=== PATIENT | female | born 1980 | race Caucasian/White ===

== ENCOUNTER 2018-02-17 16:04 | Outpatient (CLI) | payer MEDICARE, SELFPAY ==
[2018-02-17 16:48] LABS: Abs Immature Grans 0.01 k/cumm (0.0-0.09); Absolute Lymphocyte Count 1.98 k/cumm (1.2-3.4); Absolute Monocyte Count 0.43 k/cumm (0.11-0.7); Absolute Neutrophil Count 4.22 k/cumm (1.2-6.7); HCT 36.8 % (36.0-46.0); HGB 12.3 g/dL (12.0-15.5); Immature Grans % 0.2; Lymphocytes % 29.8; Mean Corp. HGB Concentration 33.4 g/dL (32.0-36.0); Mean Corpuscular Volume 86.8 fL (80-95); Mean Platelet Volume 10.6 fL (8.0-11.0); Monocytes % 6.5; Neutrophils % 63.5; Platelet Count 267 x1000/uL (130-400); RBC 4.24 m/cumm (4.00-5.20); RBC Distribution Width 14.2 % (11.7-14.6); White Blood Cell Count 6.64 k/cumm (4.4-10.8)
== END 2018-02-17 16:05 ==
PROVIDERS: PCP Nurse Practitioner Family; Visit Provider Nurse Practitioner Psychiatric/Mental Health
DX: F20.9 Schizophrenia, unspecified (principal); Z79.899 Other long term (current) drug therapy
CPT/HCPCS: 36415; 85025

== ENCOUNTER 2018-02-24 18:55 | Emergency (ER) | payer MEDICARE, SELFPAY ==
[2018-02-24] VITALS (33 sets, daily range): BP systolic 118–145; BP diastolic 69–92; PULSE 79–94; RESP 10–28; TEMP 36.4; O2SAT 94–99
--- NOTE | 2018-02-24 19:48 | ED.GENADUL ---
Disposition Clinical Impression: Chest pain Disposition: STILL A PATIENT Medical Decision Making - Medical Decision Making 37-year-old female here with chest pain intermittent over the past 1 week. Consider ACS. ECG reviewed and interpreted by me: Normal sinus rhythm 93 bpm, low voltage in precordial leads, normal axis, nondiagnostic. Concern for potential pulmonary embolism. Patient has had recent pain in her right calf and does have associated shortness of breath. She is saturating well in no respiratory distress at this time. Plan to proceed to CT imaging of the chest to rule out pulmonary embolism or other pulmonary etiology. I reviewed diagnostic plan with the patient and she is in agreement. Appears to be signed out to Dr. Ricks with plan to follow-up on diagnostic labs and CT chest. Distal pending workup and reassessment. History of Present Illness - General Chief complaint: Chest Pain Stated complaint: CHEST PAIN, SOB Time Seen by Provider: 02/24/18 19:26 Source: patient, RN notes reviewed Mode of arrival: ambulatory Limitations: no limitations - History of Present Illness Initial comments: 37-year-old female with history of schizoaffective disorder presents with chief complaint of chest pain. Pain is localized to retrosternal and has radiated to her left arm. Pain feels like an ache. Pain is been intermittent since onset about a week ago. Pain is moderate in intensity. No modifiers. She does have some associated intermittent shortness of breath over the past few weeks. She also notes that she has had some cramps in her right leg specifically after exercising over the past 1 month. No recent long distance travel. No recent surgery. She does take control. She does not smoke. - Related Data Clozapine 150 mg PO DAILY tab-cap 06/26/14 LamoTRIgine [LaMICtal] 100 mg PO HS tab-cap 06/26/14 Lurasidone HCl [Latuda] 140 mg PO DAILY tab-cap 06/26/14 Benztropine Mesylate [Cogentin] 0.5 mg PO DAILY ml 05/30/15 Clobetasol 0.05% Oint. [Temovate 0.05% Oint] 15 gm TP PRN #2 tube 06/30/16 Lactobacillus Acidophilus [Acidophilus] 1 each PO DAILY 06/30/16 Norethindrone [Nor-Q-D] 0.35 mg PO DAILY #1 pack 06/30/16 Dexlansoprazole [Dexilant] 30 mg PO DAILY 02/24/18 Allergies Allergy/AdvReac Type Severity Reaction Status Date / Time pantoprazole [From Protonix] Allergy Mild Nausea Unverified 02/24/18 19:08 Review of Systems Constitutional: denies: chills, fever Respiratory: shortness of breath. 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 Absent: wheezes, rales, rhonchi - Cardiovascular Cardiovascular Exam: Present: regular rate, normal rhythm, normal heart sounds - GI/Abdominal GI/Abdominal exam: Present: soft. Absent: distended, tenderness - Extremities Exam Extremities exam: Absent: pedal edema, calf tenderness - Neurological Exam Neurological exam: Present: alert. Absent: altered - Psychiatric Psychiatric exam: Present: normal affect - Skin Skin exam: Present: warm, dry, intact. Absent: cyanosis, diaphoretic Course Vital Signs - 24 hr 02/24/18 02/24/18 18:59 19:03 Temperature 36.4 C L Pulse 94 H Respiratory 18 18 Rate Blood Pressure 145/86 Pulse Oximetry 97
[2018-02-24 19:51] LABS: Absolute Lymphocyte Count 2.41 k/cumm (1.2-3.4); Absolute Monocyte Count 0.46 k/cumm (0.11-0.7); Absolute Neutrophil Count 4.18 k/cumm (1.2-6.7); HCT 38.2 % (36.0-46.0); HGB 12.7 g/dL (12.0-15.5); Lymphocytes % 34.2; Mean Corp. HGB Concentration 33.2 g/dL (32.0-36.0); Mean Corpuscular Hemoglobin 28.7 pg (27.0-33.0); Mean Corpuscular Volume 86.2 fL (80-95); Mean Platelet Volume 10.3 fL (8.0-11.0); Monocytes % 6.5; Neutrophils % 59.3; Platelet Count 256 x1000/uL (130-400); RBC 4.43 m/cumm (4.00-5.20); White Blood Cell Count 7.05 k/cumm (4.4-10.8)
--- NOTE | 2018-02-24 19:51 | DI.RPTCT_ITS ---
SYMPTOM/DIAGNOSIS: CHEST PAIN CHEST CT FOR PULMONARY EMBOLISM: CT angiography was performed with multi slice acquisition and multi planar and 3D reconstruction. Comparison is made with chest x-ray dated 10 September 2015. There is no evidence of pulmonary emboli. No pleural or pericardial effusions are seen. There is a motion at the level of the heart and base of the great vessels, no evidence of dissection. There are scattered areas of atelectasis. There is a patchy infiltrate seen in the right upper lobe. The lungs are poorly evaluated due to respiratory motion. There is a perfectly oriented smoothly marginated nodule in the right middle lobe measuring 9 x 4 mm. No adenopathy is seen. Liver shows fatty infiltration. No suspicious bony abnormalities are identified. IMPRESSION: No evidence of pulmonary emboli. Right upper lobe infiltrate. 9 mm nodule in the anterior right lower lobe. In absence of previous exams and 3-month follow up chest CT could be considered.
[2018-02-24 20:06] LABS: ALT 39 U/L (12-78); AST 37 U/L (15-37); Albumin 3.5 g/dL (3.4-5.0); Alkaline Phosphatase 103 U/L (46-116); Anion Gap 12.6 mmol/L (3-11); BUN 9 mg/dL (7-18); Bilirubin, Total 0.4 mg/dL (0.2-1.0); CO2 24.4 mmol/L (21.0-32.0); Calcium 8.7 mg/dL (8.5-10.1); Chloride 102 mmol/L (98-107); Estimated GFR 55.59 (mL/min/1.73m2); Glucose 179 mg/dL (70-100); Magnesium 1.9 mg/dL (1.8-2.4); Potassium 3.4 mmol/L (3.5-5.1); Sodium 139 mmol/L (136-145); Total Protein 7.8 g/dL (6.4-8.2)
[2018-02-24 20:07] LABS: Troponin I < 0.02 ng/mL (0.00-0.06)
[2018-02-24] MEDS: Omnipaque 350 MG/ML 100 ML BTL IJ (20:23)
[2018-02-24 20:26] LABS: D-Dimer 399 ng/mlFEU (<500)
--- NOTE | 2018-02-24 21:20 | DI.VRAD_ITS ---
EXAM: CT Angiography Chest With Intravenous Contrast EXAM DATE/TIME: 02/24/2018 7:52 PM CLINICAL HISTORY: 37 years old, female; Pain and signs and symptoms; Shortness of breath; Chest pain; Patient HX: Chest pain and SOB; Additional info: D dimer 399 TECHNIQUE: Axial computed tomographic angiography images of the chest with intravenous contrast using CT angiography protocol. Coronal and sagittal reformatted images were created and reviewed. MIP reconstructed images were created and reviewed. COMPARISON: CR - CHEST 2 VIEWS PA,LAT 2015-09-10 16:44 FINDINGS: Pulmonary arteries: Normal. No pulmonary emboli. Aorta: Normal. No aortic aneurysm. No aortic dissection. Lungs: Apparent developing patchy opacity is noted in the posterior right upper lobe. A 9 x 4 mm nodule is noted in the anterior right middle lobe (series 7, image 275). Scattered areas of atelectasis are present in the dependent lungs bilaterally, worst in the left base. Pleural space: Normal. No pneumothorax. No pleural effusion. Heart: Normal. No cardiomegaly. No pericardial effusion. Bones/joints: Unremarkable. No acute fracture. Soft tissues: Unremarkable. Lymph nodes: Unremarkable. No enlarged lymph nodes. Liver: There is a diffuse decrease in hepatic parenchymal density, consistent with fatty infiltration. Other findings: Exam is limited by quantum mottle and mild respiratory motion artifact. IMPRESSION: 1. No evidence of pulmonary embolism. 2. Developing patchy consolidation in the posterior right upper lobe, possibly representing developing pneumonia. Correlate clinically. 3. 9 x 4 mm solid nodule in the anterior right middle lobe. For low-risk patients consider a follow-up chest CT at 3 months. If unchanged consider an additional follow-up CT at 18-24 months. 4. Diffuse hepatic steatosis. Dictated and Authenticated by: Benjamin Giron MD. Ordering:REINALDO LUCAS MD
--- NOTE | 2018-02-24 22:31 | ED.FU_ITS ---
Disposition Clinical Impression: Chest pain Disposition: HOME Condition: Good Instructions: Chest Pain (ED) Additional Instructions: Your workup tonight suggest that this is not heart related, however, you need to follow-up with primary care to get outpatient stress testing arranged. Your CT scan showed a right lung nodule that will need reevaluation with repeat CT scan in 3 months. There was some suggestion of possible developing pneumonia but since you have no cough, fever, elevated white count, shortness of breath on a persistent basis we will hold off on antibiotics. You should follow-up with primary care if you start to develop pneumonia like symptoms or return to ED. You should return to ED for new or worsening chest pain, increasing shortness of breath, other concerns. Referrals: Barbara Morton [Primary Care Provider] - Medical Decision Making - Lab Data Laboratory Tests 02/24/18 02/24/18 02/24/18 19:42 19:42 19:42 WBC 7.05 RBC 4.43 Hgb 12.7 Hct 38.2 MCV 86.2 MCH 28.7 MCHC 33.2 RDW 14.0 Plt Count 256 MPV 10.3 Immature Gran % 0.0 Neutrophils % 59.3 Lymphocytes % 34.2 Monocytes % 6.5 Eosinophils % 0.0 Basophils % 0.0 Absolute Neutrophils 4.18 Absolute Lymphocytes 2.41 Absolute Monocytes 0.46 Absolute Eosinophils 0.00 Absolute Basophils 0.00 D-Dimer 399 Sodium 139 Potassium 3.4 L Chloride 102 Carbon Dioxide 24.4 Anion Gap 12.6 H BUN 9 Creatinine 1.10 H Estimated GFR/1.73 m2 55.59 Glucose 179 H Calcium 8.7 Magnesium 1.9 Total Bilirubin 0.4 AST 37 ALT 39 Alkaline Phosphatase 103 Troponin I < 0.02 Total Protein 7.8 Albumin 3.5 TSH 02/24/18 19:42 WBC RBC Hgb Hct MCV MCH MCHC RDW Plt Count MPV Immature Gran % Neutrophils % Lymphocytes % Monocytes % Eosinophils % Basophils % Absolute Neutrophils Absolute Lymphocytes Absolute Monocytes Absolute Eosinophils Absolute Basophils D-Dimer Sodium Potassium Chloride Carbon Dioxide Anion Gap BUN Creatinine Estimated GFR/1.73 m2 Glucose Calcium Magnesium Total Bilirubin AST ALT Alkaline Phosphatase Troponin I Total Protein Albumin TSH 3.60 Results reviewed for labs ordered during visit: Yes - EKG Data -: EKG Interpreted by Me EKG shows normal: sinus rhythm, axis, intervals Rate: normal - Medical Decision Making Patient's laboratory studies are unremarkable. Her initial troponin is negative. Her EKG is essentially normal, some slight nonspecific ST changes. I will give her a heart score of 2 based on risk factor and EKG. a repeat EKG and troponin and if negative will clear from a cardiac standpoint for outpatient follow-up. CTA of the chest shows no PE or dissection. She does have a nodule that is 9 x 4 mm in the right middle lobe which will need follow-up. There is some description of an apparent developing patchy opacity in the posterior right upper lobe. However patient denies fever, URI symptoms, cough. Her complaints of chest pain are left-sided and not right-sided. She also has intermittent shortness of breath for months not recent. I am not going to treat for pneumonia at this point. 1 AM - Repeat EKG is unchanged from previous. It is sinus rhythm at a rate of 84. There are no acute ST changes. Second troponin is negative. Patient will be discharged home to follow-up with primary care for outpatient stress testing. She will need repeat CT scan in 3 months to evaluate the nodule. She should watch for signs of pneumonia which include fever, increasing shortness of breath, cough and should see her primary care or return here if symptoms start. Otherwise despite CT scan findings as she is asymptomatic with no fever no white count will hold off on antibiotics. Care Signed Out By:: Dr. Vernon Brumfield - Vital Signs Recent Vitals - 8H: Vital Signs - 8 hr 02/24/18 02/24/18 18:59 19:03 Temperature 97.5 F L Pulse 94 H Respiratory 18 18 Rate Blood Pressure 145/86 Pulse Oximetry 97 - Continuation of Care Continuation of Care Plan: Patient had presented to ED with chest pain and was initially seen by Dr. Vernon Brumfield. Please see his note for initial history and physical. She was signed over to me pending results of CTA of the chest as well as laboratory studies. He felt she required a delta troponin but could probably be discharged. In brief, with my discussion with the patient she has had intermittent left- sided chest discomfort on and off for probably a year. She states it lasts anywhere from 1-5 minutes. It is random in nature. It is not necessarily associated with shortness of breath but she feels that she has had shortness of breath since this winter. She has not had either evaluated by her primary care. She only came in today because she was at a therapy session and mentioned the chest pain and her therapist felt she should be evaluated.
[2018-02-25] VITALS: PULSE 88; RESP 23; O2SAT 94
[2018-02-25 00:18] LABS: Troponin I < 0.02 ng/mL (0.00-0.06)
[2018-02-25 01:32] VITALS: BP 134/75; PULSE 84; RESP 23; O2SAT 94
== END 2018-02-25 01:32 | disposition home or self-care (01) ==
PROVIDERS: Student in an Organized Health Care Education/Training Program; Emergency Provider Emergency Medicine; PCP Nurse Practitioner Family
DX: R07.9 Chest pain, unspecified (principal); R06.02 Shortness of breath; R91.1 Solitary pulmonary nodule
CPT/HCPCS: 71275; 93005; 99285 ×2; 36415; 80053; 81025; 83735; 84443; 84484; 85025; 85379; 93010; J3490

== ENCOUNTER 2018-03-03 08:20 | Outpatient (REF) | payer MEDICARE, SELFPAY ==
[2018-03-03 12:30] LABS: Cholesterol 151 mg/dL (50-200); HDL Cholesterol 33 mg/dL (40-60); LDL CHOLESTEROL 90 mg/dL (<100); Triglyceride 269 mg/dL (30-150)
== END 2018-03-03 08:21 ==
LOC: NCHCN 08:20
PROVIDERS: PCP Nurse Practitioner Family; Visit Provider Nurse Practitioner Family
DX: K76.0 Fatty (change of) liver, not elsewhere classified (principal); R73.09 Other abnormal glucose; F25.9 Schizoaffective disorder, unspecified
CPT/HCPCS: 80061; 83721

== ENCOUNTER 2018-03-17 13:13 | Outpatient (CLI) | payer MEDICARE, SELFPAY ==
[2018-03-17 13:33] LABS: Abs Immature Grans 0.01 k/cumm (0.0-0.09); Absolute Neutrophil Count 4.29 k/cumm (1.2-6.7); HGB 12.5 g/dL (12.0-15.5); Immature Grans % 0.2; Lymphocytes % 25.4; Mean Corp. HGB Concentration 32.9 g/dL (32.0-36.0); Mean Corpuscular Hemoglobin 28.3 pg (27.0-33.0); Mean Platelet Volume 10.2 fL (8.0-11.0); Monocytes % 6.3; Neutrophils % 68.1; Platelet Count 230 x1000/uL (130-400); RBC 4.42 m/cumm (4.00-5.20); RBC Distribution Width 13.9 % (11.7-14.6)
== END 2018-03-17 13:33 ==
PROVIDERS: PCP Nurse Practitioner Family; Visit Provider Nurse Practitioner Psychiatric/Mental Health
DX: F20.9 Schizophrenia, unspecified (principal); Z79.899 Other long term (current) drug therapy
CPT/HCPCS: 36415; 85025

== ENCOUNTER 2018-04-14 14:49 | Outpatient (CLI) | payer MEDICARE, SELFPAY ==
[2018-04-14 15:36] LABS: Abs Immature Grans 0.01 k/cumm (0.0-0.09); Absolute Lymphocyte Count 1.82 k/cumm (1.2-3.4); Absolute Monocyte Count 0.36 k/cumm (0.11-0.7); Absolute Neutrophil Count 3.29 k/cumm (1.2-6.7); HCT 37.3 % (36.0-46.0); HGB 12.5 g/dL (12.0-15.5); Immature Grans % 0.2; Lymphocytes % 33.2; Mean Corp. HGB Concentration 33.5 g/dL (32.0-36.0); Mean Corpuscular Hemoglobin 28.5 pg (27.0-33.0); Mean Platelet Volume 10.7 fL (8.0-11.0); Monocytes % 6.6; Platelet Count 231 x1000/uL (130-400); RBC 4.39 m/cumm (4.00-5.20); RBC Distribution Width 14.3 % (11.7-14.6); White Blood Cell Count 5.48 k/cumm (4.4-10.8)
== END 2018-04-14 15:09 ==
PROVIDERS: PCP Nurse Practitioner Family; Visit Provider Nurse Practitioner Psychiatric/Mental Health
DX: F20.9 Schizophrenia, unspecified (principal); Z79.899 Other long term (current) drug therapy
CPT/HCPCS: 36415; 85025

== ENCOUNTER 2018-05-17 10:19 | Outpatient (CLI) | payer MEDICARE, SELFPAY ==
[2018-05-17 10:58] LABS: Absolute Monocyte Count 0.33 k/cumm (0.11-0.7); Absolute Neutrophil Count 3.19 k/cumm (1.2-6.7); HCT 37.2 % (36.0-46.0); HGB 12.3 g/dL (12.0-15.5); Lymphocytes % 31.3; Mean Corp. HGB Concentration 33.1 g/dL (32.0-36.0); Mean Corpuscular Hemoglobin 28.7 pg (27.0-33.0); Mean Corpuscular Volume 86.9 fL (80-95); Mean Platelet Volume 10.6 fL (8.0-11.0); Monocytes % 6.4; Neutrophils % 62.3; Platelet Count 218 x1000/uL (130-400); RBC 4.28 m/cumm (4.00-5.20); RBC Distribution Width 14.5 % (11.7-14.6); White Blood Cell Count 5.12 k/cumm (4.4-10.8)
[2018-05-17 13:44] LABS: Hemoglobin A1C 5.9 % (4.5-6.2)
[2018-05-17 15:28] LABS: ALT 39 U/L (12-78); AST 33 U/L (15-37); Albumin 3.4 g/dL (3.4-5.0); Alkaline Phosphatase 83 U/L (46-116); Anion Gap 11.2 mmol/L (3-11); BUN 12 mg/dL (7-18); Bilirubin, Total 0.4 mg/dL (0.2-1.0); CO2 22.8 mmol/L (21.0-32.0); CREATININE 1.02 mg/dL (0.55-1.02); Calcium 8.6 mg/dL (8.5-10.1); Chloride 103 mmol/L (98-107); Cholesterol 155 mg/dL (50-200); Glucose 171 mg/dL (70-100); HDL Cholesterol 32 mg/dL (40-60); LDL CHOLESTEROL 88 mg/dL (<100); Potassium 4.1 mmol/L (3.5-5.1); Sodium 137 mmol/L (136-145); TSH (W/Ref FT4) 2.59 uIU/mL (0.358-3.74); Total Protein 6.6 g/dL (6.4-8.2); Triglyceride 281 mg/dL (30-150)
== END 2018-05-17 10:39 ==
PROVIDERS: PCP Nurse Practitioner Family; Visit Provider Nurse Practitioner Psychiatric/Mental Health
DX: F20.9 Schizophrenia, unspecified (principal); Z79.899 Other long term (current) drug therapy
CPT/HCPCS: 36415; 80053; 80061; 83721; 83036; 84443; 85025

== ENCOUNTER 2018-06-16 14:22 | Outpatient (CLI) | payer MEDICARE, SELFPAY ==
[2018-06-16 15:18] LABS: Abs Immature Grans 0.01 k/cumm (0.0-0.09); Absolute Monocyte Count 0.46 k/cumm (0.11-0.7); Absolute Neutrophil Count 4.06 k/cumm (1.2-6.7); HCT 37.8 % (36.0-46.0); HGB 12.5 g/dL (12.0-15.5); Immature Grans % 0.2; Lymphocytes % 31.7; Mean Corp. HGB Concentration 33.1 g/dL (32.0-36.0); Mean Corpuscular Hemoglobin 28.9 pg (27.0-33.0); Mean Corpuscular Volume 87.5 fL (80-95); Mean Platelet Volume 10.7 fL (8.0-11.0); Monocytes % 6.9; Neutrophils % 61.2; Platelet Count 248 x1000/uL (130-400); RBC 4.32 m/cumm (4.00-5.20); RBC Distribution Width 14.3 % (11.7-14.6); White Blood Cell Count 6.63 k/cumm (4.4-10.8)
== END 2018-06-16 14:42 ==
PROVIDERS: PCP Nurse Practitioner Family; Visit Provider Nurse Practitioner Psychiatric/Mental Health
DX: F20.9 Schizophrenia, unspecified (principal); Z79.899 Other long term (current) drug therapy
CPT/HCPCS: 36415; 85025

== ENCOUNTER 2018-07-15 07:00 | Outpatient (CLI) | payer MEDICARE, SELFPAY ==
[2018-07-15 09:31] LABS: Abs Immature Grans 0.02 k/cumm (0.0-0.09); Absolute Basophil Count 0.01 k/cumm (0.0-0.2); Absolute Lymphocyte Count 1.73 k/cumm (1.2-3.4); Absolute Monocyte Count 0.34 k/cumm (0.11-0.7); Absolute Neutrophil Count 5.03 k/cumm (1.2-6.7); Basophils % 0.1; HCT 38.2 % (36.0-46.0); HGB 12.5 g/dL (12.0-15.5); Immature Grans % 0.3; Lymphocytes % 24.3; Mean Corp. HGB Concentration 32.7 g/dL (32.0-36.0); Mean Corpuscular Hemoglobin 28.7 pg (27.0-33.0); Mean Corpuscular Volume 87.6 fL (80-95); Mean Platelet Volume 10.7 fL (8.0-11.0); Monocytes % 4.8; Neutrophils % 70.5; Platelet Count 246 x1000/uL (130-400); RBC 4.36 m/cumm (4.00-5.20); White Blood Cell Count 7.13 k/cumm (4.4-10.8)
== END 2018-07-15 07:20 ==
PROVIDERS: PCP Nurse Practitioner Family; Visit Provider Nurse Practitioner Psychiatric/Mental Health
DX: F20.9 Schizophrenia, unspecified (principal); Z79.899 Other long term (current) drug therapy
CPT/HCPCS: 36415; 85025

== ENCOUNTER 2018-08-17 13:25 | Outpatient (CLI) | payer MEDICARE, SELFPAY ==
[2018-08-17 13:47] LABS: Abs Immature Grans 0.02 k/cumm (0.0-0.09); Absolute Lymphocyte Count 1.68 k/cumm (1.2-3.4); Absolute Neutrophil Count 4.46 k/cumm (1.2-6.7); HCT 37.8 % (36.0-46.0); HGB 12.4 g/dL (12.0-15.5); Immature Grans % 0.3; Lymphocytes % 25.6; Mean Corp. HGB Concentration 32.8 g/dL (32.0-36.0); Mean Corpuscular Hemoglobin 28.6 pg (27.0-33.0); Mean Corpuscular Volume 87.3 fL (80-95); Mean Platelet Volume 10.5 fL (8.0-11.0); Monocytes % 6.1; Platelet Count 227 x1000/uL (130-400); RBC 4.33 m/cumm (4.00-5.20); RBC Distribution Width 14.3 % (11.7-14.6); White Blood Cell Count 6.56 k/cumm (4.4-10.8)
== END 2018-08-17 13:45 ==
PROVIDERS: PCP Nurse Practitioner Family; Visit Provider Nurse Practitioner Psychiatric/Mental Health
DX: F20.9 Schizophrenia, unspecified (principal); Z79.899 Other long term (current) drug therapy
CPT/HCPCS: 85025

== ENCOUNTER 2018-09-15 11:01 | Outpatient (CLI) | payer MEDICARE, SELFPAY ==
[2018-09-15 11:30] LABS: Abs Immature Grans 0.01 k/cumm (0.0-0.09); Absolute Lymphocyte Count 1.69 k/cumm (1.2-3.4); Absolute Monocyte Count 0.51 k/cumm (0.11-0.7); Absolute Neutrophil Count 4.38 k/cumm (1.2-6.7); HCT 37.2 % (36.0-46.0); HGB 12.5 g/dL (12.0-15.5); Immature Grans % 0.2; Lymphocytes % 25.6; Mean Corp. HGB Concentration 33.6 g/dL (32.0-36.0); Mean Corpuscular Hemoglobin 29.5 pg (27.0-33.0); Mean Corpuscular Volume 87.7 fL (80-95); Mean Platelet Volume 10.4 fL (8.0-11.0); Monocytes % 7.7; Neutrophils % 66.5; Platelet Count 229 x1000/uL (130-400); RBC 4.24 m/cumm (4.00-5.20); RBC Distribution Width 14.3 % (11.7-14.6); White Blood Cell Count 6.59 k/cumm (4.4-10.8)
== END 2018-09-15 11:21 ==
PROVIDERS: PCP Nurse Practitioner Family; Visit Provider Nurse Practitioner Psychiatric/Mental Health
DX: F20.9 Schizophrenia, unspecified (principal); Z79.899 Other long term (current) drug therapy
CPT/HCPCS: 36415; 85025

== ENCOUNTER → 2018-09-28 01:16 | Outpatient (CLI) | payer MEDICARE, SELFPAY ==
--- NOTE | 2018-09-28 15:07 | DI.CT_ITS ---
SYMPTOM/DIAGNOSIS: SOLITARY NODULE LUNG, R91.[address]: A noncontrast enhanced examination was performed. There is no pulmonary infiltrate or pleural effusion. Small regions of scarring are noted in the left lower lobe. There is a pleural based, 8 by 5 mm. nodule in the right upper lobe. There is on this noncontrast enhanced examination no evidence of a hilar mass or adenopathy. The heart is not enlarged. There is no pericardial effusion. SUMMARY: An 8 by 5 mm. right upper lobe pleural based nodule is demonstrated. There are small regions of apparent scarring involving the left lower lobe. There has been no change in the size of the right upper lobe pleural based nodule when compared with a prior examination of 02/24/18.
== END ==
PROVIDERS: PCP Nurse Practitioner Family; Visit Provider Nurse Practitioner Family
DX: R91.1 Solitary pulmonary nodule (principal); J98.4 Other disorders of lung
CPT/HCPCS: 71250

== ENCOUNTER 2018-10-17 11:20 | Outpatient (CLI) | payer MEDICARE, SELFPAY ==
[2018-10-17 12:18] LABS: Abs Immature Grans 0.02 k/cumm (0.0-0.09); Absolute Lymphocyte Count 1.47 k/cumm (1.2-3.4); Absolute Neutrophil Count 4.72 k/cumm (1.2-6.7); HCT 37.9 % (36.0-46.0); HGB 12.5 g/dL (12.0-15.5); Immature Grans % 0.3; Lymphocytes % 22.2; Mean Corpuscular Hemoglobin 28.9 pg (27.0-33.0); Mean Corpuscular Volume 87.5 fL (80-95); Monocytes % 6.1; Neutrophils % 71.4; Platelet Count 234 x1000/uL (130-400); RBC 4.33 m/cumm (4.00-5.20); RBC Distribution Width 14.1 % (11.7-14.6); White Blood Cell Count 6.61 k/cumm (4.4-10.8)
[2018-10-17 12:46] LABS: Hemoglobin A1C 6.5 % (4.5-6.2)
[2018-10-19 09:44] LABS: Clozapine 337 ng/mL (>350); Clozapine+Norclozapine Total 541 ng/mL (>450); Norclozapine 204 ng/mL
== END 2018-10-17 11:40 ==
PROVIDERS: PCP Nurse Practitioner Family; Visit Provider Nurse Practitioner Psychiatric/Mental Health
DX: F20.9 Schizophrenia, unspecified (principal); Z79.899 Other long term (current) drug therapy; Z51.81 Encounter for therapeutic drug level monitoring
CPT/HCPCS: 36415; 80159; 83036; 85025

== ENCOUNTER 2018-11-15 12:13 | Outpatient (CLI) | payer MEDICARE, SELFPAY ==
[2018-11-15 12:44] LABS: Abs Immature Grans 0.01 k/cumm (0.0-0.09); Absolute Lymphocyte Count 1.94 k/cumm (1.2-3.4); Absolute Neutrophil Count 4.24 k/cumm (1.2-6.7); HCT 39.3 % (36.0-46.0); Immature Grans % 0.2; Lymphocytes % 29.4; Mean Corp. HGB Concentration 33.1 g/dL (32.0-36.0); Mean Corpuscular Hemoglobin 28.9 pg (27.0-33.0); Mean Corpuscular Volume 87.3 fL (80-95); Mean Platelet Volume 10.8 fL (8.0-11.0); Monocytes % 6.1; Neutrophils % 64.3; Platelet Count 252 x1000/uL (130-400); RBC Distribution Width 14.1 % (11.7-14.6); White Blood Cell Count 6.59 k/cumm (4.4-10.8)
== END 2018-11-15 12:33 ==
PROVIDERS: PCP Nurse Practitioner Family; Visit Provider Nurse Practitioner Psychiatric/Mental Health
DX: F50.9 Eating disorder, unspecified (principal); Z79.899 Other long term (current) drug therapy
CPT/HCPCS: 36415; 85025

== ENCOUNTER 2018-12-13 16:00 | Outpatient (REF) | payer MEDICARE, SELFPAY ==
[2018-12-13 21:21] LABS: COMMENT (LAB VIEW ONLY) < 13.00 mg/dL
== END 2018-12-13 16:20 ==
LOC: NCHCN 16:00
PROVIDERS: PCP Nurse Practitioner Family; Visit Provider Nurse Practitioner Family
DX: E11.9 Type 2 diabetes mellitus without complications (principal)
CPT/HCPCS: 82043; 82570

== ENCOUNTER 2018-12-23 09:51 | Outpatient (CLI) | payer MEDICARE, SELFPAY ==
[2018-12-23 12:44] LABS: Abs Immature Grans 0.01 k/cumm (0.0-0.09); Absolute Lymphocyte Count 1.56 k/cumm (1.2-3.4); Absolute Monocyte Count 0.42 k/cumm (0.11-0.7); HCT 39.8 % (36.0-46.0); HGB 13.1 g/dL (12.0-15.5); Immature Grans % 0.2; Lymphocytes % 29.5; Mean Corp. HGB Concentration 32.9 g/dL (32.0-36.0); Mean Corpuscular Hemoglobin 28.7 pg (27.0-33.0); Mean Corpuscular Volume 87.3 fL (80-95); Mean Platelet Volume 10.8 fL (8.0-11.0); Monocytes % 7.9; Neutrophils % 62.4; Platelet Count 240 x1000/uL (130-400); RBC 4.56 m/cumm (4.00-5.20); RBC Distribution Width 14.4 % (11.7-14.6); White Blood Cell Count 5.29 k/cumm (4.4-10.8)
== END 2018-12-23 10:11 ==
PROVIDERS: PCP Nurse Practitioner Family; Visit Provider Nurse Practitioner Family
DX: F20.9 Schizophrenia, unspecified (principal); Z79.899 Other long term (current) drug therapy
CPT/HCPCS: 36415; 85025

== ENCOUNTER 2018-12-30 03:41 | Outpatient (CLI) | payer MEDICARE, SELFPAY ==
--- NOTE | 2018-12-30 11:00 | DIABASSESS_ITS ---
DESCRIPTION/ASSESSMENT: Nati Marcos presents for diabetes self management support focused on nutrition. Newly diagnosed with A1c 6.5. BMI 49 NUTRITION: co-morbidity of Irritable Bowel Syndrome with diarrhea 2-3x/day. Currently following BRAT diet except for the toast. She has stopped dairy foods. She has been going to OA 1 month and is staying away from processed foods, frozen pizza, bread and pasta. 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 She snacks on rice cake with peanut butter and banana; turkey ham slices. She reports binge foods include grains and nuts.She snacks on fruit. She states she has to eat at 10 and 4. PHYSICAL ACTIVITY: sitting yoga; treadmill 10 minutes when she does it. STRESS: Nati states she has medication for depression with ongoing support. INTERVENTION: NUTRITION: Discussed food associated with diarrhea and she agrees leafy greens may trigger symptoms. Discussed hunger/fullness in relation to when and how much she eats. MONITORING: Given her low A1c, discussed benefits of monitoring. Suggest she focus on managing her food at this time and will consider blood sugar monitoring at a later time. Random blood sugar today 149. PHYSICAL ACTIVITY: Discussed ways to assure physical activity most days. PLAN: Nati agrees to: track food and symptoms for a week. Stop leafy greens try having snack before using treadmill; eat breakfast closer to 10 when most hungry She wishes to return in 2 weeks. Individual MNT __3__ units billed TIME IN: 1100 OUT: 1150 No DM group education series being offered at this time.
== END 2018-12-30 04:01 ==
PROVIDERS: PCP Nurse Practitioner Family; Visit Provider Dietitian, Registered
DX: E11.9 Type 2 diabetes mellitus without complications (principal); K58.9 Irritable bowel syndrome, unspecified; Z68.42 Body mass index [BMI] 45.0-49.9, adult; Z71.3 Dietary counseling and surveillance
CPT/HCPCS: 97802

== ENCOUNTER 2019-01-11 00:58 | Outpatient (CLI) | payer MEDICARE, SELFPAY ==
--- NOTE | 2019-01-11 09:00 | DIABASSESS_ITS ---
Follow up visit for Nati Marcos who is working to lose weight as a way to manage diabetes. Weight today 300.6 down 4 pounds in 2 weeks. Nati was able to decrease the sugar and carbohydrate foods at breakfast. She is recording her food, symptoms and hunger/fullness for 2.5 days. She monitors her blood sugars testing her breakfast for 2 days. She sees egg and vegetables give lower blood sugar than rice cake, raisins and apple. She has discontinued greens and finds she has fewer loose stools. She also notes after supper she is full to uncomfortable. She notes her neuropathy is worse if she eats sugar. She has increased her physical activity with yoga warm up, cahir exercises and treadmill. She was able to exercise before eating her breakfast. 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 Fasting blood sugars 111=142; random blood sugars 121-180. INTERVENTION: Discussed options for sustaining her current food regimen. She has an OA sponsor which he finds helpful and will continue to commit her food plan to her/him. She asks questions about food quality and quantity. Discuss strategies to keep vegetables part of her food plan. Discussed mindful eating with awareness for how fast she eats. Discussed physical activity and she feels she sometimes overdoes and doesn't feel well. Discussed splitting exercise into AM and PM routines and she agrees. PLAN: Nati wishes to work on how fast she eats a meal; increase her water intake; pay attention to her hunger/fulness. She wishes to return and will call for an appointment. Individual MN/T __2__ units billed TIME IN: 900 OUT: 0940 No DM group education series being offered at this time.
== END 2019-01-11 01:18 ==
PROVIDERS: PCP Nurse Practitioner Family; Visit Provider Dietitian, Registered
DX: E11.9 Type 2 diabetes mellitus without complications (principal); Z71.3 Dietary counseling and surveillance
CPT/HCPCS: 97802

== ENCOUNTER 2019-01-20 11:42 | Outpatient (CLI) | payer MEDICARE, SELFPAY ==
[2019-01-20 12:10] LABS: Abs Immature Grans 0.02 k/cumm (0.0-0.09); Absolute Lymphocyte Count 1.74 k/cumm (1.2-3.4); Absolute Monocyte Count 0.42 k/cumm (0.11-0.7); Absolute Neutrophil Count 4.67 k/cumm (1.2-6.7); HCT 39.5 % (36.0-46.0); Immature Grans % 0.3; Lymphocytes % 25.4; Mean Corp. HGB Concentration 32.9 g/dL (32.0-36.0); Mean Corpuscular Hemoglobin 28.8 pg (27.0-33.0); Mean Corpuscular Volume 87.4 fL (80-95); Mean Platelet Volume 10.9 fL (8.0-11.0); Monocytes % 6.1; Neutrophils % 68.2; Platelet Count 241 x1000/uL (130-400); RBC 4.52 m/cumm (4.00-5.20); RBC Distribution Width 14.5 % (11.7-14.6); White Blood Cell Count 6.85 k/cumm (4.4-10.8)
== END 2019-01-20 12:02 ==
LOC: NCHCO 11:43 → LBO 11:44
PROVIDERS: PCP Nurse Practitioner Family; Visit Provider Nurse Practitioner Family
DX: F20.9 Schizophrenia, unspecified (principal); Z79.899 Other long term (current) drug therapy
CPT/HCPCS: 36415; 85025

== ENCOUNTER 2019-01-24 16:37 | Emergency (ER) | payer MEDICARE, SELFPAY ==
[2019-01-24 16:45] VITALS: BP 133/109; PULSE 67; RESP 16; TEMP 36.4; O2SAT 95
--- NOTE | 2019-01-24 16:50 | DI.RAD_ITS ---
SYMPTOM/DIAGNOSIS: CRUSH INJURY RIGHT INDEX FINGER: There is a mild displaced transverse fracture of the tuft of the index finger. Associated soft tissue swelling is noted.
[2019-01-24] MEDS: Ibuprofen 800 MG TAB PO (17:03)
--- NOTE | 2019-01-24 17:38 | DI.VRAD_ITS ---
EXAM: XR Right Finger(s) EXAM DATE/TIME: 01/24/2019 4:51 PM CLINICAL HISTORY: 38 years old, female; Other: Crush injury distal phalynx tip TECHNIQUE: Imaging protocol: XR Right fingers. Views: Minimum 2 views. COMPARISON: No relevant prior studies available. FINDINGS: Bones/joints: Fracture in the tuft of the second digit. Overlying soft tissue injury. Soft tissues: See Bones/joints Finding. IMPRESSION: Fracture in the tuft of the second digit. Overlying soft tissue injury. Dictated and Authenticated by: Betty Og MD. Ordering:AKI Hung MD
--- NOTE | 2019-01-24 17:55 | W.ED.GENAD ---
Discharge Plan Disposition Patient Disposition: HOME Condition: Good Discharge Details Chief Complaint: Orthopedic Clinical Impression: Avulsion of nail, Open fracture of tuft of distal phalanx of finger Primary Care Provider: Barbara Morton ED Provider: Abhilash Hogan Home Meds and New Rx's Prescriptions: New cephalexin [Keflex] 500 mg capsule 500 mg PO QID 7 Days Qty: 28 RF: 0 No Action clozapine 100 MG tablet 150 mg PO DAILY RF: 0 lamotrigine [Lamictal] 100 MG tablet 100 mg PO HS RF: 0 lurasidone [Latuda] 120 MG tablet 140 mg PO DAILY RF: 0 benztropine [Cogentin] 2 MG/2 ML solution 0.5 mg PO DAILY RF: 0 Lactobacillus acidophilus 1 EACH capsule 1 ea PO DAILY RF: 0 norethindrone (contraceptive) [Nor-Q-D] 0.35 MG tablet 0.35 mg PO DAILY Qty: 1 RF: 12 clobetasol 15 GM ointment 15 gm Topical PRN Qty: 2 RF: 1 dexlansoprazole [Dexilant] 30 MG capsule,biphase delayed releas 30 mg PO DAILY RF: 0 Discharge Instructions Instructions: Finger Fracture (ED) Additional Instructions: The tip of your finger is fractured. Because of this please take the antibiotic, 4 times per day. Please use 1000 mg of Tylenol and 600 mg of ibuprofen every 6 hours as needed for pain. Please follow-up promptly with your primary care provider for reassessment. If you notice any drainage, discharge, redness spreading up your finger, worsening pain please return immediately. Please take a probiotic or yogurt with live culture while on the antibiotic. If you notice any worsening of your symptoms, or any new symptoms such as vomiting, diarrhea, fever, chills, shortness of breath, chest pain, numbness, weakness, or fainting , please return immediately to the emergency department for reevaluation. Please follow up with your primary care provider as soon as possible for reassessment and reevaluation. As always, it was a pleasure participating in your medical care today. Referrals: Barbara Morton [Primary Care Provider] - Discharge Data Discharge Date/Time-TO BE ENTERED AT DEPARTURE: 01/24/19 18:30 Medical Decision Making This is a 38-year-old female who presents today for evaluation of nail injury to the distal tip of the right index finger with partial nail avulsion. She slammed it in a car door. Tetanus was updated in 2012. X-ray was performed and demonstrates evidence of fracture on the distal tip. Utilizing a horizontal mattress technique the nail was drawn back into and reapproximated into the nail fold. A second simple interrupted suture was applied to t medial aspect of the finger for wound edge reapproximation. Patient tolerated all this well. Secondary to the evidence of fracture she will be given Keflex for home use for infection. We will schedule orthopedic follow-up. We discussed red flags which to return. Patient was placed in a splint. I have extensively reviewed the treatment plan and discharge instructions with the patient and their family. I have addressed all patient concerns at this time. The patient and family was made aware of what symptoms to monitor for that would warrant a return to the emergency department. Discussed the plan with the patient and family, they demonstrate verbal understanding and agreement with our assessment and plan at this time. Digital block was performed with a 50-50 mixture of lidocaine and bupivacaine. The finger was then irrigated with copious amounts of normal saline. Right index finger nail avulsion and distal tuft fracture with one 4-0 Vicryl suture via a horizontal mattress technique was used to reapproximate the nail. And one 5-0 chromic gut suture in a simple interrupted fashion on the medial aspect. FINDINGS: Bones/joints: Fracture in the tuft of the second digit. Overlying soft tissue injury. Soft tissues: See Bones/joints Finding. IMPRESSION: Fracture in the tuft of the second digit. Overlying soft tissue injury. Thank you for allowing us to participate in the care of your patient. Dictated and Authenticated by: Betty Og MD 01/24/2019 5:37 PM Eastern Time ([place] & [place]) HPI General Date/Time Provider Initiated Documentation: 01/24/19 16:45. HPI Narrative: This is a pleasant 38-year-old female who is [id number] who presents today after crushing her fingertip of the index finger in a car door. Patient states that 30 minutes prior to arrival she slammed her finger the car door and has had notable pain since then. She has notable trauma to the nail itself. Active bleeding is present. Notable pain, worse with movement. She denies any other significant complaints. Tetanus is updated in 2012. No other modifying factors, no other sites of trauma. Related Data Home Medications Medication Instructions Recorded Confirmed clozapine 150 mg PO DAILY tab-cap 06/26/14 02/24/18 lamotrigine [Lamictal] 100 mg PO HS tab-cap 06/26/14 02/24/18 lurasidone [Latuda] 140 mg PO DAILY tab-cap 06/26/14 02/24/18 benztropine [Cogentin] 0.5 mg PO DAILY ml 05/30/15 02/24/18 Lactobacillus acidophilus 1 ea PO DAILY 06/30/16 02/24/18 clobetasol 15 gm TOPICAL PRN #2 tube 06/30/16 norethindrone (contraceptive) 0.35 mg PO DAILY #1 pack 06/30/16 [Nor-Q-D] dexlansoprazole [Dexilant] 30 mg PO DAILY 02/24/18 02/24/18 cephalexin [Keflex] 500 mg PO QID 7 Days #28 cap 01/24/19 Previous Rx's Medication Instructions Recorded cephalexin [Keflex] 500 mg PO QID 7 Days #28 cap 01/24/19 Allergies Allergy/AdvReac Type Severity Reaction Status Date / Time pantoprazole [From Protonix] Allergy Mild Nausea Unverified 01/24/19 16:48 General Stated Complaint: Orthopedic GINNY: 4 Review of Systems Review of Systems All systems reviewed & are unremarkable except as noted in HPI and below PFSH Family History Mother Cancer Father Diabetes Social History Smoking/Tobacco Use Status: Former Tobacco Use Drug use: Never Do you feel safe at home: Yes Do you feel safe in your relationship?: Yes Exam Narrative Exam Narrative: 1.Const: Well-nourished, Well-developed, appearing stated age 2.Eyes: PERRL, no conjunctival injection, and symmetrical lids. 3.ENT: Atraumatic external nose and ears. Moist MM. Neck: Symmetric, trachea midline, No thyromegaly. 4.CVS: +S1/S2, No murmurs or gallops. Peripheral pulses 2+ and equal in all extremities. Brisk capillary refill in all extremities. 5.RESP: Unlabored respiratory effort. Clear to auscultation bilaterally. No wheezes rales or rhonchi 6.GI: Soft, Nontender/Nondistended, No hepatosplenomegaly. No guarding or rebound. 7.MSK: Normocephalic,No cyanosis or clubbing, Normal movement of all extremities. Normal flexion extension of the index finger, although slightly reduced secondary to pain. There is notable deformity to the nail itself with notable avulsion at the proximal component. Capillary refill is brisk. Sensation is reduced but intact on the distal tip. Difficult to evaluate for two-point discrimination secondary to pain. 8.Skin: Warm, Dry. No rashes or lesions. 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 Sensation grossly intact, no focal neurologic deficits. 10.Psych: (AAO) x3. Appropriate mood and affect Course Vital Signs Temperature 36.4 C L 01/24/19 16:45 Pulse 67 01/24/19 16:45 Respiratory Rate 16 01/24/19 16:45 Blood Pressure 133/109 H 01/24/19 16:45 Pulse Oximetry 95 01/24/19 16:45 Temperature 36.4 C L 01/24/19 16:45 Temperature Source Temporal Artery Scan 01/24/19 16:45 Pulse 67 01/24/19 16:45 Respiratory Rate 16 01/24/19 16:45 Respiratory Effort Non-Labored 01/24/19 16:46 Blood Pressure 133/109 H 01/24/19 16:45 Blood Pressure Position Sitting 01/24/19 16:45 Pulse Oximetry 95 01/24/19 16:45 Oxygen Delivery Method Room Air 01/24/19 16:45 Oxygen Flow Rate 0 01/24/19 16:45 Pain Level 5 01/24/19 16:45
[2019-01-24] MEDS: Cephalexin 500 MG CAP (18:16)
== END 2019-01-24 18:30 | disposition home or self-care (01) ==
PROVIDERS: Emergency Provider Student in an Organized Health Care Education/Training Program; PCP Nurse Practitioner Family
DX: S67.190A Crushing injury of right index finger, initial encounter (principal); S62.630B Displaced fracture of distal phalanx of right index finger, initial encounter for open fracture; W23.0XXA Caught, crushed, jammed, or pinched between moving objects, initial encounter
CPT/HCPCS: 12001; 99283; 73140; 99282

== ENCOUNTER 2019-02-02 10:14 | Outpatient (CLI) | payer MEDICARE, SELFPAY ==
--- NOTE | 2019-02-02 10:08 | DI.RAD_ITS ---
SYMPTOM/DIAGNOSIS: F/U RIGHT INDEX FINGER: Comparison is made with 24 January 2019. There has been no change in alignment of the tuft fracture and shows some healing when compared with the previous exam.
== END 2019-02-02 10:34 ==
PROVIDERS: PCP Nurse Practitioner Family; Referring Provider Nurse Practitioner Family; Visit Provider Orthopaedic Surgery
DX: S62.630A Displaced fracture of distal phalanx of right index finger, initial encounter for closed fracture (principal); W23.0XXA Caught, crushed, jammed, or pinched between moving objects, initial encounter
CPT/HCPCS: 99201; 99213; 73140

== ENCOUNTER → 2019-02-21 08:52 | Outpatient (BNVA) | payer MEDICARE, SELFPAY | PROVIDERS: PCP Nurse Practitioner Family; Referring Provider Nurse Practitioner Family; Visit Provider Orthopaedic Surgery | DX: S62.630D Displaced fracture of distal phalanx of right index finger, subsequent encounter for fracture with routine healing (principal); X58.XXXD Exposure to other specified factors, subsequent encounter | CPT/HCPCS: 99213 ==

== ENCOUNTER 2019-02-22 12:37 | Outpatient (CLI) | payer MEDICARE, SELFPAY ==
[2019-02-22 13:37] LABS: Abs Immature Grans 0.02 k/cumm (0.0-0.09); Absolute Lymphocyte Count 1.75 k/cumm (1.2-3.4); Absolute Monocyte Count 0.39 k/cumm (0.11-0.7); Absolute Neutrophil Count 4.69 k/cumm (1.2-6.7); HCT 39.1 % (36.0-46.0); HGB 12.9 g/dL (12.0-15.5); Immature Grans % 0.3; Lymphocytes % 25.5; Mean Corpuscular Hemoglobin 28.9 pg (27.0-33.0); Mean Corpuscular Volume 87.5 fL (80-95); Mean Platelet Volume 10.8 fL (8.0-11.0); Monocytes % 5.7; Neutrophils % 68.5; Platelet Count 260 x1000/uL (130-400); RBC 4.47 m/cumm (4.00-5.20); RBC Distribution Width 14.2 % (11.7-14.6); White Blood Cell Count 6.85 k/cumm (4.4-10.8)
== END 2019-02-22 12:57 ==
PROVIDERS: PCP Nurse Practitioner Family; Visit Provider Nurse Practitioner Family
DX: Z79.899 Other long term (current) drug therapy (principal); F20.9 Schizophrenia, unspecified
CPT/HCPCS: 36415; 85025

== ENCOUNTER 2019-03-08 02:00 | Outpatient (CLI) | payer MEDICARE, SELFPAY ==
--- NOTE | 2019-03-08 09:00 | DIABASSESS_ITS ---
DESCRIPTION/ASSESSMENT: Merlene requests a follow up for weight management in diabetes. SHe continues to participate in OA with her sponsor and finds this helpful. She is exploring different dietary practices i.e. vegetarian diet and wonders how to get enough protein if she eats vegetarian. State she has just started eating roasted vegetables, has given up sugar in her coffe, and has had no ice cream and olnly an occasional candy bar. She continues to watch her sodium intake and uses powdered herbs. She states her improved diet has helped her irritable bowel. Weight today: 292.9 She states her fasting blood sugars are good ~ 110-120s. She is doing sitting stretches 2-3 times a week for 20 minutes. INTERVENTION: DSME is provided in the following AADE 7 areas based on patients interest and assessment of needs: Discussed vegetarian food plan, pros and cons and will send her websites for recipes. SHe will also look at [email or web address] for recipes and support. Discussed monitoring blood sugars for meaning. ACTION PLAN: She will continue current plan for weight loss; try some vegetarian recipes monitor her blood sugars occasionally at supper or bedtime Individual MNT __2__ units billed TIME IN: 800 OUT: 840 No DM group education series being offered at this time.
== END 2019-03-08 02:20 ==
PROVIDERS: PCP Nurse Practitioner Family; Visit Provider Dietitian, Registered
DX: E11.9 Type 2 diabetes mellitus without complications (principal); Z45.2 Encounter for adjustment and management of vascular access device
CPT/HCPCS: 97802

== ENCOUNTER 2019-03-16 13:16 | Outpatient (CLI) | payer MEDICARE, SELFPAY ==
[2019-03-16 13:45] LABS: Abs Immature Grans 0.01 k/cumm (0.0-0.09); Absolute Lymphocyte Count 1.84 k/cumm (1.2-3.4); Absolute Monocyte Count 0.44 k/cumm (0.11-0.7); Absolute Neutrophil Count 5.06 k/cumm (1.2-6.7); HCT 37.6 % (36.0-46.0); HGB 12.7 g/dL (12.0-15.5); Immature Grans % 0.1; Mean Corp. HGB Concentration 33.8 g/dL (32.0-36.0); Mean Corpuscular Hemoglobin 29.7 pg (27.0-33.0); Mean Corpuscular Volume 87.9 fL (80-95); Mean Platelet Volume 10.6 fL (8.0-11.0); Neutrophils % 68.9; Platelet Count 279 x1000/uL (130-400); RBC 4.28 m/cumm (4.00-5.20); RBC Distribution Width 13.9 % (11.7-14.6); White Blood Cell Count 7.35 k/cumm (4.4-10.8)
== END 2019-03-16 13:36 ==
PROVIDERS: PCP Nurse Practitioner Family; Visit Provider Nurse Practitioner Family
DX: F20.9 Schizophrenia, unspecified (principal); Z79.899 Other long term (current) drug therapy
CPT/HCPCS: 36415; 85025

== ENCOUNTER 2019-04-25 15:10 | Outpatient (CLI) | payer MEDICARE, SELFPAY ==
[2019-04-25 15:37] LABS: Abs Immature Grans 0.01 k/cumm (0.0-0.09); Absolute Lymphocyte Count 1.81 k/cumm (1.2-3.4); Absolute Monocyte Count 0.44 k/cumm (0.11-0.7); Absolute Neutrophil Count 4.95 k/cumm (1.2-6.7); HGB 12.3 g/dL (12.0-15.5); Immature Grans % 0.1; Lymphocytes % 25.1; Mean Corp. HGB Concentration 32.4 g/dL (32.0-36.0); Mean Corpuscular Hemoglobin 28.4 pg (27.0-33.0); Mean Corpuscular Volume 87.8 fL (80-95); Mean Platelet Volume 10.4 fL (8.0-11.0); Monocytes % 6.1; Neutrophils % 68.7; Platelet Count 252 x1000/uL (130-400); RBC 4.33 m/cumm (4.00-5.20); RBC Distribution Width 13.8 % (11.7-14.6); White Blood Cell Count 7.21 k/cumm (4.4-10.8)
== END 2019-04-25 15:30 ==
PROVIDERS: PCP Nurse Practitioner Family; Visit Provider Nurse Practitioner Family
DX: F20.9 Schizophrenia, unspecified (principal); Z79.899 Other long term (current) drug therapy
CPT/HCPCS: 36415; 85025

== ENCOUNTER 2019-05-22 13:06 | Outpatient (CLI) | payer MEDICARE, SELFPAY ==
[2019-05-22 13:36] LABS: Abs Immature Grans 0.01 k/cumm (0.0-0.09); Absolute Eosinophil Count 0.01 k/cumm (0.0-0.7); Absolute Lymphocyte Count 1.88 k/cumm (1.2-3.4); Absolute Monocyte Count 0.45 k/cumm (0.11-0.7); Absolute Neutrophil Count 4.16 k/cumm (1.2-6.7); Eosinophils % 0.2; HCT 38.9 % (36.0-46.0); HGB 12.8 g/dL (12.0-15.5); Immature Grans % 0.2; Lymphocytes % 28.9; Mean Corp. HGB Concentration 32.9 g/dL (32.0-36.0); Mean Corpuscular Hemoglobin 28.8 pg (27.0-33.0); Mean Corpuscular Volume 87.4 fL (80-95); Mean Platelet Volume 10.3 fL (8.0-11.0); Monocytes % 6.9; Neutrophils % 63.8; Platelet Count 283 x1000/uL (130-400); RBC 4.45 m/cumm (4.00-5.20); RBC Distribution Width 13.8 % (11.7-14.6); White Blood Cell Count 6.51 k/cumm (4.4-10.8)
== END 2019-05-22 13:26 ==
PROVIDERS: PCP Nurse Practitioner Family; Visit Provider Nurse Practitioner Family
DX: F20.9 Schizophrenia, unspecified (principal); Z79.899 Other long term (current) drug therapy
CPT/HCPCS: 36415; 85025

== ENCOUNTER 2019-06-29 09:05 | Outpatient (CLI) | payer MEDICARE, SELFPAY ==
[2019-06-29 09:47] LABS: Abs Immature Grans 0.01 k/cumm (0.0-0.09); Absolute Lymphocyte Count 1.99 k/cumm (1.2-3.4); Absolute Monocyte Count 0.55 k/cumm (0.11-0.7); Absolute Neutrophil Count 4.47 k/cumm (1.2-6.7); HCT 39.8 % (36.0-46.0); Immature Grans % 0.1; Lymphocytes % 28.3; Mean Corp. HGB Concentration 32.7 g/dL (32.0-36.0); Mean Corpuscular Hemoglobin 28.1 pg (27.0-33.0); Mean Corpuscular Volume 86.1 fL (80-95); Mean Platelet Volume 10.5 fL (8.0-11.0); Monocytes % 7.8; Neutrophils % 63.8; Platelet Count 278 x1000/uL (130-400); RBC 4.62 m/cumm (4.00-5.20); RBC Distribution Width 13.8 % (11.7-14.6); White Blood Cell Count 7.02 k/cumm (4.4-10.8)
[2019-06-29 10:43] LABS: Calculated LDL 107 mg/dL; Cholesterol 171 mg/dL (<200); HDL Cholesterol 34 mg/dL (40-60); TSH 4.62 uIU/mL (0.36-3.74); Triglyceride 151 mg/dL (<150)
[2019-06-30 17:06] LABS: FREE T4 0.97 ng/dL (0.76-1.46)
== END 2019-06-29 09:25 ==
PROVIDERS: PCP Nurse Practitioner Family; Visit Provider Nurse Practitioner Family
DX: F20.9 Schizophrenia, unspecified (principal); Z79.899 Other long term (current) drug therapy; F25.0 Schizoaffective disorder, bipolar type; R53.81 Other malaise; R94.6 Abnormal results of thyroid function studies
CPT/HCPCS: 36415; 80061; 84439; 84443; 85025

== ENCOUNTER 2019-07-18 10:44 | Outpatient (CLI) | payer MEDICARE, SELFPAY ==
[2019-07-18 11:35] LABS: Abs Immature Grans 0.02 k/cumm (0.0-0.09); Absolute Lymphocyte Count 1.75 k/cumm (1.2-3.4); Absolute Monocyte Count 0.53 k/cumm (0.11-0.7); Absolute Neutrophil Count 4.94 k/cumm (1.2-6.7); HCT 38.7 % (36.0-46.0); HGB 12.8 g/dL (12.0-15.5); Immature Grans % 0.3 %; Lymphocytes % 24.2; Mean Corp. HGB Concentration 33.1 g/dL (32.0-36.0); Mean Corpuscular Hemoglobin 28.6 pg (27.0-33.0); Mean Corpuscular Volume 86.4 fL (80-95); Mean Platelet Volume 10.4 fL (8.0-11.0); Monocytes % 7.3; Neutrophils % 68.2; Platelet Count 271 x1000/uL (130-400); RBC 4.48 m/cumm (4.00-5.20); RBC Distribution Width 14.1 % (11.7-14.6); White Blood Cell Count 7.24 k/cumm (4.4-10.8)
== END 2019-07-18 11:04 ==
PROVIDERS: PCP Nurse Practitioner Family; Visit Provider Nurse Practitioner Family
DX: F20.9 Schizophrenia, unspecified (principal); Z79.899 Other long term (current) drug therapy
CPT/HCPCS: 36415; 85025

== ENCOUNTER 2019-08-14 11:51 | Outpatient (CLI) | payer MEDICARE, SELFPAY ==
[2019-08-14 12:17] LABS: Abs Immature Grans 0.01 k/cumm (0.0-0.09); Absolute Lymphocyte Count 1.85 k/cumm (1.2-3.4); Absolute Monocyte Count 0.55 k/cumm (0.11-0.7); Absolute Neutrophil Count 4.81 k/cumm (1.2-6.7); HGB 12.7 g/dL (12.0-15.5); Immature Grans % 0.1 %; Lymphocytes % 25.6; Mean Corp. HGB Concentration 33.4 g/dL (32.0-36.0); Mean Corpuscular Hemoglobin 29.3 pg (27.0-33.0); Mean Corpuscular Volume 87.6 fL (80-95); Mean Platelet Volume 10.4 fL (8.0-11.0); Monocytes % 7.6; Neutrophils % 66.7; Platelet Count 255 x1000/uL (130-400); RBC 4.34 m/cumm (4.00-5.20); RBC Distribution Width 14.2 % (11.7-14.6); White Blood Cell Count 7.22 k/cumm (4.4-10.8)
== END 2019-08-14 12:11 ==
PROVIDERS: PCP Nurse Practitioner Family; Visit Provider Nurse Practitioner Family
DX: F20.9 Schizophrenia, unspecified (principal); Z79.899 Other long term (current) drug therapy
CPT/HCPCS: 36415; 85025

== ENCOUNTER 2019-08-21 12:18 | Outpatient (CLI) | payer MEDICARE, SELFPAY ==
[2019-08-21 14:12] LABS: TSH (W/Ref FT4) 2.45 uIU/mL (0.36-3.74)
== END 2019-08-21 12:38 ==
PROVIDERS: PCP Nurse Practitioner Family; Visit Provider Nurse Practitioner Family
DX: R94.6 Abnormal results of thyroid function studies (principal)
CPT/HCPCS: 84443

== ENCOUNTER 2019-08-22 13:06 | Observation (INO) | payer MEDICARE, SELFPAY ==
[2019-08-22] VITALS (41 sets, daily range): BP systolic 100–131; BP diastolic 53–89; PULSE 66–92; RESP 10–29; TEMP 36.1–36.7; O2SAT 92–97
--- NOTE | 2019-08-22 14:03 | ED.GENADUL_ITS ---
Discharge Plan Disposition Patient Disposition: [facility] INPATIENT Condition: Serious Discharge Details Chief Complaint: Chest Pain Clinical Impression: Chest pain Admit Date/Time: 08/22/19 16:37 Admit Provider: Lawson Lynch Attending Provider: Lawson Lynch Primary Care Provider: Barbara Morton ED Provider: Vernon Brumfield Hospital Course Hospital Course: This is a 39-year-old former smoker with history of type 2 diabetes, controlled paranoid schizophrenia, and GERD who presented after an acute episode of exertional chest pain in the setting of 3 to 4 weeks of intermittent chest pain. Patient states her symptoms started 3 to 4 weeks ago when levothyroxine therapy was initiated. She states she felt like it was speed and causing chest discomfort and palpitations intermittently lasting a few minutes. Today, she was doing an exercise video at home that involve significant exertion. She presented to the emergency department for evaluation. Her work-up in the emergency department was unremarkable. Her chest x-ray showed no acute findings her d-dimer was negative. Her EKG showed sinus rhythm at [address] depressions were noted in lead I to V4 and V6 which is consistent with a old EKG from February 2018. She received aspirin. Her serial troponins remain negative. She remained in sinus rhythm on telemetry with one 4 beat run of V. tach. Her magnesium was 2.3 potassium 3.8. She was asymptomatic. Hemodynamically she remained stable. She had no recurrence of her chest discomfort. She tolerated breakfast and has been asymptomatic. We were unable to obtain a stress test as it is not available. She is deemed stable for discharge to home for outpatient stress testing which will be arranged outpatient. She was instructed to return sooner for new or worsening symptoms. There have been no medication changes or recommendation at discharge. she was instructed to resume her usual medications as previously directed Of note, the patient was started on levothyroxine at a dose of 100 mcg 3 to 4 weeks ago. Given her symptoms, it been decreased to 25 mcg, but the patient felt like it was still making her anxious. Her TSH has improved from 4.6 to 2.45. She does not think this episode was panic attack, but does admit to feeling anxiety associated with the pain. She did get a dose of lorazepam in the emergency room which has improved her anxiety. Discharge Instructions Instructions: Chest Pain (DC) Additional Instructions: Please follow instructions given by radiology for your stress test scheduled on 08/29/19 Please return sooner for new or worsening symptoms Forms: Nursing Discharge Form Referrals: stress test [Other] - 08/29/19 9:00 am () JulietaukBarbara [Primary Care Provider] - 09/01/19 1:00 pm Discharge Data Discharge Date/Time-TO BE ENTERED AT DEPARTURE: 08/22/19 17:35 Medical Decision Making 15:00 --39-year-old female, former smoker, history of hyperlipidemia and diabetes as well as GERD, here with chest discomfort, intermittent over the past few weeks and worse today after onset while exerting herself during cardiovascular exercise with an episode of associated left arm heaviness. She has had intermittent episodes of chest pain, brief in duration today. Consider ACS. Screening ECG was reviewed and interpreted by me: Sinus rhythm 75 bpm, normal axis, subtle ST depressions noted lead I, 2, V4 to V6. When compared to old ECG from 02/25/2018, subtle ST depressions were present at that time as well. Plan to check troponin. Considered PE. Patient is low risk. D-dimer negative. Chest x-ray was reviewed and interpreted by me: Negative Patient has moderate heart score. 16:20 --troponin negative. Patient reassessed and has been stable. She notes anxiety is improved after Ativan 0.5mg. I called and spoke with Dr. Lynch, on-call hospitalist, who will admit the patient for rule out ACS. HPI General Mode of arrival: ambulatory . Date/Time Provider Initiated Documentation: 08/22/19 13:28 . Limitations to Documentation: no limitations . Information obtained by: patient . HPI Narrative: 39-year-old female with history of schizoaffective disorder, former smoker, hyperlipidemia, diabetes, hypothyroidism, GERD, here with complaint of chest pain. Patient notes chest pain started 1 to 2 weeks ago and has been intermittent since onset. She states it seems like stress brings on chest discomfort. Today, while she was doing a cardiovascular workout, she developed chest pain described as an ache. Pain localized to chest left of center chest anteriorly. She had associated left arm heaviness as well. Symptoms lasted 10 to 20 minutes and resolved. Since this episode this morning she has had brief intermittent episodes of chest discomfort. Patient denies associated shortness of breath. No lower extremity edema or calf pain. No recent long distance travel or surgery. Related Data Home Medications Medication Instructions Recorded Confirmed benztropine [Cogentin] 0.5 mg PO DAILY ml 05/30/15 08/22/19 Lactobacillus acidophilus 1 ea PO DAILY 06/30/16 08/22/19 clobetasol 15 gm TOPICAL PRN #2 tube 06/30/16 08/22/19 norethindrone (contraceptive) 0.35 mg PO DAILY #1 pack 06/30/16 08/22/19 [Nor-Q-D] Dexilant 30 mg PO DAILY 02/24/18 08/22/19 clozapine 100 mg tablet 125 mg PO DAILY tab-cap 02/02/19 08/22/19 lamotrigine 100 mg tablet 125 mg PO HS tab-cap 02/02/19 08/22/19 lurasidone 120 mg tablet 120 mg PO DAILY tab-cap 02/02/19 08/22/19 multivitamin-ferrous 1 tab PO DAILY PRN 02/02/19 08/22/19 fumarate-folic acid 18 mg-400 mcg tablet vitamin B complex 1 tab PO DAILY 02/02/19 08/22/19 biotin 08/22/19 levothyroxine 08/22/19 naltrexone 100 mg PO DAILY 08/23/19 08/23/19 Allergies Allergy/AdvReac Type Severity Reaction Status Date / Time pantoprazole [From Protonix] AdvReac Mild Nausea Unverified 02/21/19 09:07 General Stated Complaint: Chest Pain GINNY: 2 Review of Systems All systems reviewed & are unremarkable except as noted in HPI and below Constitutional Constitutional: Denies fever(s) Cardiovascular Cardiovascular: Reports chest pain, Denies palpitations and Denies dyspnea Respiratory Respiratory: Denies dyspnea Endocrine Endocrine: Denies palpitations [facility] Medical History (Updated 08/22/19 @ 17:53 by Lawson Lynch) Abnormal uterine bleeding (Acute) Hypothyroid (Chronic) Family History (Updated 08/22/19 @ 17:40 by Lawson Lynch) Mother Cancer - ? type of cancer Father Diabetes Heart disease Social History (Updated 08/22/19 @ 17:42 by Lawson Lynch) Smoking/Tobacco Use Status: Former Tobacco Use Drug use: Never Do you feel safe at home: Yes Do you feel safe in your relationship?: Yes Additional Social history: Heavy tobacco smoker for 20 years, 16-mjnq-ledj history, quit in 2011. Minimal alcohol. No other drugs. Lives alone. 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 No sexual partners in the past year. Exam Const General: cooperative and no acute distress HENLA Mouth: moist mucous membranes Eyes Conjunctivae: normal conjunctivae Sclera: normal sclerae Neck Neck: trachea midline, supple and no JVD Resp Auscultation: clear to auscultation bilaterally, no rales, no rhonchi and no wheezes Cardio Jugular venous pressure: no JVD Rate: regular rate and not tachycardic Rhythm: regular rhythm GI Palpation: soft, not firm, no guarding, no masses, not rigid and nontender Skin General skin exam: no rashes or lesions noted Neuro General: alert, awake and tone normal Extrem General: no calf tenderness and no edema Psych Appearance: grossly normal Mental Status: mental status grossly normal Mood: anxious mood Course Vital Signs Vital signs: Vital Signs Temperature 36.4 C L 08/22/19 13:08 Pulse 77 08/22/19 13:08 Respiratory Rate 22 08/22/19 13:08 Blood Pressure 112/66 08/22/19 13:08 Pulse Oximetry 95 08/22/19 13:08 Temperature 36.4 C L 08/22/19 13:08 Temperature Source Skin 08/22/19 13:08 Pulse 75 08/22/19 13:46 Pulse 76 08/22/19 13:50 Respiratory Rate 18 08/22/19 13:50 Respiratory Effort Non-Labored 08/22/19 13:36 Blood Pressure 131/89 08/22/19 13:46 Blood Pressure Mean 98 08/22/19 13:46 Blood Pressure Position Supine 08/22/19 13:08 Pulse Oximetry 93 L 08/22/19 13:50 Oxygen Delivery Method Room Air 08/22/19 13:08 Oxygen Flow Rate 0 08/22/19 13:08 Pain Level 3 08/22/19 13:08
[2019-08-22 14:10] LABS: Absolute Neutrophil Count 4.58 k/cumm (1.2-6.7); HCT 39.5 % (36.0-46.0); HGB 13.3 g/dL (12.0-15.5); Lymphocytes % 26.2; Mean Corp. HGB Concentration 33.7 g/dL (32.0-36.0); Mean Corpuscular Hemoglobin 29.2 pg (27.0-33.0); Mean Corpuscular Volume 86.6 fL (80-95); Monocytes % 7.3; Neutrophils % 66.5; Platelet Count 270 x1000/uL (130-400); RBC 4.56 m/cumm (4.00-5.20); RBC Distribution Width 13.9 % (11.7-14.6); White Blood Cell Count 6.88 k/cumm (4.4-10.8)
--- NOTE | 2019-08-22 14:15 | DI.RAD_ITS ---
EXAM: XR CHEST 2V PA LATERAL CLINICAL HISTORY: chest pain TECHNIQUE: 2D digital imaging was performed. COMPARISON: No exams were available for comparison FINDINGS: The cardiac and mediastinal contours have a normal appearance. The lungs are well inflated and clear . No infiltrate, effusion or pneumothorax is seen. No spine or rib fracture is identified. IMPRESSION: Negative chest x-ray.
[2019-08-22 15:09] LABS: D-Dimer 359 ng/mlFEU (<500)
[2019-08-22 15:16] LABS: ALT 41 U/L (14-59); AST 30 U/L (15-37); Albumin 3.8 g/dL (3.4-5.0); Alkaline Phosphatase 95 U/L (46-116); Anion Gap 8.4 mmol/L (3-11); BUN 11 mg/dL (7-18); Bilirubin, Total 0.4 mg/dL (0.2-1.0); CO2 28.6 mmol/L (21.0-32.0); CREATININE 0.97 mg/dL (0.55-1.02); Calcium 8.6 mg/dL (8.5-10.1); Chloride 103 mmol/L (98-107); Glucose 90 mg/dL (74-106); Potassium 3.8 mmol/L (3.5-5.1); Sodium 140 mmol/L (136-145); Total Protein 7.6 g/dL (6.4-8.2)
[2019-08-22] MEDS: LORazepam 0.5 MG TAB PO (15:19)
[2019-08-22 15:20] LABS: Troponin I < 0.05 ng/Ml (<0.06)
[2019-08-22] MEDS: Aspirin 325 MG TAB PO (16:38)
[2019-08-22 17:24] LABS: Magnesium 2.3 mg/dL (1.8-2.4)
--- NOTE | 2019-08-22 17:28 | W.PM.HP.N ---
Date of service: 08/22/19 Time of Service: 17:28 Assessment and Plan Assessment and plan (1) Chest pain: Status: Acute Assessment and plan: This is a patient with some cardiac risk factors and somewhat typical exertional chest pain. Initial EKG and troponins are reassuring that this does not represent acute coronary syndrome, though I do agree with Dr. Brumfield in the emergency department that inpatient rule out is appropriate. We will get a stress test in the morning if possible, or discharge if troponins are negative with an outpatient stress later this week. D-dimer was not consistent with PE. Exam did not suggest a musculoskeletal cause of chest pain, though this is still possible Patient has history of GERD, which may be playing a role Anxiety may be also playing a role as these episodes started with initiation of thyroid replacement (2) Schizoaffective disorder: Status: Chronic Assessment and plan: The patient seems to have her psychiatric addition well controlled with her current medical regimen. No change. (3) GERD (gastroesophageal reflux disease): Status: Chronic Assessment and plan: We will continue outpatient PPI (4) Abnormal uterine bleeding: Status: Acute Assessment and plan: Patient has had some recent spotting over the past year associated with some hot flashes. This does not seem related to her presentation. Her hormonal therapy a progestin which should not raise her risk of clots significantly. Given the irregular bleeding and her risk factors, repeat outpatient endometrial sampling may be considered. (5) Morbid drug-induced obesity: Status: Acute Assessment and plan: Patient has been getting high-dose naltrexone to help with obsessive eating. Consider outpatient monitoring of hepatic function as she does have a history of steatohepatitis on her outpatient list. (6) Hypothyroid: Status: Chronic Assessment and plan: Patient's been having chest pain since starting levothyroxine therapy. It does appear she was initially treated at an excessive dose. She prefers to stop the medication, this can be followed as an outpatient and low-dose restarted as needed. (7) DVT prophylaxis: Status: Acute Assessment and plan: Heparin (8) Discharge planning issues: Status: Acute Assessment and plan: Patient is observation status for chest pain. She should be discharged in the morning unless testing is positive. History of Present Illness History of Present Illness Chief Complaint: chest pain Narrative: 39-year-old former smoker with history of type 2 diabetes, controlled paranoid schizophrenia, and GERD who presented after an acute episode of exertional chest pain in the setting of 3 to 4 weeks of intermittent chest pain. Patient states her symptoms started 3 to 4 weeks ago when levothyroxine therapy was initiated. She states she felt like it was speed and causing chest discomfort and palpitations intermittently lasting a few minutes. Today, she was doing an exercise video at home that involve significant exertion. During this, she had onset of substernal to left-sided achy chest pain radiating and associated with numbness going down the left shoulder to arm. It was moderate in intensity and lasted around 10 minutes, getting better with rest. She was nauseous and lightheaded with the pain, but she has chronic lightheadedness. She denies associated shortness of breath, or diaphoresis. She has not had this type of pain in the past. Of note, the patient was started on levothyroxine at a dose of 100 mcg 3 to 4 weeks ago. Given her symptoms, it been decreased to 25 mcg, but the patient felt like it was still making her anxious. She does not think this episode was panic attack, but does admit to feeling anxiety associated with the pain. She did get a dose of lorazepam in the emergency room which has improved her anxiety. Review of Systems Narrative: General: No recent weight change, normal appetite. No fevers or chills HEENT: No headaches, no ear pain, nasal congestion, sore throat, or other oral lesions. Neurologic: No vertigo, no focal weakness Pulmonary: No cough, wheeze, or shortness of breath Cardiovascular: No lower extremity edema. GI: No bowel changes. No blood in the stool or melena. Takes medication for GERD, no recent symptoms. : No dysuria or hematuria. She has had recent spotting over the past year that was previously controlled on progesterone therapy. MSK: No new joint pains or swelling, other than soreness after exercise. Skin: No new rash or other skin lesions. 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 Psychiatric: No recent hallucinations or paranoid thoughts. Mood has been stable. No significant recent stressors. PFSH Family History (Updated 08/22/19 @ 17:40 by Lawson Lynch) Mother Cancer - ? type of cancer Father Diabetes Heart disease Social History (Updated 08/22/19 @ 17:42 by Lawson Lynch) Smoking/Tobacco Use Status: Former Tobacco Use Drug use: Never Do you feel safe at home: Yes Do you feel safe in your relationship?: Yes Additional Social history: Heavy tobacco smoker for 20 years, [id number] history, quit in 2011. Minimal alcohol. No other drugs. Lives alone. 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 No sexual partners in the past year. Meds Home Medications and Allergies Home Medications Medication Instructions Recorded Confirmed Type benztropine [Cogentin] 0.5 mg PO DAILY ml 05/30/15 08/22/19 History Lactobacillus acidophilus 1 ea PO DAILY 06/30/16 08/22/19 History clobetasol 15 gm TOPICAL PRN #2 tube 06/30/16 08/22/19 History norethindrone (contraceptive) 0.35 mg PO DAILY #1 pack 06/30/16 08/22/19 History [Nor-Q-D] Dexilant 30 mg PO DAILY 02/24/18 08/22/19 History clozapine 100 mg tablet 125 mg PO DAILY tab-cap 02/02/19 08/22/19 History lamotrigine 100 mg tablet 125 mg PO HS tab-cap 02/02/19 08/22/19 History lurasidone 120 mg tablet 120 mg PO DAILY tab-cap 02/02/19 08/22/19 History multivitamin-ferrous 1 tab PO DAILY PRN 02/02/19 08/22/19 History fumarate-folic acid 18 mg-400 mcg tablet vitamin B complex 1 tab PO DAILY 02/02/19 08/22/19 History biotin 08/22/19 History levothyroxine 08/22/19 History Allergies Allergy/AdvReac Type Severity Reaction Status Date / Time pantoprazole [From Protonix] AdvReac Mild Nausea Unverified 02/21/19 09:07 Exam Narrative Exam Narrative: General: Alert and oriented x3, no apparent distress, sitting up comfortably and pleasant HEENT: Normocephalic atraumatic. Pupils equal round reactive light with extraocular motion intact. Conjunctive are clear with no icterus. No rhinorrhea. Moist mucous membranes with oropharynx benign. Neck is supple with no lymphadenopathy or other masses. No thyromegaly. Lungs: Clear to auscultation bilaterally with normal effort Cardiovascular: Regular rate and rhythm no murmurs gallops or rubs. Abdomen: Active bowel sounds, soft, nontender and nondistended with no organomegaly or other masses palpable Extremities: No cyanosis, clubbing, or edema. Legs are nontender to palpation. Neurologic: Cranial nerves II through XII grossly intact. Normal speech and movement of 4 extremities. Normal coordination. No tremor. Psychiatric: Normal mood and affect. Normal thought process. Results EKG: Normal sinus rhythm, normal axis and intervals. No ischemic ST changes. Chest x-ray: No acute disease Labs Result diagrams: 08/22/19 14:03 08/22/19 14:03 Labs: Laboratory Results - last 24 hr 08/22/19 08/22/19 08/22/19 14:02 14:03 14:03 WBC 6.88 RBC 4.56 Hgb 13.3 Hct 39.5 MCV 86.6 MCH 29.2 MCHC 33.7 RDW 13.9 Plt Count 270 MPV 10.0 Immature Gran % 0.0 Neutrophils % 66.5 Lymphocytes % 26.2 Monocytes % 7.3 Eosinophils % 0.0 Basophils % 0.0 Absolute Neutrophils 4.58 Absolute Lymphocytes 1.80 Absolute Monocytes 0.50 Absolute Eosinophils 0.00 Absolute Basophils 0.00 D-Dimer Sodium 140 Potassium 3.8 Chloride 103 Carbon Dioxide 28.6 Anion Gap 8.4 BUN 11 Creatinine 0.97 Estimated GFR/1.73 m2 >= 60.00 Glucose 90 Calcium 8.6 Magnesium 2.3 Total Bilirubin 0.4 AST 30 ALT 41 Alkaline Phosphatase 95 Troponin I < 0.05 Total Protein 7.6 Albumin 3.8 08/22/19 14:03 WBC RBC Hgb Hct MCV MCH MCHC RDW Plt Count MPV Immature Gran % Neutrophils % Lymphocytes % Monocytes % Eosinophils % Basophils % Absolute Neutrophils Absolute Lymphocytes Absolute Monocytes Absolute Eosinophils Absolute Basophils D-Dimer 359 Sodium Potassium Chloride Carbon Dioxide Anion Gap BUN Creatinine Estimated GFR/1.73 m2 Glucose Calcium Magnesium Total Bilirubin AST ALT Alkaline Phosphatase Troponin I Total Protein Albumin Last Vital Signs Temp 36.4 C L 08/22/19 13:08 Pulse 74 08/22/19 17:02 Resp 18 08/22/19 17:10 BP 119/87 08/22/19 17:02 Pulse Ox 97 08/22/19 17:10
[2019-08-22 19:09] LABS: Troponin I < 0.05 ng/Ml (<0.06)
[2019-08-22] MEDS: Lurasidone 40 MG TAB 120 MG PO (19:54)
[2019-08-22] MEDS: Enoxaparin 40 MG/0.4 ML SYR SC (19:55)
[2019-08-22] MEDS: lamoTRIgine 100 MG TAB PO (21:47)
[2019-08-22] MEDS: lamoTRIgine 25 MG TAB PO (21:47)
[2019-08-22 22:27] LABS: Troponin I < 0.05 ng/Ml (<0.06)
[2019-08-23 04:10] VITALS: BP 122/79; PULSE 63; RESP 20; TEMP 36.5; O2SAT 94
[2019-08-23 07:02] VITALS: PULSE 74
[2019-08-23 07:15] VITALS: BP 125/81; PULSE 74; RESP 16; TEMP 37; O2SAT 98
[2019-08-23] MEDS: Lactobacillus Acidophilus CAP 1 CAP PO (08:39)
[2019-08-23] MEDS: Dexlansoprazole 30 MG CAP PO (08:39)
[2019-08-23] MEDS: Multivitamin w/Minerals TAB 1 TAB PO (08:39)
--- NOTE | 2019-08-23 10:48 | DSE_ITS ---
Date of service: 08/23/19 Time of Service: 10:15 DS: Diagnosis Discharge Diagnosis (1) Chest pain: Status: Acute (2) Schizoaffective disorder: Status: Chronic (3) GERD (gastroesophageal reflux disease): Status: Chronic (4) Abnormal uterine bleeding: Status: Acute (5) Morbid drug-induced obesity: Status: Acute (6) Hypothyroid: Status: Chronic (7) DVT prophylaxis: Status: Acute (8) Discharge planning issues: Status: Acute Discharge Plan Disposition Patient Disposition: HOME Condition: Serious Discharge Details Chief Complaint: Chest Pain Clinical Impression: Chest pain Reason For Visit: CHEST PAIN Admit Date/Time: 08/22/19 16:37 Admit Provider: Lawson Lynch Attending Provider: Lawson Lynch Primary Care Provider: Barbara Morton ED Provider: Vernon Brumfield Hospital Course Hospital Course: This is a 39-year-old former smoker with history of type 2 diabetes, controlled paranoid schizophrenia, and GERD who presented after an acute episode of exertional chest pain in the setting of 3 to 4 weeks of intermittent chest pain. Patient states her symptoms started 3 to 4 weeks ago when levothyroxine therapy was initiated. She states she felt like it was speed and causing chest discomfort and palpitations intermittently lasting a few minutes. Today, she was doing an exercise video at home that involve significant exertion. She presented to the emergency department for evaluation. Her work-up in the emergency department was unremarkable. Her chest x-ray showed no acute findings her d-dimer was negative. Her EKG showed sinus rhythm at [address] depressions were noted in lead I to V4 and V6 which is consistent with a old EKG from February 2018. She received aspirin. Her serial troponins remain negative. She remained in sinus rhythm on telemetry with one 4 beat run of V. tach. Her magnesium was 2.3 potassium 3.8. She was asymptomatic. Hemodynamically she remained stable. She had no recurrence of her chest discomfort. She tolerated breakfast and has been asymptomatic. We were unable to obtain a stress test as it is not available. She is deemed stable for discharge to home for outpatient stress testing which will be arranged for tomorrow. She was instructed to return sooner for new or worsening symptoms. There have been no medication changes or recommendation at discharge. she was instructed to resume her usual medications as previously directed Of note, the patient was started on levothyroxine at a dose of 100 mcg 3 to 4 weeks ago. Given her symptoms, it been decreased to 25 mcg, but the patient felt like it was still making her anxious. Her TSH has improved from 4.6 to 2.45. She does not think this episode was panic attack, but does admit to feeling anxiety associated with the pain. She did get a dose of lorazepam in the emergency room which has improved her anxiety. Home Meds and New Rx's Prescriptions: Continued Centrum Women 18-400 mg-mcg tablet 1 tab PO DAILY PRNRF: 0 vitamin B complex [B Complex-Vitamin B12] Tablet 1 tab PO DAILY RF: 0 benztropine [Cogentin] 2 MG/2 ML solution 0.5 mg PO DAILY RF: 0 Lactobacillus acidophilus 1 EACH capsule 1 ea PO DAILY RF: 0 norethindrone (contraceptive) [Nor-Q-D] 0.35 MG tablet 0.35 mg PO DAILY Qty: 1 RF: 12 clobetasol 15 GM ointment 15 gm Topical PRN Qty: 2 RF: 1 clozapine 100 mg tablet 125 mg PO DAILY RF: 0 lamotrigine [Lamictal] 100 mg tablet 125 mg PO HS RF: 0 Latuda 120 mg tablet 120 mg PO DAILY RF: 0 Dexilant 30 MG capsule,biphase delayed releas 30 mg PO DAILY RF: 0 levothyroxine 25 mcg Tablet RF: 0 biotin 1 mg Capsule RF: 0 naltrexone 50 mg Tablet 100 mg PO DAILY RF: 0 Discharge Instructions Instructions: Chest Pain (DC) Additional Instructions: Please follow instructions given by radiology for your stress test tomorrow morning. Please return sooner for new or worsening symptoms Referrals: stress test [Other] - 08/29/19 9:00 am () Activity:: Activity as Tolerated Equipment/Supplies:: No Equipment Needed Diet:: Carb Counting Discharge Orders Discharge Orders: Discharge Order (Routine); Ordered 08/23/19 Ordered By: Luz Soares Other Ambulatory Orders: ETT Stress Test (Outpt) (ONCE) Timeframe: [id number] Location: None Selected Ordered By: Luz Soares DS: Summary Status at Discharge Functional status at discharge: independent ambulation Overall status at discharge: patient is back to baseline Mental Status: mental status grossly normal Speech and Movement: speech and movement normal Mood: congruent mood Affect: normal affect Exam Const General: cooperative, healthy appearing, comfortable and no acute distress Nutritional Appearance: obese Orientation: alert, awake and oriented x3 HENMT Head: normal to inspection, normocephalic and atraumatic Mouth: oral mucosae normal Resp Effort & Inspection: normal respiratory effort and able to speak in complete sentences Auscultation: clear to auscultation bilaterally Cardio Rate: regular rate Rhythm: regular rhythm Heart Sounds: no murmurs GI Inspection: normal to inspection Palpation: soft Auscultation: normal bowel sounds Skin General skin exam: elasticity normal and turgor normal Neuro General: alert, awake and oriented x3 Cranial Nerves: CN's II-XI intact bilaterally Cognition: normal cognition Speech: speech normal Gait: normal gait Motor: muscle tone normal throughout Extrem General: normal to inspection and full ROM Psych Appearance: grossly normal and well kempt Mental Status: mental status grossly normal Speech and Movement: speech and movement normal Mood: congruent mood Affect: normal affect Attitude: cooperative Thought Process: normal Thought Content: normal Insight: insight good Judgment: judgment good DS: Data Vitals/I&O Vitals and I&O: Vital Signs Temperature 37 C 08/23/19 07:15 Temperature Source Tympanic 08/23/19 07:15 Pulse 74 08/23/19 07:15 Pulse Rhythm Regular 08/23/19 09:17 Pulse 75 08/22/19 17:10 Respiratory Rate 16 08/23/19 07:15 Respiratory Effort Non-Labored 08/23/19 09:17 Respiratory Depth Normal 08/23/19 09:17 Respiratory Pattern Normal 08/23/19 09:17 Blood Pressure 125/81 08/23/19 07:15 Blood Pressure Mean 95 08/22/19 17:02 Blood Pressure Position Supine 08/22/19 13:08 Pulse Oximetry 98 08/23/19 07:15 Oxygen Delivery Method Room Air 08/23/19 07:15 Oxygen Flow Rate 0 08/23/19 07:15 Pain Level 0 08/23/19 07:15 Intake & Output 08/22/19 08/22/19 08/23/19 11:59 23:59 11:59 Intake Total 480 / 480 Output Total 1600 / 1600 500 / 500 Balance -1590 / -1590 -20 Weight 130 kg Intake: IV Oral 480 / 480 Output: Urine 1600 / 1600 500 / 500 Other: Urine Color Straw Yellow Urine Appearance Clear Clear Comment per patient she flushed. she said the hat said 500 Voiding Methods Toilet Data Completed and Pending Labs on day of discharge: Labs from last 24 hours 08/22/19 08/22/19 08/22/19 23:00 22:05 18:30 WBC RBC Hgb Hct MCV MCH MCHC RDW Plt Count MPV Immature Gran % Neutrophils % Lymphocytes % Monocytes % Eosinophils % Basophils % Absolute Neutrophils Absolute Lymphocytes Absolute Monocytes Absolute Eosinophils Absolute Basophils D-Dimer Sodium Potassium Chloride Carbon Dioxide Anion Gap BUN Creatinine Estimated GFR/1.73 m2 Glucose Calcium Magnesium Total Bilirubin AST ALT Alkaline Phosphatase Troponin I Cancelled < 0.05 < 0.05 Total Protein Albumin 08/22/19 08/22/19 08/22/19 14:03 14:03 14:03 WBC 6.88 RBC 4.56 Hgb 13.3 Hct 39.5 MCV 86.6 MCH 29.2 MCHC 33.7 RDW 13.9 Plt Count 270 MPV 10.0 Immature Gran % 0.0 Neutrophils % 66.5 Lymphocytes % 26.2 Monocytes % 7.3 Eosinophils % 0.0 Basophils % 0.0 Absolute Neutrophils 4.58 Absolute Lymphocytes 1.80 Absolute Monocytes 0.50 Absolute Eosinophils 0.00 Absolute Basophils 0.00 D-Dimer 359 Sodium 140 Potassium 3.8 Chloride 103 Carbon Dioxide 28.6 Anion Gap 8.4 BUN 11 Creatinine 0.97 Estimated GFR/1.73 m2 >= 60.00 Glucose 90 Calcium 8.6 Magnesium Total Bilirubin 0.4 AST 30 ALT 41 Alkaline Phosphatase 95 Troponin I < 0.05 Total Protein 7.6 Albumin 3.8 08/22/19 14:02 WBC RBC Hgb Hct MCV MCH MCHC RDW Plt Count MPV Immature Gran % Neutrophils % Lymphocytes % Monocytes % Eosinophils % Basophils % Absolute Neutrophils Absolute Lymphocytes Absolute Monocytes Absolute Eosinophils Absolute Basophils D-Dimer Sodium Potassium Chloride Carbon Dioxide Anion Gap BUN Creatinine Estimated GFR/1.73 m2 Glucose Calcium Magnesium 2.3 Total Bilirubin AST ALT Alkaline Phosphatase Troponin I Total Protein Albumin [facility] Medical History (Updated 08/22/19 @ 17:53 by Lawson Lynch) Abnormal uterine bleeding (Acute) Hypothyroid (Chronic) Family History (Updated 08/22/19 @ 17:40 by Lawson Lynch) Mother Cancer - ? type of cancer Father Diabetes Heart disease Social History (Updated 08/22/19 @ 17:42 by Lawson Lynch) Smoking/Tobacco Use Status: Former Tobacco Use Drug use: Never Do you feel safe at home: Yes Do you feel safe in your relationship?: Yes Additional Social history: Heavy tobacco smoker for 20 years, [id number] hi story, quit in 2011. Minimal alcohol. No other drugs. Lives alone. 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 No sexual partners in the past year.
[2019-08-23 11:09] VITALS: PULSE 79
== END 2019-08-23 12:15 | disposition home or self-care (01) ==
LOC: ER 17:23 → MS 17:36
PROVIDERS: Nurse Practitioner Acute Care; Admitting Provider Family Medicine; Emergency Provider Student in an Organized Health Care Education/Training Program; PCP Nurse Practitioner Family; Visit Provider Family Medicine
DX: R07.9 Chest pain, unspecified (principal); Z87.891 Personal history of nicotine dependence; F20.0 Paranoid schizophrenia; E11.9 Type 2 diabetes mellitus without complications; K21.9 Gastro-esophageal reflux disease without esophagitis; E03.9 Hypothyroidism, unspecified; E66.1 Drug-induced obesity; T50.7X5A Adverse effect of analeptics and opioid receptor antagonists, initial encounter; Z68.42 Body mass index [BMI] 45.0-49.9, adult
CPT/HCPCS: 36410; 36415; 80053; 81025; 93005; 99217; 99219; 99285; J1650; 71046; 83735; 84484; 85025; 85379; 93010; G0378; J3490

== ENCOUNTER 2019-09-25 00:02 | Outpatient (CLI) | payer MEDICARE, SELFPAY ==
--- NOTE | 2019-09-25 11:45 | DI.NM_ITS ---
APPROVED REPORT Exam: Pharmacologic Patient Location: Out-Patient Room/Bed: Stress Nurse: Cami Martinez RN BMI: 46.80 Baseline Rhythm: Sinus Rhythm Indications: Patient presented to the ER on 09/02/2019 with exertional chest pain in the setting of 3 to 4weeks of intermittent chest pain. Of note, patient was started on levothyroxine 3 to 4 weeks prio r to ER admission for chest pain. Patient reports the Levothyroxine caused her chest discomfort and p alpitations. The Levothyroxine dose has since been reduced and then stopped per patient. Medical History Medical History: Schizoaffective Disorder, GERD, Morbid Drug Induced Obesity, Hypothyroid. Cardiac Medications: None Allergies: Protonix Cardiac Risk Factors: FHX of CAD, Diabetes (non-insulin) Previous Cardiac Procedures: None Pretest Chest Pain Characteristics: None Exercise History: Physically active Physical Disabilities: None Lung Sounds: Clear to auscultation Heart Sounds: Regular Stress Test Details Test: Exercise stress converted to pharmacologic stress due to failure to obtain a diagnostic stress test. Nuclear Acquisition: Rest Tc-99m/Stress Tc-99m 1 day Rest Isotope: Tc-99m Sestamibi. Dose: 15.0 Date: 09/25/2019 Injection Time: 1200 Stress Isotope: Tc-99m Sestamibi. Dose: 46.0 Date: 09/25/2019 Injection Time: 1345 HR Resting HR Supine: 72 bpm Max Heart Rate (APMHR): 180 bpm Resting HR Standin bpm Target HR (85% APMHR): 153 bpm Max HR Achieved: 109 bpm % of APMHR: 60 BP Resting BP Supine: 120/80 mmHg Resting BP Standin/90 mmHg Max BP: 138/90 mmHg ECG Resting ECG: Sinus Rhythm Stress ECG: Sinus Rhythm ST Change: Normal Arrhythmia: None Recovery ECG: Sinus Rhythm Recovery ST Change: Normal Clinical Stress Symptoms: Patient reported left arm/hand numbness at 1 minute 33 seconds post Lexiscan injec tion that subsided by 6 minutes 33 seconds post Lexiscan injection. Patient reported chest aching p ain at 2 minutes 43 seconds that subsided by 3 minutes 32 seconds post Lexiscan injection. Stress ECG Conclusion 1. This was a chemical stress test to evaluate for ischemia. 2. The EKG portion was nondiagnostic. The patient had atypical symptoms not suggestive of ischemia. Protocol Used: Jorge to Lexiscan Transition Test Stress Test Summary STAGE Time (mins) Speed (mph) Grade (%) HR BP SYMPTOMS METS Supine 72 120/80 Standing 74 138/90 1 3 1.7 10 4.6 2 6 2.5 12 7 3 9 3.4 14 10.2 4 12 4.2 16 12.9 5 15 5.0 18 17.2 1 min post Lexiscan injection 105 130/70 4 min post Lexiscan injection 91 100/70 6 min post Lexiscan injection 92 100/68 9 min post Lexiscan injection 86 110/80 12 min post Lexiscan injection 15 min post Lexiscan injection MPI Conclusion Patient's ejection fraction was 57%. There were no wall motion abnormalities. There is no evidence of ischemia on the imaging portion of this exam. This represents a normal SPECT stress test. Radiologist Interpretation Radiologist Interpretation by: Darryn Jeong MD Interpretation Date/Time: 09/25/2019 15:53:37
[2019-09-25] MEDS: Normal Saline Flush 10 ML SYR IVP (13:37)
[2019-09-25] MEDS: Regadenoson 0.4 MG/5 ML SYR IVP (14:18)
== END 2019-09-25 00:22 ==
PROVIDERS: PCP Nurse Practitioner Family; Visit Provider Nurse Practitioner Family
DX: R07.89 Other chest pain (principal); F25.0 Schizoaffective disorder, bipolar type; E03.9 Hypothyroidism, unspecified; K21.9 Gastro-esophageal reflux disease without esophagitis; Z82.49 Family history of ischemic heart disease and other diseases of the circulatory system; F20.9 Schizophrenia, unspecified; Z79.899 Other long term (current) drug therapy
CPT/HCPCS: 36415; 78452; 93016; 93018; 85025; 93017; J2785

== ENCOUNTER 2019-09-25 14:57 | Outpatient (CLI) | payer MEDICARE, SELFPAY ==
[2019-09-25 15:19] LABS: Abs Immature Grans 0.01 k/cumm (0.0-0.09); Absolute Eosinophil Count 0.01 k/cumm (0.0-0.7); Absolute Lymphocyte Count 1.72 k/cumm (1.2-3.4); Absolute Neutrophil Count 4.35 k/cumm (1.2-6.7); Eosinophils % 0.2; HCT 39.5 % (36.0-46.0); Immature Grans % 0.2 %; Lymphocytes % 26.9; Mean Corp. HGB Concentration 32.9 g/dL (32.0-36.0); Mean Corpuscular Hemoglobin 29.1 pg (27.0-33.0); Mean Corpuscular Volume 88.6 fL (80-95); Mean Platelet Volume 10.5 fL (8.0-11.0); Monocytes % 4.7; Platelet Count 259 x1000/uL (130-400); RBC 4.46 m/cumm (4.00-5.20); White Blood Cell Count 6.39 k/cumm (4.4-10.8)
== END 2019-09-25 15:17 ==
PROVIDERS: PCP Nurse Practitioner Family; Visit Provider Nurse Practitioner Family
DX: F20.9 Schizophrenia, unspecified (principal); Z79.899 Other long term (current) drug therapy
CPT/HCPCS: 36415; 85025

== ENCOUNTER 2019-11-10 11:57 | Outpatient (REF) | payer MEDICARE, SELFPAY ==
[2019-11-10 16:58] LABS: Bilirubin Negative (Negative); Blood Negative (Negative); Clarity Clear (Clear); Glucose Negative (Negative); Ketones Negative (Negative); Leukocyte Esterase Trace (Negative); Nitrite Negative (Negative); Urobilinogen 0.2 EU/dL (Up TO 0.2)
[2019-11-10 17:20] LABS: COMMENT (LAB VIEW ONLY) 61.16 mg/dL
[2019-11-10 18:12] LABS: Bacteria Many HPF (Negative); C & S Indicated? Yes; Casts Negative LPF (Negative); Crystals Negative HPF (Negative); Epithelial Cells Few HPF (Negative); Mucus Negative (Negative); RBC Negative HPF (0-2); WBC 20-50 HPF (0-5)
== END 2019-11-10 12:17 ==
LOC: NCHCN 11:57
PROVIDERS: PCP Nurse Practitioner Family; Visit Provider Physician Assistant
DX: R30.0 Dysuria (principal); E11.9 Type 2 diabetes mellitus without complications
CPT/HCPCS: 87077; 81003; 81015; 82043; 82570; 87086; 87186

== ENCOUNTER 2019-11-23 07:27 | Inpatient (IN) | payer MEDICARE, SELFPAY ==
[2019-11-23] VITALS (22 sets, daily range): BP systolic 94–132; BP diastolic 40–71; PULSE 73–107; RESP 18–30; TEMP 36–38.1; O2SAT 93–98
--- NOTE | 2019-11-23 07:44 | ED.GENADUL_ITS ---
Discharge Plan Disposition Patient Disposition: [facility] INPATIENT Condition: Stable Discharge Details Chief Complaint: GenMedical Clinical Impression: Rash, Fever, Pneumonia Admit Date/Time: 11/23/19 09:52 Admit Provider: Tatiana Flanagan Attending Provider: Tatiana Flanagan Primary Care Provider: Barbara Morton ED Provider: Yulisa Dsouza Discharge Data Discharge Date/Time-TO BE ENTERED AT DEPARTURE: 11/23/19 11:12 Medical Decision Making <Capo Adame MD - Last Filed: 11/23/19 07:50> 39 yo female comes in with fever to 101/102 for 2 days and onset of rash last night. She was supposed to finish an antibiotic for a uti yesterday but forgot to take her last dose as she wasn't feeling well, and believes the medicine starts with sulfa. She denies cough, travel, has had nausea without abdominal pain and no dyspnea. She is speaking in full sentences on exam in no distress. She has diffuse maculpapular rash all over body with no visible mucous membrane involvement and negative nikolsky's sign. She has clear lungs, normal oropharynx, soft nontender abdomen. Denies drug use and has no murmurs. Suspect drug reaction such as DRESS, will obtain labs, cxr and monitor. patient will be signed out to oncoming provider pending lab rseults and ultimate dispo Differential Diagnosis Differential Diagnosis: DRESS, AGEP, erythroderma, drug reaction <Yulisa Dsouza DO - Last Filed: 11/23/19 19:41> 0800 --please see Dr. Adame's note for initial presentation, exam and plan. 39-year-old female with borderline diabetes, hypothyroidism, schizoaffective disorder with fever and chills x2 days, vomiting x1, and pruritic diffuse rash since this morning. Recently diagnosed with UTI and been on Bactrim for 6 days. Differential diagnosis includes allergic reaction to drug versus more serious type reaction including DRESS. Do not suspect Perez Malvin Syndrome as she has no mucous membrane involvement or TENS as there is a negative nikolsky sign and pt does not appear septic. Other differential includes UTI, pyelonephritis, pneumonia, covid-19. She also has lower abdominal tenderness which she says is chronic and new occasional shortness of breath with movement. Will obtain CT chest abdomen and pelvis. Will give a dose of solumedrol, benadryl, and zofran. 0930 --labs and imaging reviewed. Normal white blood cell count and lactate. CRP elevated at 4.21. Urinalysis negative for infection. CT chest abdomen and pelvis notes right upper lobe pneumonia but no other acute findings. We will plan to treat for community-acquired pneumonia versus aspiration pneumonia. IV antibiotics ordered. Case discussed with hospitalist who accepts patient for admission for continued monitoring overnight in setting of fever and rash in morbidly obese pre diabetic female in case of worsening symptoms or deterioration. Pt afebrile just prior to transfer to floor. Medical Records Medical records reviewed: Yes I reviewed the patient's medical records. Imaging Data Radiologic Study: Radiologist's impression: CT CHEST PE ABD PELVIS W CLINICAL HISTORY: sob, fever, lower abd pain, recent uti TECHNIQUE: FINDINGS: CT examination of the chest, abdomen, and pelvis was performed with intravenous infusion of 100 cc of Omnipaque 350. There are patchy ground-glass and consolidative opacities of the right upper lobe consistent with acute infectious process. The radiodensities include an 8 millimeter peripherally located nodular radiodensity, this is unchanged from February 2018. Note is also made areas of apparent scarring in the left lung base. No pleural effusion. No cardiomegaly. No mediastinal or hilar adenopathy. Tracheobronchial tree appears intact. No pulmonary embolic disease. Unremarkable appearance of the thoracic aorta. The spleen is moderately enlarged. Liver is unremarkable in appearance. Pancreas appears normal. Gallbladder and bile ducts are CT normal. Adrenals and kidneys appear normal. No evidence of urinary tract obstruction or calcification. Urinary bladder moderately distended but otherwise unremarkable. Abdominal aorta is of normal diameter and the major visceral vessels appear intact. No abdominal or pelvic adenopathy. No significant abdominal or pelvic abdominal wall hernia. Appendix is normal. No evidence of diverticulitis or bowel obstruction. Prep Person structures appear intact. No free fluid in the pelvis. IMPRESSION: Patchy right upper lobe intrapulmonary radiodensities consistent with pneumonia. Splenomegaly, no other specific intra-abdominal abnormality. Lab Data Lab results reviewed: Yes I reviewed the patient's lab results. Labs: 11/23/19 09:35 Tonsil - Not Specified Streptococcus Screen (MILEY) - Pending 11/23/19 08:10 Urine - Clean Catch Urine Culture - Pending 11/23/19 08:00 Nasopharynx Influenza Types A,B Antigen - negative - Final 11/23/19 08:28 Blood Blood Culture - Pending 11/23/19 08:10 Blood Blood Culture - Pending Laboratory Tests Range/Units 11/23/19 11/23/19 11/23/19 08:10 08:10 08:10 WBC (4.4-10.8) k/cumm 5.60 RBC (4.00-5.20) m/cumm 4.34 Hgb (12.0-15.5) g/dL 12.8 Hct (36.0-46.0) % 38.2 MCV (80-95) fL 88.0 MCH (27.0-33.0) pg 29.5 MCHC (32.0-36.0) g/dL 33.5 RDW (11.7-14.6) % 13.8 Plt Count (130-400) x1000/uL 181 MPV (8.0-11.0) fL 10.7 Immature Gran % % 0.2 Neutrophils % 81.2 Lymphocytes % 12.0 Monocytes % 6.6 Eosinophils % 0.0 Basophils % 0.0 Absolute Neutrophils (1.2-6.7) k/cumm 4.55 Absolute Lymphocytes (1.2-3.4) k/cumm 0.67 L Absolute Monocytes (0.11-0.7) k/cumm 0.37 Absolute Eosinophils (0.0-0.7) k/cumm 0.00 Absolute Basophils (0.0-0.2) k/cumm 0.00 ESR (0-20) mm/hr 37 H PT (9.3-11.0) sec INR (0.9-1.1) APTT (21.0-31.4) sec VBG pH (7.35-7.45) VBG pCO2 (34-47) mm/Hg VBG pO2 (28-44) mm/Hg VBG HCO3 (22-28) mmol/L VBG Total CO2 (22-29) mmol/L VBG O2 Saturation (70-80) % VBG Base Excess (-3-3) mmol/L Sodium (136-145) mmol/L 132 L Potassium (3.5-5.1) mmol/L 3.6 Chloride (98-107) mmol/L 98 Carbon Dioxide (21.0-32.0) mmol/L 24.2 Anion Gap (3-11) mmol/L 9.8 BUN (7-18) mg/dL 9 Creatinine (0.55-1.02) mg/dL 1.18 H Estimated GFR/1.73 m2 (mL/min/1.73m2) 50.73 Glucose (74-106) mg/dL 136 H Lactate (0.6-1.4) mmol/L Calcium (8.5-10.1) mg/dL 8.4 L Magnesium (1.8-2.4) mg/dL 1.8 Total Bilirubin (0.2-1.0) mg/dL 0.6 Conjugated Bilirubin (0.00-0.20) mg/dL 0.17 AST (15-37) U/L 17 ALT (14-59) U/L 22 Alkaline Phosphatase (46-116) U/L 77 C-Reactive Protein (0.0-0.3) mg/dL 4.21 H Total Protein (6.4-8.2) g/dL 7.3 Albumin (3.4-5.0) g/dL 3.5 Lipase (73-393) U/L 75 Procalcitonin ng/mL 0.1 Urine Color (Yellow) Urine Clarity (Clear) Urine pH (5-8) Ur Specific Elmo (1.005-1.025) Urine Protein (Negative) mg/dL Urine Ketones (Negative) mg/dL Urine Blood (Negative) Urine Nitrite (Negative) Urine Bilirubin (Negative) Urine Urobilinogen (Up TO 0.2) EU/dL Ur Leukocyte Esterase (Negative) Urine Glucose (Negative) mg/dL Range/Units 11/23/19 11/23/19 11/23/19 08:10 08:10 08:10 WBC (4.4-10.8) k/cumm RBC (4.00-5.20) m/cumm Hgb (12.0-15.5) g/dL Hct (36.0-46.0) % MCV (80-95) fL MCH (27.0-33.0) pg MCHC (32.0-36.0) g/dL RDW (11.7-14.6) % Plt Count (130-400) x1000/uL MPV (8.0-11.0) fL Immature Gran % % Neutrophils % Lymphocytes % Monocytes % Eosinophils % Basophils % Absolute Neutrophils (1.2-6.7) k/cumm Absolute Lymphocytes (1.2-3.4) k/cumm Absolute Monocytes (0.11-0.7) k/cumm Absolute Eosinophils (0.0-0.7) k/cumm Absolute Basophils (0.0-0.2) k/cumm ESR (0-20) mm/hr PT (9.3-11.0) sec 11.8 H INR (0.9-1.1) 1.2 H APTT (21.0-31.4) sec 30.1 VBG pH (7.35-7.45) 7.47 H VBG pCO2 (34-47) mm/Hg 33 L VBG pO2 (28-44) mm/Hg 78 H VBG HCO3 (22-28) mmol/L 24 VBG Total CO2 (22-29) mmol/L 21 L VBG O2 Saturation (70-80) % 95 H VBG Base Excess (-3-3) mmol/L 0.4 Sodium (136-145) mmol/L Potassium (3.5-5.1) mmol/L Chloride (98-107) mmol/L Carbon Dioxide (21.0-32.0) mmol/L Anion Gap (3-11) mmol/L BUN (7-18) mg/dL Creatinine (0.55-1.02) mg/dL Estimated GFR/1.73 m2 (mL/min/1.73m2) Glucose (74-106) mg/dL Lactate (0.6-1.4) mmol/L 1.0 Calcium (8.5-10.1) mg/dL Magnesium (1.8-2.4) mg/dL Total Bilirubin (0.2-1.0) mg/dL Conjugated Bilirubin (0.00-0.20) mg/dL AST (15-37) U/L ALT (14-59) U/L Alkaline Phosphatase (46-116) U/L C-Reactive Protein (0.0-0.3) mg/dL Total Protein (6.4-8.2) g/dL Albumin (3.4-5.0) g/dL Lipase (73-393) U/L Procalcitonin ng/mL Urine Color (Yellow) Urine Clarity (Clear) Urine pH (5-8) Ur Specific Elmo (1.005-1.025) Urine Protein (Negative) mg/dL Urine Ketones (Negative) mg/dL Urine Blood (Negative) Urine Nitrite (Negative) Urine Bilirubin (Negative) Urine Urobilinogen (Up TO 0.2) EU/dL Ur Leukocyte Esterase (Negative) Urine Glucose (Negative) mg/dL Range/Units 11/23/19 08:10 WBC (4.4-10.8) k/cumm RBC (4.00-5.20) m/cumm Hgb (12.0-15.5) g/dL Hct (36.0-46.0) % MCV (80-95) fL MCH (27.0-33.0) pg MCHC (32.0-36.0) g/dL RDW (11.7-14.6) % Plt Count (130-400) x1000/uL MPV (8.0-11.0) fL Immature Gran % % Neutrophils % Lymphocytes % Monocytes % Eosinophils % Basophils % Absolute Neutrophils (1.2-6.7) k/cumm Absolute Lymphocytes (1.2-3.4) k/cumm Absolute Monocytes (0.11-0.7) k/cumm Absolute Eosinophils (0.0-0.7) k/cumm Absolute Basophils (0.0-0.2) k/cumm ESR (0-20) mm/hr PT (9.3-11.0) sec INR (0.9-1.1) APTT (21.0-31.4) sec VBG pH (7.35-7.45) VBG pCO2 (34-47) mm/Hg VBG pO2 (28-44) mm/Hg VBG HCO3 (22-28) mmol/L VBG Total CO2 (22-29) mmol/L VBG O2 Saturation (70-80) % VBG Base Excess (-3-3) mmol/L Sodium (136-145) mmol/L Potassium (3.5-5.1) mmol/L Chloride (98-107) mmol/L Carbon Dioxide (21.0-32.0) mmol/L Anion Gap (3-11) mmol/L BUN (7-18) mg/dL Creatinine (0.55-1.02) mg/dL Estimated GFR/1.73 m2 (mL/min/1.73m2) Glucose (74-106) mg/dL Lactate (0.6-1.4) mmol/L Calcium (8.5-10.1) mg/dL Magnesium (1.8-2.4) mg/dL Total Bilirubin (0.2-1.0) mg/dL Conjugated Bilirubin (0.00-0.20) mg/dL AST (15-37) U/L ALT (14-59) U/L Alkaline Phosphatase (46-116) U/L C-Reactive Protein (0.0-0.3) mg/dL Total Protein (6.4-8.2) g/dL Albumin (3.4-5.0) g/dL Lipase (73-393) U/L Procalcitonin ng/mL Urine Color (Yellow) Yellow Urine Clarity (Clear) Clear Urine pH (5-8) 6.5 Ur Specific Elmo (1.005-1.025) 1.020 Urine Protein (Negative) mg/dL Negative Urine Ketones (Negative) mg/dL Trace H Urine Blood (Negative) Negative Urine Nitrite (Negative) Negative Urine Bilirubin (Negative) Negative Urine Urobilinogen (Up TO 0.2) EU/dL 0.2 Ur Leukocyte Esterase (Negative) Negative Urine Glucose (Negative) mg/dL Negative HPI <Capo Adame MD - Last Filed: 11/23/19 07:50> General Mode of arrival: EMS . Date/Time Provider Initiated Documentation: 11/23/19 07:29 . Limitations to Documentation: no limitations . Information obtained by: patient . History of Present Illness 39 year old F presents to the emergency department with the chief complaint of fever, described as moderate, Patient started experiencing this day(s) (2) and it has been constant. No relieving factors improve symptom(s), No exacerbating factors reported . Patient notes rash. Related Data Home Medications Medication Instructions Recorded Confirmed Lactobacillus acidophilus 1 ea PO DAILY 06/30/16 11/23/19 clobetasol 15 gm TOPICAL PRN #2 tube 06/30/16 11/23/19 norethindrone (contraceptive) 0.35 mg PO DAILY #1 pack 06/30/16 11/23/19 [Nor-Q-D] Dexilant 30 mg PO DAILY 02/24/18 11/23/19 clozapine 100 mg tablet 125 mg PO HS tab-cap 02/02/19 11/23/19 lamotrigine 100 mg tablet 125 mg PO HS tab-cap 02/02/19 11/23/19 lurasidone 120 mg tablet 140 mg PO DAILY tab-cap 02/02/19 11/23/19 biotin 08/22/19 naltrexone 100 mg PO DAILY 08/23/19 11/23/19 benztropine 0.5 mg PO BID 11/23/19 11/23/19 Allergies Allergy/AdvReac Type Severity Reaction Status Date / Time pantoprazole [From Protonix] AdvReac Mild Nausea Unverified 11/23/19 07:37 General Stated Complaint: GenMedical GINNY: 3 Review of Systems <Capo Adame MD - Last Filed: 11/23/19 07:50> All systems reviewed & are unremarkable except as noted in HPI and below Cardiovascular Cardiovascular: Denies chest pain and Denies dyspnea Respiratory Respiratory: Denies cough and Denies dyspnea Gastrointestinal Gastrointestinal: Denies abdominal pain, Denies nausea and Denies vomiting Genitourinary Genitourinary: Denies dysuria Musculoskeletal Musculoskeletal: Denies joint swelling Psychiatric Psychiatric: Denies depression PFS <Capo Adame MD - Last Filed: 11/23/19 07:50> Medical History (Updated 11/23/19 @ 15:50 by Luz Soares NP) Borderline diabetes (Acute) GERD (gastroesophageal reflux disease) (Acute) Hypothyroidism (Chronic) Morbid drug-induced obesity (Inactive) Schizoaffective disorder (Acute) Surgical History History of colposcopy (Acute) Family History Mother Cancer - ? type of cancer Father Diabetes Heart disease Social History Smoking/Tobacco Use Status: Former Tobacco Use Alcohol Intake: current Alcohol Intake frequency: holidays/special occasions only Drug use: Never Substance use type: does not use Do you feel safe at home: Yes Do you feel safe in your relationship?: Yes Additional Social history: Heavy tobacco smoker for 20 years, 11-aeji-kaik history, quit in 2011. Minimal alcohol. No other drugs. Lives alone. 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 No sexual partners in the past year. Exam <Capo Adame MD - Last Filed: 11/23/19 07:50> Const General: no acute distress Orientation: alert HENMT Head: normal to inspection Ears: external ears normal General nose exam: external nose normal Mouth: mucous membranes dry Eyes General: appearance normal, both eyes and all related structures Neck Neck: normal visual inspection Resp Effort & Inspection: normal respiratory effort and able to speak in complete sentences Cardio Rate: regular rate Skin General skin exam: elasticity normal Neuro General: patient alert and patient oriented x3 Extrem General: normal to inspection Psych Mental Status: mental status grossly normal Course <Capo Adame MD - Last Filed: 11/23/19 07:50> Vital Signs Vital signs: Vital Signs Temperature 38.1 C H 11/23/19 07:32 Pulse 107 H 11/23/19 07:32 Respiratory Rate 18 11/23/19 07:32 Blood Pressure 132/67 11/23/19 07:32 Pulse Oximetry 98 11/23/19 07:32 Temperature 38.1 C H 11/23/19 07:32 Temperature Source Temporal Artery Scan 11/23/19 07:32 Pulse 107 H 11/23/19 07:32 Respiratory Rate 18 11/23/19 07:32 Blood Pressure 132/67 11/23/19 07:32 Blood Pressure Position Sitting 11/23/19 07:32 Pulse Oximetry 98 11/23/19 07:32 Oxygen Delivery Method Room Air 11/23/19 07:32 Oxygen Flow Rate 0 11/23/19 07:32 Pain Level 5 11/23/19 07:32 Sign Out <Capo Adame MD - Last Filed: 11/23/19 07:50> Sign Out Data: Sign Out Comment: rash and fever, follow up on labs and cxr results, dispo Last updated by Capo Adame MD at 11/23/19 07:51
[2019-11-23] MEDS: Normal Saline 1,000 ML 1000 ML IV (08:12)
[2019-11-23 08:29] LABS: BE (Venous) 0.4 mmol/L (-3-3); HCO3 (Venous) 24 mmol/L (22-28); O2 Sat (Venous) 95 % (70-80); TCO2 (Venous) 21 mmol/L (22-29); pCO2 (Venous) 33 mm/Hg (34-47); pH (Venous) 7.47 (7.35-7.45); pO2 (Venous) 78 mm/Hg (28-44)
[2019-11-23 08:30] LABS: Abs Immature Grans 0.01 k/cumm (0.0-0.09); Absolute Lymphocyte Count 0.67 k/cumm (1.2-3.4); Absolute Monocyte Count 0.37 k/cumm (0.11-0.7); Absolute Neutrophil Count 4.55 k/cumm (1.2-6.7); HCT 38.2 % (36.0-46.0); HGB 12.8 g/dL (12.0-15.5); Immature Grans % 0.2 %; Mean Corp. HGB Concentration 33.5 g/dL (32.0-36.0); Mean Corpuscular Hemoglobin 29.5 pg (27.0-33.0); Mean Platelet Volume 10.7 fL (8.0-11.0); Monocytes % 6.6; Neutrophils % 81.2; Platelet Count 181 x1000/uL (130-400); RBC 4.34 m/cumm (4.00-5.20); RBC Distribution Width 13.8 % (11.7-14.6)
[2019-11-23 08:42] LABS: INR 1.2 (0.9-1.1); PTT Activated 30.1 sec (21.0-31.4); Prothrombin Time 11.8 sec (9.3-11.0)
[2019-11-23 08:45] LABS: ALT 22 U/L (14-59); AST 17 U/L (15-37); Albumin 3.5 g/dL (3.4-5.0); Alkaline Phosphatase 77 U/L (46-116); Anion Gap 9.8 mmol/L (3-11); BUN 9 mg/dL (7-18); Bilirubin, Direct 0.17 mg/dL (0.00-0.20); Bilirubin, Total 0.6 mg/dL (0.2-1.0); C-Reactive Protein 4.21 mg/dL (0.0-0.3); CO2 24.2 mmol/L (21.0-32.0); CREATININE 1.18 mg/dL (0.55-1.02); Calcium 8.4 mg/dL (8.5-10.1); Chloride 98 mmol/L (98-107); Estimated GFR 50.73 (mL/min/1.73m2); Glucose 136 mg/dL (74-106); Lipase 75 U/L (73-393); Magnesium 1.8 mg/dL (1.8-2.4); Potassium 3.6 mmol/L (3.5-5.1); Sodium 132 mmol/L (136-145); Total Protein 7.3 g/dL (6.4-8.2)
--- NOTE | 2019-11-23 08:45 | DI.CT_ITS ---
EXAM: CT CHEST PE ABD PELVIS W CLINICAL HISTORY: sob, fever, lower abd pain, recent uti TECHNIQUE: FINDINGS: CT examination of the chest, abdomen, and pelvis was performed with intravenous infusion of 100 cc of Omnipaque 350. There are patchy ground-glass and consolidative opacities of the right upper lobe co nsistent with acute infectious process. The radiodensities include an 8 millimeter peripherally loca odilon nodular radiodensity, this is unchanged from February 2018. Note is also made areas of apparent scarring in the left lung base. No pleural effusion. No cardiom egaly. No mediastinal or hilar adenopathy. Tracheobronchial tree appears intact. No pulmonary embo lic disease. Unremarkable appearance of the thoracic aorta. The spleen is moderately enlarged. Liver is unremarkable in appearance. Pancreas appears normal. G allbladder and bile ducts are CT normal. Adrenals and kidneys appear normal. No evidence of urinary tract obstruction or calcification. Urinary bladder moderately distended but otherwise unremarkable . Abdominal aorta is of normal diameter and the major visceral vessels appear intact. No abdominal or pelvic adenopathy. No significant abdominal or pelvic abdominal wall hernia. Appendix is normal. No evidence of diverticulitis or bowel obstruction. Cna Ltc structures appear intact. No free fluid in the pelvis. IMPRESSION: Patchy right upper lobe intrapulmonary radiodensities consistent with pneumonia. Splenomegaly, no other specific intra-abdominal abnormality.
[2019-11-23 09:00] LABS: Procalcitonin 0.1 ng/mL
[2019-11-23 09:05] LABS: Bilirubin Negative (Negative); Blood Negative (Negative); Clarity Clear (Clear); Glucose Negative (Negative); Ketones Trace mg/dL (Negative); Leukocyte Esterase Negative (Negative); Nitrite Negative (Negative); Urobilinogen 0.2 EU/dL (Up TO 0.2); pH 6.5 (5-8)
[2019-11-23] MEDS: Omnipaque 350 MG/ML 100 ML BTL IJ (09:16)
[2019-11-23] MEDS: Normal Saline - Diluent 50 ML VIAL IV (09:17)
[2019-11-23 09:33] LABS: ESR 37 mm/hr (0-20)
[2019-11-23] MEDS: diphenhydrAMINE 50 MG/ML VIAL IVP (09:44)
[2019-11-23] MEDS: methylPREDNISolone SUCC 125 MG VIAL IVP (09:44)
[2019-11-23] MEDS: Ondansetron 4 MG/2 ML VIAL IVP (09:45)
[2019-11-23] MEDS: cefTRIAXone 1 GM/50 ML BAG IVPB (10:02)
[2019-11-23] MEDS: AZITHROMYCIN 500 MG in Normal Saline 250 ML 250 MG IVPB (10:39)
[2019-11-23] MEDS: Heparin 5,000 UNITS/ML VIAL 5000 UNITS SC ×2 (12:00→20:14)
[2019-11-23] MEDS: Normal Saline 1,000 ML 150 ML IV ×2 (12:00→20:15)
[2019-11-23 12:02] LABS: TSH (W/Ref FT4) 0.93 uIU/mL (0.36-3.74)
[2019-11-23] MEDS: Acetaminophen 325 MG TAB PO (12:04)
--- NOTE | 2019-11-23 12:50 | SKI_PTH ---
PATIENT: Nati Marcos LOC: U#:[id number] AGE/SX: 39/F ROOM: RE11/24/[address]: Tatiana Flanagan : 1980 BED: A DIS: 11/25/2019 SPEC #: [id number] RECD: 11/23/19 14:14 STATUS: MAIRA RERuba #: [id number] CASPER: 11/23/19 12:[address]: Tatiana Flanagan DEPT: Surgical Specimen RECD BY: Shayy Strong ENTERED: 11/23/19 14:15 SP TYPE: J CARLOS KYLE DR: MD Selene Carroll Ruth Tissues: 1 - SKIN BIOPSY(SHAVE/PUNCH) Procedures: SKIN LEVEL 4 Comments: [id number]
[2019-11-23] MEDS: Lidocaine 1% Multi-Dose 50 ML VIAL (14:31)
[2019-11-23] MEDS: Betamethasone Dip. 0.05% CR 15 GM TUBE TP ×3 (14:33→20:12)
[2019-11-23] MEDS: FAMOTIDINE 20 MG/50 ML BAG 200 MG IVPB (14:33)
--- NOTE | 2019-11-23 15:11 | W.PM.HP.N ---
Date of service: 11/23/19 Time of Service: 15:11 Assessment and Plan Assessment and plan (1) Rash: Status: Acute Assessment and plan: refer to observation, DRESS is differential. received and will continue with IV steroids. likely from bactrim but consider psychiatric medication if not responding off bactrim. (2) Suspected COVID-19 virus infection: Status: Acute Assessment and plan: PUI, covid test pending. (3) Fever: Status: Acute Assessment and plan: no source of infection identified. will continue to observe and monitor for source of infection, awaiting final culture reports. (4) Urinary tract infection: Status: Acute Assessment and plan: original urine grew kleb. pneum which was sensitive to the bactrim she was taking. repeat urine today shows no evidence of ongoing infection. no further antibiotics indicated. (5) Pneumonia: Status: Acute Assessment and plan: on ceftriaxone and zithromax day 1. no respiratory symptoms or oxygen requirements. continue to monitor closely. consider aspiration pneumonia. may need to adjust treatment if not responding. (6) GERD (gastroesophageal reflux disease): Status: Acute Assessment and plan: stable, continue dexalant. will be placed on famotidine (7) Schizoaffective disorder: Status: Acute Assessment and plan: continue home psychiatric medications. stable. (8) SURINDER on CPAP: Status: Chronic Assessment and plan: home cpap while hospitalized (9) Hypothyroid: Status: Chronic Assessment and plan: TSH 0.9, continue home dose of 150 mcg. (10) DVT prophylaxis: Status: Acute Assessment and plan: patient is ambulatory and not bed bound. (11) Discharge planning issues: Status: Acute Assessment and plan: anticipate discharge tomorrow if remains medically stable. no services anticipated. History of Present Illness History of Present Illness Chief Complaint: rash Narrative: This is a 39 year female who presented to the ED with fever to 101/102 for 2 days and onset of rash last night. She was supposed to finish bactrim for a uti yesterday but forgot to take her last dose as she wasn't feeling well. She denies cough, travel, has had nausea without abdominal pain and no dyspnea. She is speaking in full sentences on exam in no distress. She has diffuse maculpapular rash all over body with no visible mucous membrane involvement and negative nikolsky's sign. She has clear lungs, normal oropharynx, soft nontender abdomen. Denies drug use and has no murmurs. Suspect drug reaction such as DRESS, work up was unremarkable. She was given IV steroids and will be referred to observation for further evaluation and management. Review of Systems Constitutional Constitutional: Reports chills, Reports fatigue and Reports fever(s) Eyes Eyes: Denies change in vision and Denies itchy eyes ENT Ears, Nose, Mouth, and Throat: Denies dysphagia, Denies vertigo, Denies dizziness, Denies lip swelling, Denies throat swelling and Denies tongue swelling Cardiovascular Cardiovascular: Denies chest pain and Denies dyspnea Respiratory Respiratory: Denies chest congestion, Denies cough, Denies dyspnea and Denies wheezing Gastrointestinal Gastrointestinal: Denies dysphagia, Denies diarrhea, Reports nausea and Denies vomiting Genitourinary Genitourinary: Denies hematuria, Denies dysuria and Denies urinary incontinence Musculoskeletal Musculoskeletal: Denies myalgias Integumentary/Breasts Skin/Breast: Reports rash Neurologic Neurologic: Denies confusion, Denies vertigo and Denies dizziness Psychiatric Psychiatric: Denies confusion Endocrine Endocrine: Reports fatigue Hematologic/Lymphatic Hematologic/Lymphatic: Denies easy bleeding and Denies easy bruising Allergic/Immunologic Allergic/Immunologic: Denies urticaria, Denies itchy eyes, Denies lip swelling, Denies throat swelling, Denies tongue swelling and Denies wheezing [facility] Medical History (Updated 11/23/19 @ 15:50 by Luz Soares NP) Borderline diabetes (Acute) GERD (gastroesophageal reflux disease) (Acute) Hypothyroidism (Chronic) Morbid drug-induced obesity (Inactive) Schizoaffective disorder (Acute) Surgical History History of colposcopy (Acute) Family History Mother Cancer - ? type of cancer Father Diabetes Heart disease Social History Smoking/Tobacco Use Status: Former Tobacco Use Alcohol Intake: current Alcohol Intake frequency: holidays/special occasions only Drug use: Never Substance use type: does not use Do you feel safe at home: Yes Do you feel safe in your relationship?: Yes Additional Social history: Heavy tobacco smoker for 20 years, 52-wuir-[id number] history, quit in 2011. Minimal alcohol. No other drugs. Lives alone. 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 No sexual partners in the past year. Meds Home Medications and Allergies Home Medications Medication Instructions Recorded Confirmed Type benztropine [Cogentin] 0.5 mg PO DAILY ml 05/30/15 11/23/19 History Lactobacillus acidophilus 1 ea PO DAILY 06/30/16 11/23/19 History clobetasol 15 gm TOPICAL PRN #2 tube 06/30/16 11/23/19 History norethindrone (contraceptive) 0.35 mg PO DAILY #1 pack 06/30/16 11/23/19 History [Nor-Q-D] Dexilant 30 mg PO DAILY 02/24/18 11/23/19 History clozapine 100 mg tablet 125 mg PO DAILY tab-cap 02/02/19 11/23/19 History lamotrigine 100 mg tablet 125 mg PO HS tab-cap 02/02/19 11/23/19 History lurasidone 120 mg tablet 120 mg PO DAILY tab-cap 02/02/19 11/23/19 History biotin 08/22/19 History naltrexone 100 mg PO DAILY 08/23/19 11/23/19 History Allergies Allergy/AdvReac Type Severity Reaction Status Date / Time pantoprazole [From Protonix] AdvReac Mild Nausea Unverified 11/23/19 07:37 Exam Const General: cooperative, comfortable and no acute distress Nutritional Appearance: obese Orientation: alert, awake and oriented x3 HENMT Head: normal to inspection, normocephalic and atraumatic Mouth: oral mucosae normal (no exudate or lesions) Neck Neck: normal visual inspection, full ROM, no lymphadenopathy, no meningeal signs and supple Resp Effort & Inspection: normal respiratory effort Auscultation: clear to auscultation bilaterally Cardio Rate: regular rate Rhythm: regular rhythm GI Inspection: normal to inspection and obesity Palpation: soft Auscultation: normal bowel sounds Skin Lesions: no lesions Rashes: rashes noted (diffuse, central and peripheral, maculopapular) Neuro General: patient alert, patient awake and patient oriented x3 Extrem General: normal to inspection, full ROM and no pedal edema Psych Appearance: grossly normal Mental Status: mental status grossly normal Speech and Movement: speech and movement normal Mood: congruent mood Affect: normal affect Attitude: cooperative Thought Process: normal Thought Content: normal Insight: insight good Judgment: judgment good Results Labs Result diagrams: 11/23/19 08:10 11/23/19 08:10 Labs: Laboratory Results - last 24 hr 11/23/19 11/23/19 11/23/19 08:10 08:10 08:10 WBC 5.60 RBC 4.34 Hgb 12.8 Hct 38.2 MCV 88.0 MCH 29.5 MCHC 33.5 RDW 13.8 Plt Count 181 MPV 10.7 Immature Gran % 0.2 Neutrophils % 81.2 Lymphocytes % 12.0 Monocytes % 6.6 Eosinophils % 0.0 Basophils % 0.0 Absolute Neutrophils 4.55 Absolute Lymphocytes 0.67 L Absolute Monocytes 0.37 Absolute Eosinophils 0.00 Absolute Basophils 0.00 ESR 37 H PT INR APTT VBG pH VBG pCO2 VBG pO2 VBG HCO3 VBG Total CO2 VBG O2 Saturation VBG Base Excess Sodium 132 L Potassium 3.6 Chloride 98 Carbon Dioxide 24.2 Anion Gap 9.8 BUN 9 Creatinine 1.18 H Estimated GFR/1.73 m2 50.73 Glucose 136 H Lactate Calcium 8.4 L Magnesium 1.8 Total Bilirubin 0.6 Conjugated Bilirubin 0.17 AST 17 ALT 22 Alkaline Phosphatase 77 C-Reactive Protein 4.21 H Total Protein 7.3 Albumin 3.5 Lipase 75 Procalcitonin 0.1 TSH Urine Color Urine Clarity Urine pH Ur Specific [place] Urine Protein Urine Ketones Urine Blood Urine Nitrite Urine Bilirubin Urine Urobilinogen Ur Leukocyte Esterase Urine Glucose 11/23/19 11/23/19 11/23/19 08:10 08:10 08:10 WBC RBC Hgb Hct MCV MCH MCHC RDW Plt Count MPV Immature Gran % Neutrophils % Lymphocytes % Monocytes % Eosinophils % Basophils % Absolute Neutrophils Absolute Lymphocytes Absolute Monocytes Absolute Eosinophils Absolute Basophils ESR PT 11.8 H INR 1.2 H APTT 30.1 VBG pH 7.47 H VBG pCO2 33 L VBG pO2 78 H VBG HCO3 24 VBG Total CO2 21 L VBG O2 Saturation 95 H VBG Base Excess 0.4 Sodium Potassium Chloride Carbon Dioxide Anion Gap BUN Creatinine Estimated GFR/1.73 m2 Glucose Lactate 1.0 Calcium Magnesium Total Bilirubin Conjugated Bilirubin AST ALT Alkaline Phosphatase C-Reactive Protein Total Protein Albumin Lipase Procalcitonin TSH Urine Color Urine Clarity Urine pH Ur Specific [place] Urine Protein Urine Ketones Urine Blood Urine Nitrite Urine Bilirubin Urine Urobilinogen Ur Leukocyte Esterase Urine Glucose 11/23/19 11/23/19 08:10 10:50 WBC RBC Hgb Hct MCV MCH MCHC RDW Plt Count MPV Immature Gran % Neutrophils % Lymphocytes % Monocytes % Eosinophils % Basophils % Absolute Neutrophils Absolute Lymphocytes Absolute Monocytes Absolute Eosinophils Absolute Basophils ESR PT INR APTT VBG pH VBG pCO2 VBG pO2 VBG HCO3 VBG Total CO2 VBG O2 Saturation VBG Base Excess Sodium Potassium Chloride Carbon Dioxide Anion Gap BUN Creatinine Estimated GFR/1.73 m2 Glucose Lactate Calcium Magnesium Total Bilirubin Conjugated Bilirubin AST ALT Alkaline Phosphatase C-Reactive Protein Total Protein Albumin Lipase Procalcitonin TSH 0.93 Urine Color Yellow Urine Clarity Clear Urine pH 6.5 Ur Specific [place] 1.020 Urine Protein Negative Urine Ketones Trace H Urine Blood Negative Urine Nitrite Negative Urine Bilirubin Negative Urine Urobilinogen 0.2 Ur Leukocyte Esterase Negative Urine Glucose Negative Last Vital Signs Temp 36.7 C 11/23/19 14:33 Pulse 78 11/23/19 14:33 Resp 18 11/23/19 14:33 BP 108/65 11/23/19 14:33 Pulse Ox 95 11/23/19 14:33 COVID-19 Screening Traveled to [place] from one of the affected countries or regions?: NO Recent travel in the [place] within the last 14 days?: Yes ([place]) Recent out of the country travel within the last 14 days?: No Exposure or possible exposure to illness during travel?: No Had IN PERSON contact w/suspected or confirmed C-19 person: No Have you had the following symptoms in the past few days?: Yes Symptoms noted since travel?: Fever Medical treatment received for symptoms/illness related to travel?: rash, SOB with movement, fatigue, vomiting
[2019-11-23] MEDS: methylPREDNISolone SUCC 125 MG VIAL 60 MG IVP ×2 (16:32→20:13)
--- NOTE | 2019-11-23 16:52 | W.PM.OP ---
Date of service: 11/23/19 Time of Service: 12:30 Operative Note Operative Note DATE OF PROCEDURE: 11/23/19 PRE-OP DIAGNOSIS: Rash POST-OP DIAGNOSIS: same PROCEDURE: Skin punch biopsy right forearm SURGEON: Loretta Berg ANESTHESIA: local Patient was transported to: no change Patient's condition: stable Indications: This patient presented today with a sudden onset of a generalized and significant rash. She attributes this to starting a medication about 6 days ago for UTI. Skin biopsy has been requested to rule out a drug reaction. Procedure Description: I advised skin biopsy. The risks of infection, bleeding and possible poor wound healing were discussed. She agrees to proceed. A paper consent was not obtained because of her location in a suspected COVID room. The skin of the right forearm was prepped with Betadine. The skin was infiltrated with 1% lidocaine. A 5 mm punch biopsy tool was used to take a full-thickness piece of skin. This was sent in formalin. The incision was closed with 3 interrupted 6-0 Prolene sutures with good hemostasis. It was dressed with a gauze. She tolerated the procedure well. Sutures should be removed in 7-10 days.
[2019-11-23] MEDS: diphenhydrAMINE 25 MG CAP PO (20:03)
[2019-11-23] MEDS: Melatonin 3 MG TAB 9 MG PO (20:13)
[2019-11-23] MEDS: Benztropine 1 MG TAB 0.5 MG PO (20:14)
[2019-11-23] MEDS: Normal Saline Flush 10 ML SYR IVP (20:18)
[2019-11-23] MEDS: lamoTRIgine 100 MG TAB PO (22:53)
[2019-11-23] MEDS: lamoTRIgine 25 MG TAB PO (22:53)
[2019-11-24] MEDS: diphenhydrAMINE 25 MG CAP PO ×3 (00:52→18:09)
[2019-11-24] MEDS: FAMOTIDINE 20 MG/50 ML BAG 200 MG IVPB ×2 (00:53→13:55)
[2019-11-24] MEDS: Normal Saline Flush 10 ML SYR IVP ×2 (00:54→19:33)
[2019-11-24 00:55] VITALS: BP 118/65; PULSE 72; RESP 18; TEMP 35.8; O2SAT 92
[2019-11-24] MEDS: Heparin 5,000 UNITS/ML VIAL 5000 UNITS SC ×3 (05:05→19:32)
[2019-11-24] MEDS: methylPREDNISolone SUCC 125 MG VIAL 60 MG IVP ×4 (05:31→19:32)
[2019-11-24] MEDS: Betamethasone Dip. 0.05% CR 15 GM TUBE TP ×3 (05:32→19:33)
[2019-11-24 05:35] VITALS: BP 116/69; PULSE 86; RESP 18; TEMP 36.3; O2SAT 92
[2019-11-24 06:58] LABS: Abs Immature Grans 0.01 k/cumm (0.0-0.09); Absolute Basophil Count 0.01 k/cumm (0.0-0.2); Absolute Lymphocyte Count 0.82 k/cumm (1.2-3.4); Absolute Monocyte Count 0.17 k/cumm (0.11-0.7); Absolute Neutrophil Count 4.56 k/cumm (1.2-6.7); Basophils % 0.2; HCT 36.2 % (36.0-46.0); Immature Grans % 0.2 %; Lymphocytes % 14.7; Mean Corp. HGB Concentration 33.1 g/dL (32.0-36.0); Mean Corpuscular Hemoglobin 29.4 pg (27.0-33.0); Mean Corpuscular Volume 88.7 fL (80-95); Mean Platelet Volume 10.9 fL (8.0-11.0); Monocytes % 3.1; Neutrophils % 81.8; Platelet Count 172 x1000/uL (130-400); RBC 4.08 m/cumm (4.00-5.20); RBC Distribution Width 13.4 % (11.7-14.6); White Blood Cell Count 5.57 k/cumm (4.4-10.8)
[2019-11-24 07:18] LABS: Anion Gap 6.9 mmol/L (3-11); BUN 13 mg/dL (7-18); CO2 25.1 mmol/L (21.0-32.0); CREATININE 0.86 mg/dL (0.55-1.02); Calcium 8.2 mg/dL (8.5-10.1); Chloride 106 mmol/L (98-107); Glucose 146 mg/dL (74-106); Magnesium 2.1 mg/dL (1.8-2.4); Potassium 3.5 mmol/L (3.5-5.1); Sodium 138 mmol/L (136-145)
[2019-11-24] MEDS: Lactobacillus Acidophilus CAP 1 CAP PO (07:50)
[2019-11-24] MEDS: Naltrexone 50 MG TAB 100 MG PO (07:50)
[2019-11-24] MEDS: Lurasidone 40 MG TAB 140 MG PO (07:51)
[2019-11-24] MEDS: Benztropine 1 MG TAB 0.5 MG PO ×2 (07:52→19:32)
[2019-11-24] MEDS: Dexlansoprazole 30 MG CAP PO (07:52)
[2019-11-24] MEDS: cefTRIAXone 1 GM/50 ML BAG IVPB (07:53)
[2019-11-24] MEDS: Normal Saline 1,000 ML 150 ML IV (07:55)
[2019-11-24 07:56] VITALS: BP 124/81; PULSE 68; RESP 18; TEMP 36.4; O2SAT 95
[2019-11-24 08:09] LABS: Hemoglobin A1C 5.7 % (3.8-5.6)
--- NOTE | 2019-11-24 08:12 | PHA.REVIEW ---
Pharmacy Admission Review - Admission Clinical Review (Last Updated 11/23/19 @ 15:49 by Luz Soares NP) Suspected COVID-19 virus infection (Acute) Schizoaffective disorder (Acute) GERD (gastroesophageal reflux disease) (Acute) Urinary tract infection (Acute) Pneumonia (Acute) Rash (Acute) Fever (Acute) Discharge planning issues (Acute) DVT prophylaxis (Acute ~08/22/19) pantoprazole [From Protonix] Adverse Reaction (Mild, Unverified 11/23/19 07:37) Nausea Height 5 ft 6.14 in Weight 131.542 kg - Comments Comments/Follow Ups: SEVERE DRUG REACTION (Bactrim??),ASPIRATION PNEUMONIA. COVID-NEGATIVE - Renal Dosing Renal Dosing: BUN 13 mg/dL (7-18) 11/24/19 06:20 Creatinine 0.86 mg/dL (0.55-1.02) 11/24/19 06:20 Medications needing adjustments: Reviewed (est CrCl~ 81.4 mL/min Meds-OK) - Anticoagulation Anticoagulation: Hgb 12.0 g/dL (12.0-15.5) 11/24/19 06:20 Hct 36.2 % (36.0-46.0) 11/24/19 06:20 Plt Count 172 x1000/uL (130-400) 11/24/19 06:20 INR 1.2 (0.9-1.1) H 11/23/19 08:10 Creatinine 0.86 mg/dL (0.55-1.02) 11/24/19 06:20 Medications: Heparin - Opiate Usage Evaluate Pain Scale/Pains Meds: N/A Scheduled Bowel Reg ordered if on Opiates?: Yes - Relevant Labs ESR 37 mm/hr (0-20) H 11/23/19 08:10 Sodium 138 mmol/L (136-145) 11/24/19 06:20 Potassium 3.5 mmol/L (3.5-5.1) 11/24/19 06:20 Chloride 106 mmol/L (98-107) 11/24/19 06:20 Magnesium 2.1 mg/dL (1.8-2.4) 11/24/19 06:20 C-Reactive Protein 3.70 mg/dL (0.0-0.3) H 11/24/19 06:20 Electrolytes, C-Reactive P, ESR: Reviewed (FOLLOW ANC (Patient is on Clozaril ) current ANC 4.56) - DM Control DM Control: Glucose 146 mg/dL (74-106) H 11/24/19 06:20 Hemoglobin A1c 5.7 % (3.8-5.6) H 11/24/19 06:20 Insulin Dosing: N/A - Heart Failure/IA EF%, KAITLIN's, B-Blockers, Diuretics: N/A - BP Control BP Control: Blood Pressure 124/81 Blood Pressure 116/69 Blood Pressure 118/65 If elevated: N/A - Qtc Review If Elevated: N/A - IV to PO Switch IV Medications: Reviewed (which may be causing LLL infiltrates. (On IV Azithromycin & Rocephin IV). Patient has been diuresing 1L/urination x 3. IV fluids @150mL/hr, to decrease) - Home Meds Home Med List reviewed: Reviewed (Biotin not ordered (not stocked here)) - Current meds Current Medication Order Review: Reviewed (Famotidne & Dexlansoprazole,Diphenhydramine ordered along with IV Solu-medrol) - Comments Comments/Follow Ups: Besides the Clozaril, patient is also on Lutada, Cogentin, & Lamictal.
[2019-11-24 08:32] LABS: COVID-19 RT-PCR UVMMC Result Negative (Negative)
--- NOTE | 2019-11-24 10:16 | PGE_ITS ---
Date of Service Date of service: 11/24/19 Time of Service: 10:16 Assessment and Plan Assessment and plan (1) Rash: Status: Acute Assessment and plan: Due to an acute drug reaction, presumably due to bactrim, with suspected underlying DRESS syndrome. Continue IV solumderol, topical steroids, IV pepcid, prn benadryl. Viral studies pending; COVID-19 negative. Ok to d/c IVF as the patient's lesions have not become vesicular/started to desquamate. (2) COVID-19 ruled out: Status: Ruled-out (3) Fever: Status: Resolved Assessment and plan: Possibly due to PNA vs drug reaction. (4) Urinary tract infection: Status: Ruled-out Assessment and plan: Resolved prior to admission. (5) Pneumonia: Status: Acute Assessment and plan: Community acquired, present on admission. On ceftriaxone and zithromax day 2. While there is a possibility that findings on CT are due to the drug reaction/DRESS syndrome or aspiration PNA, the patient appears to be clinically better on azithromycin/rocephin Day 2 - will continue. (6) GERD (gastroesophageal reflux disease): Status: Acute Assessment and plan: stable, continue dexalant and famotidine while in the hospital. (7) Schizoaffective disorder: Status: Acute Assessment and plan: continue current psychiatric medications. (8) SURINDER on CPAP: Status: Chronic Assessment and plan: Continue home cpap (9) Hypothyroid: Status: Chronic Assessment and plan: Continue levothyroxine at 150 mcg. (10) DVT prophylaxis: Status: Acute Assessment and plan: Not requiring (11) Discharge planning issues: Status: Acute Assessment and plan: Will monitor x 24 more hours. Subjective Subjective Interval history since last seen: Ms Marcos's rash is getting better, though it is still quite itchy. Still no lesions in her mouth. None of the lesions have become vesicular/opened up. Denies dizziness, chest pain, shortness of breath. Had nausea this morning after breakfast, but it had passed. Has been urinating very large amounts of urine (>1L) at a time - this is not normal for her. COVID-19 negative. Exam Narrative Exam Narrative: General: Very pleasant obese female, appears comfortable in bed, has a diffuse macular rash with evidence of excoriations from scratching; face is erythematous as well HEENT: EOMI, MMM, diffuse facial erythema; no mucosal leions Heart: RRR, no m/r/g Lungs: CTAB Abdomen: soft, nontender, nondistended Extremities: no e/c/c BLE's; 2+ pedal pulses, diffusely covered with the above rash Objective Objective Clinical Data: Abnormal lab results 11/24/19 11/24/19 11/24/19 Range/Units 06:20 06:20 06:20 Absolute Lymphocytes 0.82 L (1.2-3.4) k/cumm Glucose 146 H (74-106) mg/dL Hemoglobin A1c 5.7 H (3.8-5.6) % Calcium 8.2 L (8.5-10.1) mg/dL C-Reactive Protein 3.70 H (0.0-0.3) mg/dL Vital Signs Temperature 36.4 C L 11/24/19 07:56 Temperature Source Tympanic 11/24/19 07:56 Pulse 68 11/24/19 07:56 Pulse Rhythm Regular 11/24/19 07:50 Pulse 89 11/23/19 10:40 Respiratory Rate 18 11/24/19 07:56 Respiratory Effort Non-Labored 11/24/19 07:50 Respiratory Depth Normal 11/24/19 07:50 Respiratory Pattern Normal 11/24/19 07:50 Blood Pressure 124/81 11/24/19 07:56 Blood Pressure Mean 51 11/23/19 10:32 Blood Pressure Position Sitting 11/23/19 07:32 Pulse Oximetry 95 11/24/19 07:56 Oxygen Delivery Method Room Air 11/24/19 07:56 Oxygen Flow Rate 0 11/24/19 07:56 Fraction of Inspired Oxygen (FIO2) 21 11/24/19 09:04 Pain Level 0 11/24/19 07:56 Intake & Output 11/23/19 11/23/19 11/24/19 11:59 23:59 11:59 Intake Total 1050 / 2340 1290 / 2340 1622.5 / 1622.5 Output Total 3400 / 3400 900 / 900 Balance 1050 / -1060 -2110 / -1060 722.5 / 722.5 Weight 131.542 kg Intake: IV 1050 / 2100 1050 / 2100 1622.5 / 1622.5 Oral 240 / 240 Output: Urine 3400 / 3400 900 / 900 Other: Urine Color Pale Pale Urine Appearance Clear Clear Clear Urine Odor Normal None Voiding Methods Toilet Laboratory Results WBC 5.57 k/cumm (4.4-10.8) 11/24/19 06:20 RBC 4.08 m/cumm (4.00-5.20) 11/24/19 06:20 Hgb 12.0 g/dL (12.0-15.5) 11/24/19 06:20 Hct 36.2 % (36.0-46.0) 11/24/19 06:20 MCV 88.7 fL (80-95) 11/24/19 06:20 MCH 29.4 pg (27.0-33.0) 11/24/19 06:20 MCHC 33.1 g/dL (32.0-36.0) 11/24/19 06:20 RDW 13.4 % (11.7-14.6) 11/24/19 06:20 Plt Count 172 x1000/uL (130-400) 11/24/19 06:20 MPV 10.9 fL (8.0-11.0) 11/24/19 06:20 Immature Gran % 0.2 % 11/24/19 06:20 Neutrophils % 81.8 11/24/19 06:20 Lymphocytes % 14.7 11/24/19 06:20 Monocytes % 3.1 11/24/19 06:20 Eosinophils % 0.0 11/24/19 06:20 Basophils % 0.2 11/24/19 06:20 Absolute Neutrophils 4.56 k/cumm (1.2-6.7) 11/24/19 06:20 Absolute Lymphocytes 0.82 k/cumm (1.2-3.4) L 11/24/19 06:20 Absolute Monocytes 0.17 k/cumm (0.11-0.7) 11/24/19 06:20 Absolute Eosinophils 0.00 k/cumm (0.0-0.7) 11/24/19 06:20 Absolute Basophils 0.01 k/cumm (0.0-0.2) 11/24/19 06:20 ESR 37 mm/hr (0-20) H 11/23/19 08:10 PT 11.8 sec (9.3-11.0) H 11/23/19 08:10 INR 1.2 (0.9-1.1) H 11/23/19 08:10 APTT 30.1 sec (21.0-31.4) 11/23/19 08:10 VBG pH 7.47 (7.35-7.45) H 11/23/19 08:10 VBG pCO2 33 mm/Hg (34-47) L 11/23/19 08:10 VBG pO2 78 mm/Hg (28-44) H 11/23/19 08:10 VBG HCO3 24 mmol/L (22-28) 11/23/19 08:10 VBG Total CO2 21 mmol/L (22-29) L 11/23/19 08:10 VBG O2 Saturation 95 % (70-80) H 11/23/19 08:10 VBG Base Excess 0.4 mmol/L (-3-3) 11/23/19 08:10 Sodium 138 mmol/L (136-145) 11/24/19 06:20 Potassium 3.5 mmol/L (3.5-5.1) 11/24/19 06:20 Chloride 106 mmol/L (98-107) 11/24/19 06:20 Carbon Dioxide 25.1 mmol/L (21.0-32.0) 11/24/19 06:20 Anion Gap 6.9 mmol/L (3-11) 11/24/19 06:20 BUN 13 mg/dL (7-18) 11/24/19 06:20 Creatinine 0.86 mg/dL (0.55-1.02) 11/24/19 06:20 Estimated GFR/1.73 m2 >= 60.00 (mL/min/1.73m2) 11/24/19 06:20 Glucose 146 mg/dL (74-106) H 11/24/19 06:20 Hemoglobin A1c 5.7 % (3.8-5.6) H 11/24/19 06:20 Lactate 1.0 mmol/L (0.6-1.4) 11/23/19 08:10 Calcium 8.2 mg/dL (8.5-10.1) L 11/24/19 06:20 Magnesium 2.1 mg/dL (1.8-2.4) 11/24/19 06:20 Total Bilirubin 0.6 mg/dL (0.2-1.0) 11/23/19 08:10 Conjugated Bilirubin 0.17 mg/dL (0.00-0.20) 11/23/19 08:10 AST 17 U/L (15-37) 11/23/19 08:10 ALT 22 U/L (14-59) 11/23/19 08:10 Alkaline Phosphatase 77 U/L (46-116) 11/23/19 08:10 C-Reactive Protein 3.70 mg/dL (0.0-0.3) H 11/24/19 06:20 Total Protein 7.3 g/dL (6.4-8.2) 11/23/19 08:10 Albumin 3.5 g/dL (3.4-5.0) 11/23/19 08:10 Lipase 75 U/L (73-393) 11/23/19 08:10 Procalcitonin 0.1 ng/mL 11/23/19 08:10 TSH 0.93 uIU/mL (0.36-3.74) 11/23/19 10:50 Urine Color Yellow (Yellow) 11/23/19 08:10 Urine Clarity Clear (Clear) 11/23/19 08:10 Urine pH 6.5 (5-8) 11/23/19 08:10 Ur Specific [place] 1.020 (1.005-1.025) 11/23/19 08:10 Urine Protein Negative mg/dL (Negative) 11/23/19 08:10 Urine Ketones Trace mg/dL (Negative) H 11/23/19 08:10 Urine Blood Negative (Negative) 11/23/19 08:10 Urine Nitrite Negative (Negative) 11/23/19 08:10 Urine Bilirubin Negative (Negative) 11/23/19 08:10 Urine Urobilinogen 0.2 EU/dL (Up TO 0.2) 11/23/19 08:10 Ur Leukocyte Esterase Negative (Negative) 11/23/19 08:10 Urine Glucose Negative mg/dL (Negative) 11/23/19 08:10 COVID-19 PCR Negative (Negative) 11/23/19 08:00 Nasopharyn COVID-19 PCR Not Applicable 11/23/19 08:00 Ref Test Perform Site [facility] lab 11/23/19 08:00
[2019-11-24] MEDS: AZITHROMYCIN 500 MG in Normal Saline 250 ML 250 MG IVPB (10:22)
--- NOTE | 2019-11-24 10:34 | PDOC.CMIN ---
- If Service Date Differs Date of service: 11/24/19 Time of Service: 10:35 Care Management Initial Assess REASON FOR HOSPITALIZATION:: Severe drug reaction, aspiration pneumonia PAST MEDICAL HISTORY/PAST SURGICAL HISTORY:: Medical History (Updated 11/23/19 @ 15:50 by Luz Soares NP). Borderline diabetes (Acute). GERD (gastroesophageal reflux disease) (Acute). Hypothyroidism (Chronic). Morbid drug-induced obesity (Inactive). Schizoaffective disorder (Acute). Surgical History . History of colposcopy (Acute) PREVIOUS FUNCTIONAL STATUS/SOCIAL/FAMILY SUPPORTS:: Nati lives alone in [facility]. Her father lives in [place]. She is a [facility] client, and sees Samantha Rebolledo regularly there. 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 She is an active member in her mormonism. She is independent with her ADLs. CURRENT FUNCTIONAL STATUS:: Nati was sitting up in her bed when CM met with her. She reported that she was feeling much better today, but per MD, she will stay another night to monitor her rash. Nati stated that she has a cat at home that she is asking a friend to check on. She stated that she is happy with her care at [facility]. CM will continue to follow. ADVANCE DIRECTIVES:: none on file Has patient been provided with information about the portal?: No Did the patient sign up for the portal?: No CODE STATUS:: Full Code INSURANCE COVERAGE / FINANCIAL ISSUES:: [facility] CURRENT HOME/COMMUNITY SERVICES/EQUIPMENT:: Nati has support through [facility]. PRIMARY CARE PHYSICIAN:: Barbara Morton POTENTIAL DISCHARGE NEEDS:: Evaluations for further needs, follow up appointments PATIENT/FAMILY EDUCATION NEEDS:: Review discharge instructions regarding activity levels and medications, discussion of self care needs including ask me three ANTICIPATED BARRIERS TO DISCHARGE:: None identified at this time. TRANSPORTATION:: via private vehicle by family/friends PLAN:: Anticipate Nati will return home with no additional services once medically cleared. She will follow up with her PCP and discharge plan of care. She will be driven home via private vehicle by friends. CM will continue to follow.
--- NOTE | 2019-11-24 13:11 | W.NUTRFU ---
Date of service: 11/24/19 Time of Service: 13:11 Nutritional Follow up NOTE: 39 year old female admitted with UTI, PNA. PMH: schizo affective dx, morbid obesity. Following regular meal plan with adequate intake (100% breakfast). Not at risk for nutritional decline at this time. Time Spent in Nutritional Counseling and Treatment: 0 time spent face to face
[2019-11-24] MEDS: Triamcinolone 0.1% CR 15 GM TUBE TP ×2 (13:55→19:33)
[2019-11-24 15:17] VITALS: BP 128/84; PULSE 69; RESP 20; TEMP 35.7; O2SAT 95
--- NOTE | 2019-11-24 15:26 | CHAPLAIN ---
Nati was sitting up in bed she I visited. She was very pleasant and easily engaged in a conversation. Nati said she lives living in [facility] very much and is especially looking forward to summer her. She has lived in [place] before, and several other places, and then returned here. She said she is staying one more night.
[2019-11-24] MEDS: Docusate Sodium 100 MG CAP PO (18:09)
[2019-11-24] MEDS: lamoTRIgine 25 MG TAB PO (19:31)
[2019-11-24] MEDS: lamoTRIgine 100 MG TAB PO (19:32)
[2019-11-24] MEDS: Melatonin 3 MG TAB 9 MG PO (19:32)
[2019-11-24 21:15] VITALS: BP 133/83; PULSE 66; RESP 16; TEMP 36; O2SAT 95
[2019-11-25] MEDS: FAMOTIDINE 20 MG/50 ML BAG 200 MG IVPB (02:55)
[2019-11-25] MEDS: Heparin 5,000 UNITS/ML VIAL 5000 UNITS SC (03:42)
[2019-11-25] MEDS: methylPREDNISolone SUCC 125 MG VIAL 60 MG IVP ×2 (03:42→10:12)
[2019-11-25 03:50] VITALS: BP 150/83; PULSE 74; RESP 18; TEMP 36.4; O2SAT 93
[2019-11-25 07:07] VITALS: BP 153/88; PULSE 74; RESP 17; TEMP 36.4; O2SAT 95
[2019-11-25 07:29] LABS: Anion Gap 6.6 mmol/L (3-11); BUN 14 mg/dL (7-18); C-Reactive Protein 1.43 mg/dL (0.0-0.3); CO2 26.4 mmol/L (21.0-32.0); CREATININE 0.75 mg/dL (0.55-1.02); Calcium 8.3 mg/dL (8.5-10.1); Chloride 107 mmol/L (98-107); Glucose 144 mg/dL (74-106); Magnesium 2.3 mg/dL (1.8-2.4); Potassium 3.8 mmol/L (3.5-5.1); Sodium 140 mmol/L (136-145)
[2019-11-25] MEDS: Triamcinolone 0.1% CR 15 GM TUBE TP (07:46)
[2019-11-25] MEDS: Lurasidone 40 MG TAB 140 MG PO (07:46)
[2019-11-25] MEDS: Betamethasone Dip. 0.05% CR 15 GM TUBE TP (07:46)
[2019-11-25] MEDS: Naltrexone 50 MG TAB 100 MG PO (07:47)
[2019-11-25] MEDS: Dexlansoprazole 30 MG CAP PO (07:48)
[2019-11-25] MEDS: Lactobacillus Acidophilus CAP 1 CAP PO (07:48)
[2019-11-25] MEDS: Benztropine 1 MG TAB 0.5 MG PO (07:48)
[2019-11-25] MEDS: Normal Saline Flush 10 ML SYR IVP (07:49)
[2019-11-25] MEDS: cefTRIAXone 1 GM/50 ML BAG IVPB (07:51)
--- NOTE | 2019-11-25 09:37 | W.PM.DS.N ---
Date of service: 11/25/19 Time of Service: 09:40 DS: Diagnosis Discharge Diagnosis (1) Rash: Start date: 11/25/19 Start time: 09:45 Status: Acute Asessment and Plan: Rash is improving, ithcing improving. DRESS due to bactrim, evidenced by Fever, Rash STEPHANIE, pneumonia, with elevated CRP on admission at 3.7 down to 1.4 ,. Repeat urine culture negative however CXR with pneumonia. Guidelines Recommendation prednisone 0.5-2mg/kg for 8-12 weeks to prevent relapse. 60 mg BID equivelant to approx. 0.5 mg/ she appears to be doing well on this dose, will continue for 2 weeks with follow up to PCP, will defer to PCP for further treatment with steroid. Continue pepcid, benadryl and topical steroids. (2) Fever: Start date: 11/25/19 Start time: 09:47 Status: Resolved Asessment and Plan: Defervesced. See above. (3) Urinary tract infection: Start date: 11/25/19 Start time: 09:54 Status: Ruled-out Asessment and Plan: Prior to admission, took bactrim as outpatient, DRESS as result, repeat u/a negative no treatment for UTI on this admission (4) Pneumonia: Start date: 11/25/19 Start time: 09:55 Status: Acute Asessment and Plan: With DRESS, started on azithromycin and ceftriaxone, will continue azithromycin and cefpodixime for CAP. (5) GERD (gastroesophageal reflux disease): Start date: 11/25/19 Start time: 09:56 Status: Acute Asessment and Plan: Continue home meds will also be on pepcid for drug reaction (6) Schizoaffective disorder: Start date: 11/25/19 Start time: 09:57 Status: Acute Asessment and Plan: continue current psychiatric medication (7) SURINDER on CPAP: Start date: 11/25/19 Start time: 09:57 Status: Chronic Asessment and Plan: Continue to use CPAP (8) Hypothyroid: Start date: 11/25/19 Start time: 09:57 Status: Chronic Asessment and Plan: Continue levothyroxine. Discharge Plan Disposition Patient Disposition: HOME Condition: Improving Discharge Details Chief Complaint: GenMedical Clinical Impression: Rash, Fever, Pneumonia Reason For Visit: SEVERE DRUG REACTION, ?ASPIRATION PNEUMONIA Admit Date/Time: 11/24/19 11:44 Admit Provider: Tatiana Flanagan Attending Provider: Tatiana Flanagan Primary Care Provider: Barbara Morton ED Provider: Yulisa Dsouza Hospital Course Hospital Course: This is a 39 year female who presented to the ED with fever to 101/102 for 2 days and onset. She was supposed to finish bactrim for a uti before day of admission, but forgot to take her last dose as she wasn't feeling well. She was admitted for DRESS syndrome and started on steroid both topical and systemic, along with bendaryl and pepcid. During course of hospitalization she was found to have CAP by CXR with STEPHANIE on admission. IVF infused correcting STEPHANIE. Lesions never become vesicular/started to desquamate. CAP was treated with Ceftrixone and azithromycin. Today she is feeling better and ready to go home. Guideline recommendations for prednisone 0.5-2 mg/kg for 8-12 weeks due to possible relapse, this may not be necessary in her case however I will give her 60mg prednisone BID x 2 weeks and defer to PCP for further management. Also finish her course of azithromycin and change to cefpodixime from ceftriaxone. Will continue benagdyl, pepcid and topical steroid. She states she is feeling much better, agreeable to the plan and ready for discharge. She denies CP, SOB, N/V/D. Home Meds and New Rx's Prescriptions: New triamcinolone acetonide 0.1 % Cream 0 applic topical TID Qty: 1 RF: 0 diphenhydramine HCl 25 mg Capsule 25 mg PO Q4H PRN PRNQty: 30 RF: 0 benztropine 1 mg Tablet 0.5 mg PO BID Qty: 14 RF: 0 famotidine [Pepcid] 20 mg tablet 20 mg PO DAILY Qty: 20 RF: 0 azithromycin 250 mg tablet 250 mg PO DAILY 5 Days Qty: 3 RF: 0 cefpodoxime 200 mg tablet 200 mg PO BID Qty: 12 RF: 0 prednisone 20 mg tablet 60 mg PO BID Qty: 84 RF: 0 Continued Lactobacillus acidophilus 1 EACH capsule 1 ea PO DAILY RF: 0 norethindrone (contraceptive) [Nor-Q-D] 0.35 MG tablet 0.35 mg PO DAILY Qty: 1 RF: 12 clobetasol 15 GM ointment 15 gm Topical PRN Qty: 2 RF: 1 clozapine 100 mg tablet 125 mg PO HS RF: 0 lamotrigine [Lamictal] 100 mg tablet 125 mg PO HS RF: 0 Latuda 120 mg tablet 140 mg PO DAILY RF: 0 Dexilant 30 MG capsule,biphase delayed releas 30 mg PO DAILY RF: 0 biotin 1 mg Capsule RF: 0 naltrexone 50 mg Tablet 100 mg PO DAILY RF: 0 benztropine 0.5 mg Tablet 0.5 mg PO BID RF: 0 Discharge Instructions Instructions: Acute Rash (DC), Community Acquired Pneumonia (DC), Adverse Drug Reaction (ED) Additional Instructions: Follow up with your Primary provider in 2 weeks, we will call you with the date and time on Wednesday Take prednisone 60 mg twice a day, you may require longer dosing, I will let your primary provider assess and determine need for further dosing. Take benadryl every four hours as needed for itching Take pepcid daily Use topical steroids three times a day for rash Stand Alone Forms: Nursing Discharge Form Referrals: Barbara Morton [Primary Care Provider] - ([facility] will call you with date and time of follow up with PCP. ) Activity:: Activity as Tolerated Equipment/Supplies:: No Equipment Needed Diet:: As Tolerated Discharge Orders Discharge Orders: Discharge Order (Routine); Ordered 11/25/19 Ordered By: Macrina Bynum DS: Summary Status at Discharge Functional status at discharge: independent ambulation Overall status at discharge: patient is back to baseline Mental Status: mental status grossly normal Speech and Movement: speech and movement normal Mood: congruent mood Affect: normal affect Exam Const General: cooperative, healthy appearing, comfortable and well groomed Nutritional Appearance: obese Orientation: alert, awake and oriented x3 HENMT Head: normal to inspection, normocephalic and atraumatic Eyes Eyelids: eyelids normal Conjunctivae: conjunctivae normal Sclera: sclerae normal Pupils: PERRL Neck Neck: normal visual inspection, full ROM and no JVD Lymphatic: no lymphadenopathy noted Chest Chest: normal inspection of the chest Resp Effort & Inspection: normal respiratory effort and able to speak in complete sentences Auscultation: clear to auscultation bilaterally Cardio Jugular venous pressure: no JVD Palpation: normal PMI Rate: regular rate Rhythm: regular rhythm Heart Sounds: S1 normal and S2 normal GI Inspection: obesity Palpation: soft and no hepatosplenomegaly Auscultation: normal bowel sounds Back/Spine/Pelvis Back: no CVA tenderness Thoracic/Lumbar Spine: thoracic and lumbar spine normal to inspection Skin Rashes: rashes noted ( has a diffuse macular rash with evidence of excoriations from scratching; ) Neuro General: patient alert, patient awake and patient oriented x3 Extrem General: normal to inspection, full ROM and no clubbing, cyanosis or edema Psych Appearance: grossly normal Mental Status: mental status grossly normal Speech and Movement: speech and movement normal Mood: congruent mood Affect: normal affect Attitude: cooperative Thought Content: normal DS: Data Vitals/I&O Vitals and I&O: Vital Signs Temperature 36.4 C L 11/25/19 07:07 Temperature Source Tympanic 11/25/19 07:07 Pulse 74 11/25/19 07:07 Pulse Rhythm Regular 11/25/19 03:09 Pulse 89 11/23/19 10:40 Respiratory Rate 17 11/25/19 07:07 Respiratory Effort Non-Labored 11/25/19 03:09 Respiratory Depth Normal 11/25/19 03:09 Respiratory Pattern Normal 11/25/19 03:09 Blood Pressure 153/88 H 11/25/19 07:07 Blood Pressure Mean 51 11/23/19 10:32 Blood Pressure Position Sitting 11/23/19 07:32 Pulse Oximetry 95 11/25/19 07:07 Oxygen Delivery Method Room Air 11/25/19 07:07 Oxygen Flow Rate 0 11/25/19 07:07 Fraction of Inspired Oxygen (FIO2) 21 11/24/19 09:04 Pain Level 0 11/25/19 07:07 Intake & Output 11/24/19 11/24/19 11/25/19 11:59 23:59 11:59 Intake Total 1672.5 / 1732.5 60 / 1732.5 Output Total 900 / 2250 1350 / 2250 750 / 750 Balance 772.5 / -517.5 -1290 / -517.5 -750 / -750 Intake: IV 1672.5 / 1732.5 60 / 1732.5 Output: Urine 900 / 2250 1350 / 2250 750 / 750 Other: Urine Color Pale Yellow Urine Appearance Clear Clear Clear Urine Odor None Voiding Methods Toilet Data Completed and Pending Completed studies during hospitalization [Text1]: FINDINGS: CT examination of the chest, abdomen, and pelvis was performed with intravenous infusion of 100 cc of Omnipaque 350. There are patchy ground-glass and consolidative opacities of the right upper lobe consistent with acute infectious process. The radiodensities include an 8 millimeter peripherally located nodular radiodensity, this is unchanged from February 2018. Note is also made areas of apparent scarring in the left lung base. No pleural effusion. No cardiomegaly. No mediastinal or hilar adenopathy. Tracheobronchial tree appears intact. No pulmonary embolic disease. Unremarkable appearance of the thoracic aorta. The spleen is moderately enlarged. Liver is unremarkable in appearance. Pancreas appears normal. Gallbladder and bile ducts are CT normal. Adrenals and kidneys appear normal. No evidence of urinary tract obstruction or calcification. Urinary bladder moderately distended but otherwise unremarkable. Abdominal aorta is of normal diameter and the major visceral vessels appear intact. No abdominal or pelvic adenopathy. No significant abdominal or pelvic abdominal wall hernia. Appendix is normal. No evidence of diverticulitis or bowel obstruction. [employer] structures appear intact. No free fluid in the pelvis. IMPRESSION: Patchy right upper lobe intrapulmonary radiodensities consistent with pneumonia. Labs on day of discharge: Labs from last 24 hours 11/25/19 06:10 Sodium 140 Potassium 3.8 Chloride 107 Carbon Dioxide 26.4 Anion Gap 6.6 BUN 14 Creatinine 0.75 Estimated GFR/1.73 m2 >= 60.00 Glucose 144 H Calcium 8.3 L Magnesium 2.3 C-Reactive Protein 1.43 H Preliminary micro results at discharge 11/23/19 08:28 Blood Culture - Preliminary Blood NO GROWTH 24 HOURS 11/23/19 08:10 Blood Culture - Preliminary Blood NO GROWTH 24 HOURS [facility] Medical History Borderline diabetes (Acute) GERD (gastroesophageal reflux disease) (Acute) Hypothyroidism (Chronic) Morbid drug-induced obesity (Inactive) Schizoaffective disorder (Acute) Surgical History History of colposcopy (Acute) Family History Mother Cancer - ? type of cancer Father Diabetes Heart disease Social History Smoking/Tobacco Use Status: Former Tobacco Use Alcohol Intake: current Alcohol Intake frequency: holidays/special occasions only Drug use: Never Substance use type: does not use Do you feel safe at home: Yes Do you feel safe in your relationship?: Yes Additional Social history: Heavy tobacco smoker for 20 years, 25-uxhp-lphy history, quit in 2011. Minimal alcohol. No other drugs. Lives alone. 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 No sexual partners in the past year.
[2019-11-25 09:52] LABS: CMV Ab, IgM Negative (Negative)
[2019-11-25] MEDS: AZITHROMYCIN 500 MG in Normal Saline 250 ML 250 MG IVPB (10:13)
--- NOTE | 2019-11-25 10:47 | CMDISCH_ITS ---
- If Service Date Differs Date of service: 11/25/19 Time of Service: 10:54 LACE Index Scoring Tool - Questions: Length of Stay (in days): 1 Acuity (Admit via E.D.?): Yes E.D. Visits: 2 - Answers: Total Score: 6 Risk of Readmission: Low Risk Care Management Discharge Reason for Hospitalization: Severe drug reaction, aspiration pneumonia Discharge Plan: Nati is discharged home with a resumption of services through [facility]. She will follow up with her PCP and her plan of care as directed, including medication recommendations. She is transported home via [facility], coordinated by CM. Patient/Family Education Needs: Nursing will review discharge instructions with Nati re medications. Nati is able to verbalize reason for hospitalization and how to manage care at home. - MH Services (Omit if N/A) Current MH Services: [facility]
[2019-11-25 11:17] VITALS: BP 137/85; PULSE 71; RESP 17; TEMP 36.4; O2SAT 97
[2019-11-27 00:39] LABS: HHV-6 PCR, P Negative (Negative)
[2019-11-28 01:58] LABS: Anaplasma phagocytophilum Negative (Negative); B. miyamotoi PCR Negative (Negative); Babesia divergens/MO-1 Negative (Negative); Babesia duncani Negative (Negative); Babesia microti Negative (Negative); Ehrlichia chaffeensis Negative (Negative); Ehrlichia ewingii/canis Negative (Negative); Ehrlichia muris eauclairensis Negative (Negative)
[2019-11-28 13:48] LABS: EBV DNA Detect/Quant, P Undetected IU/mL (Undetected)
[2019-11-29 11:36] LABS: Misc Referral (MAYO) See Comments
== END 2019-11-25 11:28 | disposition home or self-care (01) | DRG 606 ==
LOC: ER 11:09 → MS 11:20
PROVIDERS: Emergency Medicine; Admitting Provider Internal Medicine; Emergency Provider Physician Assistant; PCP Nurse Practitioner Family; Visit Provider Internal Medicine
DX: L27.0 Generalized skin eruption due to drugs and medicaments taken internally (principal); J18.9 Pneumonia, unspecified organism; N17.9 Acute kidney failure, unspecified; T36.8X5A Adverse effect of other systemic antibiotics, initial encounter; R50.9 Fever, unspecified; Z03.818 Encounter for observation for suspected exposure to other biological agents ruled out; K21.9 Gastro-esophageal reflux disease without esophagitis; F25.9 Schizoaffective disorder, unspecified; G47.33 Obstructive sleep apnea (adult) (pediatric); E03.9 Hypothyroidism, unspecified; Z99.89 Dependence on other enabling machines and devices
CPT/HCPCS: 11104; 36415; 36416; 71275; 74177; 80048; 80053; 81025; 82805; 83690; 84145; 85652; 87040; 87449; 87532; 87798; 87799; 87880; 96361; 96365; 96367; 96375; 99220; 99232; 99239; 99285; U0003; 81003; 82248; 83036; 83605; 83735; 84443; 85025; 85610; 85730; 86140; 86645; 87081; 87086; 88305; 94660; G0378; J0456; J0696; J1200; J1644; J2405; J2930; J3490

== ENCOUNTER 2019-11-24 02:12 | Outpatient (CLI) | payer MEDICARE, SELFPAY | END 2019-11-24 02:32 | PROVIDERS: PCP Nurse Practitioner Family; Visit Provider Nurse Practitioner Family | DX: R69 Illness, unspecified (principal) ==

== ENCOUNTER → 2019-11-30 09:13 | Outpatient (BNVA) | payer MEDICARE, SELFPAY | PROVIDERS: PCP Nurse Practitioner Family; Referring Provider Nurse Practitioner Family; Visit Provider Surgery | DX: Z48.02 Encounter for removal of sutures (principal) ==

== ENCOUNTER 2019-12-09 09:07 | Emergency (ER) | payer MEDICARE, SELFPAY ==
[2019-12-09] VITALS (24 sets, daily range): BP systolic 129–146; BP diastolic 66–87; PULSE 74–102; RESP 14–21; TEMP 36.4–36.6; O2SAT 95–99
--- NOTE | 2019-12-09 09:45 | DI.RAD_ITS ---
EXAM: XR PORTABLE CHEST AP CLINICAL HISTORY: Recent pneumonia, continuation of cough, sob. TECHNIQUE: 2D digital imaging was performed. COMPARISON: CR XR CHEST 2V PA LATERAL from 08/22/2019 FINDINGS: LUNGS: Clear. No pleural abnormality seen. HEART: Normal. MEDIASTINUM: Normal. OTHER FINDINGS: None. IMPRESSION: No acute pulmonary findings. DATA REPOSITORY: RADIATION DOSE DELIVERED:
--- NOTE | 2019-12-09 10:07 | ED.GENADUL_ITS ---
Discharge Plan Disposition Patient Disposition: HOME Condition: Stable Discharge Details Chief Complaint: SOB Clinical Impression: Dyspnea Primary Care Provider: Barbara Morton ED Provider: Ming Bynum Home Meds and New Rx's Prescriptions: Continued norethindrone (contraceptive) [Nor-Q-D] 0.35 MG tablet 0.35 mg PO DAILY Qty: 1 RF: 12 clobetasol 15 GM ointment 15 gm Topical PRN Qty: 2 RF: 1 clozapine 100 mg tablet 125 mg PO HS RF: 0 lamotrigine [Lamictal] 100 mg tablet 125 mg PO HS RF: 0 Latuda 120 mg tablet 140 mg PO DAILY RF: 0 prednisone 20 mg Tablet 60 mg PO BID RF: 0 Dexilant 30 MG capsule,biphase delayed releas 30 mg PO DAILY RF: 0 naltrexone 50 mg Tablet 100 mg PO DAILY RF: 0 benztropine 0.5 mg Tablet 0.5 mg PO BID RF: 0 famotidine [Pepcid] 20 mg tablet 20 mg PO DAILY Qty: 20 RF: 0 cefpodoxime 200 mg tablet 200 mg PO BID Qty: 12 RF: 0 Discharge Instructions Instructions: Dyspnea (ED) Additional Instructions: Work-up in the ER is unremarkable for emergent process. Repeat EKG and troponin are negative, successful rapid cardiac rule out here in the ER. COVID testing offered but declined. I cannot stress the importance of taking all of your medications as directed. Please watch for new or worsening symptoms and return to the ER for any concerns. Otherwise I recommend following up with your primary care provider on Wednesday as already scheduled Medical Decision Making <BRENT Mercer - Last Filed: 12/09/19 13:31> 39-year-old female with recent hospitalization for dress syndrome, pneumonia, presenting today for ongoing shortness of breath. Upon evaluation patient appears well, nontoxic. She is afebrile, lungs are clear to auscultation, speaks in full sentences, O2 sats in the mid 90s on room air. Very well may be secondary to overall recent illness and deconditioning, morbid obesity, however given hospitalization will obtain d-dimer to rule out PE, will obtain chest x- ray to rule out pneumonia. She does not complain of any chest pain however given her, booties will obtain troponin and EKG. No neb treatments indicated as lungs are clear to auscultation. Of note, it appears the patient has been noncompliant with her medications Case discussed with Dr. Henry who saw the patient personally, please see her note. WBC of 9.99 hemoglobin 13.8 hematocrit 41.5 platelet count 286 sodium 133 potassium 3.9 anion gap 7.6, creatinine 0.97, GFR greater than 60 magnesium 2.0 LFTs unremarkable, TSH 4.1. Chest x-ray clear. Initial troponin less than 0.05 Initial work-up is unremarkable. Discussed these findings with patient. She is relieved. We did discuss testing once again for COVID, she declines. Since her discharge she has had no sick contacts and has not traveled anywhere. Patient appears well, nontoxic. She is agreeable to waiting in the ER for repeat troponin and EKG. Repeat troponin less than 0.05. Repeat EKG performed at 1240, interpreted and reviewed with Dr. Dsouza reveals sinus rhythm, short OK syndrome. Ventricular rate of 78. No STEMI. Medical Records Medical records reviewed: Yes I reviewed the patient's medical records. Imaging Data Radiologic Study: Attestation: I personally reviewed and interpreted this imaging study as follows: Imaging: X-Ray Radiologist's impression: Chest x-ray negative Lab Data Lab results reviewed: Yes I reviewed the patient's lab results. Lab results narrative: Laboratory Tests Range/Units 12/09/19 12/09/19 12/09/19 10:00 10:00 10:00 WBC (4.4-10.8) k/cumm RBC (4.00-5.20) m/cumm Hgb (12.0-15.5) g/dL Hct (36.0-46.0) % MCV (80-95) fL MCH (27.0-33.0) pg MCHC (32.0-36.0) g/dL RDW (11.7-14.6) % Plt Count (130-400) x1000/uL MPV (8.0-11.0) fL Immature Gran % % Neutrophils % Lymphocytes % Monocytes % Eosinophils % Basophils % Absolute Neutrophils (1.2-6.7) k/cumm Absolute Lymphocytes (1.2-3.4) k/cumm Absolute Monocytes (0.11-0.7) k/cumm Absolute Eosinophils (0.0-0.7) k/cumm Absolute Basophils (0.0-0.2) k/cumm D-Dimer (<500) ng/mlFEU 216 Sodium (136-145) mmol/L 133 L Potassium (3.5-5.1) mmol/L 3.9 Chloride (98-107) mmol/L 97 L Carbon Dioxide (21.0-32.0) mmol/L 28.4 Anion Gap (3-11) mmol/L 7.6 BUN (7-18) mg/dL 27 H Creatinine (0.55-1.02) mg/dL 0.97 Estimated GFR/1.73 m2 (mL/min/1.73m2) >= 60.00 Glucose (74-106) mg/dL 303 H Calcium (8.5-10.1) mg/dL 8.2 L Magnesium (1.8-2.4) mg/dL 2.0 Total Bilirubin (0.2-1.0) mg/dL 0.5 AST (15-37) U/L 16 ALT (14-59) U/L 58 Alkaline Phosphatase (46-116) U/L 61 Troponin I (<0.06) ng/mL < 0.05 NT-Pro-B Natriuret Pep (<300) pg/mL 188 Total Protein (6.4-8.2) g/dL 6.3 L Albumin (3.4-5.0) g/dL 3.2 L TSH (0.36-3.74) uIU/mL 4.10 H Range/Units 12/09/19 12/09/19 10:00 12:44 WBC (4.4-10.8) k/cumm 9.99 RBC (4.00-5.20) m/cumm 4.67 Hgb (12.0-15.5) g/dL 13.8 Hct (36.0-46.0) % 41.5 MCV (80-95) fL 88.9 MCH (27.0-33.0) pg 29.6 MCHC (32.0-36.0) g/dL 33.3 RDW (11.7-14.6) % 13.7 Plt Count (130-400) x1000/uL 286 D MPV (8.0-11.0) fL 10.0 Immature Gran % % 0.6 Neutrophils % 52.4 Lymphocytes % 37.1 Monocytes % 9.8 Eosinophils % 0.1 Basophils % 0.0 Absolute Neutrophils (1.2-6.7) k/cumm 5.23 Absolute Lymphocytes (1.2-3.4) k/cumm 3.71 H Absolute Monocytes (0.11-0.7) k/cumm 0.98 H Absolute Eosinophils (0.0-0.7) k/cumm 0.01 Absolute Basophils (0.0-0.2) k/cumm 0.00 D-Dimer (<500) ng/mlFEU Sodium (136-145) mmol/L Potassium (3.5-5.1) mmol/L Chloride (98-107) mmol/L Carbon Dioxide (21.0-32.0) mmol/L Anion Gap (3-11) mmol/L BUN (7-18) mg/dL Creatinine (0.55-1.02) mg/dL Estimated GFR/1.73 m2 (mL/min/1.73m2) Glucose (74-106) mg/dL Calcium (8.5-10.1) mg/dL Magnesium (1.8-2.4) mg/dL Total Bilirubin (0.2-1.0) mg/dL AST (15-37) U/L ALT (14-59) U/L Alkaline Phosphatase (46-116) U/L Troponin I (<0.06) ng/mL < 0.05 NT-Pro-B Natriuret Pep (<300) pg/mL Total Protein (6.4-8.2) g/dL Albumin (3.4-5.0) g/dL TSH (0.36-3.74) uIU/mL ECG Data Attestation: I personally reviewed and interpreted this ECG (s) as follows: Interpretation: EKG performed 9:26 AM reviewed and interpreted with Dr. Dsouza, sinus rhythm, short OK syndrome, ventricular rate of 83. No STEMI. <Yulisa Dsouza, - Last Filed: 12/09/19 14:16> I have seen and examined this patient. I discussed case and reviewed note with the PA and I agree with plan and note as documented. Differential diagnosis includes deconditioning from recent DRESS syndrome, pneumonia and hospitalization versus persistent or worsening pneumonia, PE, dehydration in setting of recent heat wave and illness, obesity hypoventilation syndrome. Medical Records Medical records reviewed: Yes I reviewed the patient's medical records. HPI <BRENT Mercer - Last Filed: 12/09/19 13:31> General Mode of arrival: ambulatory . Date/Time Provider Initiated Documentation: 12/09/19 09:12 . Limitations to Documentation: no limitations . Information obtained by: patient . HPI Narrative: This is a 39-year-old female with history of GERD, hypothyroidism, borderline diabetes, morbid obesity, schizoaffective disorder, recent hospitalization and discharge 14 days ago with dress syndrome and pneumonia. She reports that she is scheduled to be seen by her primary care provider in 2 days but contacted them as she is continued to have what she describes as generalized fatigue, mild dry cough associated with shortness of breath, and episodes of her heart pounding. She tells me that her heart does not feel irregular or fast but is beating more harder than usual, this typically occurs with exertion. She denies any headache, neck pain, fever, chest pain, productive cough, abdominal pain, nausea, vomiting, numbness, tingling, weakness. Denies change in bowel or bladder habit. Patient tells me that she forgot to take her steroids over the past several days, likely 3 or 4. She tells me that she still has multiple antibiotics in her prescription bottle and has only been taking them once a day however reviewing her med rec, she should be taking his antibiotics twice a day. It appears as though there is some confusion regarding her medication and she has been accidentally noncompliant. Since her discharge from the hospital she denies any weight gain or loss. She has not traveled or had any sick contact exposures. Patient tells me that the rash that was present during her hospitalization has resolved completely. Related Data Home Medications Medication Instructions Recorded Confirmed clobetasol 15 gm TOPICAL PRN #2 tube 06/30/16 12/09/19 norethindrone (contraceptive) 0.35 mg PO DAILY #1 pack 06/30/16 12/09/19 [Nor-Q-D] Dexilant 30 mg PO DAILY 02/24/18 12/09/19 clozapine 100 mg tablet 125 mg PO HS tab-cap 02/02/19 12/09/19 lamotrigine 100 mg tablet 125 mg PO HS tab-cap 02/02/19 12/09/19 lurasidone 120 mg tablet 140 mg PO DAILY tab-cap 02/02/19 12/09/19 naltrexone 100 mg PO DAILY 08/23/19 12/09/19 benztropine 0.5 mg PO BID 11/23/19 12/09/19 cefpodoxime 200 mg PO BID #12 tab 11/25/19 11/30/19 famotidine [Pepcid] 20 mg PO DAILY #20 tab 11/25/19 12/09/19 prednisone 60 mg PO BID 12/09/19 Previous Rx's Medication Instructions Recorded cefpodoxime 200 mg PO BID #12 tab 11/25/19 famotidine [Pepcid] 20 mg PO DAILY #20 tab 11/25/19 Allergies Allergy/AdvReac Type Severity Reaction Status Date / Time sulfamethoxazole Allergy Severe fever, Verified 11/30/19 09:18 [From Bactrim] rash,throat swelling? trimethoprim [From Bactrim] Allergy Severe fever, Verified 11/30/19 09:18 rash,throat swelling? pantoprazole [From Protonix] AdvReac Mild Nausea Unverified 11/23/19 07:37 General Stated Complaint: SOB GINNY: 2 Review of Systems <BRENT Mercer - Last Filed: 12/09/19 13:31> Constitutional Constitutional: Reports fatigue, Denies fever(s) and Reports weakness (Generalized, more like fatigue) Eyes Eyes: Denies change in vision and Denies eye discharge ENT Ears, Nose, Mouth, and Throat: Denies otalgia and Denies sore throat Cardiovascular Cardiovascular: Denies chest pain and Reports dyspnea Respiratory Respiratory: Reports cough, Reports dyspnea and Denies wheezing Gastrointestinal Gastrointestinal: Denies abdominal pain, Denies nausea and Denies vomiting Genitourinary Genitourinary: Denies dysuria Musculoskeletal Musculoskeletal: Denies back pain, Denies myalgias, Denies numbness and Denies tingling Integumentary/Breasts Skin/Breast: Denies rash Neurologic Neurologic: Denies numbness, Denies tingling and Reports weakness (Generalized, more like fatigue) Endocrine Endocrine: Reports fatigue Allergic/Immunologic Allergic/Immunologic: Denies wheezing PFSH <BRENT Mercer - Last Filed: 12/09/19 13:31> Medical History Borderline diabetes (Acute) GERD (gastroesophageal reflux disease) (Acute) Hypothyroidism (Chronic) Morbid drug-induced obesity (Inactive) Schizoaffective disorder (Acute) Surgical History History of colposcopy (Acute) Family History Mother Cancer - ? type of cancer Father Diabetes Heart disease Social History Smoking/Tobacco Use Status: Former Tobacco Use Alcohol Intake: current Alcohol Intake frequency: holidays/special occasions only Drug use: Never Substance use type: does not use Do you feel safe at home: Yes Do you feel safe in your relationship?: Yes Additional Social history: Heavy tobacco smoker for 20 years, 12-emdx-nbnp history, quit in 2011. Minimal alcohol. No other drugs. Lives alone. 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 No sexual partners in the past year. Exam <BRENT Mercer - Last Filed: 12/09/19 13:31> Const General: cooperative, healthy appearing, comfortable and no acute distress Orientation: alert, awake and oriented x3 HENMT Head: normal to inspection, normocephalic and atraumatic Ears: external ears normal, TM's normal bilaterally and EAC's normal Face and sinus: normal facial exam Mouth: moist mucous membranes Throat: posterior oropharynx normal Eyes General: appearance normal, both eyes and all related structures Alignment and Position: alignment normal Periorbital: periorbital findings normal Eyelids: eyelids normal Conjunctivae: conjunctivae normal Sclera: sclerae normal Cornea: corneas normal Pupils: PERRL EOM: EOM intact bilaterally Direct ophthalmoscopy: normal light reflex Neck Neck: normal visual inspection, full ROM, no lymphadenopathy, no meningeal signs, trachea midline, supple and nontender Resp Effort & Inspection: normal respiratory effort and able to speak in complete sentences Auscultation: clear to auscultation bilaterally Cardio Rate: regular rate Rhythm: regular rhythm GI Palpation: soft, not firm, no guarding, not rigid and nontender Auscultation: normal bowel sounds Back/Spine/Pelvis Back: No back tenderness Skin General skin exam: no rashes or lesions noted Neuro General: patient alert, patient awake, patient oriented x3, moves all extremities and no focal motor deficits Motor: muscle tone normal throughout Sensory Exam: no sensory deficits noted Extrem General: normal to inspection, full ROM, capillary refill normal, no pedal edema and no calf tenderness Psych Appearance: grossly normal Mental Status: mental status grossly normal Course <BRENT Mercer - Last Filed: 12/09/19 13:31> Vital Signs Vital signs: Vital Signs Temperature 36.6 C 12/09/19 09:12 Pulse 87 12/09/19 09:12 Respiratory Rate 21 12/09/19 09:12 Blood Pressure 145/86 H 12/09/19 09:12 Pulse Oximetry 97 12/09/19 09:12 Temperature 36.6 C 12/09/19 09:12 Temperature Source Temporal Artery Scan 12/09/19 09:12 Pulse 87 12/09/19 09:12 Respiratory Rate 14 12/09/19 09:52 Respiratory Effort Non-Labored 12/09/19 09:52 Respiratory Depth Normal 12/09/19 09:52 Respiratory Pattern Normal 12/09/19 09:52 Blood Pressure 145/86 H 12/09/19 09:12 Blood Pressure Position Supine 12/09/19 09:12 Pulse Oximetry 97 12/09/19 09:12 Oxygen Delivery Method Room Air 12/09/19 09:12 Oxygen Flow Rate 0 12/09/19 09:12 Pain Level 0 12/09/19 09:12
[2019-12-09 10:23] LABS: Abs Immature Grans 0.06 k/cumm (0.0-0.09); Absolute Eosinophil Count 0.01 k/cumm (0.0-0.7); Absolute Lymphocyte Count 3.71 k/cumm (1.2-3.4); Absolute Monocyte Count 0.98 k/cumm (0.11-0.7); Absolute Neutrophil Count 5.23 k/cumm (1.2-6.7); Eosinophils % 0.1; HCT 41.5 % (36.0-46.0); HGB 13.8 g/dL (12.0-15.5); Immature Grans % 0.6 %; Lymphocytes % 37.1; Mean Corp. HGB Concentration 33.3 g/dL (32.0-36.0); Mean Corpuscular Hemoglobin 29.6 pg (27.0-33.0); Mean Corpuscular Volume 88.9 fL (80-95); Monocytes % 9.8; Neutrophils % 52.4; Platelet Count 286 x1000/uL (130-400); RBC 4.67 m/cumm (4.00-5.20); RBC Distribution Width 13.7 % (11.7-14.6); White Blood Cell Count 9.99 k/cumm (4.4-10.8)
[2019-12-09] MEDS: Normal Saline 1,000 ML 1000 ML IV (10:26)
--- NOTE | 2019-12-09 10:29 | DI.VRAD_ITS ---
PROCEDURE INFORMATION: Exam: XR Chest, 1 View Exam date and time: 12/09/2019 10:09 AM Age: 39 years old Clinical indication: Other: Recent pneumonia, continuation of cough, SOB TECHNIQUE: Imaging protocol: XR of the chest Views: 1 view. COMPARISON: CR XR CHEST 2V PA LATERAL 08/22/2019 2:15 PM FINDINGS: Lungs: Unremarkable. No consolidation. Pleural space: Unremarkable. No pleural effusion. No pneumothorax. Heart/Mediastinum: Unremarkable. No cardiomegaly. Bones/joints: Unremarkable. Other findings: Overlying EKG wires IMPRESSION: No acute process Dictated and Authenticated by: Consuelo Jarrell MD. Ordering:ANA PAULA Lai MD
[2019-12-09 10:33] LABS: ALT 58 U/L (14-59); AST 16 U/L (15-37); Albumin 3.2 g/dL (3.4-5.0); Alkaline Phosphatase 61 U/L (46-116); Anion Gap 7.6 mmol/L (3-11); BUN 27 mg/dL (7-18); Bilirubin, Total 0.5 mg/dL (0.2-1.0); CO2 28.4 mmol/L (21.0-32.0); CREATININE 0.97 mg/dL (0.55-1.02); Calcium 8.2 mg/dL (8.5-10.1); Chloride 97 mmol/L (98-107); Glucose 303 mg/dL (74-106); Potassium 3.9 mmol/L (3.5-5.1); Sodium 133 mmol/L (136-145); Total Protein 6.3 g/dL (6.4-8.2)
[2019-12-09 10:52] LABS: D-Dimer 216 ng/mlFEU (<500)
[2019-12-09 10:56] LABS: NT-proBNP 188 pg/mL (<300); Troponin I < 0.05 ng/mL (<0.06)
[2019-12-09 13:15] LABS: Troponin I < 0.05 ng/mL (<0.06)
== END 2019-12-09 13:40 | disposition home or self-care (01) ==
PROVIDERS: Emergency Provider Physician Assistant; PCP Nurse Practitioner Family
DX: R06.00 Dyspnea, unspecified (principal); T38.0X6A Underdosing of glucocorticoids and synthetic analogues, initial encounter; Z91.138 Patient's unintentional underdosing of medication regimen for other reason; E66.01 Morbid (severe) obesity due to excess calories; Z68.42 Body mass index [BMI] 45.0-49.9, adult
CPT/HCPCS: 36415; 80053; 93005; 96360; 99285; 71045; 83735; 83880; 84443; 84484; 85025; 85379; 93010

== ENCOUNTER 2020-01-02 21:27 | Outpatient (REF) | payer MEDICARE, SELFPAY ==
[2020-01-03 02:36] LABS: COVID-19 RT-PCR UVMMC Result Negative (Negative)
== END 2020-01-02 21:47 ==
LOC: NCHCN 21:27
PROVIDERS: PCP Nurse Practitioner Family; Visit Provider Nurse Practitioner Family
DX: Z03.818 Encounter for observation for suspected exposure to other biological agents ruled out (principal); Z20.828 Contact with and (suspected) exposure to other viral communicable diseases
CPT/HCPCS: U0003

== ENCOUNTER 2020-01-03 02:32 | Outpatient (CLI) | payer MEDICARE, SELFPAY ==
[2020-01-03 14:42] LABS: Abs Immature Grans 0.04 k/cumm (0.0-0.09); Absolute Lymphocyte Count 1.97 k/cumm (1.2-3.4); Absolute Monocyte Count 0.62 k/cumm (0.11-0.7); Absolute Neutrophil Count 5.13 k/cumm (1.2-6.7); HCT 36.4 % (36.0-46.0); HGB 12.3 g/dL (12.0-15.5); Immature Grans % 0.5 %; Lymphocytes % 25.4; Mean Corp. HGB Concentration 33.8 g/dL (32.0-36.0); Mean Corpuscular Hemoglobin 29.8 pg (27.0-33.0); Mean Corpuscular Volume 88.1 fL (80-95); Mean Platelet Volume 9.9 fL (8.0-11.0); Neutrophils % 66.1; Platelet Count 359 x1000/uL (130-400); RBC 4.13 m/cumm (4.00-5.20); RBC Distribution Width 14.3 % (11.7-14.6); White Blood Cell Count 7.76 k/cumm (4.4-10.8)
== END 2020-01-03 02:52 ==
PROVIDERS: PCP Nurse Practitioner Family; Visit Provider Nurse Practitioner Family
DX: F20.9 Schizophrenia, unspecified (principal); Z79.899 Other long term (current) drug therapy
CPT/HCPCS: 36415; 85025

== ENCOUNTER 2020-02-15 01:47 | Outpatient (CLI) | payer MEDICARE, SELFPAY ==
[2020-02-15 14:13] LABS: Abs Immature Grans 0.02 10^3/uL (0.0-0.06); Absolute Basophil Count 0.01 10^3/uL (0.0-0.2); Absolute Monocyte Count 0.54 10^3/uL (0.1-0.8); Absolute Neutrophil Count 5.46 10^3/uL (1.2-6.7); Basophils % 0.1; HCT 37.4 % (36.0-46.0); HGB 12.5 g/dL (11.2-15.7); Immature Grans % 0.3; MCH 29.3 pg (27.0-33.0); MCHC 33.4 % (32.0-36.0); MCV 87.8 fL (80-95); MPV 10.8 fL (8.0-11.0); Monocytes % 6.8; Neutrophils % 68.8; Nucleated RBC 0 %; Platelet Count 281 10^3/uL (130-400); RBC 4.26 10^6/uL (3.93-5.22); RDW 13.6 % (11.7-14.6); WBC 7.93 10^3/uL (4.4-10.8)
== END 2020-02-15 02:07 ==
PROVIDERS: PCP Nurse Practitioner Family; Visit Provider Nurse Practitioner Family
DX: Z79.899 Other long term (current) drug therapy (principal); F20.9 Schizophrenia, unspecified
CPT/HCPCS: 36415; 85025

== ENCOUNTER 2020-03-12 11:18 | Outpatient (REF) | payer MEDICARE, SELFPAY ==
[2020-03-12 19:02] LABS: Bilirubin Negative (Negative); Blood Large (Negative); Clarity Clear (Clear); Glucose Negative (Negative); Ketones Negative (Negative); Leukocyte Esterase Small (Negative); Nitrite Negative (Negative); Urobilinogen 0.2 EU/dL (Up TO 0.2)
[2020-03-12 19:22] LABS: Bacteria Few HPF (Negative); C & S Indicated? C&S Done As Ordered; Crystals Negative HPF (Negative); Epithelial Cells Moderate HPF (Negative); Mucus Negative (Negative); RBC 0-2 HPF (0-2)
== END 2020-03-12 11:38 ==
LOC: NCHCN 11:18
PROVIDERS: PCP Nurse Practitioner Family; Visit Provider Nurse Practitioner Family
DX: R30.0 Dysuria (principal)
CPT/HCPCS: 81003; 81015; 87086

== ENCOUNTER 2020-04-11 05:32 | Outpatient (CLI) | payer MEDICARE, SELFPAY ==
[2020-04-11 15:03] LABS: Abs Immature Grans 0.01 10^3/uL (0.0-0.06); Absolute Lymphocyte Count 1.84 10^3/uL (1.2-3.4); Absolute Monocyte Count 0.52 10^3/uL (0.1-0.8); Absolute Neutrophil Count 4.52 10^3/uL (1.2-6.7); HCT 39.1 % (36.0-46.0); HGB 13.1 g/dL (11.2-15.7); Immature Grans % 0.1; Lymphocytes % 26.7; MCH 28.8 pg (27.0-33.0); MCHC 33.5 % (32.0-36.0); MCV 85.9 fL (80-95); MPV 10.6 fL (8.0-11.0); Monocytes % 7.5; Neutrophils % 65.7; Nucleated RBC 0 %; Platelet Count 276 10^3/uL (130-400); RBC 4.55 10^6/uL (3.93-5.22); RDW 13.2 % (11.7-14.6); RDW-SD 40.7 fL; WBC 6.89 10^3/uL (4.4-10.8)
[2020-04-11 16:13] LABS: TSH 6.73 uIU/mL (0.36-3.74)
== END 2020-04-11 05:52 ==
PROVIDERS: PCP Nurse Practitioner Family; Visit Provider Nurse Practitioner Family
DX: F25.0 Schizoaffective disorder, bipolar type (principal); Z79.899 Other long term (current) drug therapy
CPT/HCPCS: 36415; 84443; 85025

== ENCOUNTER 2020-04-18 15:11 | Outpatient (REF) | payer MEDICARE, SELFPAY ==
[2020-04-18 18:19] LABS: Bilirubin Negative (Negative); Blood Negative (Negative); Clarity Clear (Clear); Glucose Negative (Negative); Ketones Negative (Negative); Leukocyte Esterase Trace (Negative); Nitrite Negative (Negative); Urobilinogen 0.2 EU/dL (Up TO 0.2)
[2020-04-18 18:28] LABS: Bacteria Negative HPF (Negative); Crystals Negative HPF (Negative); Epithelial Cells Few HPF (Negative); RBC Negative HPF (0-2)
[2020-04-18 18:29] LABS: C & S Indicated? Yes; Mucus Negative (Negative)
== END 2020-04-18 15:31 ==
LOC: NCHCN 15:11
PROVIDERS: PCP Nurse Practitioner Family; Visit Provider Nurse Practitioner Family
DX: R30.0 Dysuria (principal)
CPT/HCPCS: 81003; 81015; 87086

== ENCOUNTER 2020-05-22 04:40 | Outpatient (CLI) | payer MEDICARE, SELFPAY ==
[2020-05-22 14:36] LABS: Abs Immature Grans 0.02 10^3/uL (0.0-0.06); Absolute Basophil Count 0.01 10^3/uL (0.0-0.2); Absolute Lymphocyte Count 1.93 10^3/uL (1.2-3.4); Absolute Neutrophil Count 4.76 10^3/uL (1.2-6.7); Basophils % 0.1; HGB 12.6 g/dL (11.2-15.7); Immature Grans % 0.3; Lymphocytes % 26.7; MCH 28.6 pg (27.0-33.0); MCHC 34.1 % (32.0-36.0); MCV 84.1 fL (80-95); MPV 10.9 fL (8.0-11.0); Monocytes % 6.9; Nucleated RBC 0 %; Platelet Count 256 10^3/uL (130-400); RDW 13.8 % (11.7-14.6); RDW-SD 42.3 fL; WBC 7.22 10^3/uL (4.4-10.8)
[2020-05-22 16:16] LABS: TSH (W/Ref FT4) 4.54 uIU/mL (0.36-3.74)
[2020-05-22 16:46] LABS: FREE T4 0.86 ng/dL (0.76-1.46)
== END 2020-05-22 05:00 ==
PROVIDERS: PCP Nurse Practitioner Family; Visit Provider Nurse Practitioner Family
DX: Z79.899 Other long term (current) drug therapy (principal); F25.0 Schizoaffective disorder, bipolar type
CPT/HCPCS: 36415; 84439; 84443; 85025

== ENCOUNTER 2020-07-11 03:19 | Outpatient (CLI) | payer MEDICARE, SELFPAY ==
[2020-07-11 09:53] LABS: Abs Immature Grans 0.01 10^3/uL (0.0-0.06); Absolute Eosinophil Count 0.01 10^3/uL (0.0-0.7); Absolute Lymphocyte Count 1.81 10^3/uL (1.2-3.4); Absolute Monocyte Count 0.57 10^3/uL (0.1-0.8); Absolute Neutrophil Count 4.91 10^3/uL (1.2-6.7); Eosinophils % 0.1; HCT 38.5 % (36.0-46.0); HGB 12.8 g/dL (11.2-15.7); Immature Grans % 0.1; Lymphocytes % 24.8; MCH 29.4 pg (27.0-33.0); MCHC 33.2 % (32.0-36.0); MCV 88.5 fL (80-95); MPV 10.7 fL (8.0-11.0); Monocytes % 7.8; Neutrophils % 67.2; Nucleated RBC 0 %; Platelet Count 256 10^3/uL (130-400); RBC 4.35 10^6/uL (3.93-5.22); RDW 13.5 % (11.7-14.6); RDW-SD 43.8 fL; WBC 7.31 10^3/uL (4.4-10.8)
== END 2020-07-11 03:39 ==
PROVIDERS: Psychiatry & Neurology Psychiatry; PCP Nurse Practitioner Family; Visit Provider Nurse Practitioner Family
DX: F20.9 Schizophrenia, unspecified (principal); Z79.899 Other long term (current) drug therapy
CPT/HCPCS: 36415; 85025

== ENCOUNTER 2020-07-24 19:05 | Outpatient (REF) | payer MEDICARE, SELFPAY ==
[2020-07-24 21:11] LABS: TSH (W/Ref FT4) 2.23 uIU/mL (0.36-3.74)
== END 2020-07-24 19:25 ==
LOC: NCHCN 19:05
PROVIDERS: PCP Nurse Practitioner Family; Visit Provider Nurse Practitioner Family
DX: E03.9 Hypothyroidism, unspecified (principal)
CPT/HCPCS: 84443

== ENCOUNTER 2020-08-06 03:58 | Outpatient (CLI) | payer MEDICARE, SELFPAY ==
[2020-08-06 14:54] LABS: Abs Immature Grans 0.01 10^3/uL (0.0-0.06); Absolute Monocyte Count 0.39 10^3/uL (0.1-0.8); Absolute Neutrophil Count 3.88 10^3/uL (1.2-6.7); HCT 37.4 % (36.0-46.0); HGB 12.4 g/dL (11.2-15.7); Immature Grans % 0.2; Lymphocytes % 27.2; MCH 28.7 pg (27.0-33.0); MCHC 33.2 % (32.0-36.0); MCV 86.6 fL (80-95); MPV 10.8 fL (8.0-11.0); Monocytes % 6.6; Nucleated RBC 0 %; Platelet Count 235 10^3/uL (130-400); RBC 4.32 10^6/uL (3.93-5.22); RDW 12.7 % (11.7-14.6); RDW-SD 40.1 fL; WBC 5.88 10^3/uL (4.4-10.8)
== END 2020-08-06 04:18 ==
PROVIDERS: PCP Nurse Practitioner Family; Visit Provider Nurse Practitioner Family
DX: F20.9 Schizophrenia, unspecified (principal); Z79.899 Other long term (current) drug therapy
CPT/HCPCS: 36415; 85025

== ENCOUNTER 2020-09-13 02:57 | Outpatient (CLI) | payer MEDICARE, SELFPAY ==
[2020-09-13 13:59] LABS: Abs Immature Grans 0.03 10^3/uL (0.0-0.06); Absolute Lymphocyte Count 2.04 10^3/uL (1.2-3.4); Absolute Monocyte Count 0.49 10^3/uL (0.1-0.8); Absolute Neutrophil Count 4.57 10^3/uL (1.2-6.7); HGB 11.8 g/dL (11.2-15.7); Immature Grans % 0.4; Lymphocytes % 28.6; MCH 29.1 pg (27.0-33.0); MCHC 32.8 % (32.0-36.0); MCV 88.7 fL (80-95); MPV 10.8 fL (8.0-11.0); Monocytes % 6.9; Neutrophils % 64.1; Nucleated RBC 0 %; Platelet Count 238 10^3/uL (130-400); RBC 4.06 10^6/uL (3.93-5.22); RDW 13.1 % (11.7-14.6); RDW-SD 42.3 fL; WBC 7.13 10^3/uL (4.4-10.8)
== END 2020-09-13 02:58 | disposition home or self-care (01) ==
LOC: LBO 02:57
PROVIDERS: PCP Nurse Practitioner Family; Visit Provider Nurse Practitioner Psychiatric/Mental Health
DX: F20.9 Schizophrenia, unspecified (principal); Z79.899 Other long term (current) drug therapy
CPT/HCPCS: 36415; 85025

== ENCOUNTER 2020-10-17 02:13 | Outpatient (CLI) | payer MEDICARE, SELFPAY ==
[2020-10-17 10:13] LABS: Abs Immature Grans 0.02 10^3/uL (0.0-0.06); Absolute Lymphocyte Count 1.69 10^3/uL (1.2-3.4); Absolute Monocyte Count 0.78 10^3/uL (0.1-0.8); Absolute Neutrophil Count 4.96 10^3/uL (1.2-6.7); HCT 36.5 % (36.0-46.0); HGB 12.2 g/dL (11.2-15.7); Immature Grans % 0.3; Lymphocytes % 22.7; MCH 29.1 pg (27.0-33.0); MCHC 33.4 % (32.0-36.0); MCV 87.1 fL (80-95); MPV 10.7 fL (8.0-11.0); Monocytes % 10.5; Neutrophils % 66.5; Nucleated RBC 0 %; Platelet Count 251 10^3/uL (130-400); RBC 4.19 10^6/uL (3.93-5.22); RDW 13.6 % (11.7-14.6); WBC 7.45 10^3/uL (4.4-10.8)
== END 2020-10-17 02:14 | disposition home or self-care (01) ==
PROVIDERS: PCP Nurse Practitioner Family; Visit Provider Psychiatry & Neurology Psychiatry
DX: F20.9 Schizophrenia, unspecified (principal); Z79.899 Other long term (current) drug therapy
CPT/HCPCS: 36415; 85025

== ENCOUNTER 2020-11-14 03:37 | Outpatient (CLI) | payer MEDICARE, SELFPAY ==
[2020-11-14 14:08] LABS: Abs Immature Grans 0.02 10^3/uL (0.0-0.06); Absolute Lymphocyte Count 1.92 10^3/uL (1.2-3.4); Absolute Monocyte Count 0.44 10^3/uL (0.1-0.8); Absolute Neutrophil Count 3.87 10^3/uL (1.2-6.7); HCT 38.5 % (36.0-46.0); HGB 12.7 g/dL (11.2-15.7); Immature Grans % 0.3; Lymphocytes % 30.7; MCH 28.9 pg (27.0-33.0); MCV 87.5 fL (80-95); MPV 10.6 fL (8.0-11.0); Nucleated RBC 0 %; Platelet Count 256 10^3/uL (130-400); RDW 13.2 % (11.7-14.6); RDW-SD 42.8 fL; WBC 6.25 10^3/uL (4.4-10.8)
== END 2020-11-14 03:38 | disposition home or self-care (01) ==
PROVIDERS: PCP Nurse Practitioner Family; Visit Provider Psychiatry & Neurology Psychiatry
DX: F20.9 Schizophrenia, unspecified (principal); Z79.899 Other long term (current) drug therapy
CPT/HCPCS: 36415; 85025

== ENCOUNTER 2020-12-17 04:02 | Outpatient (CLI) | payer MEDICARE, SELFPAY ==
[2020-12-17 16:32] LABS: Abs Immature Grans 0.02 10^3/uL (0.0-0.06); Absolute Basophil Count 0.01 10^3/uL (0.0-0.2); Absolute Lymphocyte Count 2.08 10^3/uL (1.2-3.4); Absolute Monocyte Count 0.53 10^3/uL (0.1-0.8); Absolute Neutrophil Count 4.55 10^3/uL (1.2-6.7); Basophils % 0.1; HCT 37.6 % (36.0-46.0); HGB 12.6 g/dL (11.2-15.7); Immature Grans % 0.3; Lymphocytes % 28.9; MCHC 33.5 % (32.0-36.0); MCV 86.4 fL (80-95); MPV 11.1 fL (8.0-11.0); Monocytes % 7.4; Neutrophils % 63.3; Nucleated RBC 0 %; Platelet Count 242 10^3/uL (130-400); RBC 4.35 10^6/uL (3.93-5.22); RDW 13.4 % (11.7-14.6); RDW-SD 41.5 fL; WBC 7.19 10^3/uL (4.4-10.8)
== END 2020-12-17 04:03 | disposition home or self-care (01) ==
LOC: LBO 04:02
PROVIDERS: PCP Nurse Practitioner Family; Visit Provider Nurse Practitioner Psychiatric/Mental Health
DX: F20.9 Schizophrenia, unspecified (principal); Z79.899 Other long term (current) drug therapy
CPT/HCPCS: 36415; 85025

== ENCOUNTER 2021-01-08 22:57 | Emergency (ER) | payer MEDICARE, SELFPAY ==
[2021-01-08 23:01] VITALS: BP 163/82; PULSE 98; RESP 18; TEMP 36.8; O2SAT 97
--- NOTE | 2021-01-08 23:16 | W.ED.GENAD ---
Discharge Plan Disposition Patient Disposition: HOME Condition: Improving Discharge Details Clinical Impression: Diarrhea, Acute dehydration, Hypokalemia due to loss of potassium Primary Care Provider: Barbara Mroton ED Provider: Scotty Peres Home Meds and New Rx's Prescriptions: Continued norethindrone (contraceptive) [Nor-Q-D] 0.35 MG tablet 0.35 mg PO DAILY Qty: 1 RF: 12 clobetasol 15 GM ointment 15 gm Topical PRN Qty: 2 RF: 1 clozapine 100 mg tablet 125 mg PO HS RF: 0 lamotrigine [Lamictal] 100 mg tablet 125 mg PO HS RF: 0 Latuda 120 mg tablet 140 mg PO DAILY RF: 0 prednisone 20 mg Tablet 60 mg PO BID RF: 0 Dexilant 30 MG capsule,biphase delayed releas 30 mg PO DAILY RF: 0 naltrexone 50 mg Tablet 100 mg PO DAILY RF: 0 benztropine 0.5 mg Tablet 0.5 mg PO BID RF: 0 famotidine [Pepcid] 20 mg tablet 20 mg PO DAILY Qty: 20 RF: 0 Discontinued cefpodoxime 200 mg tablet 200 mg PO BID Qty: 12 RF: 0 Discharge Instructions Instructions: Acute Diarrhea (ED), Dehydration (ED) Additional Instructions: Home to rest this evening. May use the provided ondansetron if needed for persistent nausea. Small, frequent sips of fluids to maintain hydration. May slowly advance a bland diet. Return to the emergency department for any acute concerns. Medical Decision Making This is a 40-year-old female presents with the onset of numerous loose, watery, diarrhea like stools that began at 2 AM this morning. Associated with nausea but no emesis. No fever. No known sick contacts, travel, or suspicious food intake. Denies bloody stool, no significant abdominal pain. She will endorse abdominal cramps. Patient arrives afebrile, slightly high resting pulse in the 90s, appears dehydrated. She does not have significant abdominal tenderness. Differential diagnosis includes gastroenteritis, she has been swimming in a stream and would consider Giardia type illness. IV access established, fluids and antiemetic initiated, screening laboratories obtained. Patient's labs initially with unremarkable white count, dehydration and hypokalemia with anion gap of 15. After 2 L of fluid, potassium supplementation, patient's anion gap closed to 11. She had no further episodes of diarrhea, she subjectively felt better. She is stable and improved, appropriate for discharge to home. If she has recurrent and sustained/persistent diarrheal illness, then would consider further stool studies. Will offer ondansetron for home. Lab Data Lab results reviewed: Yes I reviewed the patient's lab results. Labs: Laboratory Results - last 24 hr 01/08/21 01/08/21 01/09/21 23:24 23:24 01:10 WBC 10.76 RBC 5.10 Hgb 14.8 Hct 44.6 MCV 87.5 MCH 29.0 MCHC 33.2 RDW 13.0 Plt Count 298 MPV 10.6 Immature Gran % 0.3 Neutrophils % 79.6 Lymphocytes % 13.8 Monocytes % 6.2 Eosinophils % 0.0 Basophils % 0.1 Nucleated RBC % 0 Absolute Neutrophils 8.57 H Absolute Lymphocytes 1.48 Absolute Monocytes 0.67 Absolute Eosinophils 0.00 Absolute Basophils 0.01 Sodium 135 L 138 Potassium 3.3 L 3.4 L Chloride 100 105 Carbon Dioxide 20.0 L 21.7 Anion Gap 15.0 H 11.3 H BUN 15 14 Creatinine 1.2 H 1.0 Estimated GFR/1.73 m2 49.51 >= 60.00 Glucose 157 H 123 H Calcium 9.6 8.4 L Total Bilirubin 0.7 AST 24 ALT 35 Alkaline Phosphatase 115 Total Protein 8.8 H Albumin 4.4 Lipase 85 HPI General Mode of arrival: ambulatory. Date/Time Provider Initiated Documentation: 01/08/21 23:00. Limitations to Documentation: no limitations. Information obtained by: patient. History of Present Illness 40 year old F presents to the emergency department with the chief complaint of Diarrhea that began 2 AM January 08, described as moderate, and is localized to the abdomen. Patient reports no radiation. Patient started experiencing this hour(s) and it has been intermittent. No relieving factors improve symptom(s), No exacerbating factors reported . Patient notes loss of appetite and weakness. Patient did receive the following treatments prior to arrival, none Related Data Home Medications Medication Instructions Recorded Confirmed clobetasol 15 gm TOPICAL PRN #2 tube 06/30/16 12/09/19 norethindrone (contraceptive) 0.35 mg PO DAILY #1 pack 06/30/16 12/09/19 [Nor-Q-D] Dexilant 30 mg PO DAILY 02/24/18 12/09/19 clozapine 100 mg tablet 125 mg PO HS tab-cap 02/02/19 12/09/19 lamotrigine 100 mg tablet 125 mg PO HS tab-cap 02/02/19 12/09/19 lurasidone 120 mg tablet 140 mg PO DAILY tab-cap 02/02/19 12/09/19 naltrexone 100 mg PO DAILY 08/23/19 12/09/19 benztropine 0.5 mg PO BID 11/23/19 12/09/19 famotidine [Pepcid] 20 mg PO DAILY #20 tab 11/25/19 12/09/19 prednisone 60 mg PO BID 12/09/19 Previous Rx's Medication Instructions Recorded famotidine [Pepcid] 20 mg PO DAILY #20 tab 11/25/19 Allergies Allergy/AdvReac Type Severity Reaction Status Date / Time sulfamethoxazole Allergy Severe fever, Verified 01/08/21 23:22 [From Bactrim] rash,throat swelling? trimethoprim [From Bactrim] Allergy Severe fever, Verified 01/08/21 23:22 rash,throat swelling? pantoprazole [From Protonix] AdvReac Mild Nausea Unverified 01/08/21 23:22 General Stated Complaint: Abd Prob GINNY: 3 Review of Systems Narrative: 6 systems reviewed and otherwise negative [facility] Medical History (Updated 01/09/21 @ 01:30 by Scotty Peres MD) Borderline diabetes GERD (gastroesophageal reflux disease) Hypothyroidism Morbid drug-induced obesity Schizoaffective disorder Surgical History History of colposcopy Family History Mother Cancer - ? type of cancer Father Diabetes Heart disease Social History Smoking/Tobacco Use Status: Former Tobacco Use Smoking risk assessment performed?: Yes Alcohol Intake: current Alcohol Intake frequency: holidays/special occasions only Drug use: Never Substance use type: does not use Do you feel safe at home: Yes Do you feel safe in your relationship?: Yes Additional Social history: Heavy tobacco smoker for 20 years, [id number] history, quit in 2011. Minimal alcohol. No other drugs. Lives alone. 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 No sexual partners in the past year. Exam Narrative Exam Narrative: GEN: awake, alert, oriented 3. Pleasant, well groomed, interactive. HEAD: Normocephalic, atraumatic ENT: Mucous membranes dry, External ear exam unremarkable EYES: PERRL, EOMI NECK: Full ROM, no JAYLA, no menigismus CHEST/RESP: Nontender, clear to auscultation bilateral, no wheeze/rhonchi/rales CARDIOVASCULAR: RRR, no murmur, rub liane. 2+ Rad pulse bilateral ABDOMEN: Soft, nontender, no mass. Increased and frequent +Bowel sounds EXT: Full ROM, no edema, no rash Neuro: Grossly normal neurologic exam, conversant, interactive. Psych: Speech fluent, thoughts congruent, affect normal #1 Course Vital Signs Vital signs: Vital Signs Temperature 36.8 C 01/08/21 23:01 Pulse 98 H 01/08/21 23:01 Respiratory Rate 18 01/08/21 23:01 Blood Pressure 163/82 H 01/08/21 23:01 Pulse Oximetry 97 01/08/21 23:01 Temperature 36.8 C 01/08/21 23:01 Temperature Source Temporal Artery Scan 01/08/21 23:01 Pulse 98 H 01/08/21 23:01 Respiratory Rate 18 01/08/21 23:01 Respiratory Effort Non-Labored 01/08/21 23:05 Blood Pressure 163/82 H 01/08/21 23:01 Blood Pressure Position Sitting 01/08/21 23:01 Pulse Oximetry 97 01/08/21 23:01 Oxygen Delivery Method Room Air 01/08/21 23:01 Oxygen Flow Rate 0 01/08/21 23:01 Pain Level 6 01/08/21 23:01
[2021-01-08 23:35] LABS: Abs Immature Grans 0.03 10^3/uL (0.0-0.06); Absolute Basophil Count 0.01 10^3/uL (0.0-0.2); Absolute Lymphocyte Count 1.48 10^3/uL (1.2-3.4); Absolute Monocyte Count 0.67 10^3/uL (0.1-0.8); Absolute Neutrophil Count 8.57 10^3/uL (1.2-6.7); Basophils % 0.1; HCT 44.6 % (36.0-46.0); HGB 14.8 g/dL (11.2-15.7); Immature Grans % 0.3; Lymphocytes % 13.8; MCHC 33.2 % (32.0-36.0); MCV 87.5 fL (80-95); MPV 10.6 fL (8.0-11.0); Monocytes % 6.2; Neutrophils % 79.6; Nucleated RBC 0 %; Platelet Count 298 10^3/uL (130-400); RDW-SD 41.4 fL; WBC 10.76 10^3/uL (4.4-10.8)
[2021-01-08] MEDS: Normal Saline 1,000 ML 1000 ML IV (23:39)
[2021-01-08] MEDS: Ondansetron 4 MG/2 ML VIAL IVP (23:40)
[2021-01-08 23:55] LABS: ALT 35 U/L (14-59); AST 24 U/L (15-37); Albumin 4.4 g/dL (3.4-5.0); Alkaline Phosphatase 115 U/L (46-116); BUN 15 mg/dL (7-18); Bilirubin, Total 0.7 mg/dL (0.2-1.0); CREATININE 1.2 mg/dL (0.55-1.02); Calcium 9.6 mg/dL (8.5-10.1); Chloride 100 mmol/L (98-107); Estimated GFR 49.51 (mL/min/1.73m2); Glucose 157 mg/dL (74-106); Lipase 85 U/L (73-393); Potassium 3.3 mmol/L (3.5-5.1); Sodium 135 mmol/L (136-145); Total Protein 8.8 g/dL (6.4-8.2)
[2021-01-09] MEDS: POTASSIUM CHLORIDE 10 MEQ/100 ML BAG 100 MEQ IVPB (00:06)
[2021-01-09] MEDS: Normal Saline 1,000 ML 1000 ML IV (00:18)
[2021-01-09 01:20] LABS: Anion Gap 11.3 mmol/L (3-11); BUN 14 mg/dL (7-18); CO2 21.7 mmol/L (21.0-32.0); Calcium 8.4 mg/dL (8.5-10.1); Chloride 105 mmol/L (98-107); Glucose 123 mg/dL (74-106); Potassium 3.4 mmol/L (3.5-5.1); Sodium 138 mmol/L (136-145)
[2021-01-09] MEDS: Ondansetron O.D.T. 4 MG TABEF, 3 TABS/BTL PO (01:41)
[2021-01-09 01:52] VITALS: BP 163/82; PULSE 98; RESP 18; TEMP 36.8; O2SAT 97
[2021-01-09 23:40] LABS: Campylobacter PCR Negative (Negative); Salmonella PCR Negative (Negative); Shiga Toxin PCR Negative (Negative); Shigella/Enteroinvasive Ecoli Negative (Negative)
== END 2021-01-09 00:49 | disposition home or self-care (01) ==
LOC: ER 01-09 01:44
PROVIDERS: Emergency Provider Emergency Medicine; PCP Nurse Practitioner Family
DX: R19.7 Diarrhea, unspecified (principal); E86.0 Dehydration; E87.6 Hypokalemia
CPT/HCPCS: 80048; 80053; 83690; 87505; 96361; 96365; 96375; 99284; 81003; 85025; J2405; J3480

== ENCOUNTER 2021-01-14 09:51 | Outpatient (CLI) | payer MEDICARE, SELFPAY ==
[2021-01-14 16:10] LABS: Abs Immature Grans 0.01 10^3/uL (0.0-0.06); Absolute Basophil Count 0.01 10^3/uL (0.0-0.2); Absolute Monocyte Count 0.45 10^3/uL (0.1-0.8); Absolute Neutrophil Count 3.68 10^3/uL (1.2-6.7); Basophils % 0.2; HCT 35.6 % (36.0-46.0); HGB 11.8 g/dL (11.2-15.7); Immature Grans % 0.2; Lymphocytes % 32.5; MCH 28.7 pg (27.0-33.0); MCHC 33.1 % (32.0-36.0); MCV 86.6 fL (80-95); MPV 10.9 fL (8.0-11.0); Monocytes % 7.3; Neutrophils % 59.8; Nucleated RBC 0 %; Platelet Count 228 10^3/uL (130-400); RBC 4.11 10^6/uL (3.93-5.22); RDW 13.3 % (11.7-14.6); RDW-SD 41.5 fL; WBC 6.15 10^3/uL (4.4-10.8)
== END 2021-01-14 09:52 | disposition home or self-care (01) ==
PROVIDERS: PCP Nurse Practitioner Family; Visit Provider Psychiatry & Neurology Psychiatry
DX: F20.9 Schizophrenia, unspecified (principal); Z79.899 Other long term (current) drug therapy
CPT/HCPCS: 36415; 85025

== ENCOUNTER 2021-03-05 02:54 | Outpatient (CLI) | payer MEDICARE, SELFPAY ==
[2021-03-05 11:58] LABS: Abs Immature Grans 0.02 10^3/uL (0.0-0.06); Absolute Lymphocyte Count 1.47 10^3/uL (1.2-3.4); Absolute Monocyte Count 0.35 10^3/uL (0.1-0.8); Absolute Neutrophil Count 3.11 10^3/uL (1.2-6.7); HCT 37.4 % (36.0-46.0); HGB 12.3 g/dL (11.2-15.7); Immature Grans % 0.4; Lymphocytes % 29.7; MCH 28.9 pg (27.0-33.0); MCHC 32.9 % (32.0-36.0); MPV 10.4 fL (8.0-11.0); Monocytes % 7.1; Neutrophils % 62.8; Nucleated RBC 0 %; Platelet Count 226 10^3/uL (130-400); RBC 4.25 10^6/uL (3.93-5.22); RDW 13.1 % (11.7-14.6); RDW-SD 42.2 fL; WBC 4.95 10^3/uL (4.4-10.8)
== END 2021-03-05 02:55 | disposition home or self-care (01) ==
LOC: LBO 02:54
PROVIDERS: PCP Nurse Practitioner Family; Visit Provider Nurse Practitioner Psychiatric/Mental Health
DX: F20.9 Schizophrenia, unspecified (principal); Z79.899 Other long term (current) drug therapy
CPT/HCPCS: 36415; 85025

== ENCOUNTER 2021-04-15 04:01 | Outpatient (CLI) | payer MEDICARE, SELFPAY ==
[2021-04-15 14:39] LABS: Abs Immature Grans 0.02 10^3/uL (0.0-0.06); Absolute Basophil Count 0.01 10^3/uL (0.0-0.2); Absolute Lymphocyte Count 2.32 10^3/uL (1.2-3.4); Absolute Monocyte Count 0.44 10^3/uL (0.1-0.8); Absolute Neutrophil Count 4.39 10^3/uL (1.2-6.7); Basophils % 0.1; HCT 38.8 % (36.0-46.0); HGB 12.8 g/dL (11.2-15.7); Immature Grans % 0.3; Lymphocytes % 32.3; MCH 29.2 pg (27.0-33.0); MCV 88.6 fL (80-95); MPV 10.5 fL (8.0-11.0); Monocytes % 6.1; Neutrophils % 61.2; Nucleated RBC 0 %; Platelet Count 257 10^3/uL (130-400); RBC 4.38 10^6/uL (3.93-5.22); RDW 12.6 % (11.7-14.6); RDW-SD 41.2 fL; WBC 7.18 10^3/uL (4.4-10.8)
[2021-04-17 07:49] LABS: Clozapine 147 ng/mL (350-600); Clozapine+Norclozapine Total 266 ng/mL (>450); Norclozapine 119 ng/mL
== END 2021-04-15 04:02 | disposition home or self-care (01) ==
LOC: LBO 04:01
PROVIDERS: PCP Nurse Practitioner Family; Visit Provider Nurse Practitioner Psychiatric/Mental Health
DX: F25.0 Schizoaffective disorder, bipolar type (principal); Z79.899 Other long term (current) drug therapy
CPT/HCPCS: 36415; 80159; 85025

== ENCOUNTER 2021-05-06 03:44 | Outpatient (CLI) | payer MEDICARE, SELFPAY ==
[2021-05-06 10:09] LABS: Abs Immature Grans 0.02 10^3/uL (0.0-0.06); Absolute Basophil Count 0.01 10^3/uL (0.0-0.2); Absolute Lymphocyte Count 1.73 10^3/uL (1.2-3.4); Absolute Monocyte Count 0.48 10^3/uL (0.1-0.8); Absolute Neutrophil Count 3.97 10^3/uL (1.2-6.7); Basophils % 0.2; HCT 37.2 % (36.0-46.0); Immature Grans % 0.3; Lymphocytes % 27.9; MCH 28.2 pg (27.0-33.0); MCHC 32.3 % (32.0-36.0); MCV 87.3 fL (80-95); MPV 10.6 fL (8.0-11.0); Monocytes % 7.7; Neutrophils % 63.9; Nucleated RBC 0 %; Platelet Count 226 10^3/uL (130-400); RBC 4.26 10^6/uL (3.93-5.22); RDW 13.2 % (11.7-14.6); RDW-SD 41.7 fL; WBC 6.21 10^3/uL (4.4-10.8)
== END 2021-05-06 03:45 | disposition home or self-care (01) ==
PROVIDERS: PCP Nurse Practitioner Family; Visit Provider Psychiatry & Neurology Psychiatry
DX: F20.9 Schizophrenia, unspecified (principal); Z79.899 Other long term (current) drug therapy
CPT/HCPCS: 36415; 85025

== ENCOUNTER 2021-05-21 02:51 | Outpatient (CLI) | payer MEDICARE, SELFPAY ==
[2021-05-21 14:39] LABS: Abs Immature Grans 0.01 10^3/uL (0.0-0.06); Absolute Basophil Count 0.01 10^3/uL (0.0-0.2); Absolute Lymphocyte Count 2.06 10^3/uL (1.2-3.4); Absolute Monocyte Count 0.48 10^3/uL (0.1-0.8); Absolute Neutrophil Count 3.82 10^3/uL (1.2-6.7); Basophils % 0.2; HCT 38.5 % (36.0-46.0); HGB 12.9 g/dL (11.2-15.7); Immature Grans % 0.2; Lymphocytes % 32.3; MCH 28.9 pg (27.0-33.0); MCHC 33.5 % (32.0-36.0); MCV 86.1 fL (80-95); MPV 10.6 fL (8.0-11.0); Monocytes % 7.5; Neutrophils % 59.8; Nucleated RBC 0 %; Platelet Count 236 10^3/uL (130-400); RBC 4.47 10^6/uL (3.93-5.22); RDW 13.1 % (11.7-14.6); RDW-SD 40.6 fL; WBC 6.38 10^3/uL (4.4-10.8)
== END 2021-05-21 02:52 | disposition home or self-care (01) ==
LOC: LBO 02:51
PROVIDERS: PCP Nurse Practitioner Family; Visit Provider Psychiatry & Neurology Psychiatry
DX: Z79.899 Other long term (current) drug therapy (principal); F20.9 Schizophrenia, unspecified
CPT/HCPCS: 36415; 85025

== ENCOUNTER 2021-06-09 02:37 | Outpatient (CLI) | payer MEDICARE, SELFPAY ==
[2021-06-09 16:17] LABS: Abs Immature Grans 0.02 10^3/uL (0.0-0.06); Absolute Eosinophil Count 0.01 10^3/uL (0.0-0.7); Absolute Lymphocyte Count 2.22 10^3/uL (1.2-3.4); Absolute Monocyte Count 0.47 10^3/uL (0.1-0.8); Absolute Neutrophil Count 3.71 10^3/uL (1.2-6.7); Eosinophils % 0.2; HCT 37.5 % (36.0-46.0); HGB 12.7 g/dL (11.2-15.7); Immature Grans % 0.3; Lymphocytes % 34.5; MCH 29.3 pg (27.0-33.0); MCHC 33.9 % (32.0-36.0); MCV 86.4 fL (80-95); MPV 10.8 fL (8.0-11.0); Monocytes % 7.3; Neutrophils % 57.7; Nucleated RBC 0 %; Platelet Count 247 10^3/uL (130-400); RBC 4.34 10^6/uL (3.93-5.22); RDW 12.8 % (11.7-14.6); RDW-SD 40.4 fL; WBC 6.43 10^3/uL (4.4-10.8)
== END 2021-06-09 02:38 | disposition home or self-care (01) ==
LOC: LBO 02:37
PROVIDERS: Psychiatry & Neurology Psychiatry; PCP Nurse Practitioner Family; Visit Provider Nurse Practitioner Psychiatric/Mental Health
DX: F20.9 Schizophrenia, unspecified (principal); Z79.899 Other long term (current) drug therapy
CPT/HCPCS: 36415; 85025

== ENCOUNTER 2021-06-25 01:38 | Outpatient (CLI) | payer MEDICARE, SELFPAY ==
[2021-06-25 12:41] LABS: Abs Immature Grans 0.02 10^3/uL (0.0-0.06); Absolute Basophil Count 0.01 10^3/uL (0.0-0.2); Absolute Lymphocyte Count 1.69 10^3/uL (1.2-3.4); Absolute Monocyte Count 0.45 10^3/uL (0.1-0.8); Basophils % 0.1; HCT 39.3 % (36.0-46.0); HGB 12.6 g/dL (11.2-15.7); Immature Grans % 0.3; Lymphocytes % 25.3; MCH 28.6 pg (27.0-33.0); MCHC 32.1 % (32.0-36.0); MCV 89.1 fL (80-95); MPV 10.5 fL (8.0-11.0); Monocytes % 6.7; Neutrophils % 67.6; Nucleated RBC 0 %; Platelet Count 247 10^3/uL (130-400); RBC 4.41 10^6/uL (3.93-5.22); RDW-SD 42.5 fL; WBC 6.67 10^3/uL (4.4-10.8)
== END 2021-06-25 01:39 | disposition home or self-care (01) ==
LOC: LBO 01:38
PROVIDERS: Psychiatry & Neurology Psychiatry; PCP Nurse Practitioner Family; Visit Provider Nurse Practitioner Psychiatric/Mental Health
DX: F20.9 Schizophrenia, unspecified (principal); Z79.899 Other long term (current) drug therapy
CPT/HCPCS: 36415; 85025

== ENCOUNTER 2021-07-10 03:16 | Outpatient (CLI) | payer MEDICARE, SELFPAY ==
[2021-07-10 14:09] LABS: Abs Immature Grans 0.02 10^3/uL (0.0-0.06); Absolute Eosinophil Count 0.01 10^3/uL (0.0-0.7); Absolute Lymphocyte Count 1.98 10^3/uL (1.2-3.4); Absolute Monocyte Count 0.57 10^3/uL (0.1-0.8); Eosinophils % 0.1; HCT 38.7 % (36.0-46.0); HGB 12.7 g/dL (11.2-15.7); Immature Grans % 0.3; Lymphocytes % 27.2; MCH 28.7 pg (27.0-33.0); MCHC 32.8 % (32.0-36.0); MCV 87.6 fL (80-95); MPV 10.3 fL (8.0-11.0); Monocytes % 7.8; Neutrophils % 64.6; Nucleated RBC 0 %; Platelet Count 246 10^3/uL (130-400); RBC 4.42 10^6/uL (3.93-5.22); RDW 13.2 % (11.7-14.6); RDW-SD 42.6 fL; WBC 7.28 10^3/uL (4.4-10.8)
== END 2021-07-10 03:17 | disposition home or self-care (01) ==
PROVIDERS: PCP Nurse Practitioner Family; Visit Provider Psychiatry & Neurology Psychiatry
DX: Z79.899 Other long term (current) drug therapy (principal); F20.9 Schizophrenia, unspecified
CPT/HCPCS: 36415; 85025

== ENCOUNTER 2021-07-31 02:06 | Outpatient (CLI) | payer MEDICARE, SELFPAY ==
[2021-07-31 12:26] LABS: Abs Immature Grans 0.02 10^3/uL (0.0-0.06); Absolute Eosinophil Count 0.01 10^3/uL (0.0-0.7); Absolute Lymphocyte Count 2.01 10^3/uL (1.2-3.4); Absolute Monocyte Count 0.53 10^3/uL (0.1-0.8); Absolute Neutrophil Count 3.47 10^3/uL (1.2-6.7); Eosinophils % 0.2; HCT 38.5 % (36.0-46.0); HGB 12.2 g/dL (11.2-15.7); Immature Grans % 0.3; Lymphocytes % 33.3; MCH 28.1 pg (27.0-33.0); MCHC 31.7 % (32.0-36.0); MCV 88.7 fL (80-95); MPV 11.3 fL (8.0-11.0); Monocytes % 8.8; Neutrophils % 57.4; Nucleated RBC 0 %; Platelet Count 209 10^3/uL (130-400); RBC 4.34 10^6/uL (3.93-5.22); RDW 13.2 % (11.7-14.6); RDW-SD 42.9 fL; WBC 6.04 10^3/uL (4.4-10.8)
== END 2021-07-31 02:07 | disposition home or self-care (01) ==
PROVIDERS: PCP Nurse Practitioner Family; Visit Provider Psychiatry & Neurology Psychiatry
DX: Z79.899 Other long term (current) drug therapy (principal); F20.9 Schizophrenia, unspecified
CPT/HCPCS: 36415; 85025

== ENCOUNTER 2021-08-28 19:39 | Outpatient (REF) | payer MEDICARE, SELFPAY ==
[2021-08-28 19:59] LABS: HCT 37.8 % (36.0-46.0); HGB 12.3 g/dL (11.2-15.7); MCH 28.7 pg (27.0-33.0); MCHC 32.5 % (32.0-36.0); MCV 88.1 fL (80-95); MPV 11.5 fL (8.0-11.0); Platelet Count 237 10^3/uL (130-400); RBC 4.29 10^6/uL (3.93-5.22); RDW 13.6 % (11.7-14.6); RDW-SD 43.9 fL
== END 2021-08-28 19:40 | disposition home or self-care (01) ==
LOC: NCHCN 19:39
PROVIDERS: PCP Nurse Practitioner Family; Visit Provider Nurse Practitioner Family
DX: E03.9 Hypothyroidism, unspecified (principal); F25.9 Schizoaffective disorder, unspecified
CPT/HCPCS: 85027; 84443

== ENCOUNTER 2021-09-10 01:56 | Outpatient (CLI) | payer MEDICARE, SELFPAY ==
[2021-09-10 11:24] LABS: Abs Immature Grans 0.02 10^3/uL (0.0-0.06); Absolute Lymphocyte Count 1.51 10^3/uL (1.2-3.4); Absolute Monocyte Count 0.47 10^3/uL (0.1-0.8); Absolute Neutrophil Count 3.62 10^3/uL (1.2-6.7); HCT 39.2 % (36.0-46.0); HGB 12.7 g/dL (11.2-15.7); Immature Grans % 0.4; Lymphocytes % 26.9; MCH 28.9 pg (27.0-33.0); MCHC 32.4 % (32.0-36.0); MCV 89.1 fL (80-95); MPV 10.4 fL (8.0-11.0); Monocytes % 8.4; Neutrophils % 64.3; Nucleated RBC 0 %; Platelet Count 221 10^3/uL (130-400); RDW 13.5 % (11.7-14.6); WBC 5.62 10^3/uL (4.4-10.8)
== END 2021-09-10 01:57 | disposition home or self-care (01) ==
LOC: LBO 01:56
PROVIDERS: PCP Nurse Practitioner Family; Visit Provider Nurse Practitioner Psychiatric/Mental Health
DX: F20.9 Schizophrenia, unspecified (principal); Z79.899 Other long term (current) drug therapy
CPT/HCPCS: 36415; 85025

== ENCOUNTER 2021-10-02 03:31 | Outpatient (CLI) | payer MEDICARE, SELFPAY ==
[2021-10-02 13:16] LABS: Abs Immature Grans 0.02 10^3/uL (0.0-0.06); Absolute Lymphocyte Count 1.68 10^3/uL (1.2-3.4); Absolute Monocyte Count 0.36 10^3/uL (0.1-0.8); Absolute Neutrophil Count 3.53 10^3/uL (1.2-6.7); HCT 39.4 % (36.0-46.0); HGB 12.7 g/dL (11.2-15.7); Immature Grans % 0.4; Lymphocytes % 30.1; MCH 29.1 pg (27.0-33.0); MCHC 32.2 % (32.0-36.0); MCV 90.4 fL (80-95); MPV 11.1 fL (8.0-11.0); Monocytes % 6.4; Neutrophils % 63.1; Nucleated RBC 0 %; Platelet Count 206 10^3/uL (130-400); RBC 4.36 10^6/uL (3.93-5.22); RDW 13.5 % (11.7-14.6); RDW-SD 45.1 fL; WBC 5.59 10^3/uL (4.4-10.8)
[2021-10-02 14:33] LABS: TSH (W/Ref FT4) 2.73 uIU/mL (0.36-3.74)
== END 2021-10-02 03:32 | disposition home or self-care (01) ==
LOC: LBO 03:31
PROVIDERS: PCP Nurse Practitioner Family; Visit Provider Nurse Practitioner Psychiatric/Mental Health
DX: E03.9 Hypothyroidism, unspecified (principal); Z79.899 Other long term (current) drug therapy; F25.9 Schizoaffective disorder, unspecified
CPT/HCPCS: 36415; 84443; 85025

== ENCOUNTER 2021-10-22 02:54 | Outpatient (CLI) | payer MEDICARE, SELFPAY ==
[2021-10-22 15:26] LABS: Abs Immature Grans 0.02 10^3/uL (0.0-0.06); Absolute Basophil Count 0.01 10^3/uL (0.0-0.2); Absolute Lymphocyte Count 1.92 10^3/uL (1.2-3.4); Absolute Monocyte Count 0.47 10^3/uL (0.1-0.8); Absolute Neutrophil Count 4.68 10^3/uL (1.2-6.7); Basophils % 0.1; HCT 38.6 % (36.0-46.0); HGB 12.9 g/dL (11.2-15.7); Immature Grans % 0.3; MCH 29.7 pg (27.0-33.0); MCHC 33.4 % (32.0-36.0); MCV 88.9 fL (80-95); MPV 10.7 fL (8.0-11.0); Monocytes % 6.6; Nucleated RBC 0 %; Platelet Count 245 10^3/uL (130-400); RBC 4.34 10^6/uL (3.93-5.22); RDW-SD 42.6 fL
== END 2021-10-22 02:55 | disposition home or self-care (01) ==
LOC: LBO 02:55
PROVIDERS: PCP Nurse Practitioner Family; Visit Provider Nurse Practitioner Psychiatric/Mental Health
DX: F20.9 Schizophrenia, unspecified (principal); Z79.899 Other long term (current) drug therapy
CPT/HCPCS: 36415; 85025

== ENCOUNTER 2021-11-13 03:53 | Outpatient (CLI) | payer MEDICARE, SELFPAY ==
[2021-11-13 12:30] LABS: HCT 38.7 % (36.0-46.0); HGB 12.9 g/dL (11.2-15.7); Lymphocytes % 31.4; MCH 29.2 pg (27.0-33.0); MCHC 33.3 % (32.0-36.0); MCV 88 fL (80-95); MPV 10.8 fL (8.0-11.0); Neutrophils % 60.7; Platelet Count 225 10^3/uL (130-400); RBC 4.42 10^6/uL (3.93-5.22); RDW-SD 41.2 fL; WBC 6.33 10^3/uL (4.4-10.8)
[2021-11-13 12:31] LABS: Abs Immature Grans 0.02 10^3/uL (0.0-0.06); Absolute Basophil Count 0.01 10^3/uL (0.0-0.2); Absolute Lymphocyte Count 1.99 10^3/uL (1.2-3.4); Absolute Monocyte Count 0.47 10^3/uL (0.1-0.8); Absolute Neutrophil Count 3.84 10^3/uL (1.2-6.7); Basophils % 0.2; Immature Grans % 0.3; Monocytes % 7.4
== END 2021-11-13 03:54 | disposition home or self-care (01) ==
LOC: LBO 03:53
PROVIDERS: PCP Nurse Practitioner Family; Visit Provider Nurse Practitioner Psychiatric/Mental Health
DX: F20.9 Schizophrenia, unspecified (principal); Z79.899 Other long term (current) drug therapy
CPT/HCPCS: 36415; 85025

== ENCOUNTER 2021-12-02 02:46 | Outpatient (CLI) | payer MEDICARE, SELFPAY ==
[2021-12-02 13:03] LABS: Abs Immature Grans 0.02 10^3/uL (0.0-0.06); Absolute Basophil Count 0.01 10^3/uL (0.0-0.2); Absolute Lymphocyte Count 1.74 10^3/uL (1.2-3.4); Absolute Monocyte Count 0.46 10^3/uL (0.1-0.8); Absolute Neutrophil Count 3.99 10^3/uL (1.2-6.7); Basophils % 0.2; HCT 38.6 % (36.0-46.0); HGB 12.9 g/dL (11.2-15.7); Immature Grans % 0.3; MCH 29.8 pg (27.0-33.0); MCHC 33.4 % (32.0-36.0); MCV 89 fL (80-95); MPV 10.6 fL (8.0-11.0); Monocytes % 7.4; Neutrophils % 64.1; Platelet Count 203 10^3/uL (130-400); RBC 4.33 10^6/uL (3.93-5.22); RDW 12.9 % (11.7-14.6); RDW-SD 42.2 fL; WBC 6.22 10^3/uL (4.4-10.8)
== END 2021-12-02 02:47 | disposition home or self-care (01) ==
LOC: LBO 02:46
PROVIDERS: PCP Nurse Practitioner Family; Visit Provider Nurse Practitioner Psychiatric/Mental Health
DX: F20.9 Schizophrenia, unspecified (principal); Z79.899 Other long term (current) drug therapy
CPT/HCPCS: 36415; 85025

== ENCOUNTER 2021-12-26 01:37 | Outpatient (CLI) | payer MEDICARE, SELFPAY ==
[2021-12-26 10:46] LABS: Abs Immature Grans 0.02 10^3/uL (0.0-0.06); Absolute Lymphocyte Count 1.56 10^3/uL (1.2-3.4); Absolute Monocyte Count 0.45 10^3/uL (0.1-0.8); Absolute Neutrophil Count 4.23 10^3/uL (1.2-6.7); HCT 38.6 % (36.0-46.0); HGB 12.7 g/dL (11.2-15.7); Immature Grans % 0.3; Lymphocytes % 24.9; MCH 29.3 pg (27.0-33.0); MCHC 32.9 % (32.0-36.0); MCV 89 fL (80-95); MPV 10.6 fL (8.0-11.0); Monocytes % 7.2; Neutrophils % 67.6; Platelet Count 209 10^3/uL (130-400); RBC 4.34 10^6/uL (3.93-5.22); RDW 12.9 % (11.7-14.6); RDW-SD 42.4 fL; WBC 6.26 10^3/uL (4.4-10.8)
== END 2021-12-26 01:38 | disposition home or self-care (01) ==
LOC: LBO 01:37
PROVIDERS: PCP Nurse Practitioner Family; Visit Provider Nurse Practitioner Psychiatric/Mental Health
DX: F20.9 Schizophrenia, unspecified (principal); Z79.899 Other long term (current) drug therapy
CPT/HCPCS: 36415; 85025

== ENCOUNTER 2022-01-09 02:53 | Outpatient (CLI) | payer MEDICARE, SELFPAY ==
[2022-01-09 11:49] LABS: Abs Immature Grans 0.02 10^3/uL (0.0-0.06); Absolute Lymphocyte Count 1.75 10^3/uL (1.2-3.4); Absolute Monocyte Count 0.45 10^3/uL (0.1-0.8); Absolute Neutrophil Count 3.55 10^3/uL (1.2-6.7); HCT 38.3 % (36.0-46.0); HGB 12.7 g/dL (11.2-15.7); Immature Grans % 0.3; Lymphocytes % 30.3; MCH 29.3 pg (27.0-33.0); MCHC 33.2 % (32.0-36.0); MCV 88 fL (80-95); MPV 10.5 fL (8.0-11.0); Monocytes % 7.8; Neutrophils % 61.6; Platelet Count 224 10^3/uL (130-400); RBC 4.34 10^6/uL (3.93-5.22); RDW 13.1 % (11.7-14.6); RDW-SD 42.5 fL; WBC 5.77 10^3/uL (4.4-10.8)
== END 2022-01-09 02:54 | disposition home or self-care (01) ==
PROVIDERS: Nurse Practitioner Psychiatric/Mental Health; PCP Nurse Practitioner Family; Visit Provider Psychiatry & Neurology Psychiatry
DX: F20.9 Schizophrenia, unspecified (principal); Z79.899 Other long term (current) drug therapy
CPT/HCPCS: 36415; 85025

== ENCOUNTER 2022-01-23 01:32 | Outpatient (CLI) | payer MEDICARE, SELFPAY ==
[2022-01-23 11:37] LABS: Abs Immature Grans 0.01 10^3/uL (0.0-0.06); Absolute Basophil Count 0.01 10^3/uL (0.0-0.2); Absolute Eosinophil Count 0.01 10^3/uL (0.0-0.7); Absolute Lymphocyte Count 1.77 10^3/uL (1.2-3.4); Absolute Monocyte Count 0.53 10^3/uL (0.1-0.8); Absolute Neutrophil Count 4.25 10^3/uL (1.2-6.7); Basophils % 0.2; Eosinophils % 0.2; HCT 38.7 % (36.0-46.0); Immature Grans % 0.2; Lymphocytes % 26.9; MCH 29.5 pg (27.0-33.0); MCHC 33.6 % (32.0-36.0); MCV 88 fL (80-95); MPV 10.3 fL (8.0-11.0); Monocytes % 8.1; Neutrophils % 64.4; Platelet Count 220 10^3/uL (130-400); RDW 12.7 % (11.7-14.6); RDW-SD 40.5 fL; WBC 6.58 10^3/uL (4.4-10.8)
== END 2022-01-23 01:33 | disposition home or self-care (01) ==
PROVIDERS: PCP Nurse Practitioner Family; Visit Provider Psychiatry & Neurology Psychiatry
DX: F20.9 Schizophrenia, unspecified (principal); Z79.899 Other long term (current) drug therapy
CPT/HCPCS: 36415; 85025

== ENCOUNTER 2022-02-06 01:12 | Outpatient (CLI) | payer MEDICARE, SELFPAY ==
[2022-02-06 11:48] LABS: Abs Immature Grans 0.01 10^3/uL (0.0-0.06); Absolute Basophil Count 0.01 10^3/uL (0.0-0.2); Absolute Lymphocyte Count 1.53 10^3/uL (1.2-3.4); Absolute Monocyte Count 0.43 10^3/uL (0.1-0.8); Absolute Neutrophil Count 3.56 10^3/uL (1.2-6.7); Basophils % 0.2; HCT 35.9 % (36.0-46.0); HGB 12.2 g/dL (11.2-15.7); Immature Grans % 0.2; Lymphocytes % 27.6; MCH 29.9 pg (27.0-33.0); MCV 88 fL (80-95); MPV 10.5 fL (8.0-11.0); Monocytes % 7.8; Neutrophils % 64.2; Platelet Count 204 10^3/uL (130-400); RBC 4.08 10^6/uL (3.93-5.22); RDW 12.8 % (11.7-14.6); RDW-SD 41.3 fL; WBC 5.54 10^3/uL (4.4-10.8)
== END 2022-02-06 01:13 | disposition home or self-care (01) ==
LOC: LBO 01:12
PROVIDERS: PCP Nurse Practitioner Family; Visit Provider Nurse Practitioner Psychiatric/Mental Health
DX: F20.9 Schizophrenia, unspecified (principal); Z79.899 Other long term (current) drug therapy
CPT/HCPCS: 36415; 85025

== ENCOUNTER 2022-02-20 01:30 | Outpatient (CLI) | payer MEDICARE, SELFPAY ==
[2022-02-20 11:46] LABS: Abs Immature Grans 0.02 10^3/uL (0.0-0.06); Absolute Lymphocyte Count 1.57 10^3/uL (1.2-3.4); Absolute Monocyte Count 0.46 10^3/uL (0.1-0.8); Absolute Neutrophil Count 3.75 10^3/uL (1.2-6.7); HGB 12.5 g/dL (11.2-15.7); Immature Grans % 0.3; Lymphocytes % 27.1; MCHC 33.8 % (32.0-36.0); MCV 89 fL (80-95); MPV 10.5 fL (8.0-11.0); Monocytes % 7.9; Neutrophils % 64.7; Platelet Count 213 10^3/uL (130-400); RBC 4.16 10^6/uL (3.93-5.22); RDW-SD 42.2 fL
== END 2022-02-20 01:31 | disposition home or self-care (01) ==
LOC: LBO 01:30
PROVIDERS: PCP Nurse Practitioner Family; Visit Provider Psychiatry & Neurology Psychiatry
DX: Z79.899 Other long term (current) drug therapy (principal); F20.9 Schizophrenia, unspecified
CPT/HCPCS: 36415; 85025

== ENCOUNTER 2022-02-25 12:10 | Outpatient (REF) | payer MEDICARE, SELFPAY ==
[2022-03-02 14:36] LABS: Helicobacter pylori Ag, Feces Negative (Negative)
== END 2022-02-25 12:11 | disposition home or self-care (01) ==
LOC: NCHCN 12:10
PROVIDERS: PCP Nurse Practitioner Family; Visit Provider Nurse Practitioner Family
DX: R10.10 Upper abdominal pain, unspecified (principal)
CPT/HCPCS: 87338

== ENCOUNTER 2022-03-06 16:10 | Outpatient (CLI) | payer MEDICARE, SELFPAY ==
[2022-03-06 11:40] LABS: Abs Immature Grans 0.01 10^3/uL (0.0-0.06); Absolute Basophil Count 0.01 10^3/uL (0.0-0.2); Absolute Lymphocyte Count 1.86 10^3/uL (1.2-3.4); Absolute Monocyte Count 0.35 10^3/uL (0.1-0.8); Absolute Neutrophil Count 3.93 10^3/uL (1.2-6.7); Basophils % 0.2; HCT 38.4 % (36.0-46.0); Immature Grans % 0.2; Lymphocytes % 30.2; MCH 29.7 pg (27.0-33.0); MCHC 33.9 % (32.0-36.0); MCV 88 fL (80-95); Monocytes % 5.7; Neutrophils % 63.7; Platelet Count 228 10^3/uL (130-400); RBC 4.38 10^6/uL (3.93-5.22); RDW 12.5 % (11.7-14.6); RDW-SD 39.9 fL; WBC 6.16 10^3/uL (4.4-10.8)
== END 2022-03-06 16:11 | disposition home or self-care (01) ==
LOC: LBO 16:10
PROVIDERS: PCP Nurse Practitioner Family; Visit Provider Psychiatry & Neurology Psychiatry
DX: F25.0 Schizoaffective disorder, bipolar type (principal); Z79.899 Other long term (current) drug therapy
CPT/HCPCS: 36415; 85025

== ENCOUNTER 2022-03-20 01:44 | Outpatient (CLI) | payer MEDICARE, SELFPAY ==
[2022-03-20 10:55] LABS: Abs Immature Grans 0.01 10^3/uL (0.0-0.06); Absolute Lymphocyte Count 1.55 10^3/uL (1.2-3.4); Absolute Monocyte Count 0.39 10^3/uL (0.1-0.8); Absolute Neutrophil Count 2.91 10^3/uL (1.2-6.7); HGB 11.9 g/dL (11.2-15.7); Immature Grans % 0.2; Lymphocytes % 31.9; MCH 29.5 pg (27.0-33.0); MCHC 33.1 % (32.0-36.0); MCV 89 fL (80-95); MPV 10.6 fL (8.0-11.0); Neutrophils % 59.9; Platelet Count 206 10^3/uL (130-400); RBC 4.03 10^6/uL (3.93-5.22); RDW-SD 42.4 fL; WBC 4.86 10^3/uL (4.4-10.8)
== END 2022-03-20 01:45 | disposition home or self-care (01) ==
LOC: LBO 01:44
PROVIDERS: PCP Nurse Practitioner Family; Visit Provider Psychiatry & Neurology Psychiatry
DX: F20.9 Schizophrenia, unspecified (principal); Z79.899 Other long term (current) drug therapy
CPT/HCPCS: 36415; 85025

== ENCOUNTER 2022-04-03 00:47 | Outpatient (CLI) | payer MEDICARE, SELFPAY ==
[2022-04-03 10:36] LABS: Abs Immature Grans 0.02 10^3/uL (0.0-0.06); Absolute Basophil Count 0.01 10^3/uL (0.0-0.2); Absolute Lymphocyte Count 1.73 10^3/uL (1.2-3.4); Absolute Monocyte Count 0.42 10^3/uL (0.1-0.8); Absolute Neutrophil Count 3.76 10^3/uL (1.2-6.7); Basophils % 0.2; HCT 37.6 % (36.0-46.0); HGB 12.4 g/dL (11.2-15.7); Immature Grans % 0.3; Lymphocytes % 29.1; MCH 29.2 pg (27.0-33.0); MCV 89 fL (80-95); MPV 10.5 fL (8.0-11.0); Monocytes % 7.1; Neutrophils % 63.3; Platelet Count 194 10^3/uL (130-400); RBC 4.25 10^6/uL (3.93-5.22); RDW-SD 41.4 fL; WBC 5.94 10^3/uL (4.4-10.8)
== END 2022-04-03 00:48 | disposition home or self-care (01) ==
LOC: LBO 00:47
PROVIDERS: PCP Nurse Practitioner Family; Visit Provider Psychiatry & Neurology Psychiatry
DX: F20.9 Schizophrenia, unspecified (principal); Z79.899 Other long term (current) drug therapy
CPT/HCPCS: 36415; 85025

== ENCOUNTER 2022-04-17 01:36 | Outpatient (CLI) | payer MEDICARE, SELFPAY ==
--- OUTSIDE RECORDS SUMMARY | 2022-04-17 01:45 | XMS_ITS | Encounter Summary ---
:1980 Author Organization [facility] [place] [address] Care Team Providers Name Role Phone Barbara Morton APRN Primary Care Provider Encounter Details Date Type Department Care Team Description 07/19/2017 Telephone General Surgery at [facility] [place] [address] Social History Tobacco Use Types Packs/Day Years Used Date Never Assessed Sex Assigned at Date Recorded Not on file documented as of this encounter Miscellaneous Notes Telephone Encounter - Ashli Dailey - 07/19/2017 8:24 AM EST Someone answered the phone, said This is the wrong number stop calling. And then hung up on me documented in this encounter Plan of Treatment Not on filedocumented as of this encounter Visit Diagnoses Not on filedocumented in this encounter Care Teams Teller Relationship Specialty Start Date End Date Barbara Morton APRN PCP - General Family Medicine 01/05/[address] [place], [place] [id number] documented as of this encounter
--- OUTSIDE RECORDS SUMMARY | 2022-04-17 01:45 | XMS_ITS | Encounter Summary ---
:1980 Author Organization [facility] Address [address] [place] [address] Care Team Providers Name Role Phone Barbara Morton STABILIZER OPERATOR Primary Care Provider Md LILIBETH Bauer Unavailable Unavailable Encounter Details Date Type Department Care Team Description 11/23/2019 Lab Requisition [facility] Outr Resulting Lab, Pathology & Laboratory Provider [facility] [address], [place] [address] Social History Tobacco Use Types Packs/Day Years Used Date Never Assessed Sex Assigned at Date Recorded Not on file documented as of this encounter Plan of Treatment Not on filedocumented as of this encounter Procedures Procedure Name Priority Date/Time Associated Diagnosis Comme nts COVID-19 [facility] Today 11/23/2019 8:00 EDT LAB PCR COVID-19 TESTING Routine 11/23/2019 8:00 EDT Resu lts for this procedure are i n the results section. documented in this encounter Results COVID-19 TEST [facility] PCR (11/23/2019 8:00 EDT) Specimen Swab - Entire nasopharynx (body structur e) Performing Organization Address City/State/ZIP Code Phon e Number [facility] [address] [place] [address] SERVICES COVID-19 TESTING (11/23/2019 8:00 EDT) COVID-19 rt-PCR Negative Negative [facility] Result Comment: [facility] This test has not been FDA c leared or approved. This test has been authorized by FDA under an EUA for use by authorized laboratories. This test has been authorized only for detection of nucleic acid fro SERVICES m 2019-nCoV, not for any oth er viruses or pathogens. This test is only authorized for the duration of the declaration that circumstances exist justifying the authorization of emergency use of in vitro d iagnostic tests for detectio n and/or diagnosis of 2019-nCoV under section 564(b)(1) of Act, 21 U.S.C ?? 360bbb-3(b) (1), unless the authorization is terminated or revoked sooner. Negative results do not prec lude 2019-nCoV infection and should not be used as the sole basis for treatment or other patient management decisions. Negative results must be combined with clinical observa tions, patient history, and epidemiological informatio n. Performed on the [employer] instrument Performing Lab [facility] Lab [facility] SERVICES Specimen Swab - Entire nasopharynx (body structur e) Performing Organization Address City/State/ZIP Code Phon e Number [facility] [address] [place] [address] SERVICES documented in this encounter Visit Diagnoses Not on filedocumented in this encounter Care Teams Office Inspector Relationship Specialty Start Date End Date Barbara Morton FNP PCP - General 07/12/19 [address] [place] [address] Md Bauer MD 07/12/19 documented as of this encounter
--- OUTSIDE RECORDS SUMMARY | 2022-04-17 01:45 | XMS_ITS | Encounter Summary ---
:1980 [place] [address] Care Team Providers Name Role Phone Barbara Morton LUCIE Primary Care Provider Reason for Visit Reason Onset Date Comments Other 07/07/2017 Encounter Details Date Type Department Care Team Description 07/07/2017 Telephone General Surgery at [facility] Maria R Kilgore APRN [facility] [place] [address] GENERAL SURGERY [phone] [place], [place] [address] (Wo rk) Social History Tobacco Use Types Packs/Day Years Used Date Never Assessed Sex Assigned at Date Recorded Not on file documented as of this encounter Miscellaneous Notes Telephone Encounter - Maria R Kilgore - 07/07/2017 3:22 PM EST Bariatric Surgery Program I received a call KONRAD Stinson regarding her recent preoperative psychological evaluation on Nati. She reports that Nati is binge eating every week-two weeks, which has decreased in frequency. She also provides diagnoses of BPAD, schizoaffective disorder. Nati does not have a current therapist or medication prescriber. In review of the referral letter to the [facility], BPAD is not listed as a diagnosis, but borderline personality disorder is listed in her primary care problem list. Nati has not as yet completed the educational videos that were sent to her in February. They have been resent to her as of yesterday. She has completed 3 months of nutrition counseling, and has gained 3 pounds since the first nutrition visit. Plan: referred the [facility], will plan team meeting discussion after evaluation. In addition, she may benefit from a structured healthy lifestyles program. documented in this encounter Plan of Treatment Not on filedocumented as of this encounter Visit Diagnoses Not on filedocumented in this encounter Care Teams Plate Keeper Relationship Specialty Start Date End Date Barbara Morton APRN PCP - General Family Medicine 01/05/17 [address] [facility] [address] documented as of this encounter
--- OUTSIDE RECORDS SUMMARY | 2022-04-17 01:45 | XMS_ITS | Clinical Summary ---
:1980 Author Organization [facility] Address [address] [place] [address] Care Team Providers Name Role Phone Barbara Morton INHALATION THERAPY AIDE Primary Care Provider Md LILIBETH Bauer Unavailable Unavailable Encounters Date Type Specialty Care Team Description 02/25/2022 Lab Requisition Clinical Laboratory Outr Resulting Lab , Provider from Last 3 Months Social History Tobacco Use Types Packs/Day Years Used Date Never Assessed Sex Assigned at Date Recorded Not on file Plan of Treatment Not on file Procedures Procedure Name Priority Date/Time Associated Diagnosis Comme nts H. PYLORI ANTIGEN Routine 02/25/2022 10:00 Result s for this EDT procedure are i n the results section. from Last 3 Months Results H. PYLORI ANTIGEN (02/25/2022 10:00 EDT) Pathologist Sig nature H. Pylori Negative Negative [facility] SERVICES Specimen Feces - Specimen from rectum (specimen) Narrative [facility] SERVICES - 03/02/2022 14:31 EDT Results were obtained with the Premier P latinum HpSA Plus MONICA. Performing Organization Address City/State/ZIP Code Phon e Number [facility] [address] [place] [address] SERVICES from Last 3 Months Insurance Payer Benefit Plan / Subscriber ID Effective Dates Phone Addre ss Type Group MEDICARE MEDICARE A/B [id number] 2003-Mg [place] [id number] Medicare [place] [facility] [place] [id number] Care Teams Superintendent Geophysical Laboratory Relationship Specialty Start Date End Date Barbara Morton FNP PCP - General 07/12/19 [address] [place] [address] Md Bauer MD 07/12/19
--- OUTSIDE RECORDS SUMMARY | 2022-04-17 01:45 | XMS_ITS | Encounter Summary ---
:[address] [facility] Address [address] [place] [address] Care Team Providers Name Role Phone Md LILIBETH Bauer Primary Care Provider Unavailable Encounter Details Date Type Department Care Team Description 06/26/2014 Results Only [facility] Ray Washington, LANDSCAPE ENGINEER Laboratory Services - [address] [place], [place] [address] [facility] [address] [place], [place] [id number] [phone] Social History Tobacco Use Types Packs/Day Years Used Date Never Assessed Sex Assigned at Date Recorded Not on file documented as of this encounter Plan of Treatment Not on filedocumented as of this encounter Procedures Procedure Name Priority Date/Time Associated Diagnosis Comme nts PAP TEST- RESULT Routine 06/26/2014 0:00 EST Resu lts for this ONLY procedure are i n the results section. documented in this encounter Results PAP TEST- RESULT ONLY (06/26/2014 0:00 EST) Pathology Report: CYTOPATHOLOGY REPORT [facility] Reports generated via electronic interface contain sheryl ginal data; SERVICES however they are lacking the format of the original re port. Caution should be taken when reading/interpreting unfo rmatted reports. Name: ? HONORIO WEBB ? Accession #: ? [id number] ? : ? 1980 (Age: 34) ??F ?Collect Da te: ? 06/26/2014 ? Location: ? [facility] ? Receive Date: ? 014 ? Provider: CORY WASHINGTON LANDSCAPE ENGINEER Copy to: SANJUANITA BEAUCHAMP OUTREACH CONSULTANT ? Final Report SPECIMEN ADEQUACY ? Satisfactory for Evaluation - transformation zone component present GENERAL CATEGORIZATION ? Negative for Intraepithelial Lesion or Malignan cy ?? Last Menstrual Period: 01/2014 Specimen/Source: ??Pap Test, Cervix/Endocervix, ThinPr ep Imaging System with manual evaluation Document reviewed and electronically signed by: ? Lola Kraft, CT(ASCP) ? Report ??Date: 07/03/2014 14:53 HPV with Pap Test ? Date Ordered: ? 07/03/2014 ? Status: ?? Signed Out ?Date Complete: ? 07/06/2014 ? By: ??S ystem Interface ? Date Reported: ? 07/06/2014 ? Interpretation RESULT: Negative for HPV. No E6 or E7 mRNA is detected from HPV types 16,18,31,3 3,35, 39,45,51,52,56,58,59,66, and 68 by radio maintainer media odilon amplification. Comments Document reviewed and electronically signed by: ? System Interface ? Report date: 07/06/2014 By the signature above, the attending physician certif ies that he/she has personally conducted a gross and/or microscopic examin ation of the described specimens and rendered or confirmed the above diagnosi s. End of Report Specimen Performing Organization Address City/State/ZIP Code Phon e Number [facility] [address] [place] [address] SERVICES documented in this encounter Visit Diagnoses Not on filedocumented in this encounter Care Teams Stone Mason Relationship Specialty Start Date End Date Md Bauer MD PCP - General 01/06/10 07/11/19 documented as of this encounter
--- OUTSIDE RECORDS SUMMARY | 2022-04-17 01:45 | XMS_ITS | Encounter Summary ---
:1980 Author Organization [facility] [place] [address] Care Team Providers Name Role Phone Eliana Pina MD Primary Care Provider Encounter Details Date Type Department Care Team Description 09/29/2011 Hospital Encounter MRI at [facility] Eliana Pina MD [address] [place] [address] [place] [address] Social History Tobacco Use Types Packs/Day Years Used Date Never Assessed Sex Assigned at Date Recorded Not on file documented as of this encounter Last Filed Vital Signs Vital Sign Reading Time Taken Comments Blood Pressure - - Pulse - - Temperature - - Respiratory Rate - - Oxygen Saturation - - Inhaled Oxygen Concentration - - Weight 122.5 kg (270 lb) 09/29/2011 6:12 AM EDT Height - - Body Mass Index - - documented in this encounter Miscellaneous Notes Miscellaneous - Provider, Scanning - 10/15/2011 8:03 AM EDT documented in this encounter Plan of Treatment Not on filedocumented as of this encounter Procedures Procedure Name Priority Date/Time Associated Diagnosis Comme nts MRI BRAIN WWO Routine 09/29/2011 6:39 PM Results for this CONTRAST (GENERIC) EDT procedure are in the results section. documented in this encounter Results MRI BRAIN WITH/WO CONTRAST (09/29/2011 6:39 PM EDT) Anatomical Region Laterality Modality Head Magnetic Resonance Specimen (Source) Anatomical Collection Method Collection Time Re ceived Time Location / / Volume Laterality 09/29/2011 6:39 PM EDT Impressions 10/03/2011 10:53 PM EDT IMPRESSION: Normal MRI of the brain and pituitary. Dedicated dynamic imaging useful for identifying some pituitary microadenomas , this was no performed. We will arrange to have the patient return to ob tain these additional images. Narrative 10/03/2011 10:53 PM EDT MRI OF THE BRAIN, 09/29/11: HISTORY: ??Hypercalcemia, hyperprolactin emia, hypothyroidism, irregular menses, and fatigue. ?? TECHNIQUE: ??MRI of the brain was perfor med per IAC protocol with the addition of high-resolution postcontrast sagittal and coronal imaging through the pituitary. The IAC protocol used for nomi luation of such lesions as acoustic neuroma was performed in error. Precontr ast and dynamic sequences from the pituitary protocol were not obtained. ?? CONTRAST DOSE: ??20 cc Magnevist. ?? FINDINGS: ??Ventricles and sulci are of normal size and configuration. Intracranial flow voids show no abnormal ity. The internal auditory canals and cerebellopontine angles appear normal. T here is no mass or abnormal enhancement in or about the IAC. Dedicated images of the pituitary show a midline position of the pituitary stalk and no hypoenhanc ing lesion or mass effect to suggest the presence of a pituitary adenoma. ?? Procedure Note Logan Vickers MD - 10/03/2011Format ting of this note might be different from the original. MRI OF THE BRAIN, 09/29/11: HISTORY: Hypercalcemia, hyperprolactinem ia, hypothyroidism, irregular menses, and fatigue. TECHNIQUE: MRI of the brain was performe d per IAC protocol with the addition of high-resolution postcontrast sagittal and coronal imaging through the pituitary. The IAC protocol used for nomi luation of such lesions as acoustic neuroma was performed in error. Precontr ast and dynamic sequences from the pituitary protocol were not obtained. CONTRAST DOSE: 20 cc Magnevist. FINDINGS: Ventricles and sulci are of no rmal size and configuration. Intracranial flow voids show no abnormal ity. The internal auditory canals and cerebellopontine angles appear normal. T here is no mass or abnormal enhancement in or about the IAC. Dedicated images of the pituitary show a midline position of the pituitary stalk and no hypoenhanc ing lesion or mass effect to suggest the presence of a pituitary adenoma. IMPRESSION IMPRESSION: Normal MRI of the brain and pituitary. Dedicated dynamic imaging useful for identifying some pituitary microadenomas , this was no performed. We will arrange to have the patient return to ob tain these additional images. Eliana Pina MD IMG MRI ORDERABLES documented in this encounter Visit Diagnoses Not on filedocumented in this encounter Care Teams Assistant Professor Of Business Relationship Specialty Start Date End Date Eliana Pina MD PCP - General 09/25/11 01/04/17 [address] [place] [address] documented as of this encounter
--- OUTSIDE RECORDS SUMMARY | 2022-04-17 01:45 | XMS_ITS | Encounter Summary ---
:1980 Author Organization [place] [address] Care Team Providers Name Role Phone SeleneBarbara LUCIE Primary Care Provider Reason for Visit Reason Onset Date Comments Other 08/02/2017 Encounter Details Date Type Department Care Team Description 08/02/2017 Telephone General Surgery at [facility] Maria R Kilgore APRN [facility] [place] [address] GENERAL SURGERY [phone] [place], [place] [address] (Wo rk) Social History Tobacco Use Types Packs/Day Years Used Date Never Assessed Sex Assigned at Date Recorded Not on file documented as of this encounter Miscellaneous Notes Telephone Encounter - Maria R Kilgore - 08/02/2017 8:25 AM EST Bariatric Surgery Program Nati returned my call. I advised her that she was referred to our Behavioral Health team as the next step in her process to surgery. She takes medication that may be impacted by surgery, and the goal of the visit is to optimize post surgery outcomes. She reports that she is in twice weekly counseling with Rafi Bloom and once monthly to every other month medication management with Odette Monet APRN. Plan: awaiting [facility] evaluation. I recommended that she ask Rafi and Odette to send a note with their recommendations regarding counseling and medication management perioperatively. documented in this encounter Plan of Treatment Not on filedocumented as of this encounter Visit Diagnoses Not on filedocumented in this encounter Care Teams Hydroelectric Plant Maintainer Relationship Specialty Start Date End Date Barbara Morton APRN PCP - General Family Medicine 01/05/17 [place] [address] documented as of this encounter
--- OUTSIDE RECORDS SUMMARY | 2022-04-17 01:45 | XMS_ITS | Encounter Summary ---
:1980 Author Organization [facility] [place] [address] Care Team Providers Name Role Phone Barbara Motron APRN Primary Care Provider Encounter Details Date Type Department Care Team Description 11/16/2017 Telephone General Surgery at [facility] [address] [place] [address] Social History Tobacco Use Types Packs/Day Years Used Date Never Assessed Sex Assigned at Date Recorded Not on file documented as of this encounter Miscellaneous Notes Telephone Encounter - Syeda Sinclair - 11/16/2017 11:55 AM EDT Bariatric Surgery Program Phone call to patient to discuss new patient appointment scheduled on 09/22. [address] Lopez in October and in her note, it was documented she is actively binge eating and stress eating 3-4 times perweek and patient did not recieve the green light to proceed with surgery. Patient reports her binge eating is more like overeating on comfort foods. She reports she is working on measuring portions andhad an eye opening experience the other week when she went out to eat with a friend from [facility]. She realized she ate a lot more than she needed to when out to eat because she did not measure her portions. Patient has been working with her therapists on her binge eating but has not seen a dietitian since May. She saw Ryann Arndt RD, March through May 2017. Informed patient she cannot proceed to surgery until she has her binge eating under control and receives the green light from Dr. Lopez. Encouraged patient to continue to work on her binge eating with her therapist but also recommend she go back to see a dietitian as well. Encouraged patient to make an appointment with Ryann Arndt RD, this month to help work on making dietary changes. Discussed the importance of finding alternative coping skills and not turning to food for comfort to be successful after surgery. Patient was receptive to this and plans to call Ryann to make an appointment. Informed patient we will cancel her 09/22 appointment and wait until after her next appointment with Dr. Lopez on 12/07 for an update on her light status. Patient is receptive to this. documented in this encounter Plan of Treatment Not on filedocumented as of this encounter Visit Diagnoses Not on filedocumented in this encounter Care Teams Brewery Technician Relationship Specialty Start Date End Date Barbara Morton APRN PCP - General Family Medicine 01/05/17 Brittney TREVIÑ[place] [address] documented as of this encounter
--- OUTSIDE RECORDS SUMMARY | 2022-04-17 01:45 | XMS_ITS | Encounter Summary ---
:1980 Author Organization [facility] [place] [address] Care Team Providers Name Role Phone Barbara Morton LUCIE Primary Care Provider Reason for Visit Reason Onset Date Comments Other 08/18/2017 Encounter Details Date Type Department Care Team Description 08/18/2017 Telephone General Surgery at [facility] Maria R Kilgore APRN [facility] [place] [address] GENERAL SURGERY [phone] [place], [place] [address] (Wo rk) Social History Tobacco Use Types Packs/Day Years Used Date Never Assessed Sex Assigned at Date Recorded Not on file documented as of this encounter Miscellaneous Notes Telephone Encounter - Maria R Kilgore - 08/18/2017 1:49 PM EST Bariatric Surgery Program I returned Nati's earlier call. She is interested in learning what her next steps towards bariatric surgery are. I advised her that I had spoken with both of her providers, who are supportive of her interest insurgery. A [facility] referral was made on 07/07. She reports that she has not yet been contacted for anappt. She was connected to the [facility] to discuss further. I advised Nati to continue to complete therecommended BSP steps to surgery, and that her case would be reviewed at our upcoming Program meeting next week. documented in this encounter Plan of Treatment Not on filedocumented as of this encounter Visit Diagnoses Not on filedocumented in this encounter Care Teams Animal Control Officer Relationship Specialty Start Date End Date Barbara Morton APRN PCP - General Family Medicine 01/05/17 [address] [place] [address] documented as of this encounter
--- OUTSIDE RECORDS SUMMARY | 2022-04-17 01:45 | XMS_ITS | Encounter Summary ---
:1980 Author Organization [facility] [place] [address] Care Team Providers Name Role Phone Barbara Morton APRN Primary Care Provider Reason for Visit Reason Onset Date Comments Follow-up 07/09/2017 Encounter Details Date Type Department Care Team Description 07/09/2017 Telephone General Surgery at [facility] Maria R Kilgore APRN Follow-up [facility] [place] [address] GENERAL SURGERY [phone] [place], [place] [address] (Wo rk) Social History Tobacco Use Types Packs/Day Years Used Date Never Assessed Sex Assigned at Date Recorded Not on file documented as of this encounter Miscellaneous Notes Telephone Encounter - Maria R Kilgore - 07/09/2017 2:01 PM EST Zenaida Bojorquez called to report that Nati is in counseling with Giovani Ann, and has medication management with Odette Lee APRN in [facility] documented in this encounter Plan of Treatment Not on filedocumented as of this encounter Visit Diagnoses Not on filedocumented in this encounter Care Teams Telephone Order Clerk Room Service Relationship Specialty Start Date End Date Barbara Morton APRN PCP - General Family Medicine 01/05/[address] [place] [address] documented as of this encounter
--- OUTSIDE RECORDS SUMMARY | 2022-04-17 01:45 | XMS_ITS | Encounter Summary ---
:1980 Author Organization [facility] [place] [address] Care Team Providers Name Role Phone Barbara Morton APRN Primary Care Provider Reason for Visit Reason Onset Date Comments Other 07/30/2017 Encounter Details Date Type Department Care Team Description 07/30/2017 Telephone General Surgery at [facility] Maria R Kilgore APRN [facility] [place] [address] GENERAL SURGERY [phone] [place], [place] [address] (Wo rk) Social History Tobacco Use Types Packs/Day Years Used Date Never Assessed Sex Assigned at Date Recorded Not on file documented as of this encounter Miscellaneous Notes Telephone Encounter - Maria R Kilgore - 07/30/2017 4:05 PM EST Bariatric Surgery Program Nati was contacted to review plan discussed at team meeting documented in this encounter Plan of Treatment Not on filedocumented as of this encounter Visit Diagnoses Not on filedocumented in this encounter Care Teams Is Architect Relationship Specialty Start Date End Date Barbara Morton APRN PCP - General Family Medicine 01/05/17 [facility] [place] [id number] documented as of this encounter
--- OUTSIDE RECORDS SUMMARY | 2022-04-17 01:45 | XMS_ITS | Clinical Summary ---
:1980 Author Organization [facility] [place] [address] Care Team Providers Name Role Phone Selene Barbara LUCIE Primary Care Provider Active Problems Problem Noted Date Morbid obesity 07/07/2017 Overview: - referred to [facility] Behavioral Health due to multiple psychiatric comorbidities - Team meeting discussion planned SURINDER (obstructive sleep apnea) 07/07/2017 Gastroesophageal reflux 07/07/2017 Schizoaffective disorder 07/07/2017 Overview: -? BPAD or borderline personality - no reported hospitalizationsShe has sc hizoaffective disorder, hallucinates and has delusions on a daily basis, although annoying to her, do not control her. - She has been in counseling with Rafi Bloom for >2 years, currently sees him twice a week. She also sees Odette Monet APRN for medication management once a month. - Rafi is available for questions at [phone] ext [phone] Binge eating 07/07/2017 Social History Tobacco Use Types Packs/Day Years Used Date Never Assessed Sex Assigned at Date Recorded Not on file Last Filed Vital Signs Vital Sign Reading Time Taken Comments Blood Pressure - - Pulse - - Temperature - - Respiratory Rate - - Oxygen Saturation - - Inhaled Oxygen Concentration - - Weight 117.9 kg (260 lb) 10/09/2011 6:14 PM EDT Height - - Body Mass Index - - Plan of Treatment Health Maintenance Due Date Last Done Comments Covid-19 Vaccine (#1) 1984 HIV screen 1997 Hepatitis C Screening 1997 Tdap adult 1998 Tetanus vaccine 1998 HPV test 2009 PAP Smear 2009 Breast Cancer Share Decision Needed 2019 Influenza (Flu) vaccine (1 of - Influenza standard 03/12/2022 series) Insurance Payer Benefit Plan / Subscriber ID Effective Dates Phone Addre ss Type Group MEDICARE BH MEDICARE [id number] 2003-Presen [id number] [place] [id number] MEDICARE MEDICARE PART A [id number] 2003-Presen [phone] [id number] & [place] [id number] [place] [address] Care Teams Daytime Caregiver Relationship Specialty Start Date End Date Barbara Morton APRN PCP - General Family Medicine 01/05/17 [address], [place] [id number]
--- OUTSIDE RECORDS SUMMARY | 2022-04-17 01:45 | XMS_ITS | Encounter Summary ---
:1980 Author Organization [facility] Address [address] [place] [address] Care Team Providers Name Role Phone Selene Barbara LUCIE Primary Care Provider Reason for Referral Consultation (Routine) - Specialty Diagnoses / Procedures Referred By Contact Refer red To Contact Weight and Wellness Diagnoses Schizoaffective disorder, unspecified type Binge eating Morbid obesity with BMI of 50.0-59.9, adult Maria R Kilgore Rotenberg, Sivan, APRN PhD [facility] R [facility] [place] [address] [place] [address] Fax: Referral ID Status Reason Start Date Expiration Date Visits V isits Requested Authorized [id number] Consult, 07/07/2017 07/07/2018 1 1 Test & Treat Encounter Details Date Type Department Care Team Description 07/07/2017 Orders Only General Surgery at Maria R Kilgore Schiz oaffective disorder, unspecified type; [facility] [place] Binge eating; [facility] [place]ity with BMI of 50.0-59.9, adult [facility] [address] [place] GENERAL SURGERY [address] [place] [address] [phone] Social History Tobacco Use Types Packs/Day Years Used Date Never Assessed Sex Assigned at Date Recorded Not on file documented as of this encounter Plan of Treatment Scheduled Referrals Name Type Priority Associated Diagnoses Order S chedule Referral to Outpatient Referral Routine Schizoaffective Order ed: Weight & Wellness Disorder, Unspecified 1 09/07/2016 Center Type Binge eating Morbid Obesity With Bmi Of 50.0-59.9, Adult documented as of this encounter Visit Diagnoses Diagnosis Schizoaffective disorder, unspecified ty pe Binge eating Anorexia nervosa Morbid obesity with BMI of 50.0-59.9, ad ult Morbid obesity documented in this encounter Care Teams Oven Drier Tender Relationship Specialty Start Date End Date Barbara Morton APRN PCP - General Family Medicine 01/05/17 [address] [place] [address] documented as of this encounter
--- OUTSIDE RECORDS SUMMARY | 2022-04-17 01:45 | XMS_ITS | Encounter Summary ---
:1980 Author Organization [facility] [place] [address] Care Team Providers Name Role Phone JulietaBarbara nassar LUCIE Primary Care Provider Reason for Visit Reason Onset Date Comments Other 08/18/2017 Encounter Details Date Type Department Care Team Description 08/18/2017 Telephone General Surgery at [facility] Maria R Kilgore APR[place] [address] GENERAL SURGERY [phone] [place], [place] [address] (Wo rk) Social History Tobacco Use Types Packs/Day Years Used Date Never Assessed Sex Assigned at Date Recorded Not on file documented as of this encounter Miscellaneous Notes Telephone Encounter - Maria R Kilgore - 08/18/2017 1:31 PM EST Bariatric Surgery Program I returned Odette Reich APRN call regarding Nati's medication for management of schizoaffectivedisorder. She reports that Nati is proactive with her care, and utilizes her resources well. Nati takes Latuda, which requires an intake of 300-400 calories per meal, which will be very difficultin the early months post surgery. Latuda also is available as a long acting injection, which will lorenzo option early post surgery. Odette currently sees Nati monthly for medication management, and plans to see her on a more frequent basis post surgery. documented in this encounter Plan of Treatment Not on filedocumented as of this encounter Visit Diagnoses Not on filedocumented in this encounter Care Teams Cosmetic Chemist Relationship Specialty Start Date End Date Barbara Morton APRN PCP - General Family Medicine 01/05/17 [place] [address] documented as of this encounter
--- OUTSIDE RECORDS SUMMARY | 2022-04-17 01:45 | XMS_ITS | Encounter Summary ---
:1980 Author Organization [facility] Address [address] [place] [address] Care Team Providers Name Role Phone Barbara Morton Primary Care Provider Md LILIBETH Bauer Unavailable Unavailable Encounter Details Date Type Department Care Team Description 01/09/2021 Lab Requisition [facility] Outr Resulting Lab, Pathology & Laboratory Provider [facility] [address], [place] [address] Social History Tobacco Use Types Packs/Day Years Used Date Never Assessed Sex Assigned at Date Recorded Not on file documented as of this encounter Plan of Treatment Not on filedocumented as of this encounter Procedures Procedure Name Priority Date/Time Associated Diagnosis Comme nts FECAL BACTERIAL Routine 01/09/2021 1:45 EDT Resul ts for this PATHOGENS BY PCR procedure a re in the results section. documented in this encounter Results FECAL BACTERIAL PATHOGENS BY PCR (01/09/2021 1:45 EDT) Pathologist Sig nature Salmonella PCR Negative Negative [facility] Shigella/Enteroinvasive Negative Negative [facility] SERVICES HN LAB CAMPYLOBACTER PCR Negative Negative [facility] Shiga Toxin PCR Negative Negative [facility] Specimen Feces - Specimen from rectum (specimen) Performing Organization Address City/State/ZIP Code Phon e Number [facility] [address] [place] [address] SERVICES documented in this encounter Visit Diagnoses Not on filedocumented in this encounter Care Teams High Pressure Cleaner Relationship Specialty Start Date End Date Barbara Morton FNP PCP - General 07/12/19 [address] [place], [place] [id number] Md Bauer MD 07/12/19 documented as of this encounter
--- OUTSIDE RECORDS SUMMARY | 2022-04-17 01:45 | XMS_ITS | Encounter Summary ---
:1980 Author Organization [facility] Address [address] [place] [address] Care Team Providers Name Role Phone Barbara Morton MECHANICAL ENGINEERING MANAGER Primary Care Provider Md LILIBETH Bauer Unavailable Unavailable Encounter Details Date Type Department Care Team Description 11/23/2019 Lab Requisition [facility] BergLoretta elizondo, Encounter for other Pathology & MD general examination Laboratory Medicine [address] [place], [place] [address] [facility] [address] [place] [address] Social History Tobacco Use Types Packs/Day Years Used Date Never Assessed Sex Assigned at Date Recorded Not on file documented as of this encounter Plan of Treatment Not on filedocumented as of this encounter Procedures Procedure Name Priority Date/Time Associated Diagnosis Comme nts SURGICAL PATHOLOGY Today 11/23/2019 12:50 Encounter for othe r Results for this EDT general examination procedur e are in the results section. documented in this encounter Results SURGICAL PATHOLOGY (11/23/2019 12:50 EDT) Final Diagnosis A. SKIN OF FOREARM, RIGHT, PUNCH BIOPSY: [facility] Electronically - Interface dermatitis with perivascular inflammation and red cell extravasation. See microscopic and comment. CENTER signed by JERRY Hamilton MD on SERVICES 11/27/2019 at 10 12 Attestation By the signature [facility] Electronica lly below, the attending CENTER signed by physician laurent Hamiltonies JERRY Donaldson MD on that they have 1) SERVICES 11/27/2019 at 1012 personally conducted a gross and/or microscopic examination of the described specimen(s), and/or personally interpreted the results of laboratory testing of the described specimen(s), and 2) personally rendered or confirmed the above diagnosis. Diagnosis Comment The histologic [facility] findings are CENTER nonspecific and show LABORATORY an interface SERVICES dermatitis with a superficial perivascular inflammatory infiltrate and associated red cell extravasation. Evidence of a vasculitis is not identified. The findings may represent a drug-related eruption. Clinical correlation is recommended. Microscopic Multiple levels are [facility] Description reviewed of the punch CENTER biopsy. Scattered LABORATORY dyskeratotic SERVICES keratinocytes are noted along the junction and mild vacuolization of the basilar layer is seen. Within the dermis, there is a mild perivascular lympho histiocytic inflammatory infiltrate. Additionally, scattered dermal melanophages are noted and red cell extravasation is seen. Evidence of a vasculitis not identified. Clinical History Rash, possible [facility] LABORAT[facility] SERVICES Gross Description A. Received in formalin labe lled with proper patient identification (initials R, B) and skin punch by R forearm is a punch biopsy of myrick-white skin (0.5 cm in diameter and 0.4 cm in thickness). The margin is inked. Bisected and submitted in A1. [facility] Pebbles Chau 11/24/2019 7:59 LABORATORY SERVICES Scanned Images [facility] SERVICES Specimen Tissue - Skin (tissue) specimen (specime n) Performing Organization Address City/State/ZIP Code Phon e Number [facility] [address] [place] [address] SERVICES documented in this encounter Visit Diagnoses Diagnosis Encounter for other general examination documented in this encounter Care Teams Business Taxes Specialist Relationship Specialty Start Date End Date Barbara Morton FNP PCP - General 07/12/19 [address] [place] [place], [place] [address] Md Bauer MD 07/12/19 documented as of this encounter
--- OUTSIDE RECORDS SUMMARY | 2022-04-17 01:45 | XMS_ITS | Encounter Summary ---
:1980 Author Organization [facility] [place] [address] Care Team Providers Name Role Phone Barbara Morton APRN Primary Care Provider Encounter Details Date Type Department Care Team Description 12/07/2017 Office Visit Weight and Wellness at Jono Lopez, PhD Disordered eating [address] [place] [address] [place] [address] [phone] (Wo rk) Social History Tobacco Use Types Packs/Day Years Used Date Never Assessed Sex Assigned at Date Recorded Not on file documented as of this encounter Progress Notes Jono Lopez, PhD - 12/07/2017 2:00 PM EDT BEHAVIORAL MEDICINE BARIATRIC SURGERY FOLLOW UP N [facility] [address] [address] Dept: [phone] 12/07/2017 2:11 PM Nati Marcos is a 37 y.o. female who was referred for evaluation and preparation for potential bariatric surgery.Nati was previously evaluated on 10/26, and concern were raised about bariatric surgery readiness. Nati was seen for 60 minutes. RECOMMENDATION BASED ON PSYCHOLOGICAL EVALUATION YELLOW - Based on the information gathered during this assessment, Nati Marcos would benefit from additional health behavior change before she is ready to proceed with surgery. Specifically, Nati would benefit from the following to assist with preparing for bariatric surgery: ?? Continue progress on weight loss, specifically, she will seek additional support from structured behavioral weight loss program in her area ?? Continue working with her therapist on reducing binge-eating and overeating ?? Identify a post-surgery caregiver The follow up plan is as follows: The patient will find out about available weight loss support in her area. She will call this provider to discuss her plans. She will be scheduled for a bariatric surgery re-evaluation upon her request. SUMMARY The decision noted above is based on the followin. Nati has made significant weight loss attempts in the past, but without lasting success. 2. Nati experienced marked mental health problems in the past year. 3. Nati experienced marked mental health problems earlier in life. 4. Nati is engaging in problematic eating behaviors. 5. Nati is not knowledgeable about the surgery and related risks. 6. Nati's motivation for surgery is: fair 7. Nati's social support is: good but she has not identified a post-surgery caregiver 8. Nati is aware of expected surgery weight loss with surgery. 9. Nati does not have a history of adherence/attendance issues. The above assessment and plan was based on the following information obtained during the appointment. Please note section in blue indicates updated information from the previous evaluation: WEIGHT Initial Weight:315lbs Weight at previous evaluation: 325 lbs Current Weight as of 12/07/2017: 319 lbs Weight changes since evaluation: has decreased 6 lbs pounds over last 6 weeks PROBLEM EATING BEHAVIORS From previous evaluation: History of binging (i.e., a lot of food at one time, more food than most people would eat at one time, feeling loss of control): yes If h/o binging, last binge: 2 days ago, about 3-4 times a week History of mindless/stress eating (i.e., eating for emotional reasons rather than hunger): yes If h/o stress eating, last episode: 2 days ago, 3-4 times a week ?? History of over eating (i.e., eating to the point of being uncomfortably full): yes If h/o stress eating, last episode: 2 days ago, 3-4 times a week ?? 12/07/2017: History of binging (i.e., large amounts of food over a 2-hour period, feeling loss of control and overly full): yes If h/o binging, last binge: Can't recall, about 2 times a week History of mindless/stress eating (i.e., eating for emotional reasons rather than hunger): yes If h/o stress eating, last episode: Can't recall History of over eating (i.e., eating to the point of being uncomfortably full): yes If h/o stress eating, last episode: Today, 2-3 times a week HIGH RISK EATING SITUATIONS 12/07/2017: Specific high-risk times and places where Nati is likely to eat more include:boredom, mood swings, salty foods Coping strategies: Yes cooking, cleaning, and doing chores at home SURGERY 12/07/2017: Nati is 90% convinced to have this surgery (100%=?? sign me up tomorrow?? ). Mixed feelings: Yes unsure whether she can get through the program. She reports that the distance ean problem. She said she cannot drive here for many more times due to financial concerns. Knowledge of the procedure: watched on-line videos from Bariatric Surgery program, spoke to people who had the surgery, looked on line CURRENT SOCIAL SUPPORT NETWORK 12/07/2017: Identified post-surgery caregiver: none MENTAL HEALTH UPDATE: No change. Denies any depressive, manic, or psychotic symptoms in the past 6 weeks. The assessment and plan for Nati Marcos are detailed at the beginning of this report. documented in this encounter Plan of Treatment Not on filedocumented as of this encounter Visit Diagnoses Diagnosis Disordered eating Eating disorder, unspecified documented in this encounter Care Teams Silverware Assembler Relationship Specialty Start Date End Date Barbara Morton APRN PCP - General Family Medicine 01/05/17 [place] [address] documented as of this encounter
--- OUTSIDE RECORDS SUMMARY | 2022-04-17 01:45 | XMS_ITS | Encounter Summary ---
:1980 Author Organization [facility] [place] [address] Care Team Providers Name Role Phone Eliana Pina MD Primary Care Provider Encounter Details Date Type Department Care Team Description 10/09/2011 Hospital Encounter MRI at [facility] Eliana Pina MD [address] [place] [address] [place] [address] Social History Tobacco Use Types Packs/Day [...] Miscellaneous Notes Miscellaneous - Provider, Scanning - 10/14/2011 4:28 PM EDT documented in this encounter Plan of Treatment Not on filedocumented as of this encounter Procedures Procedure Name Priority Date/Time Associated Diagnosis Comme nts MRI BRAIN WWO Routine 10/09/2011 6:05 PM Results for this CONTRAST (GENERIC) EDT procedure are in the results section. documented in this encounter Results MRI BRAIN WITH/WO CONTRAST (10/09/2011 6:05 PM EDT) Anatomical Region Laterality Modality Head Magnetic Resonance Specimen (Source) Anatomical Collection Method Collection Time Re ceived Time Location / / Volume Laterality 10/09/2011 6:05 PM EDT Narrative 10/09/2011 7:08 PM EDT Examination MR BRAIN W/WO CONTRAST Clinical History HYPERCALCEMIA/HYPERPROLACTEMIA/HYPOTHIRO IDISM/IRREGULAR MENSES/FATIGUE ? PITUITARY ADNOMA Comparison None Technique Pre and post contrast MR imaging of the brain was performed with dynamic pituitary imaging. ??20 mL of Magnevist was given without difficulty for the study. Findings There is no evidence of a microadenoma p ituitary gland enhances normally. Remainder of the study is unchanged from the study performed on September 29, 2011. Impression No evidence of a microadenoma. Procedure Note Logan King MD - 10/09/2011Forma tting of this note might be different from the original. Examination MR BRAIN W/WO CONTRAST Clinical History HYPERCALCEMIA/HYPERPROLACTEMIA/HYPOTHIRO IDISM/IRREGULAR MENSES/FATIGUE ? PITUITARY ADNOMA Comparison None Technique Pre and post contrast MR imaging of the brain was performed with dynamic pituitary imaging. 20 mL of Magnevist wa s given without difficulty for the study. Findings There is no evidence of a microadenoma p ituitary gland enhances normally. Remainder of the study is unchanged from the study performed on September 29, 2011. Impression No evidence of a microadenoma. Eliana Pina MD IMG MRI ORDERABLES documented in this encounter Visit Diagnoses Not on filedocumented in this encounter Administered Medications Inactive Administered Medications - up to 3 most recent administrations Medication Order MAR Action Action Date Dose Rate Site gadopentetate dimeglumine Given 10/09/2011 5:25 PM EDT 20 mLs (MAGNEVIST) injection 24 mL 24 mL (0.2 mL/kg/dose ? 117.9 kg), Intravenous, ONCE PRN, 1 dose, Starting on Wed10/09/11 at 1815, Until Wed10/09/11 at 1725, Per Protocol, Routine documented in this encounter Care Teams Sales Intern Relationship Specialty Start Date End Date Eliana Pina MD PCP - General 09/25/11 01/04/17 [address] [place] [address] documented as of this encounter
--- OUTSIDE RECORDS SUMMARY | 2022-04-17 01:45 | XMS_ITS | Encounter Summary ---
:1980 Author Organization [facility] Address [address] [place] [address] Care Team Providers Name Role Phone Md LILIBETH Bauer Primary Care Provider Unavailable Encounter Details Date Type Department Care Team Description 01/26/[address] [facility] [place], [facility] Laboratory Services - [address] [place], [place] [address] [facility] [address] [place], [place] [id number] [phone] Social History Tobacco Use Types Packs/Day Years Used Date Never Assessed Sex Assigned at Date Recorded Not on file documented as of this encounter Plan of Treatment Not on filedocumented as of this encounter Procedures Procedure Name Priority Date/Time Associated Diagnosis Comme nts PAP TEST- RESULT Routine 01/26/2012 0:00 EDT Resu lts for this ONLY procedure are i n the results section. documented in this encounter Results PAP TEST- RESULT ONLY (01/26/2012 0:00 EDT) Pathology Report: CYTOPATHOLOGY REPORT [facility] Reports generated via electronic interface contain sheryl ginal data; however they are lacking the format of the original re port. Caution should be taken when reading/interpreting unfo rmatted reports. Name: ? HONORIO WEBB ? Accession #: ? [id number] : ? 1980 (Age: 31) ??F ?Collect Date: ? 01/09 Location: ? [facility] ? Receive Date : ? 01/27/2012 Provider: ?CORY SWATHI FORGING ENGINEER Copy to: ?REJI SOTO ORACLE TECHNICAL ARCHITECT ? Specimen/Source: ? Pap Test, Cervix/Endocervix, ThinPrep Imaging System with manual evaluation Last Menstrual Period: ? Menstrual/ Status: ? Amenorrhea Hormonal/Contraceptive Status: ? Oral contraceptives: Progestin only pill Other: ? Additional clinical information: 01/22/11 pap neg. ? SPECIMEN ADEQUACY ? Satisfactory for Evaluation - transformation zone component present GENERAL CATEGORIZATION ? Negative for Intraepithelial Lesion or Malignan cy ? Document reviewed and electronically signed by: ? MARCIAL Carreon(ASCP) ? Report Date: ??02/01/2012 11:25 End of Report Specimen Performing Organization Address City/State/ZIP Code Phon e Number [facility] [address] [place] [address] SERVICES [facility] [address] [place] [address] documented in this encounter Visit Diagnoses Not on filedocumented in this encounter Care Teams Roof Foreman Relationship Specialty Start Date End Date Md Bauer MD PCP - General 01/06/10 07/11/19 documented as of this encounter
--- OUTSIDE RECORDS SUMMARY | 2022-04-17 01:45 | XMS_ITS | Encounter Summary ---
:1980 Author Organization [facility] Address [address] [place] [address] Care Team Providers Name Role Phone Barbara Morton CERTIFIED NUTRITIONIST Primary Care Provider Md LILIBETH Bauer Unavailable Unavailable Encounter Details Date Type Department Care Team Description 01/02/2020 Lab Requisition [facility] Outr Resulting Lab, Pathology & Laboratory Provider [facility] [address], [place] [address] Social History Tobacco Use Types Packs/Day Years Used Date Never Assessed Sex Assigned at Date Recorded Not on file documented as of this encounter Plan of Treatment Not on filedocumented as of this encounter Procedures Procedure Name Priority Date/Time Associated Diagnosis Comme nts COVID-19 TEST [facility] Today 01/02/2020 13:34 LAB PCR EDT COVID-19 TESTING Routine 01/02/2020 13:34 Results for this EDT procedure are i n the results section. documented in this encounter Results COVID-19 TEST [facility] LAB PCR (01/02/2020 13:34 EDT) Specimen Swab - Entire nasopharynx (body structur e) Performing Organization Address City/State/ZIP Code Phon e Number [facility] [address] [place] [address] SERVICES COVID-19 TESTING (01/02/2020 13:34 EDT) COVID-19 rt-PCR Negative Negative [facility] MEDICAL Result Comment: CENTER LAB[facility]ORY This test has not been FDA c leared or approved. This test has been authorized by FDA under an EUA for use by authorized laboratories. This test has been authorized only for detection of nucleic acid fro SERVICES m 2019-nCo, not for any oth er viruses or [...] and epidemiological informatio n. Performed on the makeena Fusion instrument Performing Lab Tatum [facility] Lab [facility] SERVICES Specimen Swab Performing Organization Address City/State/ZIP Code Phon e Number [facility] [address] [place] [address] SERVICES documented in this encounter Visit Diagnoses Not on filedocumented in this encounter Care Teams Linen Room Custodian Relationship Specialty Start Date End Date Barbara Morton FNP PCP - General 07/12/19 [address] [place] [address] Md Bauer MD 07/12/19 documented as of this encounter
--- OUTSIDE RECORDS SUMMARY | 2022-04-17 01:46 | XMS_ITS | Encounter Summary ---
:1980 Author Organization [facility] Address [address] [place] [address] Care Team Providers Name Role Phone Md LILIBETH Bauer Primary Care Provider Unavailable Encounter Details Date Type Department Care Team Description 01/22/2011 Results Only [facility] Ray [place], OIL AND GAS EXPLORATION TECHNICIAN Laboratory Services - [address] [facility] [address] [place], [place] [address] [facility] [address] [place], [place] [id number] [phone] Social History Tobacco Use Types Packs/Day Years Used Date Never Assessed Sex Assigned at Date Recorded Not on file documented as of this encounter Plan of Treatment Not on filedocumented as of this encounter Procedures Procedure Name Priority Date/Time Associated Diagnosis Comme nts PAP TEST- RESULT Routine 01/22/2011 0:00 EDT Resu lts for this ONLY procedure are i n the results section. documented in this encounter Results PAP TEST- RESULT ONLY (01/22/2011 0:00 EDT) Pathology Report: CYTOPATHOLOGY REPORT ? [facility] ? LAB Reports generated via electr onic interface contain original data; ? however they are lacking the format of the original report. ? Caution should be taken when reading/interpreting unformatted reports. ? Name: ? HONORIO WEBB Etelvina ? Accession #: ? [id number] ? : ? 1980 (Age: 30) ??F ?Collect Date: ? 01/22/2011 ? Location: ? [facility] ? Receive Date: ? 01/23/2011 ? Provider: ?CORY HAYG OOD OIL AND GAS EXPLORATION TECHNICIAN ? Copy to: ? Specimen/Source: ? Pap Test, Cervix/Endocervix, ThinPrep Imaging System ? with manual evaluation ? Last Menstrual Period: ? Hormonal/Contraceptive Statu s: ? Oral contraceptives: Progest in only ? SPECIMEN ADEQUACY ? Satisfactory for Eval uation ? - transformation zone compon ent present ? GENERAL CATEGORIZATION ? Negative for Intraepi thelial Lesion or Malignancy ? Document reviewed and electr onically signed by: ? Hina Escobar, SCT( ASCP) ? Report Date: ??07/21/ 2011 13:18 ? End of Report ? Specimen Performing Organization Address City/State/[facility] Code Phon e Number [facility] [address] [place] [address] SERVICES [facility] [address] [place] [address] documented in this encounter Visit Diagnoses Not on filedocumented in this encounter Care Teams Black Topper Relationship Specialty Start Date End Date Md Bauer MD PCP - General 01/06/10 07/11/19 documented as of this encounter
--- OUTSIDE RECORDS SUMMARY | 2022-04-17 01:46 | XMS_ITS | Encounter Summary ---
:1980 Author Organization [facility] Address [address] [place] [address] Care Team Providers Name Role Phone Md LILIBETH Bauer Primary Care Provider Unavailable Encounter Details Date Type Department Care Team Description 01/03/2010 Results Only [facility] Eris Dee, HUMANITIES INSTRUCTOR [phone] [place] [address] [address] [place], [place] [address] (Wo rk) Social History Tobacco Use Types Packs/Day Years Used Date Never Assessed Sex Assigned at Date Recorded Not on file documented as of this encounter Plan of Treatment Not on filedocumented as of this encounter Procedures Procedure Name Priority Date/Time Associated Comments Diagnosis HPV DETECTION, HIGH Routine 01/03/2010 21:13 Resu lts for this RISK TYPES EDT procedure are i n the results section. CYTOPATHOLOGY Routine 01/03/2010 0:00 Results for this EDT procedure are i n the results section. documented in this encounter Results HUMAN PAPILLOMA VIRUS DNA TEST (01/03/2010 21:13 EDT) Specimen Description Cervix, ThinPrep [facility] vial Result Negative for HPV [facility] types 16, 18, 31, 33, 35, 39, 45, 51, 52, 56, 58, 59, and 68. Report Status Final [facility] 01/14/2010 Specimen Performing Organization Address City/State/ZIP Code Phon e Number [facility] [address] [place] [address] SERVICES [facility] [address] [place] [address] CYTOPATHOLOGY (01/03/2010 0:00 EDT) Pathology Report: CYTOPATHOLOGY REPORT ? [facility] ? LAB Reports generated via electr onic interface contain original data; ? however they are lacking the format of the original report. ? Caution should be taken when reading/interpreting unformatted reports. ? Name: ? HONORIO WEBB ? Accession #: ? [id number] ? : ? 1980 (Age: 29) ??F ?Collect Date: ? 01/03/2010 ? Location: ? [facility] ? Receive Date: ? 01/06/2010 ? Provider: ?ERIS O CAR R SOLE LAYER HAND ? Copy to: ? Specimen/Source: ? Pap Test, Cervix, ThinPrep Imaging System with manual ?? evaluation ? Last Menstrual Period: ? 01/2009 ? Other: ? HPVDX - HPV testing requeste d regardless of diagnosis on current ThinPrep Pap ?? test. ? SPECIMEN ADEQUACY ? Satisfactory for Eval uation ? - transformation zone compon ent present ? GENERAL CATEGORIZATION ? Negative for Intraepi thelial Lesion or Malignancy ? Document reviewed and electr onically signed by: ? Lola Abena, CT( CP) ? Report Date: ??07/01/ 2010 11:32 ? End of Report ? Specimen Performing Organization Address City/State/ZIP Code Phon e Number [facility] [address] [place] [address] SERVICES [facility] [address] [place] [address] documented in this encounter Visit Diagnoses Not on filedocumented in this encounter Care Teams Residential Program Manager Relationship Specialty Start Date End Date Md Bauer MD PCP - General 01/06/10 07/11/19 documented as of this encounter
[2022-04-17 15:28] LABS: Abs Immature Grans 0.02 10^3/uL (0.0-0.06); Absolute Eosinophil Count 0.01 10^3/uL (0.0-0.7); Absolute Lymphocyte Count 1.86 10^3/uL (1.2-3.4); Absolute Monocyte Count 0.37 10^3/uL (0.1-0.8); Absolute Neutrophil Count 2.98 10^3/uL (1.2-6.7); Eosinophils % 0.2; HCT 34.6 % (36.0-46.0); HGB 11.9 g/dL (11.2-15.7); Immature Grans % 0.4; Lymphocytes % 35.5; MCH 29.7 pg (27.0-33.0); MCHC 34.4 % (32.0-36.0); MCV 86 fL (80-95); MPV 10.6 fL (8.0-11.0); Monocytes % 7.1; Neutrophils % 56.8; Platelet Count 188 10^3/uL (130-400); RBC 4.01 10^6/uL (3.93-5.22); RDW 13.1 % (11.7-14.6); RDW-SD 40.9 fL; WBC 5.24 10^3/uL (4.4-10.8)
== END 2022-04-17 01:37 | disposition home or self-care (01) ==
PROVIDERS: PCP Nurse Practitioner Family; Visit Provider Psychiatry & Neurology Psychiatry
DX: F20.9 Schizophrenia, unspecified (principal)
CPT/HCPCS: 36415; 85025

== ENCOUNTER 2022-05-01 01:58 | Outpatient (CLI) | payer MEDICARE, SELFPAY ==
--- OUTSIDE RECORDS SUMMARY | 2022-05-01 02:01 | XMS_ITS | Encounter Summary ---
:1980 Author Organization [facility] Address [place] [address] Care Team Providers Name Role Phone Selene Barbara LUCIE Primary Care Provider Reason for Referral Consultation (Routine) - Specialty Diagnoses / Procedures Referred By Contact Refer red To Contact Weight and Wellness Diagnoses Schizoaffective disorder, unspecified type Binge eating Morbid obesity with BMI of 50.0-59.9, adult Maria R Kilgore Rot[place], Sivan, APRN PhD [facility] [place] [address] [place] [address] Fax: Referral ID Status Reason Start Date Expiration Date Visits V isits Requested Authorized [id number] Consult, 07/07/2017 07/07/2018 1 1 Test & Treat Encounter Details Date Type Department Care Team Description 07/07/2017 Orders Only General Surgery at Maria R Kilgore Schiz oaffective disorder, unspecified type; [facility] LUCIE [place] Binge eating; [facility] ob esity with BMI of 50.0-59.9, adult [facility] [address] [place] GENERAL SURGERY [address] [place] [address] [phone] Social History Tobacco Use Types Packs/Day Years [...] obesity documented in this encounter Care Teams Shell Sieve Operator Relationship Specialty Start Date End Date Barbara Morton APRN PCP - General Family Medicine 01/05/17 [address] [place] [address] documented as of this encounter
--- OUTSIDE RECORDS SUMMARY | 2022-05-01 02:01 | XMS_ITS | Encounter Summary ---
:1980 Author Organization [facility] [place] [address] Care Team Providers Name Role Phone Barbara Morton LUCIE Primary Care Provider Reason for Visit Reason Onset Date Comments Other 08/18/2017 Encounter Details Date Type Department Care Team Description 08/18/2017 Telephone General Surgery at [facility] Maria R Kilgore APRN [facility] [place] [address] GENERAL SURGERY [phone] [place], [place] [address] (Wo rk) Social History Tobacco [...] are supportive of her interest insurgery. A [facility] referral was made on 07/07. She reports that she has not yet been contacted for anappt. She was connected to the [facility] to discuss further. I advised Nati to continue to complete therecommended BSP steps to surgery, and that her case would be reviewed at our upcoming Program meeting next week. documented in this encounter Plan of Treatment Not on filedocumented as of this encounter Visit Diagnoses Not on filedocumented in this encounter Care Teams Sports Health Club Membership Advisors Relationship Specialty Start Date End Date Barbara Morton APRN PCP - General Family Medicine 01/05/17 [address] [place] [address] documented as of this encounter
--- OUTSIDE RECORDS SUMMARY | 2022-05-01 02:01 | XMS_ITS | Encounter Summary ---
:1980 [place] [address] Care Team Providers Name Role Phone Barbara Morton LUCIE Primary Care Provider Reason for Visit Reason Onset Date Comments Other 07/07/2017 Encounter Details Date Type Department Care Team Description 07/07/2017 Telephone General Surgery at [facility] Maria R Kilgore APRN [facility] [place] [address] GENERAL SURGERY [phone] [place], [place] [address] (Wo rk) Social History Tobacco [...] review of the referral letter to the [facility], BPAD is not listed as a [...] the first nutrition visit. Plan: referred the [facility], will plan team meeting discussion after evaluation. In addition, she may benefit from a structured healthy lifestyles program. documented in this encounter Plan of Treatment Not on filedocumented as of this encounter Visit Diagnoses Not on filedocumented in this encounter Care Teams Open Hearth Furnace Operator Relationship Specialty Start Date End Date Barbara Morton APRN PCP - General Family Medicine 01/05/17 Brittney [facility] [place] [address] documented as of this encounter
--- OUTSIDE RECORDS SUMMARY | 2022-05-01 02:01 | XMS_ITS | Encounter Summary ---
:1980 Author Organization [facility] [place] [address] Care Team Providers Name Role Phone Barbara Morton APRN Primary Care Provider Encounter Details Date Type Department Care Team Description 12/07/2017 Office Visit Weight and Wellness at Jono Lopez, PhD Disordered eating [address] [place] [address] [place] [address] [phone] (Wo rk) Social History Tobacco Use Types Packs/Day Years Used Date Never Assessed Sex Assigned at Date Recorded Not on file documented as of this encounter Progress Notes Jono Lopez, PhD - 12/07/2017 2:00 PM EDT BEHAVIORAL MEDICINE BARIATRIC SURGERY FOLLOW UP N [facility] AT [address] [address] Dept: [phone] 12/07/2017 2:11 PM Nati Marcos is a [...] unspecified documented in this encounter Care Teams Refrigerator Car Icer Relationship Specialty Start Date End Date Barbara Morton APRN PCP - General Family Medicine 01/05/17 [place] [address] documented as of this encounter
--- OUTSIDE RECORDS SUMMARY | 2022-05-01 02:01 | XMS_ITS | Encounter Summary ---
:1980 Author Organization [facility] [place] [address] Care Team Providers Name Role Phone Eliana Pina MD Primary Care Provider Encounter Details Date Type Department Care Team Description 10/09/2011 Hospital Encounter MRI at [facility], [facility] Eliana Pina MD [address] [place] [address] [place] [address] Social History Tobacco Use Types Packs/Day [...] Routine documented in this encounter Care Teams Electrical Engineer Mep Relationship Specialty Start Date End Date Eliana Pina MD PCP - General 09/25/11 01/04/17 [address] [place] [address] documented as of this encounter
--- OUTSIDE RECORDS SUMMARY | 2022-05-01 02:01 | XMS_ITS | Encounter Summary ---
:1980 Author Organization [facility] Address [address] [place] [address] Care Team Providers Name Role Phone Barbara Morton Primary Care Provider Md LILIBETH Bauer Unavailable Unavailable Encounter Details Date Type Department Care Team Description 02/25/[address] [facility] Outr Resulting Lab, Pathology & Laboratory Provider [facility] [address] [place] [address] Social History Tobacco Use Types Packs/Day Years [...] results section. documented in this encounter Results H. PYLORI ANTIGEN (02/25/2022 10:00 EDT) Pathologist Sig nature H. Pylori Negative Negative [facility] Specimen Feces - Specimen from rectum (specimen) Narrative [facility] - 03/02/2022 14:31 EDT Results were obtained with the Premier P latinum HpSA Plus MONICA. Performing Organization Address City/State/ZIP Code Phon e Number [facility] [address] [place] [address] SERVICES documented in this encounter Visit Diagnoses Not on filedocumented in this encounter Care Teams Filler Leaf Cutter Long Relationship Specialty Start Date End Date Barbara Morton FNP PCP - General 07/12/19 [place] [address] Md Bauer MD 07/12/19 documented as of this encounter
--- OUTSIDE RECORDS SUMMARY | 2022-05-01 02:01 | XMS_ITS | Encounter Summary ---
:1980 Author Organization [facility] [place] [address] Care Team Providers Name Role Phone Barbara Morton APRN Primary Care Provider Reason for Visit Reason Onset Date Comments Other 07/30/2017 Encounter Details Date Type Department Care Team Description 07/30/2017 Telephone General Surgery at [facility] Maria R Kilgore APRN [facility] [place] [address] GENERAL SURGERY [phone], [place] [address] (Wo rk) Social History Tobacco [...] on filedocumented in this encounter Care Teams Psychiatrist Relationship Specialty Start Date End Date Barbara Morton APRN PCP - General Family Medicine 01/05/17 Brittney [facility] [place] [id number] documented as of this encounter
--- OUTSIDE RECORDS SUMMARY | 2022-05-01 02:01 | XMS_ITS | Encounter Summary ---
:1980 Author Organization [place] [address] Care Team Providers Name Role Phone Eliana Pina MD Primary Care Provider Encounter Details Date Type Department Care Team Description 09/29/2011 Hospital Encounter MRI at [facility], [facility] Eliana Pina MD [address] [place] [address] [place] [address] Social History Tobacco Use Types Packs/Day [...] on filedocumented in this encounter Care Teams Outside Rigger Relationship Specialty Start Date End Date Eliana Pina MD PCP - General 09/25/11 01/04/17 [address] [place] [address] documented as of this encounter
--- OUTSIDE RECORDS SUMMARY | 2022-05-01 02:01 | XMS_ITS | Encounter Summary ---
:1980 Author Organization [facility] Address [address] [place] [address] Care Team Providers Name Role Phone JulietaBarbara nassar LUCIE Primary Care Provider Reason for Visit Reason Onset Date Comments Other 08/04/2017 Encounter Details Date Type Department Care Team Description 08/04/2017 Telephone General Surgery at [facility] Maria R Kilgore APRN [facility] [place] [address] GENERAL SURGERY [phone] [place], [place] [address] (Wo rk) Social History Tobacco Use Types Packs/Day Years Used Date Never Assessed Sex Assigned at Date Recorded Not on file documented as of this encounter Miscellaneous Notes Telephone Encounter - Maria R Kilgore - 08/04/2017 4:48 PM EST Bariatric Surgery Program I returned Rafi Wolf, her therapist's earlier call. He reports that she is stable, [facility]. Her family lives nearby, but do not see her due to transportation issues. She drives in summer and spring, uses [employer] transportation from May-October (whenever snow is on the ground). She loans her car to her father in the winter. She has 3 friends, all of whom drive, could provide transportation if needed She was admitted to a care bed while in crisis for 2 weeks ~3 years ago She has schizoaffective disorder, hallucinates and has delusions on a daily basis, although annoyingto her, do not control her. She has been in counseling with Rafi Bloom for >2 years, currently sees him twice a week. She also sees Odette Monet APRN for medication management once a month. Rafi is available at [phone] ext [phone] documented in this encounter Plan of Treatment Not on filedocumented as of this encounter Visit Diagnoses Not on filedocumented in this encounter Care Teams Emergency Doctor Relationship Specialty Start Date End Date Barbara Morton APRN PCP - General Family Medicine 01/05/17 [address] [place] [address] documented as of this encounter
--- OUTSIDE RECORDS SUMMARY | 2022-05-01 02:01 | XMS_ITS | Clinical Summary ---
:1980 Author Organization [facility] [place] [address] Care Team Providers Name Role Phone Selene Barbara LUCIE Primary Care Provider Active Problems Problem Noted Date Morbid obesity 07/07/2017 Overview: - referred to [facility] Behavioral Health due to multiple psychiatric [...] Rafi is available for questions at [phone] Binge eating 07/07/2017 Social History [...] Date Last Done Comments Covid-19 Vaccine (#1) 1980 HIV screen 1997 Hepatitis C Screening 1997 Tdap adult 1998 Tetanus vaccine 1998 HPV test 2009 PAP Smear 2009 Breast Cancer Share Decision Needed 2019 Influenza (Flu) vaccine (1 of - Influenza standard 03/12/2022 series) Insurance Payer Benefit Plan / Subscriber ID Effective Dates Phone Addre ss Type Group MEDICARE BH MEDICARE [id number] 2003-Presen [id number] [place] [id number] MEDICARE MEDICARE PART A [id number] 2003-Presen [phone] [id number] [place] [address] [place] [address] Care Teams Manager Disaster Recovery Relationship Specialty Start Date End Date Barbara Morton APRN PCP - General Family Medicine 01/05/17 [address] [place], [place] [id number]
--- OUTSIDE RECORDS SUMMARY | 2022-05-01 02:01 | XMS_ITS | Encounter Summary ---
:1980 Author Organization [facility] Address [address] [place] [address] Care Team Providers Name Role Phone Barbara Morton Primary Care Provider Md LILIBETH Bauer Unavailable Unavailable Encounter Details Date Type Department Care Team Description 01/09/2021 Lab Requisition [facility] Outr Resulting Lab, Pathology & Laboratory Provider [facility] [address] [place], [place] [address] Social History Tobacco Use Types Packs/Day Years [...] Pathologist Sig nature Salmonella PCR Negative Negative [facility] Shigella/Enteroinvasive Negative Negative [facility] R E. coli LABORATORY SERVICES HN LAB CAMPYLOBACTER PCR Negative Negative [facility] ER [facility]OR[facility]ORY SERVICES Shiga Toxin PCR Negative Negative [facility] Specimen Feces - Specimen from rectum (specimen) Performing Organization Address City/State/ZIP Code Phon e Number [facility] [address] [place] [address] SERVICES documented in this encounter Visit Diagnoses Not on filedocumented in this encounter Care Teams Business Librarian Relationship Specialty Start Date End Date Barbara Morton FNP PCP - General 07/12/19 [place], [place] [id number] Md Bauer MD 07/12/19 documented as of this encounter
--- OUTSIDE RECORDS SUMMARY | 2022-05-01 02:01 | XMS_ITS | Encounter Summary ---
:1980 Author Organization [facility] [address] Care Team Providers Name Role Phone Barbara Morton APRN Primary Care Provider Encounter Details Date Type Department Care Team Description 07/19/2017 Telephone General Surgery at [facility] [place] [address] Social History Tobacco Use Types Packs/Day [...] on filedocumented in this encounter Care Teams Form Setter Relationship Specialty Start Date End Date Barbara Morton APRN PCP - General Family Medicine 01/05/[address] [place], [place] [address] documented as of this encounter
--- OUTSIDE RECORDS SUMMARY | 2022-05-01 02:01 | XMS_ITS | Encounter Summary ---
:1980 Author Organization [facility] [place] [address] Care Team Providers Name Role Phone Barbara Morton APRN Primary Care Provider Encounter Details Date Type Department Care Team Description 11/16/2017 Telephone General Surgery at [facility] [place] [address] [place] [address] Social History Tobacco Use Types Packs/Day [...] out to eat with a friend from [facility]. She realized she ate a lot more [...] on filedocumented in this encounter Care Teams Trade Union Secretary Relationship Specialty Start Date End Date Barbara Morton APRN PCP - General Family Medicine 01/05/17 Brittney TREVI[facility] [place] [address] documented as of this encounter
--- OUTSIDE RECORDS SUMMARY | 2022-05-01 02:01 | XMS_ITS | Clinical Summary ---
:1980 Author Organization [facility] Address [address] [place] [address] Care Team Providers Name Role Phone Barbara Morton RADIOLOGY RESIDENT Primary Care Provider Md LILIBETH Bauer Unavailable [...] Pathologist Sig nature H. Pylori Negative Negative [facility] Specimen Feces - Specimen from rectum (specimen) Narrative [facility] - 03/02/2022 14:31 EDT Results were obtained with the Premier P latinum HpSA Plus MONICA. Performing Organization Address City/State/ZIP Code Phon e Number [facility] [address] [place] [address] SERVICES from Last 3 Months Insurance Payer Benefit Plan / Subscriber ID Effective Dates Phone Addre ss Type Group MEDICARE MEDICARE A/B [id number] 2003-Mg [id number] [place] [id number] Care Teams Bath Solution Maker Relationship Specialty Start Date End Date Barbara Morton FNP PCP - General 07/12/19 [address] [place] [address] Md Bauer MD 07/12/19
--- OUTSIDE RECORDS SUMMARY | 2022-05-01 02:01 | XMS_ITS | Encounter Summary ---
:1980 Author Organization [facility] [place] [address] Care Team Providers Name Role Phone Selene Barbara LUCIE Primary Care Provider Reason for Referral Consultation (Routine) - Duplicate Referral Specialty Diagnoses / Procedures Referred By Contact Refer red To Contact Weight and Wellness Diagnoses Schizoaffective disorder, unspecified type Binge eating Maria R Kilgore, Sophie Jin, LUCIE PhD [facility] [place] [id number] [place] [address] Fax: Referral ID Status Reason Start Expiration Visits Visits Date Date Requested Authorized [id number] Duplicate Consult, 07/30/2017 07/30/2018 1 1 Referral Test & Treat Encounter Details Date Type Department Care Team Description 07/29/2017 Multidisciplinary Care General Surgery Miguel Kilgore hizoaffective disorder, unspecified type; Committee at [facility] [address] GENERAL [phone] [place] [address] Social History Tobacco Use Types Packs/Day Years Used Date Never Assessed Sex Assigned at Date Recorded Not on file documented as of this encounter Progress Notes Maria R Kilgore - 07/29/2017 7:08 AM EST BARIATRIC SURGERY PROGRAM CASE REVIEW Nati Marcos is a 37 y.o. year-old female. Her primary care physician is Barbara Morton APRN. Bariatric Surgery Program introductory meeting attendance: 01/2017 Evaluation by a member of the [facility] Bariatric Surgery Program previously: no Case presentation by: Dr Jin Staff present at today's meeting: Javier Delong MD, Barrel Rifler Hook, Nate Zhao MD, Joie Espinal MD, Macrina Low MD, Heather Pineda, MS RD, Maria R Kilgore APRN, Syeda Sinclair RDN, Sophie Jin, PhD Reason for presentation: schizoaffective disorder and paranoid delusions and binge eating, question of borderline personality disorder. No notes from her regular behavioral health clinicians at [facility] Leona Monet APRN and Rafi Bloom are available Patient Active Problem List Diagnosis Code ??? Morbid obesity E66.01 ??? SURINDER (obstructive sleep apnea) G47.33 ??? Gastroesophageal reflux K21.9 ??? Schizoaffective disorder F25.9 ??? Binge eating R63.2 No past surgical history on file. Plan of care: Referral to [facility] to optimize post surgery outcomes. documented in this encounter Plan of Treatment Scheduled Referrals Name Type Priority Associated Diagnoses Order S chedule Referral to Outpatient Referral Routine Schizoaffective Order ed: Weight & Wellness Disorder, Unspecified 0 07/30/2017 Center Type Binge eating documented as of this encounter Visit Diagnoses Diagnosis Schizoaffective disorder, unspecified ty pe Binge eating Anorexia nervosa documented in this encounter Care Teams Motorcycle Assembler Relationship Specialty Start Date End Date Barbara Morton APRN PCP - General Family Medicine 01/05/17 [place] [address] documented as of this encounter
--- OUTSIDE RECORDS SUMMARY | 2022-05-01 02:02 | XMS_ITS | Encounter Summary ---
:1980 Author Organization [facility] Address [address] [place] [address] Care Team Providers Name Role Phone Md LILIBETH Bauer Primary Care Provider Unavailable Encounter Details Date Type Department Care Team Description 06/26/2014 Results Only [facility] Ray Washington, CYLINDER WORKER Laboratory Services - [address] [facility] [address] [place], [place] [address] [facility] [address] [place], [place] [id number] [phone] Social History Tobacco Use Types Packs/Day Years [...] EST) Pathology Report: CYTOPATHOLOGY REPORT [facility] Reports generated via electronic interface contain sheryl ginal data; SERVICES however they are lacking the format of the original re port. Caution should be taken when reading/interpreting unfo rmatted reports. Name: ? HONORIO WEBB ? Accession #: ? [id number] ? : ? 1980 (Age: 34) ??F ?Collect Da te: ? 06/26/2014 ? Location: ? [facility] ? Receive Date: ? 014 ? Provider: CORY WASHINGTON CYLINDER WORKER Copy to: SANJUANITA BEAUCHAMP BEAD WIRE INSULATOR ? Final Report SPECIMEN ADEQUACY ? Satisfactory for Evaluation - transformation zone component present GENERAL CATEGORIZATION ? Negative for Intraepithelial Lesion or Malignan cy ?? Last Menstrual Period: 01/2014 Specimen/Source: ??Pap Test, Cervix/Endocervix, ThinPr ep Imaging System with manual evaluation Document reviewed and electronically signed by: ? Lola Kratf, CT(ASCP) ? Report ??Date: 07/03/2014 14:53 HPV with Pap Test ? Date Ordered: ? 07/03/2014 ? Status: ?? Signed Out ?Date Complete: ? 07/06/2014 ? By: ??S ystem Interface ? Date Reported: ? 07/06/2014 ? Interpretation RESULT: Negative for HPV. No E6 or E7 mRNA is detected from HPV types 16,18,31,3 3,35, 39,45,51,52,56,58,59,66, and 68 by digital associate media director media odilon amplification. Comments Document reviewed and electronically signed by: ? System Interface ? Report date: 07/06/2014 By the signature above, the attending physician certif ies that he/she has personally conducted a gross and/or microscopic examin ation of the described specimens and rendered or confirmed the above diagnosi s. End of Report Specimen Performing Organization Address City/State/ZIP Code Phon e Number [facility] [address] [place] [address] SERVICES documented in this encounter Visit Diagnoses Not on filedocumented in this encounter Care Teams Fishing Vessel Deckhand Relationship Specialty Start Date End Date Md Bauer MD PCP - General 01/06/10 07/11/19 documented as of this encounter
--- OUTSIDE RECORDS SUMMARY | 2022-05-01 02:02 | XMS_ITS | Encounter Summary ---
:1980 Author Organization [facility] Address [address] [place] [address] Care Team Providers Name Role Phone Barbara Morton TOOL AND MACHINE MAINTAINER Primary Care Provider Md LILIBETH Bauer Unavailable Unavailable Encounter Details Date Type Department Care Team Description 01/02/2020 Lab Requisition [facility] Outr Resulting Lab, Pathology & Laboratory Provider [facility] [address] [place], [place] [address] Social History Tobacco Use Types Packs/Day Years Used Date Never Assessed Sex Assigned at Date Recorded Not on file documented as of this encounter Plan of Treatment Not on filedocumented as of this encounter Procedures Procedure Name Priority Date/Time Associated Diagnosis Comme nts COVID-19 TEST [facility] Today 01/02/2020 13:34 LAB PCR EDT COVID-19 TESTING Routine 01/02/2020 13:34 Results for this EDT procedure are i n the results section. documented in this encounter Results COVID-19 TEST [facility] LAB PCR (01/02/2020 13:34 EDT) Specimen Swab - Entire nasopharynx (body structur e) Performing Organization Address City/State/ZIP Code Phon e Number [facility] [address] [place] [address] SERVICES COVID-19 TESTING (01/02/2020 13:34 EDT) COVID-19 rt-PCR Negative Negative [facility] Result Comment: CENTER LABORATORY [...] and epidemiological informatio n. Performed on the Compare And Share Fusion instrument Performing Lab [place] [facility] Lab [facility] SERVICES Specimen Swab Performing Organization Address City/State/ZIP Code Phon e Number [facility] [address] [place] [address] SERVICES documented in this encounter Visit Diagnoses Not on filedocumented in this encounter Care Teams Supervisor Broadloom Relationship Specialty Start Date End Date Barbara Morton FNP PCP - General 07/12/19 [address] [place] [address] Md Bauer MD 07/12/19 documented as of this encounter
--- OUTSIDE RECORDS SUMMARY | 2022-05-01 02:02 | XMS_ITS | Encounter Summary ---
:1980 Author Organization [facility] Address [address] [place] [address] Care Team Providers Name Role Phone Barbara Morton CUSTOMER CONSULTANT Primary Care Provider Md LILIBETH Bauer Unavailable Unavailable Encounter Details Date Type Department Care Team Description 11/23/2019 Lab Requisition [facility] Outr Resulting Lab, Pathology & Laboratory Provider [facility] [address] [place], [place] [address] Social History Tobacco Use Types Packs/Day Years Used Date Never Assessed Sex Assigned at Date Recorded Not on file documented as of this encounter Plan of Treatment Not on filedocumented as of this encounter Procedures Procedure Name Priority Date/Time Associated Diagnosis Comme nts COVID[facility] Today 11/23/2019 8:00 EDT LAB PCR COVID-19 TESTING Routine 11/23/2019 8:00 EDT Resu lts for this procedure are i n the results section. documented in this encounter Results COVID-19 TEST [facility] PCR (11/23/2019 8:00 EDT) Specimen Swab - Entire nasopharynx (body structur e) Performing Organization Address City/State/ZIP Code Phon e Number [facility] [address] [place] [address] SERVICES COVID-19 TESTING (11/23/2019 8:00 EDT) COVID-19 rt-PCR Negative Negative [facility] Result Comment: CENTER LABORATORY This [...] and epidemiological informatio n. Performed on the ACE*COMM Fusion instrument Performing Lab [facility] Lab [facility] SERVICES Specimen Swab - Entire nasopharynx (body structur e) Performing Organization Address City/State/ZIP Code Phon e Number [facility] [address] [place] [address] SERVICES documented in this encounter Visit Diagnoses Not on filedocumented in this encounter Care Teams Top Knitter Relationship Specialty Start Date End Date Barbara Morton FNP PCP - General 07/12/19 [address] [place] [address] Md Bauer MD 07/12/19 documented as of this encounter
--- OUTSIDE RECORDS SUMMARY | 2022-05-01 02:02 | XMS_ITS | Encounter Summary ---
:1980 Author Organization [facility] Address [address] [place] [address] Care Team Providers Name Role Phone Md LILIBETH Bauer Primary Care Provider Unavailable Encounter Details Date Type Department Care Team Description 01/22/2011 Results Only [facility] Ray Washington, ORDER ENTRY REPRESENTATIVE Laboratory Services - [address] [facility] [address] [place], [place] [address] [facility] [address] [place], [place] [id number] [phone] Social History Tobacco Use Types Packs/Day Years [...] HONORIO WEBB Etelvina ? Accession #: ? [id number] ? : ? 1980 (Age: 30) ??F ?Collect Date: ? 01/22/2011 ? Location: ? [facility] ? Receive Date: ? 01/23/2011 ? Provider: ?CORY HAYG OOD ORDER ENTRY REPRESENTATIVE ? Copy to: ? Specimen/Source: ? Pap [...] of Report ? Specimen Performing Organization Address City/State/[facility] Code Phon e Number [facility] [address] [place] [address] SERVICES [facility] [address] [place] [address] documented in this encounter Visit Diagnoses Not on filedocumented in this encounter Care Teams Poultry Hatchery Man Relationship Specialty Start Date End Date Md Bauer MD PCP - General 01/06/10 07/11/19 documented as of this encounter
--- OUTSIDE RECORDS SUMMARY | 2022-05-01 02:02 | XMS_ITS | Encounter Summary ---
:1980 Author Organization [facility] Address [address] [place] [address] Care Team Providers Name Role Phone Md LILIBETH Bauer Primary Care Provider Unavailable Encounter Details Date Type Department Care Team Description 01/26/2012 Results Only [facility] Ray Washington, [facility] Laboratory Services - [address] [place], [place] [address] [facility] [address] [place], [place] [id number] [phone] Social History Tobacco Use Types Packs/Day Years [...] ? HONORIO WEBB ? Accession #: ? [id number] : ? 1980 (Age: 31) ??F ?Collect Date: ? 01/09 Location: ? [facility] ? Receive Date : ? 01/27/2012 Provider: ?CORY SWATHI FACTORY FOCUS TECHNICIAN Copy to: ?ERJI SOTO PLATE STACKER ? Specimen/Source: ? Pap Test, Cervix/Endocervix, ThinPrep [...] Organization Address City/State/ZIP Code Phon e Number [facility] [address] [place] [address] SERVICES [facility] [address] [place] [address] documented in this encounter Visit Diagnoses Not on filedocumented in this encounter Care Teams Health Policy Manager Relationship Specialty Start Date End Date Md Bauer MD PCP - General 01/06/10 07/11/19 documented as of this encounter
--- OUTSIDE RECORDS SUMMARY | 2022-05-01 02:02 | XMS_ITS | Encounter Summary ---
:1980 Author Organization [facility] Address [address] [place] [address] Care Team Providers Name Role Phone Md LILIBETH Bauer Primary Care Provider Unavailable Encounter Details Date Type Department Care Team Description 01/03/2010 Results Only [facility]- Eris Dee, PMO PROJECT MANAGER [phone] [place] [address] [address] [place], [place] [address] (Wo rk) Social History Tobacco [...] City/State/ZIP Code Phon e Number [facility] [address] [place] [address] SERVICES [facility] [address] [place] [address] CYTOPATHOLOGY (01/03/2010 0:00 EDT) Pathology Report: CYTOPATHOLOGY REPORT ? [facility] ? LAB Reports generated via electr onic interface contain original data; ? however they are lacking the format of the original report. ? Caution should be taken when reading/interpreting unformatted reports. ? Name: ? HONORIO WEBB ? Accession #: ? [id number] ? : ? 1980 (Age: 29) ??F ?Collect Date: ? 01/03/2010 ? Location: ? [facility] ? Receive Date: ? 01/06/2010 ? Provider: ?ERIS O CAR R PHYSICIAN CODER ? Copy to: ? Specimen/Source: ? Pap [...] City/State/ZIP Code Phon e Number [facility] [address] [place] [address] SERVICES [facility] [address] [place] [address] documented in this encounter Visit Diagnoses Not on filedocumented in this encounter Care Teams Mail Caller Relationship Specialty Start Date End Date Md Bauer MD PCP - General 01/06/10 07/11/19 documented as of this encounter
[2022-05-01 15:12] LABS: Abs Immature Grans 0.02 10^3/uL (0.0-0.06); Absolute Monocyte Count 0.48 10^3/uL (0.1-0.8); Absolute Neutrophil Count 3.93 10^3/uL (1.2-6.7); HCT 36.8 % (36.0-46.0); HGB 12.3 g/dL (11.2-15.7); Immature Grans % 0.3; Lymphocytes % 32.2; MCH 28.9 pg (27.0-33.0); MCHC 33.4 % (32.0-36.0); MCV 86 fL (80-95); MPV 10.4 fL (8.0-11.0); Monocytes % 7.4; Neutrophils % 60.1; Platelet Count 221 10^3/uL (130-400); RBC 4.26 10^6/uL (3.93-5.22); RDW 12.7 % (11.7-14.6); RDW-SD 39.8 fL; WBC 6.53 10^3/uL (4.4-10.8)
== END 2022-05-01 01:59 | disposition home or self-care (01) ==
LOC: LBO 01:59
PROVIDERS: Psychiatry & Neurology Psychiatry; PCP Nurse Practitioner Family; Visit Provider Nurse Practitioner Psychiatric/Mental Health
DX: Z79.899 Other long term (current) drug therapy (principal)
CPT/HCPCS: 36415; 85025

== ENCOUNTER 2022-05-15 12:22 | Outpatient (CLI) | payer MEDICARE, SELFPAY ==
[2022-05-15 11:21] LABS: Abs Immature Grans 0.02 10^3/uL (0.0-0.06); Absolute Basophil Count 0.01 10^3/uL (0.0-0.2); Absolute Lymphocyte Count 1.92 10^3/uL (1.2-3.4); Absolute Monocyte Count 0.43 10^3/uL (0.1-0.8); Absolute Neutrophil Count 3.94 10^3/uL (1.2-6.7); Basophils % 0.2; HCT 34.7 % (36.0-46.0); HGB 11.7 g/dL (11.2-15.7); Immature Grans % 0.3; Lymphocytes % 30.4; MCH 29.5 pg (27.0-33.0); MCHC 33.7 % (32.0-36.0); MCV 88 fL (80-95); MPV 10.2 fL (8.0-11.0); Monocytes % 6.8; Neutrophils % 62.3; Platelet Count 219 10^3/uL (130-400); RBC 3.96 10^6/uL (3.93-5.22); RDW 13.2 % (11.7-14.6); RDW-SD 42.2 fL; WBC 6.32 10^3/uL (4.4-10.8)
--- OUTSIDE RECORDS SUMMARY | 2022-05-15 12:25 | XMS_ITS | Encounter Summary ---
:1980 Author Organization [facility] [place] [address] Care Team Providers Name Role Phone Barbara Morton APRN Primary Care Provider Reason for Visit Reason Onset Date Comments Other 07/30/2017 Encounter Details Date Type Department Care Team Description 07/30/2017 Telephone General Surgery at [facility] Maria R Kilgore APRN [facility] [place] [address] GENERAL SURGERY [phone] [place], [place] [address] (Wo rk) Social History Tobacco [...] on filedocumented in this encounter Care Teams Tourist Cabin Keeper Relationship Specialty Start Date End Date Barbara Morton APRN PCP - General Family Medicine 01/05/17 Brittney [facility] [place] [id number] documented as of this encounter
--- OUTSIDE RECORDS SUMMARY | 2022-05-15 12:25 | XMS_ITS | Encounter Summary ---
:1980 Author Organization [facility] Address [facility] [place] [address] Care Team Providers Name Role Phone Barbara Morton LUCIE Primary Care Provider Reason for Visit Consultation (Routine) - Specialty Diagnoses / Procedures Referred By Contact Refer red To Contact Weight and Wellness Diagnoses Schizoaffective disorder, unspecified type Binge eating Morbid obesity with BMI of 50.0-59.9, adult Maria R Kilgore Rotenberg, Sivan, APRN PhD [facility] [place] [address] [place] [address] Fax: Referral ID Status Reason Start Date Expiration Date Visits V isits Requested Authorized [id number] Consult, 07/07/2017 07/07/2018 1 1 Test & Treat Encounter Details Date Type Department Care Team Description 10/26/2017 Office Visit Weight and Wellness Jono Lopez, PhD Binge eating disorder at [facility] [address] [place], [place], [place] [phone] Social History Tobacco Use Types Packs/Day Years Used Date Never Assessed Sex Assigned at Date Recorded Not on file documented as of this encounter Progress Notes Jono Lopez, PhD - 10/26/2017 1:00 PM EDT BEHAVIORAL MEDICINE ASSESSMENT EARLY BARIATRIC SURGERY [facility] [address] [facility] [address] Dept: [phone] 10/26/2017 1:00 PM Nati Marcos is a 37 y.o. female who was referred for evaluation and preparation for potential bariatric surgery. Nati was seen for 50 mins. Patient was alone. Limits to confidentiality were reviewed at the start of the session. RECOMMENDATION BASED ON EARLY PSYCHOLOGICAL EVALUATION Nati is ready to begin the bariatric surgery program. To assist Nati with preparing for bariatric surgery it is recommended that she: Continue progress on weight loss goal Continue working with her therapist on reducing binge-eating and overeating Identify a post-surgery caregiver The follow up plan is as follows: Follow up with this provider in 6 weeks SUMMARY The decision noted above is based on the followin. Nati has made significant weight loss attempts in the past, but without lasting success. 2. Nati experienced marked mental health problems in the past year. 3. Nati experienced marked mental health problems earlier in life. 4. Nati is engaging in problematic eating behaviors. 5. Nati's motivation for surgery is: good 6. Nati's social support is: good The above assessment and plan was based on the following information obtained during the appointment: Due to a technical error in the operation of the note tab on eD, some assessments findings are lost. BARIATRIC SURGERY Date attended information session: January 2017 Type of surgery Nati prefers: Has not decided SOCIAL HISTORY Household composition: patient Relationship status: Single. Quality of relationship: N/A Progeny: Children: N/A Grandchildren: N/A Quality of relationship with children: N/A Education level: High School Education history: none; learning problems; attentional problems Occupation: on disability Legal problems: denies WEIGHT Initial Weight/BMI: 315 Current Weight as of 10/26/2017: 325 lbs Weight changes: Increased 10 lbs Nati has used the following strategies to lose weight in the past: exercise, eating healthy Had difficulties keeping weight off due to: binge-eating Nati is currently using these weight reduction strategies and habits to lose weight: exercise regularly, try to control binge-eating PROBLEM EATING BEHAVIORS History of binging (i.e., a lot of food at one time, more food than most people would eat at one time, feeling loss of control): yes If h/o binging, last binge: 2 days ago, about 3-4 times a week History of bulimic vomiting or other compensatory strategies (i.e., laxatives, diuretics, restricting): no If h/o bulimic vomiting or other compensatory strategies, last episode: N/A History of nighttime eating (i.e., skipping daytime meals and eating large amounts at dinner or waking at night to eat): no If h/o nighttime eating, last episode: N/A History of grazing (i.e., continuously eating small snacks): no If h/o grazing, last episode: N/A History of mindless/stress eating (i.e., eating for emotional reasons rather than hunger): yes If h/o stress eating, last episode: 2 days ago, 3-4 times a week History of over eating (i.e., eating to the point of being uncomfortably full): yes If h/o stress eating, last episode: 2 days ago, 3-4 times a week MOTIVATION FOR SURGERY Important to have surgery right now: Feel lost of control of her weight. Has not had much success with diet and exercise on her own, want to gain control of her body CURRENT SOCIAL SUPPORT NETWORK Primary support comes from friend(s) and parent(s) Quality of EMOTIONAL support: excellent Quality of TASK support: good Support network's reaction to bariatric surgery: Friends are supportive. Father is concerned but supportive Identified post-surgery caregiver: have not identified one MENTAL HEALTH HISTORY Past treatment (therapy, medication, hospitalization): She was diagnosed schizoaffective, bipolar inher 20s. She was hospitalized once in summer 2013 when her mom and she had mood and psychotic symptoms. Current treatment (therapy, medication): Her psychiatric condition is currently stable. She is receiving medication management with Odette Lee (1x 4-6 weeks) and psychotherapy with Rafi Bloom (2x aweek). Per chart, and her therapist are supportive of her decision to get bariatric surgery. PhQ9 and GAD7 indicate that she currently has mild depression and anxiety. FAMILY PSYCH/SUBSTANCE ABUSE HX The patient reports that her bother and uncles have alcohol problems. MENTAL STATUS Appearance: within normal limits Behavior: within normal limits Speech: within normal limits Affect: mood congruent Thought content/ process: within normal limits and goal directed Cognitive function: While not formally tested, function appears to be [facility] ETOH: occasionally Drugs: denies Nicotine: Quit about 5 years ago Caffeine: 2 cups of ice tea HABIT CHANGES: Current or anticipated stressful events that might interfere with Nati focusing on necessary habit changes before or after surgery include: none Severity of stressor(s: none ASSESSMENT The patient is diagnosed Binge Eating Disorder. The assessment and plan for Nati Marcos [...] as of this encounter Visit Diagnoses Diagnosis Binge eating disorder documented in this encounter Care Teams Vineyardist Relationship Specialty Start Date End Date Barbara Morton APRN PCP - General Family Medicine 01/05/17 [place] [address] documented as of this encounter
--- OUTSIDE RECORDS SUMMARY | 2022-05-15 12:25 | XMS_ITS | Encounter Summary ---
:1980 Author Organization [place] [place] [address] Care Team Providers Name Role Phone JulietaBarbara nassar LUCIE Primary Care Provider Reason for Visit Reason Onset Date Comments Other 08/18/2017 Encounter Details Date Type Department Care Team Description 08/18/2017 Telephone General Surgery at [facility] Maria R Kilgore APRN [facility] [place] [address] GENERAL SURGERY [phone] [place], [place] [address] (Wo rk) Social History Tobacco Use Types Packs/Day Years Used Date Never Assessed Sex Assigned at Date Recorded Not on file documented as of this encounter Miscellaneous Notes Telephone Encounter - Maria R Kilgore - 08/18/2017 1:31 PM EST Bariatric Surgery Program I returned Odetet Reich APRN call regarding Nati's medication for [...] on filedocumented in this encounter Care Teams Pi/Senior Research Associate Relationship Specialty Start Date End Date Barbara Morton APRN PCP - General Family Medicine 01/05/17 [place] [address] documented as of this encounter
--- OUTSIDE RECORDS SUMMARY | 2022-05-15 12:25 | XMS_ITS | Encounter Summary ---
:1980 Author Organization [facility] [place] [address] Care Team Providers Name Role Phone Barbara Morton APRN Primary Care Provider Encounter Details Date Type Department Care Team Description 11/16/2017 Telephone General Surgery at [facility] [address] Social History Tobacco Use Types Packs/Day [...] out to eat with a friend from [facility]. She realized she ate a lot more [...] on filedocumented in this encounter Care Teams Hr Internship Relationship Specialty Start Date End Date Barbara Morton APRN PCP - General Family Medicine 01/05/17 Brittney [facility] [place] [address] documented as of this encounter
--- OUTSIDE RECORDS SUMMARY | 2022-05-15 12:25 | XMS_ITS | Encounter Summary ---
:1980 Author Organization [facility] [place] [address] Care Team Providers Name Role Phone Barbara Morton APRN Primary Care Provider Encounter Details Date Type Department Care Team Description 12/07/2017 Office Visit Weight and Wellness at Jono Lopez, PhD Disordered eating [address] [place] [address] [place] [address] [phone] (Wo rk) Social History Tobacco Use Types Packs/Day Years Used Date Never Assessed Sex Assigned at Date Recorded Not on file documented as of this encounter Progress Notes Jono Lopez, PhD - 12/07/2017 2:00 PM EDT BEHAVIORAL MEDICINE BARIATRIC SURGERY FOLLOW UP N [facility] AT [address] [address] Dept: [phone] 12/07/2017 2:11 PM Nati Marcos is a [...] unspecified documented in this encounter Care Teams Weight Training Instructor Relationship Specialty Start Date End Date Barbara Morton APRN PCP - General Family Medicine 01/05/17 [place] [address] documented as of this encounter
--- OUTSIDE RECORDS SUMMARY | 2022-05-15 12:25 | XMS_ITS ---
:1980 Author Organization [facility] Address [address] [place], [place] [id number] Care Team Providers Name Role Phone Dominik Jeong Unavailable Unavailable PROBLEMS Type Condition ICD9-CM [id number] Onset Condition SNOMED Cod e Code Code Dates Status Problem Dyspepsia R10.13 Active 234415449 Problem Nonalcoholic fatty K76.0 Active 1 50632801 liver disease Problem Morbid obesity with E66.01 Active 012715824 body mass index (BMI) of 40.0 or higher Problem Schizoaffective F25.9 Active 6889 0003 disorder, unspecified type Problem Insomnia G47.00 Active 335855349 Problem Obstructive sleep G47.33 Active 78 672936 apnea (adult) (pediatric) Problem 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 12870 007 mastopathy of right breast Problem Diffuse cystic N60.12 Active 95126 007 mastopathy of left breast Problem 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 44765 2006 Problem Obesity, E66.9 Active 978095297 unspecified classification, unspecified obesity type, unspecified whether serious comorbidity present Problem Fatty liver K76.0 Active Problem Menorrhagia with N92.0 Active 266 875594 regular cycle Problem Amenorrhea N91.2 Active 76360124 Problem Abnormal uterine N93.9 Active 449 78493398241 bleeding (AUB) Problem Encounter for Z11.3 Active 143280 9 screening for infections with predominantly sexual mode of transmission Problem Irritable bowel K58.0 Active 1970 01377 syndrome with diarrhea Problem BMI 45.0-49.9, Z68.42 Active 61645 2008 adult Problem Subacute vulvitis N76.3 Active 73 4677042 Problem BMI 40.0-44.9, Z68.41 Active 52256 2007 adult ALLERGIES Substance Reaction Event Type Date Status Sulfacetamide Sodium vomiting, fever, rash Drug Allergy Jan, Active Ibuprofen makes me feel weird Drug Allergy Jan, Active Silicone rash from sleep apnea mask Drug Allergy Jan, A ctive Protonix symptoms worse Drug Allergy Jan, Active ENCOUNTERS Encounter Location Date Diagnosis [address] Feb, Road [address] [place], [place] [id number] [address] Jan, Ab normal uterine bleeding Road [address] (AUB) N93.9 and Family [place] planning, BCP ma intenance [id number] Z30.41 [facility] [address] [place] [address] Jan, Obs tructive sleep apnea Road [address] (adult) (pediatr ic) [place], [place] G47.[id number] Dec, Va ginal irritation N89.8 [address] [place], [place] [id number] [address] Dec, Road [address] [place], [place] [id number] [address] November, Road [address] [place] [id number] [address] Oct, En counter for screening [address] for malignant ne oplasm of [place] cervix Z12.4 ; A bnormal [id number] uterine bleeding (AUB) N93.9 and BMI 45 .0-49.9, adult Z68.[address] Oct, Ab normal uterine bleeding Road [address] (AUB) N93.9 [place], [place] [id number] [address] Jul, Ab normal uterine bleeding Road [address] (AUB) N93.9 [place] [id number] [address] Mar, Ab normal uterine bleeding Road [address] (AUB) N93.9 [place], [place] [id number] [facility] [address] [place] [address] Jan, Obst ructive sleep apnea Road [address] (adult) (pediatr ic) [place], [place] G47.[id number] Oct, Esperanza ruiz sclerosus et Road [address]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 [address] maintenance Z30. 41 [place], [place] [id number] [address] Jun, Road [address] [place], [place] [id number] [address] Jun, Me norrhagia with regular Road [address] cycle N92.0 and BMI [place] 40.0-44.9, adult Z68.[id number] May, Road [address] [place], [place] [id number] [address] May, Fa vimal planning, [facility] [address] maintenance Z30. 41 [place], [place] [id number] [address] Apr, Road [address] [place], [place] [id number] [address] Apr, Richardson bacute vulvitis N76.3 ; Road [address] Dysuria R30.0 an d [place] Amenorrhea N91.[id number] Jan, En counter for Road [address] gynecological ex amination [place] (general) (aminah cardona) with [id number] abnormal finding s Z01.411 ; Amenorrhea N91 .2 ; Encounter for ot her screening for ma lignant neoplasm of josu[address] st Z12.39 and BMI 45.0-49. 9, adult Z68.42 [facility] [address] [place] [address] Oct, [address] sleep apnea [address] (adult) (pediatr ic) [place], [place] G47.[id number] Sep, Fa vimal planning, BCP Road [address] maintenance Z30. 41 [place] [id number] [address] Jun, Esperanza ruiz sclerosus et Road [address] atrophicus of th e vulva [place], [place] N90.[id number] Mar, Road [address] [place] [id number] [facility] [address] [place] [address] Feb, [address] [place], [place] [id number] [facility] [address] [place] [address] Feb, Irritable bow el syndrome Road [address] with diarrhea K5 8.0 ; [place] Fatty liver K76. 0 and [id number] Obesity, unspeci fied classification, unspecified obes ity type, unspecified whet her serious comorbid ity present E66.[address] Dec, En counter for Road Suite gynecological ex amination [place] with abnormal fi nding [id number] Z01.411 ; Encoun ter for screening for in fections with predominant ly sexual mode of transmis louis Z11.3 and Anal c ondyloma A63.0 [facility] [address] [place] [address] Oct, [address] sleep apnea [address] (adult) (pediatr ic) [place] G47.33 ; Insomni a G47.00 [id number] ; Morbid obesity with body mass index (BMI) of 40.0 or higher E 66.01 and Schizoaffective disorder, unspecified type F25.[address] Aug, Fa [facility], [facility] [address] maintenance Z30. 41 [place], [place] [id number] [address] Jul, Road [address] [place] [id number] Jun, Am enorrhea N91.2 ; Morbid [address] obesity with bod y mass [place], [place] index (BMI) of 4 0.0 or 505[address] higher E66.01 an d Schizoaffective disorder, unspecified type F25.[address] Feb, Road [address] [place] [id number] Feb, En counter for Road [address] gynecological ex amination [place] with abnormal fi nding [id number] Z01.411 ; Encoun ter for screening for in fections with predominant ly sexual mode of transmis louis Z11.3 ; 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 ; Mo rbid obesity with bod y mass index (BMI) of 4 0.0 or higher E66.01 ; Diffuse cystic mastopath y of left breast N60.12 an d Diffuse cystic mastopath y of right breast N60 .[address] [facility] Feb, Obst ructive sleep apnea Road [address] (adult) (pediatr ic) [place] G47.33 ; Insomni a G47.00 [id number] ; Morbid obesity with body mass index (BMI) of 40.0 or higher E 66.01 and Schizoaffective disorder, unspecified type F25.[address] Jan, [address] [place] [id number] [address] Oct, Obst ructive sleep apnea Road [address] (adult) (pediatr ic) [place] G47.33 ; Insomni a G47.00 [id number] ; Morbid obesity with body mass index (BMI) of 40.0 or higher E 66.01 and Schizoaffective disorder, unspecified type F25.9 [facility] [address] [place] [address] Aug, Road [place], [place] [id number] [address] Aug, Obst ructive sleep apnea Road [address] (adult) (pediatr ic) [place] G47.33 ; Insomni a G47.00 [id number] ; Morbid obesity with body mass index (BMI) of 40.0 or higher E 66.01 and Schizoaffective disorder, unspecified type F25.[address] Jul, Road [address] [place], [place] [id number] [address] Jul, Sc reening for STD Road [address] (sexually transm itted [place] disease) Z11.3 ; [id number] Encounter for sc reening for malignant ne oplasm of cervix Z12.4 ; D ysuria R30.0 and Vulvar itching L29.[address] [facility] Jul, Road [address] [place], [place] [id number] [facility] Jul, Obst ructive sleep apnea Road [address] (adult) (pediatr ic) [place] G47.33 ; Insomni a G47.00 [id number] ; Morbid obesity with body mass index (BMI) of 40.0 or higher E 66.01 and Schizoaffective disorder, unspecified type F25.9 [facility] Jul, Obst ructive sleep apnea Road [address] (adult) (pediatr ic) [place], [place] G47.33 [id number] [facility] [address] [place] [address] Jul, Road [place] [id number] [address] May, Road [address] [place] [id number] [facility] Apr, Obst ructive sleep apnea Road [address] (adult) (pediatr ic) [place] G47.33 ; Insomni a G47.00 [id number] ; Morbid obesity with body mass index (BMI) of 40.0 or higher E 66.01 and Schizoaffective disorder, unspecified type F25.[address] Jan, Road [address] [place] [id number] Dec, Road [address] [place] [id number] Dec, 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 ; Encounte r for [place] screening for ma lignant [id number] neoplasm of cerv ix Z12.4 ; History of HPV infection Z86.19 ; Encounter for nv reening examination for sexually transmitted dise ase Z11.3 and Urinary freq uency R35.0 [facility] [address] Aug, Road [address] [place] [id number] [facility] [address] Aug, Dys pepsia R10.13 ; [address] [place] [address] obesity E66.01 a nd [place] Nonalcoholic fat ty liver 2519[address]25 disease K76.0 [facility] [address] [place] [address] Jul, [place], [place] [id number] IMMUNIZATIONS No Known Immunizations SOCIAL HISTORY Qualifiers Date Former Smoker 2011 REASON FOR REFERRAL FUNCTIONAL STATUS PLAN OF CARE Activity Details Follow Up 1 Year Reason: Future Appointment Provider Name:Dominik Alejandra Jeong , 2023-01-26 03:00:00 PM, [address] [facility], [address], [place], [place], [id number], VITAL SIGNS Height 5 ft 6 in in 2022-01-20 Height 5 ft 6 in in 2021-12-29 Height 5 ft 6 in in 2021-11-07 Height 5 ft 6 in in 2021-04-09 Height 5 ft 6 in in 2021-01-21 Height 5 ft 6 in in 2020-10-08 Height 5 ft 6 in in 2020-06-12 Height 5 ft 6 in in 2020-04-30 Height 5 ft 6 in in 2020-01-10 Height 5 ft 6 in in 2019-03-07 Height 5 ft 6 in in 2018-12-30 Height 5 ft 6 in in 2018-10-17 Height 5 ft 6 in in 2018-07-06 Height 5 ft 6 in in 2018-03-09 Height 5 ft 6 in in 2018-03-02 Height 5 ft 6 in in 2017-10-13 Height 5 ft 6 in in 2017-08-25 Height 5 ft 6 in in 2017-08-10 Height 5 ft 6 in in 2017-07-22 Height 5 ft 6 in in 2017-05-06 Height 5 ft 6 in in 2016-12-30 Height 5 ft 6 in in 2015-08-21 Weight 280 lbs 2022-01-20 Weight 280 lbs 2021-12-29 Weight 279.0 lbs 2021-11-07 Weight 282.0 lbs 2021-04-09 Weight 276 lb 8 oz lbs 2021-01-21 Weight 277 lbs 2020-10-08 Weight 276 lbs 2020-06-12 Weight 279.6 lbs 2020-04-30 Weight 286 lb 8 oz lbs 2020-01-10 Weight 295 lb 2 oz lbs 2019-03-07 Weight 305 lb 2 oz lbs 2018-12-30 Weight 311 lb 2 oz lbs 2018-10-17 Weight 311.6 lbs 2018-07-06 Weight 313 lb 8 oz lbs 2018-03-09 Weight 315 lb 4 oz lbs 2018-03-02 Weight 326 lbs 2017-10-13 Weight 326 lb 6 oz lbs 2017-08-25 Weight 331.6 lbs 2017-08-10 Weight 325 lbs 2017-07-22 Weight 320 lbs 2017-05-06 Weight 314 lb 8 oz lbs 2016-12-30 Weight 313 lbs 2015-08-21 Heart Rate 82 /min 2022-01-20 Heart Rate 92 /min 2021-01-21 Heart Rate 92 /min 2018-10-17 Heart Rate 84 /min 2018-03-02 Heart Rate 83 /min 2017-10-13 Heart Rate 82 /min 2017-08-25 Heart Rate 102 /min 2017-07-22 Heart Rate 99 /min 2017-05-06 Heart Rate 66 /min 2015-08-21 Oximetry 97 2022-01-20 Oximetry 97 2021-01-21 Oximetry 97 2018-10-17 Oximetry 97 2018-03-02 Oximetry 96 2017-10-13 Oximetry 97 2017-08-25 Oximetry 97 2017-07-22 Oximetry 98 2017-05-06 Respiratory Rate 16 /min 2017-10-13 Respiratory Rate 16 /min 2017-07-22 Respiratory Rate 16 /min 2017-05-06 Respiratory Rate 14 /min 2015-08-21 BMI 45.19 kg/m2 2022-01-20 BMI 45.19 kg/m2 2021-12-29 BMI 45.03 kg/m2 2021-11-07 BMI 45.51 kg/m2 2021-04-09 BMI 44.62 kg/m2 2021-01-21 BMI 44.70 kg/m2 2020-10-08 BMI 44.54 kg/m2 2020-06-12 BMI 45.12 kg/m2 2020-04-30 BMI 46.24 kg/m2 2020-01-10 BMI 47.63 kg/m2 2019-03-07 BMI 49.24 kg/m2 2018-12-30 BMI 50.21 kg/m2 2018-10-17 BMI 50.29 kg/m2 2018-07-06 BMI 50.59 kg/m2 2018-03-09 BMI 50.88 kg/m2 2018-03-02 BMI 52.61 kg/m2 2017-10-13 BMI 52.67 kg/m2 2017-08-25 BMI 53.52 kg/m2 2017-08-10 BMI 52.45 kg/m2 2017-07-22 BMI 51.64 kg/m2 2017-05-06 BMI 50.76 kg/m2 2016-12-30 BMI 50.51 kg/m2 2015-08-21 Blood pressure systolic 126 mm Hg 2022-01-20 Blood pressure diastolic 74 mm Hg 2022-01-20 MEDICATIONS Medication Instructions Dosage Frequency Start End Duration Statu s Date Date Pamprin Max Orally PRN 2 tablets Active 250-250-65 MG Latuda 120 MG Orally Once a 1 tablet Act gianni day at bedtime Nac 600 600 MG Orally twice a 1 capsule 12h Active day Sprintec 28 Orally Once a 1 tablet 24h Jan, days Activ e 0.25-35 MG-MCG day 2021 clozapine 100 mg orally Once a 1 tablet Active day at bedtime Latuda 40 MG Orally Once a 1 tablet Acti ve day at bedtime Acidophilus - as directed Not-Ta ki ng Centrum Women - as directed Acti ve Dexilant 30 mg Orally Once a 1 capsule A ctive day at bedtime Melatonin 5 MG Orally PRN 1 tablet in Ac tive the evening Calcium & orally daily 1 cap(s) 24h Active Magnesium Carbonates Biotin 2.5 MG Orally Once a 1 tablet 24h 30 day(s) A ctive day Collagenase - as directed Active Benztropine Orally daily 1 tablet at 24h Act gianni Mesylate 0.5 MG bedtime Levothyroxine Orally Once a 1 tablet in 24h 30 day(s ) Active Sodium 25 MCG day the morning on an empty stomach cloZAPine 25 MG at bedtime, 2 tablet 24h Act gianni orally Once a day Topiramate 100 TK 1 T PO BID Act gianni MG Clobetasol Externally 1 application 90 days Acti ve Propionate 0.05 Twice a week to affected % area PROCEDURES Procedure Date Ordered Result Body Site URINE TEST January 10, 2020 Wet hussein/ w preparations December 30, 2018 URINALYSIS NONAUTO W/O SCOPE December 30, 2016 COLPOSCOPY OF VULVA W/BIOPSY OF VULVA December 30, 2016 URINE TEST Apr 30, 2020 URINALYSIS NONAUTO W/O SCOPE Apr 30, 2020 URINE TEST Jul 06, 2018 WET HUSSEIN W/PREP VAG CERV/SKN SPEC December 30, 2016 DESTRUCTION, ANAL LESION(S) December 30, 2018 WET HUSSEIN W/PREP VAG CERV/SKN SPEC Aug 10, 2017 WET HUSSEIN W/PREP VAG CERV/SKN SPEC Apr 30, 2020 POLYSOMNOGRAPHY W/CPAP Jul 15, 2017 URINALYSIS NONAUTO W/O SCOPE Aug 10, 2017 RESULTS Name Result Date Reference Range Pap Lb, rfx HPV all pth 2021-11-07 . Note: . Clinical history: DIAGNOSIS: Neg Fei neg HR HPV Specimen adequacy: Additional comment: Recommendation: Performed by: Electronically signed by: Test ordered: Maturation index: Amended report: Addendum: QC reviewed by: Cytology history: Special procedure: QA comment: Diagnosis provided by: Source: Pathologist provided ICD9: Clinician provided ICD9: Interpretation LBP CPT Code Automation Test (Rapid) Urine 2020-04-30 Result negative Control Passed WET PREP R/O YEAST/TRICHOMONAS 2020-04-30 X No hyphae, no trich, no clue cells, mixed livia and polys, many tissue fibers. URINALYSIS, DIP ONLY 2020-04-30 CLARITY clear COLOR light yellow NITRITES negative REDUCING SUBSTANCES SPECIFIC GRAVITY 1.005 UROBILINOGEN negative BILIRUBIN small BLOOD about 250 GLUCOSE negative KETONES small pH 6 PROTEIN negative LEUKOCYTES negative MG MAMMOGRAPHY BILATERAL 2020-10-23 SCREENING Test (Rapid) Urine 2020-01-10 Result negative Control Passed LIVER PROFILE 2019-03-07 TOTAL BILIRUBIN 0.5 0.3-1.2 DIRECT BILIRUBIN 0.2 0.0-0.5 TOTAL PROTEIN 6.9 6.5-8.1 ALBUMIN 3.9 3.5-5.0 GLOBULIN 3.0 2.3-3.5 A/G 1.3 1.0-2.5 ALKALINE PHOS 78 32-92 AST 33 15-41 ALT 32 14-54 HPV - HIGH RISK 2018-12-30 X Neg for HR HPV HEPATITIS B SURFACE ANTIGEN 2018-12-30 HEP B SURFACE AG NON-REACTIVE NON-REACTIVE HEP B SURFACE AG NON-REACTIVE NON-REACTIVE HIV 1/0/2 ANTIBODIES 2018-12-30 HIV1/O/2 Abs,P24Ag NON-REACTIVE NON-REACTIVE CHLAMYDIA/GONOCOCCUS, by PCR 2018-12-30 C. trachomatis by PCR Not detected PCR GENITAL SPECIMEN N. gonorrhoeae by PCR Not detected Chlamydia trachomatis, JACQUELYN Neisseria gonorrhoeae, JACQUELYN Please note: HSV TYPES 1 & 2 IGG ABS WITH 2018-12-30 REFLEX ([id number]) HSV 1 IgG, Type Spec 25.60 0.00-0.90 HSV 2 IgG, Type Spec <0.91 0.00-0.90 SYPHILIS 2018-12-30 SYPHILIS NON-REACTIVE NON-REACTIVE Test (Rapid) Urine Result negative Control Passed CHLAMYDIA/GONOCOCCUS, by PCR 2018-03-09 C. trachomatis by PCR PCR GENITAL SPECIMEN N. gonorrhoeae by PCR Chlamydia trachomatis, JACQUELYN neg Neisseria gonorrhoeae, JACQUELYN neg Please note: HERPES SIMPLEX VIRUS 1/2 PCR 2017-08-10 ([id number]) HSV-1 DNA Negative Negative HSV-2 DNA Negative Negative Pap Lb, HPV-hr 2017-08-10 . Note: Clinical history: DIAGNOSIS: Neg FEI Specimen adequacy: Additional comment: Recommendation: Performed by: Electronically signed by: Test ordered: Maturation index: Amended report: Addendum: QC reviewed by: Cytology history: Special procedure: QA comment: Diagnosis provided by: Source: Pathologist provided ICD9: Clinician provided ICD9: Interpretation HPV, high-risk LBP CPT Code Automation HSV TYPES 1 & 2 IGM ABS INDIRECT 2017-08-10 ([id number]) HSV 1 IgM Antibodies <1:10 <1:10 HSV 2 IgM Antibodies <1:10 <1:10 HSV TYPES 1 & 2 IGG ABS ([id number]) 2017-08-10 HSV 1 IgG, Type Spec 53.70 0.00-0.90 HSV 2 IgG, Type Spec <0.91 0.00-0.90 URINALYSIS, DIP ONLY 2017-08-10 CLARITY clear COLOR yellow NITRITES negative REDUCING SUBSTANCES SPECIFIC GRAVITY 1.005 UROBILINOGEN negative BILIRUBIN negative BLOOD negative GLUCOSE negative KETONES negative pH 7 PROTEIN negative LEUKOCYTES trace CHLAMYDIA/GONOCOCCUS, by PCR 2017-08-10 C. trachomatis by PCR PCR GENITAL SPECIMEN N. gonorrhoeae by PCR Chlamydia trachomatis, JACQUELYN neg Neisseria gonorrhoeae, JACQUELYN neg Please note: Pap Lb, rfx HPV all pth 2016-12-30 . Note: . Clinical history: DIAGNOSIS: Specimen adequacy: Additional comment: Recommendation: Performed by: Electronically signed by: Test ordered: Maturation index: Amended report: Addendum: QC reviewed by: Cytology history: Special procedure: QA comment: Diagnosis provided by: Source: Pathologist provided ICD9: Clinician provided ICD9: Interpretation LBP CPT Code Automation CHLAMYDIA/GONOCOCCUS, by PCR 2016-12-30 C. trachomatis by PCR PCR GENITAL SPECIMEN N. 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 , [facility]SLEEP 1 year CPAP F/U (wireless connection), Rx request, NCPUL 1YR CPAP F/U (wireless connection), *SKEINS YARN EXAMINER heavy periods, Scheduled Mammogram 10/23/2020, SKEINS YARN EXAMINER discuss bleeding issues,FYI-bleeding, Refill request BC pills, Mammogram, SKEINS YARN EXAMINER EST , *SKEINS YARN EXAMINER amenorrhea need breast and pelvic, NCPUL 1YR CPAP F/U. This is a tele-visit due to the coronavirus pandemic., NCPUL 1 YR CPA F/U., rx refill req, clobetasol ointment Rx request, GI 3 month f/u, FYI-Prescription, lab results, GI chronic diarrhea/steatosis of liver, Pt states she has changed her diet and the diarrhea has gotten much better. , *SKEINS YARN EXAMINER STD testing-would like to be checked to see if she has HPV and she thinks that she slept with someone that has HSV-HW, SKEINS YARN EXAMINER EST STD TESTING REQUEST, NCPUL 6 MO CPAP F/U., SKEINS YARN EXAMINER STD & HPV testing, NCPUL 6mo CPAP f/up, BC refill , please call, SKEINS YARN EXAMINER PREG TEST, NO PERIOD X 2 YRS, Clobetasol Clarification, SKEINS YARN EXAMINER WELL WOMAN, NCPUL CPAP f/up, NS #1 , SKEINS YARN EXAMINER well woman, NCPUL 3mo CPAP f/up, NCPUL 1mo CPAP f/up, NCPUL 1mo CPAP f/up, NCPULM-1mo f/up CPAP, RESCHEDULED APPT, NCPUL new CPAP f/up , Forgot to get rx for BC pills., SKEINS YARN EXAMINER EST ? INF, shortness of breath, SKEINS YARN EXAMINER EST ? INF, NCPUL sleep study f/up, Study scored and ready for review., PSG , NCPUL sleep apnea , Refill request on Clobetasol, NCPUL sleep apnea , missed BCP, SKEINS YARN EXAMINER NEW SECOND OPINION & PAP SMEAR, HPV NEEDED, blood test results, GI - SPLENOMEGALY, HEPATOMEGALY, ABD PAIN AND BLOATING, frequent urine and bowel movements, Abdominal pain, Sple nomegaly, Steatosis of liver Insurance Providers [facility] Health Member Patient Patient Patient Patient Patient Subscriber Subscriber Subscriber Group Insurance Plan Plan Plan Plan ID Relationship Address Phone Name Date of ID Name Date of No Type Insurance Insurance Insurance Coverage to Subscriber Address Phone Name Dates MEDICARE [phone] MEDICARE self Nati [id number] PART A [id number] PART A Hem[address] [facility] [address] MEDICARE [address] MEDICARE self Nati [id number] [place] [address] MEDICARE [phone] MEDICARE self Nati [id number] PART A [id number] [place] [address]
--- OUTSIDE RECORDS SUMMARY | 2022-05-15 12:26 | XMS_ITS | Encounter Summary ---
:1980 Author Organization [facility] [place] [address] Care Team Providers Name Role Phone Eliana Pina MD Primary Care Provider Encounter Details Date Type Department Care Team Description 09/29/2011 Hospital Encounter MRI at [facility], [facility] Eliana Pina MD [address] [place] [address] [place] [address] Social History Tobacco Use Types Packs/Day [...] on filedocumented in this encounter Care Teams Data Control Assistant Relationship Specialty Start Date End Date Eliana Pina MD PCP - General 09/25/11 01/04/17 [address] [place] [address] documented as of this encounter
--- OUTSIDE RECORDS SUMMARY | 2022-05-15 12:26 | XMS_ITS | Encounter Summary ---
:1980 Author Organization [facility] [place] [address] Care Team Providers Name Role Phone Eliana Pina MD Primary Care Provider Encounter Details Date Type Department Care Team Description 10/09/2011 Hospital Encounter MRI at [facility] Eliana Pina MD [address] [place] [id number] [place] [address] Social History Tobacco Use Types Packs/Day [...] Routine documented in this encounter Care Teams Operations Research Scientist Relationship Specialty Start Date End Date Eliana Pina MD PCP - General 09/25/11 01/04/17 [address] [place] [address] documented as of this encounter
--- OUTSIDE RECORDS SUMMARY | 2022-05-15 12:26 | XMS_ITS | Encounter Summary ---
:1980 Author Organization [place] [address] Care Team Providers Name Role Phone Barbara Morton APRN Primary Care Provider Reason for Visit Reason Onset Date Comments Follow-up 07/09/2017 Encounter Details Date Type Department Care Team Description 07/09/2017 Telephone General Surgery at [facility] Maria R Kilgore APRN Follow-up [facility] [place] [phone] GENERAL SURGERY [phone] [place], [place] [address] (Wo rk) Social History Tobacco Use Types Packs/Day Years Used Date Never Assessed Sex Assigned at Date Recorded Not on file documented as of this encounter Miscellaneous Notes Telephone Encounter - Maria R Kilgore - 07/09/2017 2:01 PM EST Zenaida Bojoruqez called to report that Nati is in counseling with Giovani Ann, and has medication management with Odette Lee APRN in [facility] documented in this encounter Plan of Treatment Not on filedocumented as of this encounter Visit Diagnoses Not on filedocumented in this encounter Care Teams Ramp Flight Attendant Relationship Specialty Start Date End Date Barbara Morton APRN PCP - General Family Medicine 01/05/[address] [place] [address] documented as of this encounter
== END 2022-05-15 12:23 | disposition home or self-care (01) ==
LOC: LBO 12:23
PROVIDERS: PCP Nurse Practitioner Family; Visit Provider Psychiatry & Neurology Psychiatry
DX: F25.0 Schizoaffective disorder, bipolar type (principal); Z79.899 Other long term (current) drug therapy
CPT/HCPCS: 36415; 85025

== ENCOUNTER 2022-05-29 01:28 | Outpatient (CLI) | payer MEDICARE, SELFPAY ==
[2022-05-29 09:31] LABS: Abs Immature Grans 0.01 10^3/uL (0.0-0.06); Absolute Basophil Count 0.01 10^3/uL (0.0-0.2); Absolute Monocyte Count 0.39 10^3/uL (0.1-0.8); Absolute Neutrophil Count 4.82 10^3/uL (1.2-6.7); Basophils % 0.1; HCT 36.1 % (36.0-46.0); HGB 12.1 g/dL (11.2-15.7); Immature Grans % 0.1; Lymphocytes % 25.6; MCH 29.2 pg (27.0-33.0); MCHC 33.5 % (32.0-36.0); MCV 87 fL (80-95); MPV 10.7 fL (8.0-11.0); Monocytes % 5.5; Neutrophils % 68.7; Platelet Count 229 10^3/uL (130-400); RBC 4.14 10^6/uL (3.93-5.22); RDW-SD 41.2 fL; WBC 7.03 10^3/uL (4.4-10.8)
== END 2022-05-29 01:29 | disposition home or self-care (01) ==
LOC: LBO 01:28
PROVIDERS: PCP Nurse Practitioner Family; Visit Provider Psychiatry & Neurology Psychiatry
DX: F20.9 Schizophrenia, unspecified (principal); Z79.899 Other long term (current) drug therapy
CPT/HCPCS: 36415; 85025

== ENCOUNTER 2022-06-12 02:10 | Outpatient (CLI) | payer MEDICARE, SELFPAY ==
[2022-06-12 10:15] LABS: Abs Immature Grans 0.03 10^3/uL (0.0-0.06); Absolute Lymphocyte Count 1.59 10^3/uL (1.2-3.4); Absolute Monocyte Count 0.39 10^3/uL (0.1-0.8); Absolute Neutrophil Count 3.87 10^3/uL (1.2-6.7); HCT 36.5 % (36.0-46.0); HGB 12.1 g/dL (11.2-15.7); Immature Grans % 0.5; MCHC 33.2 % (32.0-36.0); MCV 88 fL (80-95); MPV 10.2 fL (8.0-11.0); Monocytes % 6.6; Neutrophils % 65.9; Platelet Count 200 10^3/uL (130-400); RBC 4.17 10^6/uL (3.93-5.22); RDW 13.1 % (11.7-14.6); RDW-SD 41.7 fL; WBC 5.88 10^3/uL (4.4-10.8)
== END 2022-06-12 02:11 | disposition home or self-care (01) ==
LOC: LBO 02:10
PROVIDERS: PCP Nurse Practitioner Family; Visit Provider Psychiatry & Neurology Psychiatry
DX: F25.0 Schizoaffective disorder, bipolar type (principal); Z79.899 Other long term (current) drug therapy
CPT/HCPCS: 36415; 85025

== ENCOUNTER 2022-07-08 02:26 | Outpatient (CLI) | payer MEDICARE, SELFPAY ==
[2022-07-08 10:03] LABS: Abs Immature Grans 0.02 10^3/uL (0.0-0.06); Absolute Eosinophil Count 0.01 10^3/uL (0.0-0.7); Absolute Lymphocyte Count 1.67 10^3/uL (1.2-3.4); Absolute Monocyte Count 0.41 10^3/uL (0.1-0.8); Absolute Neutrophil Count 5.66 10^3/uL (1.2-6.7); Eosinophils % 0.1; HGB 11.9 g/dL (11.2-15.7); Immature Grans % 0.3; Lymphocytes % 21.5; MCH 29.5 pg (27.0-33.0); MCV 87 fL (80-95); MPV 10.6 fL (8.0-11.0); Monocytes % 5.3; Neutrophils % 72.8; Platelet Count 234 10^3/uL (130-400); RBC 4.03 10^6/uL (3.93-5.22); RDW 13.4 % (11.7-14.6); WBC 7.77 10^3/uL (4.4-10.8)
== END 2022-07-08 02:27 | disposition home or self-care (01) ==
LOC: LBO 02:26
PROVIDERS: PCP Nurse Practitioner Family; Visit Provider Psychiatry & Neurology Psychiatry
DX: F25.0 Schizoaffective disorder, bipolar type (principal); Z79.899 Other long term (current) drug therapy
CPT/HCPCS: 36415; 85025

== ENCOUNTER 2022-07-24 01:18 | Outpatient (CLI) | payer MEDICARE, SELFPAY ==
[2022-07-24 09:36] LABS: Abs Immature Grans 0.02 10^3/uL (0.0-0.06); Absolute Eosinophil Count 0.01 10^3/uL (0.0-0.7); Absolute Lymphocyte Count 1.64 10^3/uL (1.2-3.4); Absolute Monocyte Count 0.32 10^3/uL (0.1-0.8); Absolute Neutrophil Count 3.26 10^3/uL (1.2-6.7); Eosinophils % 0.2; HCT 35.4 % (36.0-46.0); HGB 11.7 g/dL (11.2-15.7); Immature Grans % 0.4; Lymphocytes % 31.2; MCH 29.3 pg (27.0-33.0); MCHC 33.1 % (32.0-36.0); MCV 89 fL (80-95); MPV 10.3 fL (8.0-11.0); Monocytes % 6.1; Neutrophils % 62.1; Platelet Count 205 10^3/uL (130-400); RBC 3.99 10^6/uL (3.93-5.22); RDW 13.2 % (11.7-14.6); RDW-SD 43.5 fL; WBC 5.25 10^3/uL (4.4-10.8)
== END 2022-07-24 01:19 | disposition home or self-care (01) ==
LOC: LBO 01:18
PROVIDERS: PCP Nurse Practitioner Family; Visit Provider Psychiatry & Neurology Psychiatry
DX: Z79.899 Other long term (current) drug therapy (principal); F20.9 Schizophrenia, unspecified
CPT/HCPCS: 36415; 85025

== ENCOUNTER 2022-08-07 01:27 | Outpatient (CLI) | payer MEDICARE, SELFPAY ==
[2022-08-07 09:55] LABS: Abs Immature Grans 0.01 10^3/uL (0.0-0.06); Absolute Basophil Count 0.01 10^3/uL (0.0-0.2); Absolute Lymphocyte Count 1.45 10^3/uL (1.2-3.4); Absolute Neutrophil Count 3.53 10^3/uL (1.2-6.7); Basophils % 0.2; HCT 36.5 % (36.0-46.0); HGB 12.1 g/dL (11.2-15.7); Immature Grans % 0.2; Lymphocytes % 26.9; MCH 29.7 pg (27.0-33.0); MCHC 33.2 % (32.0-36.0); MCV 90 fL (80-95); MPV 10.3 fL (8.0-11.0); Monocytes % 7.4; Neutrophils % 65.3; Platelet Count 217 10^3/uL (130-400); RBC 4.08 10^6/uL (3.93-5.22); RDW 13.6 % (11.7-14.6); RDW-SD 44.5 fL
== END 2022-08-07 01:28 | disposition home or self-care (01) ==
LOC: LBO 01:27
PROVIDERS: PCP Nurse Practitioner Family; Visit Provider Psychiatry & Neurology Psychiatry
DX: F20.9 Schizophrenia, unspecified (principal); Z79.899 Other long term (current) drug therapy
CPT/HCPCS: 36415; 85025

== ENCOUNTER 2022-08-18 15:59 | Outpatient (REF) | payer MEDICARE, SELFPAY ==
[2022-08-20 15:45] LABS: Calprotectin <50.0 mcg/g
== END 2022-08-18 16:00 | disposition home or self-care (01) ==
LOC: LBN 15:59
PROVIDERS: PCP Nurse Practitioner Family; Visit Provider Nurse Practitioner Adult Health
DX: R19.7 Diarrhea, unspecified (principal)
CPT/HCPCS: 83993

== ENCOUNTER 2022-08-21 02:03 | Outpatient (CLI) | payer MEDICARE, SELFPAY ==
[2022-08-21 09:38] LABS: Abs Immature Grans 0.02 10^3/uL (0.0-0.06); Absolute Basophil Count 0.01 10^3/uL (0.0-0.2); Absolute Lymphocyte Count 1.73 10^3/uL (1.2-3.4); Absolute Monocyte Count 0.44 10^3/uL (0.1-0.8); Absolute Neutrophil Count 4.26 10^3/uL (1.2-6.7); Basophils % 0.2; HGB 11.6 g/dL (11.2-15.7); Immature Grans % 0.3; Lymphocytes % 26.8; MCH 28.8 pg (27.0-33.0); MCHC 32.2 % (32.0-36.0); MCV 89 fL (80-95); MPV 10.2 fL (8.0-11.0); Monocytes % 6.8; Neutrophils % 65.9; Platelet Count 217 10^3/uL (130-400); RBC 4.03 10^6/uL (3.93-5.22); RDW 13.2 % (11.7-14.6); RDW-SD 43.3 fL; WBC 6.46 10^3/uL (4.4-10.8)
== END 2022-08-21 02:04 | disposition home or self-care (01) ==
LOC: LBO 02:04
PROVIDERS: PCP Nurse Practitioner Family; Visit Provider Psychiatry & Neurology Psychiatry
DX: Z79.899 Other long term (current) drug therapy (principal); F20.9 Schizophrenia, unspecified
CPT/HCPCS: 36415; 85025

== ENCOUNTER 2022-09-04 01:52 | Outpatient (CLI) | payer MEDICARE, SELFPAY ==
[2022-09-04 09:39] LABS: Abs Immature Grans 0.01 10^3/uL (0.0-0.06); Absolute Basophil Count 0.01 10^3/uL (0.0-0.2); Absolute Lymphocyte Count 1.61 10^3/uL (1.2-3.4); Absolute Neutrophil Count 4.16 10^3/uL (1.2-6.7); Basophils % 0.2; HCT 35.7 % (36.0-46.0); HGB 11.9 g/dL (11.2-15.7); Immature Grans % 0.2; MCH 29.8 pg (27.0-33.0); MCHC 33.3 % (32.0-36.0); MCV 89 fL (80-95); MPV 10.5 fL (8.0-11.0); Monocytes % 6.5; Neutrophils % 67.1; Platelet Count 200 10^3/uL (130-400); RDW 13.5 % (11.7-14.6); RDW-SD 44.2 fL; WBC 6.19 10^3/uL (4.4-10.8)
== END 2022-09-04 01:53 | disposition home or self-care (01) ==
LOC: LBO 01:52
PROVIDERS: PCP Nurse Practitioner Family; Visit Provider Psychiatry & Neurology Psychiatry
DX: Z79.899 Other long term (current) drug therapy (principal); F20.9 Schizophrenia, unspecified
CPT/HCPCS: 36415; 85025

== ENCOUNTER 2022-09-18 02:18 | Outpatient (CLI) | payer MEDICARE, SELFPAY ==
[2022-09-18 14:56] LABS: Abs Immature Grans 0.01 10^3/uL (0.0-0.06); Absolute Eosinophil Count 0.01 10^3/uL (0.0-0.7); Absolute Lymphocyte Count 2.37 10^3/uL (1.2-3.4); Absolute Monocyte Count 0.46 10^3/uL (0.1-0.8); Absolute Neutrophil Count 2.78 10^3/uL (1.2-6.7); Eosinophils % 0.2; HCT 37.4 % (36.0-46.0); Immature Grans % 0.2; Lymphocytes % 42.1; MCH 29.5 pg (27.0-33.0); MCHC 34.8 % (32.0-36.0); MCV 85 fL (80-95); MPV 9.9 fL (8.0-11.0); Monocytes % 8.2; Neutrophils % 49.3; Platelet Count 261 10^3/uL (130-400); RBC 4.41 10^6/uL (3.93-5.22); RDW 12.6 % (11.7-14.6); RDW-SD 38.7 fL; WBC 5.63 10^3/uL (4.4-10.8)
== END 2022-09-18 02:19 | disposition home or self-care (01) ==
LOC: LBO 02:18
PROVIDERS: PCP Nurse Practitioner Family; Visit Provider Psychiatry & Neurology Psychiatry
DX: F20.9 Schizophrenia, unspecified (principal); Z79.899 Other long term (current) drug therapy
CPT/HCPCS: 36415; 85025

== ENCOUNTER 2022-09-29 19:08 | Outpatient (REF) | payer MEDICARE, SELFPAY ==
[2022-09-29 20:08] LABS: ALT 25 U/L (14-59); AST 23 U/L (15-37); Albumin 3.4 g/dL (3.4-5.0); Alkaline Phosphatase 85 U/L (46-116); Anion Gap 8.6 mmol/L (3-11); BUN 12 mg/dL (7-18); Bilirubin, Total 0.3 mg/dL (0.2-1.0); CO2 24.4 mmol/L (21.0-32.0); CREATININE 0.9 mg/dL (0.55-1.02); Calcium 8.8 mg/dL (8.5-10.1); Chloride 108 mmol/L (98-107); Estimated GFR 81.35 (mL/min/1.73m2); Glucose 111 mg/dL (74-106); Sodium 141 mmol/L (136-145); Total Protein 6.8 g/dL (6.4-8.2)
[2022-09-30 10:06] LABS: Hemoglobin A1C 5.3 % (<5.7)
[2022-09-30 10:15] LABS: TSH (W/Ref FT4) 1.59 uIU/mL (0.36-3.74)
== END 2022-09-29 19:09 | disposition home or self-care (01) ==
LOC: NCHCN 19:08
PROVIDERS: PCP Nurse Practitioner Family; Visit Provider Nurse Practitioner Family
DX: R73.03 Prediabetes (principal); E03.9 Hypothyroidism, unspecified; K76.0 Fatty (change of) liver, not elsewhere classified
CPT/HCPCS: 80053; 83036; 84443

== ENCOUNTER 2022-10-02 02:11 | Outpatient (CLI) | payer MEDICARE, SELFPAY ==
[2022-10-02 15:15] LABS: Abs Immature Grans 0.01 10^3/uL (0.0-0.06); Absolute Lymphocyte Count 1.94 10^3/uL (1.2-3.4); Absolute Neutrophil Count 2.78 10^3/uL (1.2-6.7); HCT 32.8 % (36.0-46.0); HGB 11.1 g/dL (11.2-15.7); Immature Grans % 0.2; Lymphocytes % 37.8; MCH 29.4 pg (27.0-33.0); MCHC 33.8 % (32.0-36.0); MCV 87 fL (80-95); MPV 10.7 fL (8.0-11.0); Monocytes % 7.8; Neutrophils % 54.2; Platelet Count 226 10^3/uL (130-400); RBC 3.78 10^6/uL (3.93-5.22); RDW 13.3 % (11.7-14.6); RDW-SD 41.7 fL; WBC 5.13 10^3/uL (4.4-10.8)
== END 2022-10-02 02:12 | disposition home or self-care (01) ==
LOC: LBO 02:13
PROVIDERS: PCP Nurse Practitioner Family; Visit Provider Psychiatry & Neurology Psychiatry
DX: F20.9 Schizophrenia, unspecified (principal); Z79.899 Other long term (current) drug therapy
CPT/HCPCS: 36415; 85025

== ENCOUNTER 2022-11-02 11:29 | Outpatient (CLI) | payer MEDICARE, SELFPAY ==
[2022-11-02 10:53] LABS: Abs Immature Grans 0.02 10^3/uL (0.0-0.06); Absolute Lymphocyte Count 1.69 10^3/uL (1.2-3.4); Absolute Monocyte Count 0.31 10^3/uL (0.1-0.8); Absolute Neutrophil Count 3.62 10^3/uL (1.2-6.7); HCT 36.1 % (36.0-46.0); HGB 12.2 g/dL (11.2-15.7); Immature Grans % 0.4; MCH 29.5 pg (27.0-33.0); MCHC 33.8 % (32.0-36.0); MCV 87 fL (80-95); MPV 10.8 fL (8.0-11.0); Monocytes % 5.5; Neutrophils % 64.1; Platelet Count 225 10^3/uL (130-400); RBC 4.14 10^6/uL (3.93-5.22); RDW 13.7 % (11.7-14.6); RDW-SD 43.3 fL; WBC 5.64 10^3/uL (4.4-10.8)
== END 2022-11-02 11:30 | disposition home or self-care (01) ==
LOC: LBO 11:30
PROVIDERS: PCP Nurse Practitioner Family; Visit Provider Psychiatry & Neurology Psychiatry
DX: F20.9 Schizophrenia, unspecified (principal); Z79.899 Other long term (current) drug therapy
CPT/HCPCS: 36415; 85025

== ENCOUNTER 2022-12-01 14:50 | Outpatient (CLI) | payer MEDICARE, SELFPAY ==
[2022-12-01 12:04] LABS: Abs Immature Grans 0.01 10^3/uL (0.0-0.06); Absolute Lymphocyte Count 1.79 10^3/uL (1.2-3.4); Absolute Monocyte Count 0.33 10^3/uL (0.1-0.8); Absolute Neutrophil Count 3.52 10^3/uL (1.2-6.7); HCT 38.9 % (36.0-46.0); HGB 12.9 g/dL (11.2-15.7); Immature Grans % 0.2; Lymphocytes % 31.7; MCH 29.1 pg (27.0-33.0); MCHC 33.2 % (32.0-36.0); MCV 88 fL (80-95); MPV 10.1 fL (8.0-11.0); Monocytes % 5.8; Neutrophils % 62.3; Platelet Count 220 10^3/uL (130-400); RBC 4.43 10^6/uL (3.93-5.22); RDW 13.2 % (11.7-14.6); RDW-SD 42.6 fL; WBC 5.65 10^3/uL (4.4-10.8)
[2022-12-04 17:46] LABS: Clozapine 80 ng/mL (350-600); Clozapine+Norclozapine Total 134 ng/mL; Norclozapine 54 ng/mL
== END 2022-12-01 14:51 | disposition home or self-care (01) ==
LOC: LBO 14:50
PROVIDERS: PCP Nurse Practitioner Family; Visit Provider Nurse Practitioner Psychiatric/Mental Health
DX: F25.0 Schizoaffective disorder, bipolar type (principal); Z79.899 Other long term (current) drug therapy; Z51.81 Encounter for therapeutic drug level monitoring
CPT/HCPCS: 36415; 80159; 85025

== ENCOUNTER 2022-12-11 02:38 | Outpatient (CLI) | payer MEDICARE, SELFPAY ==
[2022-12-11 14:58] LABS: Abs Immature Grans 0.01 10^3/uL (0.0-0.06); Absolute Eosinophil Count 0.01 10^3/uL (0.0-0.7); Absolute Lymphocyte Count 2.28 10^3/uL (1.2-3.4); Absolute Monocyte Count 0.44 10^3/uL (0.1-0.8); Absolute Neutrophil Count 3.63 10^3/uL (1.2-6.7); Eosinophils % 0.2; HCT 38.1 % (36.0-46.0); HGB 12.9 g/dL (11.2-15.7); Immature Grans % 0.2; Lymphocytes % 35.8; MCH 29.3 pg (27.0-33.0); MCHC 33.9 % (32.0-36.0); MCV 87 fL (80-95); MPV 9.8 fL (8.0-11.0); Monocytes % 6.9; Neutrophils % 56.9; Platelet Count 254 10^3/uL (130-400); RDW 12.9 % (11.7-14.6); RDW-SD 40.9 fL; WBC 6.37 10^3/uL (4.4-10.8)
== END 2022-12-11 02:39 | disposition home or self-care (01) ==
PROVIDERS: PCP Nurse Practitioner Family; Visit Provider Counselor Addiction (Substance Use Disorder)
DX: F20.9 Schizophrenia, unspecified (principal); Z79.899 Other long term (current) drug therapy
CPT/HCPCS: 36415; 85025

== ENCOUNTER 2022-12-31 16:19 | Outpatient (CLI) | payer MEDICARE, SELFPAY ==
[2022-12-31 15:12] LABS: Abs Immature Grans 0.02 10^3/uL (0.0-0.06); Absolute Lymphocyte Count 1.93 10^3/uL (1.2-3.4); Absolute Monocyte Count 0.35 10^3/uL (0.1-0.8); Absolute Neutrophil Count 2.79 10^3/uL (1.2-6.7); HCT 34.6 % (36.0-46.0); Immature Grans % 0.4; Lymphocytes % 37.9; MCH 30.3 pg (27.0-33.0); MCHC 34.7 % (32.0-36.0); MCV 87 fL (80-95); MPV 10.5 fL (8.0-11.0); Monocytes % 6.9; Neutrophils % 54.8; Platelet Count 206 10^3/uL (130-400); RBC 3.96 10^6/uL (3.93-5.22); RDW 13.5 % (11.7-14.6); RDW-SD 42.6 fL; WBC 5.09 10^3/uL (4.4-10.8)
[2023-01-05 04:15] LABS: Clozapine 100 ng/mL (350-600); Clozapine+Norclozapine Total 177 ng/mL; Norclozapine 77 ng/mL
== END 2022-12-31 16:20 | disposition home or self-care (01) ==
LOC: LBO 16:21
PROVIDERS: PCP Nurse Practitioner Family; Visit Provider Counselor Addiction (Substance Use Disorder)
DX: F20.9 Schizophrenia, unspecified (principal); Z79.899 Other long term (current) drug therapy
CPT/HCPCS: 36415; 80159; 85025

== ENCOUNTER 2023-01-14 16:25 | Outpatient (CLI) | payer MEDICARE, SELFPAY ==
[2023-01-15 07:08] LABS: Abs Immature Grans 0.01 10^3/uL (0.0-0.06); Absolute Eosinophil Count 0.01 10^3/uL (0.0-0.7); Absolute Lymphocyte Count 2.29 10^3/uL (1.2-3.4); Absolute Monocyte Count 0.43 10^3/uL (0.1-0.8); Absolute Neutrophil Count 4.07 10^3/uL (1.2-6.7); Eosinophils % 0.1; HCT 35.8 % (36.0-46.0); HGB 12.1 g/dL (11.2-15.7); Immature Grans % 0.1; Lymphocytes % 33.7; MCHC 33.8 % (32.0-36.0); MCV 89 fL (80-95); MPV 11.4 fL (8.0-11.0); Monocytes % 6.3; Neutrophils % 59.8; Platelet Count 244 10^3/uL (130-400); RBC 4.03 10^6/uL (3.93-5.22); RDW 13.3 % (11.7-14.6); RDW-SD 43.2 fL
[2023-01-15 07:11] LABS: WBC 6.81 10^3/uL (4.4-10.8)
[2023-01-19 01:47] LABS: Clozapine 105 ng/mL (350-600); Clozapine+Norclozapine Total 164 ng/mL; Norclozapine 59 ng/mL
== END 2023-01-14 16:26 | disposition home or self-care (01) ==
LOC: LBO 16:25
PROVIDERS: PCP Nurse Practitioner Family; Visit Provider Nurse Practitioner Psychiatric/Mental Health
DX: Z79.899 Other long term (current) drug therapy (principal)
CPT/HCPCS: 36415; 85048; 80159; 85025

== ENCOUNTER 2023-01-28 02:12 | Outpatient (CLI) | payer MEDICARE, SELFPAY ==
[2023-01-28 15:09] LABS: Abs Immature Grans 0.01 10^3/uL (0.0-0.06); Absolute Basophil Count 0.01 10^3/uL (0.0-0.2); Absolute Eosinophil Count 0.01 10^3/uL (0.0-0.7); Absolute Lymphocyte Count 2.06 10^3/uL (1.2-3.4); Absolute Monocyte Count 0.38 10^3/uL (0.1-0.8); Absolute Neutrophil Count 2.81 10^3/uL (1.2-6.7); Basophils % 0.2; Eosinophils % 0.2; HCT 36.6 % (36.0-46.0); HGB 12.6 g/dL (11.2-15.7); Immature Grans % 0.2; MCH 30.4 pg (27.0-33.0); MCHC 34.4 % (32.0-36.0); MCV 88 fL (80-95); MPV 10.3 fL (8.0-11.0); Monocytes % 7.2; Neutrophils % 53.2; Platelet Count 210 10^3/uL (130-400); RBC 4.14 10^6/uL (3.93-5.22); RDW 13.4 % (11.7-14.6); RDW-SD 43.6 fL; WBC 5.28 10^3/uL (4.4-10.8)
[2023-02-01 18:07] LABS: Clozapine 82 ng/mL (350-600); Clozapine+Norclozapine Total 163 ng/mL; Norclozapine 81 ng/mL
== END 2023-01-28 02:13 | disposition home or self-care (01) ==
LOC: LBO 02:12
PROVIDERS: PCP Nurse Practitioner Family; Visit Provider Nurse Practitioner Psychiatric/Mental Health
DX: Z79.899 Other long term (current) drug therapy (principal); F20.9 Schizophrenia, unspecified
CPT/HCPCS: 36415; 80159; 85025

== ENCOUNTER 2023-02-09 18:29 | Outpatient (CLI) | payer MEDICARE, SELFPAY ==
[2023-02-09 15:20] LABS: HCT 35.2 % (36.0-46.0); HGB 11.9 g/dL (11.2-15.7); MCH 30.2 pg (27.0-33.0); MCHC 33.8 % (32.0-36.0); MCV 89 fL (80-95); RBC 3.94 10^6/uL (3.93-5.22); RDW 13.1 % (11.7-14.6); RDW-SD 42.7 fL; WBC 6.33 10^3/uL (4.4-10.8)
[2023-02-09 15:21] LABS: Abs Immature Grans 0.02 10^3/uL (0.0-0.06); Absolute Lymphocyte Count 2.12 10^3/uL (1.2-3.4); Absolute Monocyte Count 0.38 10^3/uL (0.1-0.8); Absolute Neutrophil Count 3.81 10^3/uL (1.2-6.7); Immature Grans % 0.3; Lymphocytes % 33.5; MPV 10.3 fL (8.0-11.0); Neutrophils % 60.2; Platelet Count 243 10^3/uL (130-400)
== END 2023-02-09 18:30 | disposition home or self-care (01) ==
LOC: LBO 18:29
PROVIDERS: PCP Nurse Practitioner Family; Visit Provider Counselor Addiction (Substance Use Disorder)
DX: F20.9 Schizophrenia, unspecified (principal); Z79.899 Other long term (current) drug therapy
CPT/HCPCS: 36415; 85025

== ENCOUNTER 2023-02-23 03:11 | Outpatient (CLI) | payer MEDICARE, SELFPAY ==
[2023-02-23 15:14] LABS: Abs Immature Grans 0.01 10^3/uL (0.0-0.06); Absolute Lymphocyte Count 1.93 10^3/uL (1.2-3.4); Absolute Monocyte Count 0.34 10^3/uL (0.1-0.8); Absolute Neutrophil Count 3.34 10^3/uL (1.2-6.7); HCT 37.6 % (36.0-46.0); HGB 12.8 g/dL (11.2-15.7); Immature Grans % 0.2; Lymphocytes % 34.3; MCV 88 fL (80-95); MPV 10.3 fL (8.0-11.0); Neutrophils % 59.5; Platelet Count 220 10^3/uL (130-400); RBC 4.27 10^6/uL (3.93-5.22); RDW 12.9 % (11.7-14.6); RDW-SD 41.5 fL; WBC 5.62 10^3/uL (4.4-10.8)
== END 2023-02-23 03:12 | disposition home or self-care (01) ==
LOC: LBO 03:11
PROVIDERS: PCP Nurse Practitioner Family; Visit Provider Counselor Addiction (Substance Use Disorder)
DX: F20.9 Schizophrenia, unspecified (principal); Z79.899 Other long term (current) drug therapy
CPT/HCPCS: 36415; 85025

== ENCOUNTER → 2023-02-25 14:04 | Outpatient (BNVA) | payer MEDICARE, SELFPAY | PROVIDERS: PCP Nurse Practitioner Family; Referring Provider Nurse Practitioner Family; Visit Provider Surgery | DX: R19.7 Diarrhea, unspecified (principal); R10.11 Right upper quadrant pain; K21.9 Gastro-esophageal reflux disease without esophagitis | CPT/HCPCS: 99215 ==

== ENCOUNTER 2023-03-12 03:42 | Outpatient (CLI) | payer MEDICARE, SELFPAY ==
[2023-03-12 17:02] LABS: Abs Immature Grans 0.01 10^3/uL (0.0-0.06); Absolute Lymphocyte Count 1.83 10^3/uL (1.2-3.4); Absolute Monocyte Count 0.44 10^3/uL (0.1-0.8); Absolute Neutrophil Count 2.95 10^3/uL (1.2-6.7); HCT 36.3 % (36.0-46.0); HGB 12.4 g/dL (11.2-15.7); Immature Grans % 0.2; MCHC 34.2 % (32.0-36.0); MCV 88 fL (80-95); MPV 10.4 fL (8.0-11.0); Monocytes % 8.4; Neutrophils % 56.4; Platelet Count 205 10^3/uL (130-400); RBC 4.14 10^6/uL (3.93-5.22); RDW 12.5 % (11.7-14.6); WBC 5.23 10^3/uL (4.4-10.8)
[2023-03-12 19:05] LABS: TSH (W/Ref FT4) 3.44 uIU/mL (0.36-3.74)
== END 2023-03-12 03:43 | disposition home or self-care (01) ==
LOC: LBO 03:43
PROVIDERS: Surgery; PCP Nurse Practitioner Family; Visit Provider Counselor Addiction (Substance Use Disorder)
DX: E03.9 Hypothyroidism, unspecified (principal); F20.9 Schizophrenia, unspecified; Z79.899 Other long term (current) drug therapy
CPT/HCPCS: 36415; 84443; 85025

== ENCOUNTER 2023-03-25 15:17 | Outpatient (CLI) | payer MEDICARE, SELFPAY ==
[2023-03-25 15:23] LABS: Abs Immature Grans 0.01 10^3/uL (0.0-0.06); Absolute Basophil Count 0.01 10^3/uL (0.0-0.2); Absolute Eosinophil Count 0.01 10^3/uL (0.0-0.7); Absolute Lymphocyte Count 2.07 10^3/uL (1.2-3.4); Absolute Monocyte Count 0.44 10^3/uL (0.1-0.8); Absolute Neutrophil Count 3.25 10^3/uL (1.2-6.7); Basophils % 0.2; Eosinophils % 0.2; HCT 37.7 % (36.0-46.0); HGB 12.6 g/dL (11.2-15.7); Immature Grans % 0.2; Lymphocytes % 35.8; MCH 29.5 pg (27.0-33.0); MCHC 33.4 % (32.0-36.0); MCV 88 fL (80-95); MPV 10.3 fL (8.0-11.0); Monocytes % 7.6; Platelet Count 237 10^3/uL (130-400); RBC 4.27 10^6/uL (3.93-5.22); RDW 12.7 % (11.7-14.6); WBC 5.79 10^3/uL (4.4-10.8)
== END 2023-03-25 15:18 | disposition home or self-care (01) ==
LOC: LBO 15:18
PROVIDERS: PCP Nurse Practitioner Family; Visit Provider Counselor Addiction (Substance Use Disorder)
DX: F20.9 Schizophrenia, unspecified (principal); Z79.899 Other long term (current) drug therapy
CPT/HCPCS: 36415; 85025

== ENCOUNTER 2023-04-08 05:07 | Outpatient (CLI) | payer MEDICARE, SELFPAY ==
[2023-04-08 16:18] LABS: Abs Immature Grans 0.02 10^3/uL (0.0-0.06); Absolute Monocyte Count 0.41 10^3/uL (0.1-0.8); Absolute Neutrophil Count 4.06 10^3/uL (1.2-6.7); HCT 37.4 % (36.0-46.0); HGB 12.6 g/dL (11.2-15.7); Immature Grans % 0.3; Lymphocytes % 31.9; MCH 29.7 pg (27.0-33.0); MCHC 33.7 % (32.0-36.0); MCV 88 fL (80-95); MPV 10.9 fL (8.0-11.0); Monocytes % 6.2; Neutrophils % 61.6; Platelet Count 241 10^3/uL (130-400); RBC 4.24 10^6/uL (3.93-5.22); RDW 12.7 % (11.7-14.6); RDW-SD 40.9 fL; WBC 6.59 10^3/uL (4.4-10.8)
== END 2023-04-08 05:08 | disposition home or self-care (01) ==
LOC: LBO 05:07
PROVIDERS: PCP Nurse Practitioner Family; Visit Provider Counselor Addiction (Substance Use Disorder)
DX: F20.9 Schizophrenia, unspecified (principal); Z79.899 Other long term (current) drug therapy
CPT/HCPCS: 36415; 85025

== ENCOUNTER 2023-04-11 18:40 | Emergency (ER) | payer MEDICARE, SELFPAY ==
[2023-04-11] VITALS (20 sets, daily range): BP systolic 153–161; BP diastolic 83–97; PULSE 64–73; RESP 14–26; TEMP 36.7; O2SAT 98–99
--- NOTE | 2023-04-11 18:30 | RT.EKG_ITS ---
APPROVED REPORT Exam: Resting ECG Reason for Exam: chest pain Patient Location: E HR:66 bpm ECG Measurements Heart Rate 66 AXIS NJ 123 P 52 QRSd 81 QRS 1 QT 410 T 22 QTc 428 Conclusion Sinus rhythm...normal P axis, V-rate 60- 99 PHysician: no stemi
--- NOTE | 2023-04-11 19:05 | W.ED.GENAD ---
Discharge Plan Disposition Patient Disposition: Home Discharge Details Chief Complaint: Chest Pain Clinical Impression: GERD (gastroesophageal reflux disease) Primary Care Provider: MARS SÁNCHEZ ED Provider: Abhilash Hogan Home Meds and New Rx's Prescriptions: No Action norgestimate-ethinyl estradiol [Sprintec (28)] 0.25-35 mg-mcg tablet 1 tab PO DAILY clozapine 100 mg tablet 100 mg PO DAILY topiramate [Topamax] 100 mg tablet 100 mg PO BID lurasidone [Latuda] 80 mg tablet 80 mg PO DAILY Rx Instructions: must administer with food (at least 350 calories) berberbine PO levothyroxine 25 mcg capsule 25 mcg PO DAILY acetylcysteine [NAC] 600 mg capsule 600 mg PO BID dexlansoprazole [Dexilant] 30 MG capsule,biphase delayed releas 30 mg PO DAILY naltrexone 50 mg Tablet 100 mg PO DAILY Discharge Instructions Instructions: GERD (Gastroesophageal Reflux Disease) (ED) Additional Instructions: At this time your symptoms appear consistent with mild irritation of your stomach. Thankfully there is no evidence of heart attack or other abnormality. Please continue to take Pepto-Bismol and Tums at home as needed. Avoid spicy foods, tomato-based foods, citrus foods, mint based foods. If you notice any worsening of your symptoms, or any new symptoms such as vomiting, diarrhea, fever, chills, shortness of breath, chest pain, numbness, weakness, or fainting , please return immediately to the emergency department for reevaluation. Please follow up with your primary care provider as soon as possible for reassessment and reevaluation. As always, it was a pleasure participating in your medical care today. Referrals: MARS SÁNCHEZ, GREEN CHAIN PULLER [Primary Care Provider] - Medical Decision Making 42-year-old female with a past medical history of GERD, diabetes, hypothyroidism, control use, borderline personality disorder, lung nodule, presents today for evaluation of chest and epigastric pain. Patient states that starting yesterday she had sharp and burning chest and epigastric pain that has radiated throughout various aspects of the abdomen into the chest. Right now the symptoms have somewhat improved. She is uncertain what causes aggravating or relieving components. She states that she has had this before and normally it is just gas and it needs to just work its way through her. She denies any vomiting or diarrhea. She denies any shortness of breath. She denies any recent long trips surgeries or procedures. She does have a distant history of tobacco use. She does have a family history of cardiac disease. No other complaints at this time. No other modifying factors. She does have an EGD and colonoscopy visit scheduled in [place]. Physical exam demonstrates a well-appearing female, mild achiness throughout on palpation of the abdomen. No guarding or rebound though to suggest an acute surgical process. Differential is broad, but does include GERD, reflux, he had per the patient's history potentially gas. Cardiac and pulmonary embolism etiology less likely. Will evaluate for these concerning etiologies though, monitor closely and reassess. Will give Bentyl and Zofran in the meantime. EKG shows no evidence of STEMI. 8:49 PM Patient's laboratory work-up is returned, troponin normal, D-dimer normal, electrolytes normal. After GI cocktail patient has notable improvement of her symptoms. She states that she feels well and feels comfortable going home. Symptoms at this time appear inconsistent with ACS or PE. However symptoms rather appear consistent with reflux/GERD. Patient will be discharged home. Discussed red flags for which to return. I have extensively reviewed the treatment plan and discharge instructions with the patient. I have addressed all patient concerns at this time. The patient was made aware of what symptoms to monitor for that would warrant a return to the emergency department. Discussed the plan with the patient, they demonstrate verbal understanding and agreement with our assessment and plan at this time. The documentation in this chart was dictated using [employer] dictation software. Please excuse any dictation errors. HPI General Date/Time Provider Initiated Documentation: 04/11/23 18:44. HPI Narrative: 42-year-old female with a past medical history of GERD, diabetes, hypothyroidism, control use, borderline personality disorder, lung nodule, presents today for evaluation of chest and epigastric pain. Patient states that starting yesterday she had sharp and burning chest and epigastric pain that has radiated throughout various aspects of the abdomen into the chest. Right now the symptoms have somewhat improved. She is uncertain what causes aggravating or relieving components. She states that she has had this before and normally it is just gas and it needs to just work its way through her. She denies any vomiting or diarrhea. She denies any shortness of breath. She denies any recent long trips surgeries or procedures. She does have a distant history of tobacco use. She does have a family history of cardiac disease. No other complaints at this time. No other modifying factors. She does have an EGD and colonoscopy visit scheduled in [place]. Related Data Home Medications Medication Instructions Recorded Confirmed dexlansoprazole 30 mg 30 mg PO DAILY 02/24/18 04/11/23 capsule,biphase delayed release (Dexilant) naltrexone 50 mg tablet 100 mg PO DAILY 08/23/19 02/25/23 acetylcysteine 600 mg capsule (NAC) 600 mg PO BID 02/15/23 04/11/23 berberbine PO 02/15/23 02/25/23 clozapine 100 mg tablet 100 mg PO DAILY 02/15/23 04/11/23 levothyroxine 25 mcg capsule 25 mcg PO DAILY 02/15/23 04/11/23 lurasidone 80 mg tablet (Latuda) 80 mg PO DAILY 02/15/23 04/11/23 topiramate 100 mg tablet (Topamax) 100 mg PO BID 02/15/23 04/11/23 norgestimate 0.25 mg-ethinyl 1 tab PO DAILY 02/25/23 04/11/23 estradiol 35 mcg tablet (Sprintec (28)) Allergies Allergy/AdvReac Type Severity Reaction Status Date / Time sulfamethoxazole Allergy Severe fever, Verified 02/25/23 14:10 [From Bactrim] rash,throat swelling? trimethoprim [From Bactrim] Allergy Severe fever, Verified 02/25/23 14:10 rash,throat swelling? pantoprazole [From Protonix] AdvReac Mild Nausea Unverified 02/25/23 14:10 General Stated Complaint: Chest Pain GINNY: 3 Review of Systems All systems reviewed & are unremarkable except as noted in HPI and below PFSH All Active Problems (Updated 04/11/23 @ 20:46 by Abhilash Hogan DO) RUQ abdominal pain (Acute) Obstructive sleep apnea of adult (Acute) Abdominal pain (Acute) Chronic diarrhea (Acute) Diarrhea (Acute) Acute dehydration (Acute) Hypokalemia due to loss of potassium (Acute) Postop check (Acute) SURINDER on CPAP (Chronic) Schizoaffective disorder (Acute) GERD (gastroesophageal reflux disease) (Acute) Pneumonia (Acute) Rash (Acute) Hypothyroid (Chronic) Abnormal uterine bleeding (Acute) Discharge planning issues (Acute) DVT prophylaxis (Acute ~08/22/19) Chest pain (Acute) Fracture of distal phalanx of finger of right hand (Acute) Psychosis (Acute) Medical History Borderline diabetes Borderline personality disorder Hepatomegaly History of tobacco use Hypothyroidism Irregular menstrual cycle Morbid drug-induced obesity Plantar fasciitis Polycystic ovaries Solitary lung nodule Splenomegaly Steatosis of liver Surgical History History of colposcopy Family History Mother Cancer - ? type of cancer Father Diabetes Heart disease Social History Smoking/Tobacco Use Status: Former Tobacco Use Smoking risk assessment performed?: Yes Alcohol Intake: current Alcohol Intake frequency: holidays/special occasions only Drug use: Never Substance use type: does not use Do you feel safe at home: Yes Do you feel safe in your relationship?: Yes Additional Social history: Heavy tobacco smoker for 20 years, [id number] history, quit in 2011. Minimal alcohol. No other drugs. Lives alone. 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 No sexual partners in the past year. Exam Narrative Exam Narrative: 1.Const: Well-nourished, Well-developed, appearing stated age 2.Eyes: PERRL, no conjunctival injection, and symmetrical lids. 3.ENT: Atraumatic external nose and ears. Moist MM. Neck: Symmetric, trachea midline, No thyromegaly. 4.CVS: +S1/S2, No murmurs or gallops. Peripheral pulses 2+ and equal in all extremities. Brisk capillary refill in all extremities. 5.RESP: Unlabored respiratory effort. Clear to auscultation bilaterally. No wheezes rales or rhonchi 6.GI: Soft, nondistended, no guarding or rebound. Mild achiness throughout on palpation. No evidence of acute surgical abdomen. 7.MSK: Normocephalic/Atraumatic, Extremities w/o deformity or ttp No cyanosis or clubbing, Normal movement of all extremities 8.Skin: Warm, Dry. No rashes or lesions. 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 Sensation grossly intact, no focal neurologic deficits. 10.Psych: (AAO) x3. Appropriate mood and affect Course Vital Signs Vital signs: Vital Signs Temperature 36.7 C 04/11/23 18:45 Pulse 73 04/11/23 18:45 Respiratory Rate 22 04/11/23 18:45 Blood Pressure 153/86 H 04/11/23 18:45 Pulse Oximetry 99 04/11/23 18:45 Temperature 36.7 C 04/11/23 18:45 Temperature Source Oral 04/11/23 18:45 Pulse 73 04/11/23 18:45 Respiratory Rate 22 04/11/23 18:45 Blood Pressure 153/86 H 04/11/23 18:45 Blood Pressure Position Supine 04/11/23 18:45 Pulse Oximetry 99 04/11/23 18:45 Oxygen Delivery Method Room Air 04/11/23 18:45 Oxygen Flow Rate 0 04/11/23 18:45
[2023-04-11 19:29] LABS: Abs Immature Grans 0.02 10^3/uL (0.0-0.06); Absolute Basophil Count 0.01 10^3/uL (0.0-0.2); Absolute Lymphocyte Count 2.35 10^3/uL (1.2-3.4); Absolute Monocyte Count 0.46 10^3/uL (0.1-0.8); Absolute Neutrophil Count 3.26 10^3/uL (1.2-6.7); Basophils % 0.2; HCT 35.5 % (36.0-46.0); Immature Grans % 0.3; Lymphocytes % 38.5; MCH 29.7 pg (27.0-33.0); MCHC 33.8 % (32.0-36.0); MCV 88 fL (80-95); MPV 10.2 fL (8.0-11.0); Monocytes % 7.5; Neutrophils % 53.5; Platelet Count 225 10^3/uL (130-400); RBC 4.04 10^6/uL (3.93-5.22); RDW 12.4 % (11.7-14.6); RDW-SD 40.3 fL
[2023-04-11] MEDS: Dicyclomine 10 MG CAP PO (19:49)
[2023-04-11] MEDS: Ondansetron 4 MG/2 ML VIAL IVP (19:49)
[2023-04-11 19:50] LABS: ALT 19 U/L (14-59); AST 20 U/L (15-37); Albumin 3.1 g/dL (3.4-5.0); Alkaline Phosphatase 74 U/L (46-116); Anion Gap 8.6 mmol/L (3-11); BUN 10 mg/dL (7-18); Bilirubin, Total 0.2 mg/dL (0.2-1.0); CO2 24.4 mmol/L (21.0-32.0); CREATININE 0.8 mg/dL (0.55-1.02); Calcium 8.8 mg/dL (8.5-10.1); Chloride 107 mmol/L (98-107); Glucose 124 mg/dL (74-106); Lipase 51 U/L (16-77); Potassium 3.4 mmol/L (3.5-5.1); Sodium 140 mmol/L (136-145); Total Protein 6.8 g/dL (6.4-8.2); Troponin I < 50 ng/L (<or=60)
[2023-04-11 19:58] LABS: D-Dimer 388 ng/mlFEU (<500)
== END 2023-04-11 20:59 | disposition home or self-care (01) ==
PROVIDERS: Emergency Provider Student in an Organized Health Care Education/Training Program; PCP Nurse Practitioner Family
DX: K21.9 Gastro-esophageal reflux disease without esophagitis (principal)
CPT/HCPCS: 36415; 80053; 83690; 93005; 96374; 99284; 84484; 85025; 85379; 93010; J2405

== ENCOUNTER 2023-04-16 15:36 | Outpatient (REF) | payer MEDICARE, SELFPAY | END 2023-04-16 15:37 | disposition home or self-care (01) | LOC: NCHCN 15:36 | PROVIDERS: PCP Nurse Practitioner Family; Visit Provider Nurse Practitioner Family | DX: R30.0 Dysuria (principal) | CPT/HCPCS: 87077; 87086; 87186 ==

== ENCOUNTER 2023-04-22 01:16 | Outpatient (CLI) | payer MEDICARE, SELFPAY ==
[2023-04-22 15:28] LABS: Abs Immature Grans 0.01 10^3/uL (0.0-0.06); Absolute Basophil Count 0.01 10^3/uL (0.0-0.2); Absolute Lymphocyte Count 2.42 10^3/uL (1.2-3.4); Absolute Monocyte Count 0.44 10^3/uL (0.1-0.8); Absolute Neutrophil Count 3.83 10^3/uL (1.2-6.7); Basophils % 0.1; HCT 37.1 % (36.0-46.0); HGB 12.7 g/dL (11.2-15.7); Immature Grans % 0.1; Lymphocytes % 36.1; MCH 29.7 pg (27.0-33.0); MCHC 34.2 % (32.0-36.0); MCV 87 fL (80-95); MPV 10.5 fL (8.0-11.0); Monocytes % 6.6; Neutrophils % 57.1; Platelet Count 248 10^3/uL (130-400); RBC 4.28 10^6/uL (3.93-5.22); RDW 12.6 % (11.7-14.6); RDW-SD 39.5 fL; WBC 6.71 10^3/uL (4.4-10.8)
== END 2023-04-22 01:17 | disposition home or self-care (01) ==
LOC: LBO 01:16
PROVIDERS: PCP Nurse Practitioner Family; Visit Provider Counselor Addiction (Substance Use Disorder)
DX: Z79.899 Other long term (current) drug therapy (principal); F20.9 Schizophrenia, unspecified
CPT/HCPCS: 36415; 85025

== ENCOUNTER 2023-05-06 03:57 | Outpatient (CLI) | payer MEDICARE, SELFPAY ==
[2023-05-06 14:47] LABS: Abs Immature Grans 0.02 10^3/uL (0.0-0.06); Absolute Eosinophil Count 0.01 10^3/uL (0.0-0.7); Absolute Lymphocyte Count 2.11 10^3/uL (1.2-3.4); Absolute Monocyte Count 0.34 10^3/uL (0.1-0.8); Absolute Neutrophil Count 3.05 10^3/uL (1.2-6.7); Eosinophils % 0.2; HCT 35.8 % (36.0-46.0); HGB 12.3 g/dL (11.2-15.7); Immature Grans % 0.4; Lymphocytes % 38.2; MCH 30.2 pg (27.0-33.0); MCHC 34.4 % (32.0-36.0); MCV 88 fL (80-95); MPV 10.7 fL (8.0-11.0); Monocytes % 6.1; Neutrophils % 55.1; Platelet Count 218 10^3/uL (130-400); RBC 4.07 10^6/uL (3.93-5.22); RDW 12.7 % (11.7-14.6); WBC 5.53 10^3/uL (4.4-10.8)
== END 2023-05-06 03:58 | disposition home or self-care (01) ==
LOC: LBO 03:58
PROVIDERS: PCP Nurse Practitioner Family; Visit Provider Counselor Addiction (Substance Use Disorder)
DX: F20.9 Schizophrenia, unspecified (principal); Z79.899 Other long term (current) drug therapy
CPT/HCPCS: 36415; 85025

== ENCOUNTER 2023-05-18 19:39 | Outpatient (CLI) | payer MEDICARE, SELFPAY ==
[2023-05-18 15:28] LABS: Abs Immature Grans 0.01 10^3/uL (0.0-0.06); Absolute Basophil Count 0.01 10^3/uL (0.0-0.2); Absolute Lymphocyte Count 2.17 10^3/uL (1.2-3.4); Absolute Neutrophil Count 3.11 10^3/uL (1.2-6.7); Basophils % 0.2; HCT 38.6 % (36.0-46.0); HGB 13.3 g/dL (11.2-15.7); Immature Grans % 0.2; Lymphocytes % 37.4; MCH 29.9 pg (27.0-33.0); MCHC 34.5 % (32.0-36.0); MCV 87 fL (80-95); MPV 10.4 fL (8.0-11.0); Monocytes % 8.6; Neutrophils % 53.6; Platelet Count 238 10^3/uL (130-400); RBC 4.45 10^6/uL (3.93-5.22); RDW 12.8 % (11.7-14.6); RDW-SD 40.2 fL
== END 2023-05-18 19:40 | disposition home or self-care (01) ==
LOC: LBO 19:40
PROVIDERS: PCP Nurse Practitioner Family; Visit Provider Counselor Addiction (Substance Use Disorder)
DX: Z79.899 Other long term (current) drug therapy (principal)
CPT/HCPCS: 36415; 85025

== ENCOUNTER 2023-05-28 15:07 | Outpatient (CLI) | payer MEDICARE, SELFPAY ==
[2023-05-28 13:47] LABS: Abs Immature Grans 0.02 10^3/uL (0.0-0.06); Absolute Lymphocyte Count 2.28 10^3/uL (1.2-3.4); Absolute Monocyte Count 0.38 10^3/uL (0.1-0.8); Absolute Neutrophil Count 3.33 10^3/uL (1.2-6.7); HCT 36.6 % (36.0-46.0); HGB 12.6 g/dL (11.2-15.7); Immature Grans % 0.3; Lymphocytes % 37.9; MCH 29.9 pg (27.0-33.0); MCHC 34.4 % (32.0-36.0); MCV 87 fL (80-95); MPV 10.5 fL (8.0-11.0); Monocytes % 6.3; Neutrophils % 55.5; Platelet Count 239 10^3/uL (130-400); RBC 4.21 10^6/uL (3.93-5.22); RDW 12.6 % (11.7-14.6); RDW-SD 39.9 fL; WBC 6.01 10^3/uL (4.4-10.8)
== END 2023-05-28 15:08 | disposition home or self-care (01) ==
LOC: LBO 15:08
PROVIDERS: PCP Nurse Practitioner Family; Visit Provider Counselor Addiction (Substance Use Disorder)
DX: Z79.899 Other long term (current) drug therapy (principal); F20.9 Schizophrenia, unspecified
CPT/HCPCS: 36415; 85025

== ENCOUNTER 2023-06-11 01:58 | Outpatient (CLI) | payer MEDICARE, SELFPAY ==
[2023-06-11 14:47] LABS: Abs Immature Grans 0.01 10^3/uL (0.0-0.06); Absolute Lymphocyte Count 1.96 10^3/uL (1.2-3.4); Absolute Monocyte Count 0.38 10^3/uL (0.1-0.8); Absolute Neutrophil Count 3.19 10^3/uL (1.2-6.7); HCT 36.3 % (36.0-46.0); HGB 12.7 g/dL (11.2-15.7); Immature Grans % 0.2; Lymphocytes % 35.4; MCH 30.5 pg (27.0-33.0); MCV 87 fL (80-95); MPV 10.6 fL (8.0-11.0); Monocytes % 6.9; Neutrophils % 57.5; Platelet Count 231 10^3/uL (130-400); RBC 4.17 10^6/uL (3.93-5.22); RDW 12.6 % (11.7-14.6); RDW-SD 39.7 fL; WBC 5.54 10^3/uL (4.4-10.8)
== END 2023-06-11 01:59 | disposition home or self-care (01) ==
LOC: LBO 01:58
PROVIDERS: PCP Nurse Practitioner Family; Visit Provider Counselor Addiction (Substance Use Disorder)
DX: Z79.899 Other long term (current) drug therapy (principal); N30.00 Acute cystitis without hematuria
CPT/HCPCS: 36415; 85025; 87086; 87480; 87510; 87660

== ENCOUNTER 2023-06-25 02:57 | Outpatient (CLI) | payer MEDICARE, SELFPAY ==
--- OUTSIDE RECORDS SUMMARY | 2023-06-25 03:02 | XMS_ITS | Continuity of Care Document ---
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 Worker Helper Name Role Phone ANGIE GOEL Primary Care Physician Encounter [facility] NBR [id number] Date(s): 06/08/22 - 06/08/22 [facility] [address] [place] [address]- Encounter Diagnosis Gynecologic exam normal(Discharge Diagnosis) - 06/08/22 Screening mammogram, encounter for(Discharge Diagnosis) - 06/08/22 Discharge Disposition: Home or Self Care Attending Physician: Ashli Hodge APRN Allergies, Adverse Reactions, Alerts Substance Reaction Severity Status ibuprofen Unknown Active Sulfacetamide Sodium Rash Fever Vomiting Severe Active Protonix Mild Active Assessment and Plan Future Appointments Future Scheduled Tests Radiology* MG Mammo Screening Bilateral 07/01/22 Functional Status 06/08/22 Other exposure to Infectious Disease Non e Medications benztropine 0.5 mg oral tablet 0.5 mg = 1 tab, Oral, every day at bedtime, # 30 tab, 0 Refill(s) Start Date: 06/06/22 Status: Ordered biotin 2.5 mg oral tablet 2.5 mg = 1 tab, Oral, Daily, # 30 tab, 0 Refill(s) Start Date: 06/06/22 Status: Ordered Calcium, Magnesium and Zinc oral tablet 1 tab, Oral, Daily, # 30 tab, 0 Refill(s) Start Date: 06/06/22 Status: Ordered clobetasol 0.05% topical ointment 1 ivanna, Topical, Daily, 1 application to affected area twice a week, # 15 g, 0 Refill(s) Start Date: 06/06/22 Status: Ordered cloZAPine 100 mg oral tablet, disintegrating 100 mg = 1 tab, Oral, Daily, # 30 tab, 0 Refill(s) Start Date: 06/06/22 Status: Ordered cloZAPine 25 mg oral tablet, disintegrating 50 mg = 2 tab, Oral, Daily, # 30 tab, 0 Refill(s) Start Date: 06/06/22 Status: Ordered Dexilant 30 mg oral delayed release capsule 30 mg = 1 cap, Oral, Daily, # 30 cap, 0 Refill(s) Start Date: 06/06/22 Status: Ordered Latuda 120 mg oral tablet 120 mg = 1 tab, Oral, Daily, # 30 tab, 0 Refill(s) Start Date: 06/06/22 Status: Ordered Latuda 40 mg oral tablet 40 mg = 1 tab, Oral, Daily, # 30 tab, 0 Refill(s) Start Date: 06/06/22 Status: Ordered levothyroxine 25 mcg (0.025 mg) oral capsule 25 mcg = 1 cap, Oral, Daily, # 30 cap, 0 Refill(s) Start Date: 06/06/22 Status: Ordered melatonin 5 mg oral tablet 5 mg = 1 tab, Oral, every day at bedtime, PRN as needed for insomnia, # 60 tab, 0 Refill(s) Start Date: 06/06/22 Status: Ordered NAC 600 mg oral capsule 600 mg = 1 cap, Oral, BID, between meals, # 60 cap, 0 Refill(s) Start Date: 06/06/22 Status: Ordered Pamprin Cramp Formula oral tablet 2 tab, Oral, every 6 hr, # 16 tab, 0 Refill(s) Start Date: 06/06/22 Status: Ordered topiramate 100 mg oral tablet 100 mg = 1 tab, Oral, BID, # 60 tab, 0 Refill(s) Start Date: 06/06/22 Status: Ordered Problem List Condition Confirmation Course Effective Dates Status Health Status Informant Abnormal uterine bleeding (AUB) Confirmed Active Anal condyloma Confirmed Active Morbid obesity with body mass index (BMI) of 40.0 or higher Confirmed Active Borderline personality disorder Confirmed Active Condyloma acuminata Confirmed Active Polycythemia Confirmed Active Diffuse cystic mastopathy of right breast Confirmed Active Diffuse cystic mastopathy of left breast Confirmed Active Herpes simplex type 1 infection Confirmed Active Hypertriglyceridemia Confirmed Active Hypothyroidism Confirmed Active Dyspepsia Confirmed Active Insomnia Confirmed Active Irritable bowel syndrome with diarrhea Confirmed Active Nonalcoholic fatty liver disease Confirmed Active Obstructive sleep apnea (adult) (pediatric) Confirmed Active Polycystic ovarian syndrome Confirmed Active Prediabetes Confirmed Active Schizoaffective disorder, unspecified Confirmed Active Splenomegaly Confirmed Active Steatosis of liver Confirmed Active Procedures Procedure Date Related Diagnosis Body Site Status History of surgery 1 Comp leted 1Anal wart removal X 2 Vital Signs Most recent to oldest [Reference Range]: 1 Blood Pressure [90-140/60-90 mmHg] 132/7 8mmHg (06/08/22 10:15 AM) Weight 122.2 kg (06/08/22 10:15 AM) Weight Measured (lbs) 269.405 lb (06/08/22 10:15 AM) [place] Body Weight Calculated 59.3 kg (06/08/22 10:15 AM) Height 167.64 cm (06/08/22 10:15 AM) Height/Length Measured (inches) 66 inch (06/08/22 10:15 AM) BSA Measured 2.39 m2 (06/08/22 10:15 AM) Body Mass Index 43.48 kg/m2 (06/08/22 10:15 AM) Social History Social History Type Response Smoking Status Smoking tobacco use: Former tobacco user;Never 1 entered on: 06/08/22 Sex Female 1Quit in 2011 Patient Care team information Personnel Name: ANGIE GOEL Address: Address: [address] [place] [id number] [place] [address]
--- OUTSIDE RECORDS SUMMARY | 2023-06-25 03:02 | XMS_ITS | Continuity of Care Document ---
Author Name Unknown Organization [facility] Ambulatory Clinics Address [address] [place] [address] Care Team Providers Care Teaching Fellow Name Role Phone MARS SÁNCHEZ APRN Primary Care Physician Encounter [facility] NBR [id number] Date(s): 04/26/23 - 04/26/23 [facility] Ambulatory Clinics [address] [place] [address]- [place] Encounter Diagnosis Epigastric pain(Discharge Diagnosis) - 04/26/23 Dyspepsia(Discharge Diagnosis) - 04/26/23 Irritable bowel syndrome with diarrhea(Discharge Diagnosis) - 04/26/23 Discharge Disposition: Home or Self Care Attending Physician: Maty Michel APRN Allergies, Adverse Reactions, Alerts Substance Reaction Severity Status ibuprofen Unknown Active Sulfacetamide Sodium Rash Fever Vomiting Severe Active Protonix Mild Active Assessment and Plan Future Appointments Future Scheduled Tests Laboratory* Calprotectin, Fecal LC 08/10/22 Radiology* MG Mammo Screening Bilateral 07/01/22 Functional Status 04/26/23 Other exposure to Infectious Disease Non e Medications biotin 2.5 mg oral tablet 2.5 mg [...] 0 Refill(s) Start Date: 06/06/22 Status: Ordered Sprintec 0.25 mg-35 mcg oral tablet 1 tab, Oral, Daily, # 84 tab, 4 Refill(s), Pharmacy: [facility]-, 167.64, cm, 09/11/22 13:11:00 EST, Height/Length Dosing, 121.11, kg, 09/11/22 13:11:00 EST, Weight Dosing Start Date: 03/30/23 Stop Date: 05/23/24 Status: Ordered topiramate 100 mg oral tablet 100 mg = 1 tab, Oral, BID, # 60 tab, 0 Refill(s) Start Date: 06/06/22 Status: Ordered Problem List Condition Confirmation Course Effective Dates Status Health Status Informant Abnormal uterine bleeding (AUB) Confirmed Active Anal condyloma Confirmed Active Morbid obesity with body mass index (BMI) of 40.0 or higher Confirmed Active Borderline personality disorder Confirmed Active Chronic diarrhea Confirmed Active Condyloma acuminata Confirmed Active Diarrhea Confirmed Active Epigastric pain Confirmed Active Polycythemia Confirmed Active Diffuse cystic [...] Procedure Date Related Diagnosis Body Site Status Colposcopy Completed Surgery 1 Completed 1anal wart x2 Vital Signs Most recent to oldest [Reference Range]: 1 Temperature Temporal Artery [36-38 Deg C ] 36.3 Deg C (04/26/23 1:00 PM) Apical Heart Rate [60-100 bpm] 73 bpm (04/26/23 1:00 PM) Blood Pressure [90-140/60-90 mmHg] 120/7 8mmHg (04/26/23 1:00 PM) Weight 115.21 kg (04/26/23 1:00 PM) Weight Measured (lbs) 253.994 lb (04/26/23 1:00 PM) [place] Body Weight Calculated 59.3 kg (04/26/23 1:00 PM) Height 167.64 cm (04/26/23 1:00 PM) Height/Length Measured (inches) 66 inch (04/26/23 1:00 PM) BSA Measured 2.32 m2 (04/26/23 1:00 PM) Body Mass Index 41 kg/m2 (04/26/23 1:00 PM) Social History Social History Type Response Smoking Status Smoking tobacco use: Former tobacco user;Never 1 entered on: 06/08/22 Sex Female 1Quit in 2011 Physician Outpatient Note * Maty Michel APRN: PERFORM Event Display: Office Clinic Note Physician Authored Date: [id number] HONORIO WEBB :1980 Age:42 years Sex:Female Visit Date:04/26/2023 Primary Care Physician: ANGIE MORTON APRN Chief Complaint discuss EGD History of Present Illness Patient is a 42-year-old female here today to request of Angie Morton APRN for??chronic diarrhea??and abdominal pain. ??There is also mention of constipation.?? He is an established patient who waslast seen in July 2022??here today to discuss EGD.?She was scheduled for EGD in the past and d id not show for the appointment. ??She has been lost to follow-up since. ? She states that she has mostly diarrhea??states it happens a few times a day. ??Cannot quantify further.?? She denies any nocturnal bowel movements.?? Stools can be [place] form 1 or 2??or [place] form 6 or 7. ??Mostly 6 or 7. ??Denies any melena or hematochezia.?? She has had this for??years. ??Again cannot quantify how much.?? Denies any changes in weight or appetite. ??Denies any pyrosis.?? Complains of epigastric pain and dyspepsia.?? Denies any dysphagia or globus sensation.?? Denies any nausea or vomiting. ?? She has??avoided??gluten, dairy,??and??acid reflux triggering foods and beverages for the last??1 to 2 months which has been helpful.?? She feels avoiding gluten has made a big difference in her symptoms. ?? She takes Dexilant 30 mg twice daily.?? Was tried on Prilosec at one time for a few weeks without relief.?? Avoids NSAIDs. ??Continues??with dyspepsia. ??She has been avoiding??acid reflux foods. ??She was in the emergency room recently told she had GERD.?? She takes Dexilant at bedtime.?? She has lost weight intentionally. ?? 07/14/2022 CBC is normal. ? She is never had an EGD and colonoscopy. ?? Denies having a cholecystectomy. ?? Fecal calprotectin??on 08/18/22 was less than 50. ?? She sees a nurse practitioner Greg Correa??at [facility]??for??behavioral health. ?? She denies a family history of gastrointestinal cancers, inflammatory bowel disease or celiac disease. Review of Systems General: Denies malaise or fatigue. HEENT: Denies globus sensation or dysphagia. Respiratory: Denies shortness of breath, cough, or wheeze. Cardiovascular: Denies chest pain, palpitations, lightheadedness, dizziness, syncope or peripheral edema. ?? Abdomen:??Complains of epigastric pain and dyspepsia.?? Has??not had unintentional weight loss. ??Denies any nausea or vomiting.?? Denies constipation, hematochezia. ??Denies pyrosis. ??Does have diarrhea. Skin: Denies rashes or lesions. Neurological: Denies any problems with gait or balance. Physical Exam Vitals & Measurements T:??36.3?C ??(Temporal Artery)?? HR:??73??(Apical)?? BP:??120/78?? SpO2:??98%?? HT:??167.64??cm?? WT:??115.21??kg?? BMI:??41?? BSA:??2.32?? General: Well-nourished well-developed??female??in no acute distress. HEENT: Head is normocephalic, trachea midline, and no cervical lymphadenopathy. Respiratory: Respirations are even and unlabored. ??Lungs are clear to auscultation. Cardiovascular: Regular rate and rhythm with S1 and S2. Abdomen: Positive bowel sounds x4 quadrants, no masses, no guarding, no tenderness. ??No hepatosplenomegaly. ??Abdomen is soft. Skin: Warm, dry, and pink. Neurological: Alert and oriented x3, speech is clear and gait is steady. Psychological: Pleasant, calm and cooperative. Assessment/Plan 1.??Epigastric pain??R10.13,??Dyspepsia??R10.13 Patient is on Dexilant at that time. ??Suggest 30 minutes before evening meal. ??We reviewed refluxtriggering foods and beverages to avoid, to avoid eating pears before bedtime and eat small frequent meals.?? Continue to avoid NSAIDs. ??EGD to assess for mucosal injury, inflammation,??H. pylori infection and celiac disease. ??I will see patient 2 weeks following procedure to discuss findings andmake further recommendations. 3.??Irritable bowel syndrome with diarrhea??K58.0 Fecal calprotectin was less than 50. ??She avoids dairy and gluten. ??She is not interested in retrying gluten before EGD to rule out??the possibility of celiac disease.?? Medication such as Cymbalta, or tricyclic antidepressants??can be helpful??in neuromodulation and control of IBS??with forms ofpain and diarrhea.?? Advised patient to speak to her primary care provider and her behavioral health specialist?? Greg Correa??at [facility]??prescribing these medications given her other psychoactive medications.?? Voice recognition software utilized which may result in minor patient relations representative error. Problem List/Past Medical History Ongoing Abnormal uterine bleeding (AUB) Anal condyloma Borderline personality disorder Chronic diarrhea Condyloma acuminata Diarrhea Diffuse cystic mastopathy of left breast Diffuse cystic mastopathy of right breast Dyspepsia Epigastric pain Herpes simplex type 1 infection Hypertriglyceridemia Hypothyroidism Insomnia Irritable bowel syndrome with diarrhea Morbid obesity with body mass index (BMI) of 40.0 or higher Nonalcoholic fatty liver disease Obstructive sleep apnea (adult) (pediatric) Polycystic ovarian syndrome Polycythemia Prediabetes Schizoaffective disorder, unspecified Splenomegaly Steatosis of liver Historical Abdominal pain Procedure/Surgical History ???Colposcopy???Surgery Medications biotin 2.5 mg oral tablet, 2.5 mg= 1 tab, Oral, Daily Calcium, Magnesium and Zinc oral tablet, 1 tab, Oral, Daily cloZAPine 100 mg oral tablet, disintegrating, 100 mg= 1 tab, Oral, Daily Dexilant 30 mg oral delayed release capsule, 30 mg= 1 cap, Oral, Daily Latuda 40 mg oral tablet, 40 mg= 1 tab, Oral, Daily levothyroxine 25 mcg (0.025 mg) oral capsule, 25 mcg= 1 cap, Oral, Daily melatonin 5 mg oral tablet, 5 mg= 1 tab, Oral, every night at bedtime, PRN NAC 600 mg oral capsule, 600 mg= 1 cap, Oral, BID Pamprin Cramp Formula oral tablet, 2 tab, Oral, every 6 hr Sprintec 0.25 mg-35 mcg oral tablet, 1 tab, Oral, Daily, 4 refills topiramate 100 mg oral tablet, 100 mg= 1 tab, Oral, BID Allergies Sulfacetamide Sodium??(Rash, Fever, Vomiting) Protonix ibuprofen Social History Alcohol Past- Comments: Stopped completely March 2022 Electronic Cigarette/Vaping Electronic Cigarette Use: Never. 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 Home/Environment Lives with Siblings. Living situation: Home/Independent. Sexual Sexually active: No. Substance Use Never Tobacco Former tobacco user Tobacco Use:. Never Smokeless Tobacco use:.- Comments: Quit in 2011 Family History Atrial fibrillation: Father. Diabetes mellitus: Father. Family Member(s): ?? FATHER, at age: Unknown. Cause of : Multiple health issues Family Member(s): ?? MOTHER, at age: Unknown. Cause of : Family Member(s): ?? BROTHER, at age: Unknown. Cause of : Suicide 05/03/2022 Electronically Signed on 04/26/23 01:32 PM Maty Michel APRN Patient Care team information Care Team Personnel Name: MARS SÁNCHEZ APRN Position: No Access Member Role: Primary Care Physician Address: Address: [place] [address]- Care Team Related Persons Name: ZACHERY WEBB Address: Home [address] [place] [phone] [facility] Name: ZACHERY WEBB Address: Home [address]
--- OUTSIDE RECORDS SUMMARY | 2023-06-25 03:02 | XMS_ITS | Continuity of Care Document ---
Author Name Unknown Organization [facility] Ambulatory Clinics Address [address] [place] [address] Care Team Providers Care Engraver Name Role Phone ANGIE MORTON APRN Primary Care Physician Encounter [facility] NBR [id number] Date(s): 08/10/22 - 08/10/22 [facility] Ambulatory Clinics [address] [place], [place] [address] Encounter Diagnosis Diarrhea(Discharge Diagnosis) - 08/10/22 Epigastric pain(Discharge Diagnosis) - 08/10/22 Dyspepsia(Discharge Diagnosis) - 08/10/22 Discharge Disposition: Home or Self Care Attending Physician: Maty Michel APRN Allergies, Adverse Reactions, Alerts Substance Reaction Severity Status ibuprofen Unknown Active Sulfacetamide Sodium Rash Fever Vomiting Severe Active Protonix Mild Active Assessment and Plan Future Appointments Future Scheduled Tests Laboratory* Calprotectin, Fecal LC 08/10/22 Radiology* MG Mammo Screening Bilateral 07/01/22 Functional Status 08/10/22 Other exposure to Infectious Disease Non e [...] recent to oldest [Reference Range]: 1 Temperature Tympanic [36.6-37.9 Deg C] 3 5.8 Deg C *LOW* (08/10/22 8:35 AM) Apical Heart Rate [60-100 bpm] 96 bpm (08/10/22 8:35 AM) Blood Pressure [90-140/60-90 mmHg] 130/7 8mmHg (08/10/22 8:35 AM) Weight 121.5 kg (08/10/22 8:35 AM) Weight Measured (lbs) 267.861 lb (08/10/22 8:35 AM) [place] Body Weight Calculated 59.3 kg (08/10/22 8:35 AM) Height 167.64 cm (08/10/22 8:35 AM) Height/Length Measured (inches) 66 inch (08/10/22 8:35 AM) BSA Measured 2.38 m2 (08/10/22 8:35 AM) Body Mass Index 43.23 kg/m2 (08/10/22 8:35 AM) Social History Social History Type Response Smoking Status Smoking tobacco use: Former tobacco user;Never 1 entered on: 06/08/22 Sex Female 1Quit in 2011 Physician Outpatient Note * Maty Michel APRN: PERFORM Event Display: Office Clinic Note Physician Authored Date: [id number] HONORIO WEBB :1980 Age:42 years Sex:Female Visit Date:08/10/2022 Primary Care Physician: ANGIE MORTON APRN Chief Complaint Chronic diarrhea and upper abdominal pain History of Present Illness Patient is a 42-year-old female here today to request of Angie Morton APRN for??chronic diarrhea??and abdominal pain. ??There is also mention of constipation.?? She states that she has mostly diarrhea??states it happens a few times a day. ??Cannot quantify further.?? She denies any nocturnal bowel movements.?? Stools can be [place] form 1 or 2??or [place] form 6 or 7. ??Mostly 6 or [...] one time for a few weeks without relief. ?? 07/14/2022 CBC is normal. ?? She states she recently had H. pylori testing at [facility] while on Dexilant??that she was told was negative. ??We do not have those results. ?? She is never had an EGD and colonoscopy. ?? Denies having a cholecystectomy. ?? She denies a family history of gastrointestinal cancers, inflammatory bowel disease or celiac disease. Review of Systems General: Denies malaise or fatigue. HEENT: Denies globus sensation or dysphagia. Respiratory: Denies shortness of breath, cough, or wheeze. Cardiovascular: Denies chest pain, palpitations, lightheadedness, dizziness, syncope or peripheral edema. ?? Abdomen:??Complains of epigastric pain,??a mix of constipation and diarrhea but mostly diarrhea. ??Complains of dyspepsia.?? Denies any nausea, vomiting,??melena or hematochezia.?? Weight and appetite are stable. Skin: Denies rashes or lesions. Neurological: Denies any problems with gait or balance. Physical Exam Vitals & Measurements T:??35.8?C ??(Tympanic)?? HR:??96??(Apical)?? BP:??130/78?? SpO2:??98%?? HT:??167.64??cm?? WT:??121.5??kg?? BMI:??43.23?? BSA:??2.38?? General: Well-nourished well-developed??obese female??in no acute distress. HEENT: Head is normocephalic, [...] steady. Psychological: Pleasant, calm and cooperative. Assessment/Plan 1.??Diarrhea??R19.7 Patient with a history of??years of diarrhea and??told she has IBS.?? She has not done anything??toalleviate it other than avoid gluten which helps with the epigastric pain.?? Will start a calprotectin to rule out??colitis or neoplasm. ??She is average risk for colon cancer??denies any family history.?? She is not yet due for colonoscopy she has no red flag symptoms.?? If she were to develop anyor the calprotectin is elevated I would recommend a colonoscopy.?? Will do EGD to assess for??celiac disease however??patient has been obtaining a gluten- free diet.?? I have advised her to??eat??a quarter of a slice of white bread daily for the 2 weeks leading up to EGD. ??She is reluctant to do so. Ordered: Calprotectin, Fecal LC, Stool, Routine Collect, 08/10/22, Once, Nurse collect, Print Label, Diarrhea, Order for future visit Follow-up Appointment Request [email or web address], *Est. 08/24/22 +/- 2 days, Future Order, after EGD, In Approximately, [facility] Gastroenterology Surgical Procedure Booking Request JEWELS, 08/10/22 9:05:00 EST, 09/14/22 10:00:00 EST, epigastric pain, dyspesia, Diarrhea Epigastric pain Dyspepsia, Outpatient, EGD, Primary Procedure, [address], [address], [place], [id number], [id number], [id number], [id number], [id number] ?? 2.??Epigastric pain??R10.13,??Dyspepsia??R10.13 As above Avoids NSAIDs. Ordered: Follow-up Appointment Request [email or web address], *Est. 08/24/22 +/- 2 days, Future Order, after EGD, In Approximately, [facility] Gastroenterology Surgical Procedure Booking Request LTTL, 08/10/22 9:05:00 EST, 09/14/22 10:00:00 EST, epigastric pain, dyspesia, Diarrhea Epigastric pain Dyspepsia, Outpatient, EGD, Primary Procedure, [address], [address], [place], [id number], [id number], [id number], [id number], [id number] ?? Voice recognition software utilized which may result in minor cryogenic transport driver error. Future Orders Calprotectin, Fecal LC, Stool, Routine Collect, 08/10/22, Once, Nurse collect, Print Label, Diarrhea, Order for future visit Problem List/Past Medical History Ongoing Abnormal uterine [...] Historical Abdominal pain Procedure/Surgical History ???Colposcopy???Surgery Medications benztropine 0.5 mg oral tablet, 0.5 mg= 1 tab, Oral, every night at bedtime biotin 2.5 mg oral tablet, 2.5 mg= 1 tab, Oral, Daily Calcium, Magnesium and Zinc oral tablet, 1 tab, Oral, Daily clobetasol 0.05% topical ointment, 1 ivanna, Topical, Daily cloZAPine 100 mg oral tablet, disintegrating, 100 mg= 1 tab, Oral, Daily cloZAPine 25 mg oral tablet, disintegrating, 50 mg= 2 tab, Oral, Daily Dexilant 30 mg oral delayed release capsule, 30 mg= 1 cap, Oral, Daily Latuda 120 mg oral tablet, 120 mg= 1 tab, Oral, Daily Latuda 40 mg oral tablet, 40 mg= 1 tab, Oral, Daily levothyroxine 25 mcg (0.025 mg) oral capsule, 25 mcg= 1 cap, Oral, Daily melatonin 5 mg oral tablet, 5 mg= 1 tab, Oral, every night at bedtime, PRN NAC 600 mg oral capsule, 600 mg= 1 cap, Oral, BID Pamprin Cramp Formula oral tablet, 2 tab, Oral, every 6 hr topiramate 100 mg oral tablet, 100 mg= 1 tab, Oral, BID Allergies Sulfacetamide Sodium??(Rash, Fever, Vomiting) Protonix ibuprofen Social History Alcohol Past- Comments: Stopped completely March 2022 Electronic Cigarette/Vaping Electronic Cigarette Use: Never. 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 Home/Environment [...] of : Suicide 05/03/2022 Electronically Signed on 08/10/22 09:07 AM Maty Michel APRN Patient Care team information Personnel Name: ANGIE MORTON APRN Address: Address: [address] [place] [address]
[2023-06-25 10:14] LABS: Abs Immature Grans 0.01 10^3/uL (0.0-0.06); Absolute Lymphocyte Count 1.32 10^3/uL (1.2-3.4); Absolute Neutrophil Count 4.11 10^3/uL (1.2-6.7); HCT 40.4 % (36.0-46.0); HGB 14.5 g/dL (11.2-15.7); Immature Grans % 0.2; Lymphocytes % 22.2; MCH 31.5 pg (27.0-33.0); MCHC 35.9 % (32.0-36.0); MCV 88 fL (80-95); MPV 10.4 fL (8.0-11.0); Monocytes % 8.4; Neutrophils % 69.2; Platelet Count 221 10^3/uL (130-400); RDW 12.7 % (11.7-14.6); RDW-SD 40.4 fL; WBC 5.94 10^3/uL (4.4-10.8)
== END 2023-06-25 02:58 | disposition home or self-care (01) ==
LOC: LBO 02:57
PROVIDERS: PCP Nurse Practitioner Family; Visit Provider Counselor Addiction (Substance Use Disorder)
DX: Z79.899 Other long term (current) drug therapy (principal); F20.9 Schizophrenia, unspecified
CPT/HCPCS: 36415; 85025

== ENCOUNTER 2023-07-08 10:55 | Outpatient (CLI) | payer MEDICARE, SELFPAY ==
--- OUTSIDE RECORDS SUMMARY | 2023-07-08 11:02 | XMS_ITS | Continuity of Care Document ---
Author Name Unknown Organization [facility] Address [address] [place] [id number] Care Team Providers Care Cardiopulmonary Supervisor Name Role Phone MARS SÁNCHEZ APRN Primary Care Physician [phone] Encounter LTTL_SD FIN NBR [id number] Date(s): 06/28/23 - 06/28/23 [facility] [address] [place] [address]- Encounter Diagnosis Dyspepsia(Discharge Diagnosis) - 06/28/23 Epigastric pain(Final) - Morbid (severe) obesity due to excess calories(Final) - Body mass index [BMI] 40.0-44.9, adult(Final) - Personal history of nicotine dependence(Final) - Discharge Disposition: Home or Self Care Attending Physician: Tyrone Lim MD Admitting Physician: Tyrone Lim MD Referring Physician: Tyrone Lim MD Allergies, Adverse Reactions, Alerts Substance Reaction Severity Status ibuprofen Foggy mind Mild Active Sulfacetamide Sodium Hives Rash Fever Vomiting Moderate Active Protonix Unknown Active Assessment and Plan Future Appointments Diagnostic Tests Pending * Celiac Disease HLA DQ Assoc. LC 06/28/23 * Celiac Disease Comprehensive 06/28/23 * Pathology Request 06/28/23 Future Scheduled Tests Laboratory* Calprotectin, Fecal LC 08/10/22 Radiology* MG Mammo Screening Bilateral 07/01/22 Medications biotin 2.5 mg oral tablet 2.5 mg = 1 tab, Oral, Daily, 0 Refill(s) Start Date: 06/06/22 Status: Ordered Calcium, Magnesium and Zinc oral tablet 1 tab, Oral, Daily, 0 Refill(s) Start Date: 06/06/22 Status: Ordered cloZAPine 100 mg oral tablet, disintegrating 100 mg = 1 tab, Oral, every night at bedtime, 0 Refill(s) Start Date: 06/06/22 Status: Ordered Dexilant 30 mg oral delayed release capsule 30 mg = 1 cap, Oral, every night at bedtime, 0 Refill(s) Start Date: 06/06/22 Status: Ordered Latuda 40 mg oral tablet 80 mg = 2 tab, Oral, every evening, 0 Refill(s) Start Date: 06/06/22 Status: Ordered [...] tablet 2 tab, Oral, every 6 hr, PRN as needed for menstrual pain, 0 Refill(s) Start Date: 06/06/22 Status: Ordered Sprintec 0.25 mg-35 mcg oral tablet 1 tab, Oral, Daily, # 84 tab, 4 Refill(s), Pharmacy: [facility]-, 167.64, cm, 09/11/22 13:11:00 EST, Height/Length Dosing, 121.11, kg, 09/11/22 13:11:00 EST, Weight Dosing Start Date: 03/30/23 Stop Date: 05/23/24 Status: Ordered topiramate 100 mg oral tablet 100 mg = 1 tab, Oral, BID, 0 Refill(s) Start Date: 06/06/22 Status: Ordered [...] Confirmed Active Obstructive sleep apnea (adult) (pediatric) 1 Confirmed Active Polycystic ovarian syndrome Confirmed Active Prediabetes Confirmed Active Schizoaffective disorder, unspecified Confirmed Active Splenomegaly Confirmed Active Steatosis of liver Confirmed Active 1wears cpap at [facility] Procedures Procedure Date Related Diagnosis Body Site Status Esophagogastroduodenoscopy Biopsy 1 06/28/23 Completed Colposcopy Completed Surgery 2 Completed 1auto-populated from documented surgical case 2anal wart x2 Vital Signs Most recent to oldest [Reference Range]: 1 2 3 Temperature Temporal Artery [36-38 Deg C] 36.5 Deg C (06/28/23 12:02 PM) 36.5 Deg C (06/28/23 11:26 AM) 36.2 Deg C (06/28/23 11:03 AM) Temperature Temporal Artery (DegF) [97.3-100 Deg F] 97.7 Deg F (06/28/23 12:02 PM) 97.7 Deg F (06/28/23 11:26 AM) Peripheral Pulse Rate [60-100 bpm] 66 bpm (06/28/23 12:02 PM) 69 bpm (06/28/23 11:44 AM) 67 bpm (06/28/23 11:26 AM) Heart Rate Monitored [60-100 bpm] 71 bpm (06/28/23 11:44 AM) 66 bpm (06/28/23 11:26 AM) 71 bpm (06/28/23 11:03 AM) Respiratory Rate [12-24 br/min] 16 br/min (06/28/23 11:03 AM) Blood Pressure [90-140/60-90 mmHg] 122/70mmHg (06/28/23 12:02 PM) 124/74mmHg (06/28/23 11:44 AM) 123/68mmHg (06/28/23 11:26 AM) Mean Arterial Pressure, Cuff [70-110 mmHg] 87 mmHg (06/28/23 12:02 PM) 91 mmHg (06/28/23 11:44 AM) 86 mmHg (06/28/23 11:26 AM) Mean Arterial Pressure Cuff 89 mmHg (06/28/23 11:44 AM) 85 mmHg (06/28/23 11:26 AM) Weight 113 kg (06/24/23 5:12 PM) Weight Dosing 113.000 kg (06/24/23 5:12 PM) Height 168 cm (06/24/23 5:12 PM) Social History Social History Type Response Smoking Status Smoking tobacco use: Former tobacco user;Never 1 entered on: 06/24/23 Sex Female 1Quit in 2011 Hospital Discharge Instructions Patient Education 06/28/2023 10:28:46 Upper Endoscopy, Adult, Care After Upper Endoscopy, Adult, Care After This sheet gives you information about how to care for yourself after your procedure. Your health care provider may also give you more specific instructions. If you have problems or questions, contact your health care provider. What can I expect after the procedure? After the procedure, it is common to have: ??? A sore throat. ??? Mild stomach pain or discomfort. ??? Bloating. ??? Nausea. Follow these instructions at home: ??? Follow instructions from your health care provider about what to eat or drink after your procedure. ??? Return to your normal activities as told by your health care provider. Ask your health care provider what activities are safe for you. ??? Take dobp-emw-zszhpfw and prescription medicines only as told by your health care provider. ??? If you were given a sedative during the procedure, it can affect you for several hours. Do not drive or operate machinery until your health care provider says that it is safe. ??? Keep all follow-up visits as told by your health care provider. This is important. Contact a health care provider if you have: ??? A sore throat that lasts longer than one day. ??? Trouble swallowing. Get help right away if: ??? You vomit blood or your vomit looks like coffee grounds. ??? You have: ??? A fever. ??? Bloody, black, or tarry stools. ??? A severe sore throat or you cannot swallow. ??? Difficulty breathing. ??? Severe pain in your chest or abdomen. Summary ??? After the procedure, it is common to have a sore throat, mild stomach discomfort, bloating, andnausea. ??? If you were given a sedative during the procedure, it can affect you for several hours. Do not drive or operate machinery until your health care provider says that it is safe. ??? Follow instructions from your health care provider about what to eat or drink after your procedure. ??? Return to your normal activities as told by your health care provider. This information is not intended to replace advice given to you by your health care provider. Make sure you discuss any questions you have with your health care provider. Document Revised: 05/03/2020 Document Reviewed: 11/28/2018 [employer] [place] Patient Education ?? 2022 [employer] 06/28/2023 10:28:43 Gastroesophageal Reflux Disease, Adult Gastroesophageal Reflux Disease, Adult Gastroesophageal reflux (ЕКАТЕРИНА) happens when acid from the stomach flows up into the tube that connects the mouth and the stomach (esophagus). Normally, food travels down the esophagus and stays in thestomach to be digested. However, when a person has ЕКАТЕРИНА, food and stomach acid sometimes move back up into the esophagus. If this becomes a more serious problem, the person may be diagnosed with a disease called gastroesophageal reflux disease (GERD). GERD occurs when the reflux: ??? Happens often. ??? Causes frequent or severe symptoms. ??? Causes problems such as damage to the esophagus. When stomach acid comes in contact with the esophagus, the acid may cause inflammation in the esophagus. Over time, GERD may create small holes (ulcers) in the lining of the esophagus. What are the causes? This condition is caused by a problem with the muscle between the esophagus and the stomach (lower esophageal sphincter, or LES). Normally, the LES muscle closes after food passes through the esophagus to the stomach. When the LES is weakened or abnormal, it does not close properly, and that allowsfood and stomach acid to go back up into the esophagus. The LES can be weakened by certain dietary substances, medicines, and medical conditions, including: ??? Tobacco use. ??? . ??? Having a hiatal hernia. ??? Alcohol use. ??? Certain foods and beverages, such as coffee, chocolate, onions, and peppermint. What increases the risk? You are more likely to develop this condition if you: ??? Have an increased body weight. ??? Have a connective tissue disorder. ??? Take NSAIDs, such as ibuprofen. What are the signs or symptoms? Symptoms of this condition include: ??? Heartburn. ??? Difficult or painful swallowing and the feeling of having a lump in the throat. ??? A bitter taste in the mouth. ??? Bad breath and having a large amount of saliva. ??? Having an upset or bloated stomach and belching. ??? Chest pain. Different conditions can cause chest pain. Make sure you see your health care provider if you experience chest pain. ??? Shortness of breath or wheezing. ??? Ongoing (chronic) cough or a nighttime cough. ??? Wearing away of tooth enamel. ??? Weight loss. How is this diagnosed? This condition may be diagnosed based on a medical history and a physical exam. To determine if youhave mild or severe GERD, your health care provider may also monitor how you respond to treatment. You may also have tests, including: ??? A test to examine your stomach and esophagus with a small camera (endoscopy). ??? A test that measures the acidity level in your esophagus. ??? A test that measures how much pressure is on your esophagus. ??? A barium swallow or modified barium swallow test to show the shape, size, and functioning of your esophagus. How is this treated? Treatment for this condition may vary depending on how severe your symptoms are. Your health care provider may recommend: ??? Changes to your diet. ??? Medicine. ??? Surgery. The goal of treatment is to help relieve your symptoms and to prevent complications. Follow these instructions at home: Eating and drinking ??? Follow a diet as recommended by your health care provider. This may involve avoiding foods and drinks such as: ??? Coffee and tea, with or without caffeine. ??? Drinks that contain alcohol. ??? Energy drinks and sports drinks. ??? Carbonated drinks or sodas. ??? Chocolate and cocoa. ??? Peppermint and mint flavorings. ??? Garlic and onions. ??? Horseradish. ??? Spicy and acidic foods, including peppers, chili powder, kc powder, vinegar, hot sauces, andbarbecue sauce. ??? [place] fruit juices and citrus fruits, such as oranges, sujey, and limes. ??? Tomato-based foods, such as red sauce, chili, salsa, and pizza with red sauce. ??? Fried and fatty foods, such as donuts, yi fries, potato chips, and high- fat dressings. ??? High-fat meats, such as hot dogs and fatty cuts of red and white meats, such as rib eye steak, sausage, ham, and frank. ??? High-fat dairy items, such as whole milk, butter, and cream cheese. ??? Eat small, frequent meals instead of large meals. ??? Avoid drinking large amounts of liquid with your meals. ??? Avoid eating meals during the 2???3 hours before bedtime. ??? Avoid lying down right after you eat. ??? Do not exercise right after you eat. Lifestyle ??? Do not use any products that contain nicotine or tobacco. These products include cigarettes, chewing tobacco, and vaping devices, such as e-cigarettes. If you need help quitting, ask your health care provider. ??? Try to reduce your stress by using methods such as yoga or meditation. If you need help reducing stress, ask your health care provider. ??? If you are overweight, reduce your weight to an amount that is healthy for you. Ask your healthcare provider for guidance about a safe weight loss goal. General instructions ??? Pay attention to any changes in your symptoms. ??? Take ngjp-jpf-lfeqhly and prescription medicines only as told by your health care provider. Do not take aspirin, ibuprofen, or other NSAIDs unless your health care provider told you to take thesemedicines. ??? Wear loose-fitting clothing. Do not wear anything tight around your waist that causes pressure on your abdomen. ??? Raise (elevate) the head of your bed about 6 inches (15 cm). You can use a wedge to do this. ??? Avoid bending over if this makes your symptoms worse. ??? Keep all follow-up visits. This is important. Contact a health care provider if: ??? You have: ??? New symptoms. ??? Unexplained weight loss. ??? Difficulty swallowing or it hurts to swallow. ??? Wheezing or a persistent cough. ??? A hoarse voice. ??? Your symptoms do not improve with treatment. Get help right away if: ??? You have sudden pain in your arms, neck, jaw, teeth, or back. ??? You suddenly feel sweaty, dizzy, or light-headed. ??? You have chest pain or shortness of breath. ??? You vomit and the vomit is green, yellow, or black, or it looks like blood or coffee grounds. ??? You faint. ??? You have stool that is red, bloody, or black. ??? You cannot swallow, drink, or eat. These symptoms may represent a serious problem that is an emergency. Do not wait to see if the symptoms will go away. Get medical help right away. Call your local emergency services (911 in the [place] Do not drive yourself to the hospital. Summary ??? Gastroesophageal reflux happens when acid from the stomach flows up into the esophagus. GERD ean disease in which the reflux happens often, causes frequent or severe symptoms, or causes problemssuch as damage to the esophagus. ??? Treatment for this condition may vary depending on how severe your symptoms are. Your health care provider may recommend diet and lifestyle changes, medicine, or surgery. ??? Contact a health care provider if you have new or worsening symptoms. ??? Take zrdp-ywp-musewik and prescription medicines only as told by your health care provider. Do not take aspirin, ibuprofen, or other NSAIDs unless your health care provider told you to do so. ??? Keep all follow-up visits as told by your health care provider. This is important. This information is not intended to replace advice given to you by your health care provider. Make sure you discuss any questions you have with your health care provider. Document Revised: 01/06/2021 Document Reviewed: 01/06/2021 [employer] Patient Education ?? 2022 [employer]. Discharge instructions * Ryann Ghotra: PERFORM Event Display: Discharge Instructions Authored Date: [id number] JOHNATHON WEBBMario Main :1980 Age:43 years Sex:Female Visit Date:06/28/2023 Primary Care Physician: MARS SÁNCHEZ APRN Hospital Discharge Instructions We would like to thank you for allowing us to assist you with your healthcare needs. The following includes patient education materials and information regarding your injury/illness. Your Next Steps Discharge Orders Discharge Patient Instructions, You may experience some gas cramps and abdominal bloating Discharge Patient Instructions, Cramping and abdominal bloating should subside in 1 hour or so Discharge Patient Instructions, Passing gas rectally and belching is normal Discharge Patient Instructions, A light first meal may feel better in your stomach Discharge Patient Instructions, You may resume your normal activity in 24 hours Discharge Patient Instructions, It is important that a responsible adult drive you home today Discharge Patient Instructions, Do not sign any contracts, make any major decisions, or drive or operate machinery for 24 hours Discharge Patient Instructions, You should not be responsible for the care of others Discharge Patient Instructions, Avoid alcohol, tranquilizers, sleeping pills, or cold medicines for24 hours Discharge Patient Instructions, Call or come to emergency department if having unusual pain or severe abdominal pain Discharge Patient Instructions, Call or come to emergency department if vomiting blood or having black bowel movements, rectal bleeding or passing blood clots Discharge Patient Instructions, Call or come to emergency department for dizziness Discharge Patient Instructions, Call or come to emergency department chest pain, or shortness of breath Discharge Patient Instructions, Call or come to emergency department for fever greater than 100 ??F Discharge Patient Instructions, Call with any additional questions or concerns Scheduled Future Appointments Wednesday 2:30 PM EST ?? With: Maty Michel APRN Where: [facility] Gastroenterology Status: Confirmed Medications What How Much When Instructions Next Dose Unchanged acetaminophen/ magnesium salicylate/ pamabrom (Pamprin Cramp Formula oral tablet) 2 tab Oral (given by mouth) Every 6 hours as needed for as needed for menstrual pain Unchanged acetylcysteine (NAC 600 mg oral capsule) 1 Capsules Oral (given by mouth) 2 times a day between meals ?? Unchanged biotin (biotin 2.5 mg oral tablet) 1 tab Oral (given by mouth) Every day Unchanged cloZAPine (cloZAPine 100 mg oral tablet, disintegrating) 1 tab Oral (given by mouth) Every night at bedtime Unchanged dexlansoprazole (Dexilant 30 mg oral delayed release capsule) 1 Capsules Oral (given by mouth) Every night at bedtime Unchanged levothyroxine (levothyroxine 25 mcg (0.025 mg) oral capsule) 1 Capsules Oral (given by mouth) Every day Unchanged lurasidone (Latuda 40 mg oral tablet) 2 tab Oral (given by mouth) Every evening Unchanged melatonin (melatonin 5 mg oral tablet) 1 tab Oral (given by mouth) Every night at bedtime as needed for as needed for insomnia Unchanged multivitamin with minerals (Calcium, Magnesium and Zinc oral tablet) 1 tab Oral (given by mouth) Every day Unchanged norgestimate-ethinyl estradiol (Sprintec 0.25 mg-35 mcg oral tablet) 1 tab Oral (given by mouth) Every day Duration: 84 Days Unchanged topiramate (topiramate 100 mg oral tablet) 1 tab Oral (given by mouth) 2 times a day Your Summary Your Care Team Admitting Physician - Tyrone Lim MD Attending Physician - Tyrone Lim MD Primary Care Physician - MARS SÁNCHEZ APRN Referring Physician - Tyrone Lim MD Your Diagnosis Dyspepsia Problems Ongoing - Any problem that you are currently receiving treatment for. Abnormal uterine bleeding (AUB) Anal condyloma Borderline [...] disorder, unspecified Splenomegaly Steatosis of liver Historical - Any problem that you are no longer receiving treatment for. Abdominal pain Procedures Performed ???Esophagogastroduodenoscopy Biopsy (06/28/2023) Tests Performed/Pending Celiac Disease Comprehensive LC?-- Results Pending -- Celiac Disease HLA DQ Assoc. LC?-- Results Pending -- Discharge Vitals Temperature??(Temporal Artery) 97.7 ??F (36.5 ??C) Heart Rate??(Peripheral) 69 Heart Rate??(Monitored) 71 Respiratory Rate?? 16 Blood Pressure?? 124/74?? Allergies Sulfacetamide Sodium??(Hives, Rash, Fever, Vomiting) ibuprofen??(Foggy mind) Protonix Education Materials Upper Endoscopy, Adult, Care After This sheet gives you information about how to care for yourself after your procedure. Your health care provider may also give you more specific instructions. If you have problems or questions, contact your health care provider. What can I expect after the procedure? After the procedure, it is common to have: ? A sore throat. ? Mild stomach pain or discomfort. ? Bloating. ? Nausea. Follow these instructions at home: ? Follow instructions from your health care provider about what to eat or drink after your procedure. ? Return to your normal activities as told by your health care provider. Ask your health care provider what activities are safe for you. ? Take rjou-btz-zmbroez and prescription medicines only as told by your health care provider. ? If you were given a sedative during the procedure, it can affect you for several hours. Do not drive or operate machinery until your health care provider says that it is safe. ? Keep all follow-up visits as told by your health care provider. This is important. Contact a health care provider if you have: ? A sore throat that lasts longer than one day. ? Trouble swallowing. Get help right away if: ? You vomit blood or your vomit looks like coffee grounds. ? You have: ? A fever. ? Bloody, black, or tarry stools. ? A severe sore throat or you cannot swallow. ? Difficulty breathing. ? Severe pain in your chest or abdomen. Summary ? After the procedure, it is common to have a sore throat, mild stomach discomfort, bloating, and nausea. ? If you were given a sedative during the procedure, it can affect you for several hours. Do not drive or operate machinery until your health care provider says that it is safe. ? Follow instructions from your health care provider about what to eat or drink after your procedure. ? Return to your normal activities as told by your health care provider. This information is not intended to replace advice given to you by your health care provider. Make sure you discuss any questions you have with your health care provider. Document Revised: 05/03/2020 Document Reviewed: 11/28/2018 [employer] [place] Patient Education ?? [employer] Gastroesophageal Reflux Disease, Adult Gastroesophageal reflux (ЕКАТЕРИНА) happens when acid from the stomach flows up into the tube that connects the mouth and the stomach (esophagus). Normally, food travels down the esophagus and stays in thestomach to be digested. However, when a person has ЕКАТЕРИНА, food and stomach acid sometimes move back up into the esophagus. If this becomes a more serious problem, the person may be diagnosed with a disease called gastroesophageal reflux disease (GERD). GERD occurs when the reflux: ? Happens often. ? Causes frequent or severe symptoms. ? Causes problems such as damage to the esophagus. When stomach acid comes in contact with the esophagus, the acid may cause inflammation in the esophagus. Over time, GERD may create small holes (ulcers) in the lining of the esophagus. What are the causes? This condition is caused by a problem with the muscle between the esophagus and the stomach (lower esophageal sphincter, or LES). Normally, the LES muscle closes after food passes through the esophagus to the stomach. When the LES is weakened or abnormal, it does not close properly, and that allowsfood and stomach acid to go back up into the esophagus. The LES can be weakened by certain dietary substances, medicines, and medical conditions, including: ? Tobacco use. ? . ? Having a hiatal hernia. ? Alcohol use. ? Certain foods and beverages, such as coffee, chocolate, onions, and peppermint. What increases the risk? You are more likely to develop this condition if you: ? Have an increased body weight. ? Have a connective tissue disorder. ? Take NSAIDs, such as ibuprofen. What are the signs or symptoms? Symptoms of this condition include: ? Heartburn. ? Difficult or painful swallowing and the feeling of having a lump in the throat. ? A bitter taste in the mouth. ? Bad breath and having a large amount of saliva. ? Having an upset or bloated stomach and belching. ? Chest pain. Different conditions can cause chest pain. Make sure you see your health care provider if you experience chest pain. ? Shortness of breath or wheezing. ? Ongoing (chronic) cough or a nighttime cough. ? Wearing away of tooth enamel. ? Weight loss. How is this diagnosed? This condition may be diagnosed based on a medical history and a physical exam. To determine if youhave mild or severe GERD, your health care provider may also monitor how you respond to treatment. You may also have tests, including: ? A test to examine your stomach and esophagus with a small camera (endoscopy). ? A test that measures the acidity level in your esophagus. ? A test that measures how much pressure is on your esophagus. ? A barium swallow or modified barium swallow test to show the shape, size, and functioning of your esophagus. How is this treated? Treatment for this condition may vary depending on how severe your symptoms are. Your health care provider may recommend: ? Changes to your diet. ? Medicine. ? Surgery. The goal of treatment is to help relieve your symptoms and to prevent complications. Follow these instructions at home: Eating and drinking ? Follow a diet as recommended by your health care provider. This may involve avoiding foods and drinks such as: ? Coffee and tea, with or without caffeine. ? Drinks that contain alcohol. ? Energy drinks and sports drinks. ? Carbonated drinks or sodas. ? Chocolate and cocoa. ? Peppermint and mint flavorings. ? Garlic and onions. ? Horseradish. ? Spicy and acidic foods, including peppers, chili powder, kc powder, vinegar, hot sauces, and barbecue sauce. ? [place] fruit juices and citrus fruits, such as oranges, sujey, and limes. ? Tomato-based foods, such as red sauce, chili, salsa, and pizza with red sauce. ? Fried and fatty foods, such as donuts, yi fries, potato chips, and high-fat dressings. ? High-fat meats, such as hot dogs and fatty cuts of red and white meats, such as rib eye steak, sausage, ham, and frank. ? High-fat dairy items, such as whole milk, butter, and cream cheese. ? Eat small, frequent meals instead of large meals. ? Avoid drinking large amounts of liquid with your meals. ? Avoid eating meals during the 2???3 hours before bedtime. ? Avoid lying down right after you eat. ? Do not exercise right after you eat. Lifestyle ? Do not use any products that contain nicotine or tobacco. These products include cigarettes, chewing tobacco, and vaping devices, such as e-cigarettes. If you need help quitting, ask your health careprovider. ? Try to reduce your stress by using methods such as yoga or meditation. If you need help reducing stress, ask your health care provider. ? If you are overweight, reduce your weight to an amount that is healthy for you. Ask your health care provider for guidance about a safe weight loss goal. General instructions ? Pay attention to any changes in your symptoms. ? Take fdja-cke-bmmunsy and prescription medicines only as told by your health care provider. Do not take aspirin, ibuprofen, or other NSAIDs unless your health care provider told you to take these medicines. ? Wear loose-fitting clothing. Do not wear anything tight around your waist that causes pressure on your abdomen. ? Raise (elevate) the head of your bed about 6 inches (15 cm). You can use a wedge to do this. ? Avoid bending over if this makes your symptoms worse. ? Keep all follow-up visits. This is important. Contact a health care provider if: ? You have: ? New symptoms. ? Unexplained weight loss. ? Difficulty swallowing or it hurts to swallow. ? Wheezing or a persistent cough. ? A hoarse voice. ? Your symptoms do not improve with treatment. Get help right away if: ? You have sudden pain in your arms, neck, jaw, teeth, or back. ? You suddenly feel sweaty, dizzy, or light-headed. ? You have chest pain or shortness of breath. ? You vomit and the vomit is green, yellow, or black, or it looks like blood or coffee grounds. ? You faint. ? You have stool that is red, bloody, or black. ? You cannot swallow, drink, or eat. These symptoms may represent a serious problem that is an emergency. Do not wait to see if the symptoms will go away. Get medical help right away. Call your local emergency services (911 in the [place] Do not drive yourself to the hospital. Summary ? Gastroesophageal reflux happens when acid from the stomach flows up into the esophagus. GERD is a disease in which the reflux happens often, causes frequent or severe symptoms, or causes problems such as damage to the esophagus. ? Treatment for this condition may vary depending on how severe your symptoms are. Your health care provider may recommend diet and lifestyle changes, medicine, or surgery. ? Contact a health care provider if you have new or worsening symptoms. ? Take ighg-yrx-dytuzhc and prescription medicines only as told by your health care provider. Do not take aspirin, ibuprofen, or other NSAIDs unless your health care provider told you to do so. ? Keep all follow-up visits as told by your health care provider. This is important. This information is not intended to replace advice given to you by your health care provider. Make sure you discuss any questions you have with your health care provider. Document Revised: 01/06/2021 Document Reviewed: 01/06/2021 [employer] Patient Education ?? 2022 [employer] Patient/Crime Investigator Special Agent Signature Patient Name:HONORIO WEBB I have received this information and my questions have been answered. Patient/Crime Investigator Special Agent Name: Patient/Crime Investigator Special Agent Signature: Relationship to Patient: Witness Name/Signature: Date: Electronically Signed on: 06/28/2023 11:52 ESTSigned by:WIN * Event Display: Discharge Instructions History and physical note * Event Display: History and Physical Update * Tyrone Lim MD: PERFORM Event Display: History and Physical Authored Date: [id number] HONORIO EWBB :1980 Age:43 years Sex:Female Visit Date:06/28/2023 Primary Care Physician: MARS SÁNCHEZ APRN History of Present Illness 43-year-old female with chronic dyspepsia.?? She follows a gluten-free diet. Physical Exam Obese white female no acute distress Lungs: Clear to auscultation bilaterally Heart: Regular rhythm S1-S2 Abdomen: Soft nontender Assessment/Plan 1.??Dyspepsia??R10.13 EGD today. Orders: sodium chloride 0.9% flush, 10 mL, IV Flush, Injection, every 8 hr, First Dose: 06/28/23 9:00:00 EST, Routine sodium chloride 0.9% flush, 10 mL, IV Flush, Injection, As Directed, First Dose: 06/28/23 8:26:00 EST, Physician Stop, Routine Sodium Chloride 0.9% 1,000 mL, Total Volume (mL): 1,000, 1,000 mL, Soln-IV, IV, 50 mL/hr, Start Date: 06/28/23 8:26:00 EST, 113 kg, Populate Charting Weight From Order, 2.3, m2 Blood Glucose Monitoring POC RE, 06/28/23 8:26:00 EST, Stop date 06/28/23 8:26:00 EST Diet Order, 06/28/23 8:26:00 EST, Regular Discharge Patient, 06/28/23 8:26:00 EST, Discharge when stable per anesthesia criteria Discharge Patient, 06/28/23 8:26:00 EST, Discharge when stable per SDS criteria Discharge Patient Instructions, Passing gas rectally and belching is normal Discharge Patient Instructions, Call or come to emergency department for fever greater than 100 ??F Discharge Patient Instructions, A light first meal may feel better in your stomach Discharge Patient Instructions, You may experience some gas cramps and abdominal bloating Discharge Patient Instructions, Call or come to emergency department for dizziness Discharge Patient Instructions, Cramping and abdominal bloating should subside in 1 hour or so Discharge Patient Instructions, Call or come to emergency department chest pain, or shortness of breath Discharge Patient Instructions, Call or come to emergency department if having unusual pain or severe abdominal pain Discharge Patient Instructions, Call or come to emergency department if vomiting blood or having black bowel movements, rectal bleeding or passing blood clots Discharge Patient Instructions, You should not be responsible for the care of others Discharge Patient Instructions, Avoid alcohol, tranquilizers, sleeping pills, or cold medicines for24 hours Discharge Patient Instructions, It is important that a responsible adult drive you home today Discharge Patient Instructions, Do not sign any contracts, make any major decisions, or drive or operate machinery for 24 hours Discharge Patient Instructions, Call with any additional questions or concerns Discharge Patient Instructions, You may resume your normal activity in 24 hours Obtain consent, 06/28/23 8:26:00 EST, Constant Order, 06/28/23 8:26:00 EST Peripheral IV Insertion, 06/28/23 8:26:00 EST Saline Lock Convert From IV, 06/28/23 8:26:00 EST, Stop date 06/28/23 8:26:00 EST Vital Signs, 06/28/23 8:26:00 EST, Stop date 06/28/23 8:26:00 EST, As needed Vital Signs, 06/28/23 8:26:00 EST, Stop date 06/28/23 8:26:00 EST, Routine Vital Signs, 06/28/23 8:26:00 EST, Once, Stop date 06/28/23 8:26:00 EST Problem List/Past Medical History Ongoing Abnormal uterine [...] Historical Abdominal pain Procedure/Surgical History ???Colposcopy???Surgery Medications Inpatient Sodium Chloride 0.9% 1,000 mL, 1000 mL, IV sodium chloride 0.9% flush, 10 mL, IV Flush, every 8 hr sodium chloride 0.9% flush, 10 mL, IV Flush, As Directed Home biotin 2.5 mg oral tablet, 2.5 mg= 1 tab, Oral, Daily Calcium, Magnesium and Zinc oral tablet, 1 tab, Oral, Daily cloZAPine 100 mg oral tablet, disintegrating, 100 mg= 1 tab, Oral, every night at bedtime Dexilant 30 mg oral delayed release capsule, 30 mg= 1 cap, Oral, every night at bedtime Latuda 40 mg oral tablet, 80 mg= 2 tab, Oral, every evening levothyroxine 25 mcg (0.025 mg) oral capsule, 25 mcg= 1 cap, Oral, Daily melatonin 5 mg oral tablet, 5 mg= 1 tab, Oral, every night at bedtime, PRN NAC 600 mg oral capsule, 600 mg= 1 cap, Oral, BID Pamprin Cramp Formula oral tablet, 2 tab, Oral, every 6 hr, PRN Sprintec 0.25 mg-35 mcg oral tablet, 1 tab, Oral, Daily, 4 refills topiramate 100 mg oral tablet, 100 mg= 1 tab, Oral, BID Allergies Sulfacetamide Sodium??(Hives, Rash, Fever, Vomiting) ibuprofen??(Foggy mind) Protonix Social History Alcohol Past- Comments: Stopped completely March 2022 Electronic Cigarette/Vaping Electronic Cigarette Use: Never. 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 Home/Environment Lives [...] of : Suicide 05/03/2022 Electronically Signed on 06/28/23 11:05 AM Tyrone Lim MD Patient Care team information Care Team Personnel Name: MARS SÁNCHEZ APRN Position: No Access Member Role: Primary Care Physician Address: Address: [address] Care Team Related Persons Name: ZACHERY WEBB Address: Home [address] [place] [phone] [facility] Name: ZACHERY WEBB Address: Home [address]
[2023-07-08 15:45] LABS: Abs Immature Grans 0.01 10^3/uL (0.0-0.06); Absolute Basophil Count 0.01 10^3/uL (0.0-0.2); Absolute Eosinophil Count 0.01 10^3/uL (0.0-0.7); Absolute Lymphocyte Count 1.86 10^3/uL (1.2-3.4); Absolute Monocyte Count 0.39 10^3/uL (0.1-0.8); Absolute Neutrophil Count 3.48 10^3/uL (1.2-6.7); Basophils % 0.2; Eosinophils % 0.2; HCT 36.4 % (36.0-46.0); HGB 12.6 g/dL (11.2-15.7); Immature Grans % 0.2; Lymphocytes % 32.3; MCH 30.4 pg (27.0-33.0); MCHC 34.6 % (32.0-36.0); MCV 88 fL (80-95); Monocytes % 6.8; Neutrophils % 60.3; Platelet Count 235 10^3/uL (130-400); RBC 4.14 10^6/uL (3.93-5.22); RDW 12.7 % (11.7-14.6); RDW-SD 40.2 fL; WBC 5.76 10^3/uL (4.4-10.8)
== END 2023-07-08 10:56 | disposition home or self-care (01) ==
LOC: LBO 10:56
PROVIDERS: PCP Nurse Practitioner Family; Visit Provider Counselor Addiction (Substance Use Disorder)
DX: Z79.899 Other long term (current) drug therapy (principal)
CPT/HCPCS: 36415; 85025

== ENCOUNTER 2023-07-20 02:51 | Outpatient (CLI) | payer MEDICARE, SELFPAY ==
[2023-07-20 14:42] LABS: Abs Immature Grans 0.01 10^3/uL (0.0-0.06); Absolute Eosinophil Count 0.01 10^3/uL (0.0-0.7); Absolute Lymphocyte Count 1.97 10^3/uL (1.2-3.4); Absolute Monocyte Count 0.41 10^3/uL (0.1-0.8); Absolute Neutrophil Count 2.64 10^3/uL (1.2-6.7); Eosinophils % 0.2; HGB 12.1 g/dL (11.2-15.7); Immature Grans % 0.2; Lymphocytes % 39.1; MCH 30.6 pg (27.0-33.0); MCHC 34.6 % (32.0-36.0); MCV 89 fL (80-95); MPV 10.2 fL (8.0-11.0); Monocytes % 8.1; Neutrophils % 52.4; Platelet Count 217 10^3/uL (130-400); RBC 3.95 10^6/uL (3.93-5.22); RDW 12.5 % (11.7-14.6); RDW-SD 41.1 fL; WBC 5.04 10^3/uL (4.4-10.8)
== END 2023-07-20 02:52 | disposition home or self-care (01) ==
LOC: LBO 02:51
PROVIDERS: PCP Nurse Practitioner Family; Visit Provider Counselor Addiction (Substance Use Disorder)
DX: Z79.899 Other long term (current) drug therapy (principal)
CPT/HCPCS: 36415; 85025

== ENCOUNTER 2023-08-03 03:37 | Outpatient (CLI) | payer MEDICARE, SELFPAY ==
[2023-08-03 15:17] LABS: Abs Immature Grans 0.02 10^3/uL (0.0-0.06); Absolute Basophil Count 0.01 10^3/uL (0.0-0.2); Absolute Eosinophil Count 0.01 10^3/uL (0.0-0.7); Absolute Lymphocyte Count 2.34 10^3/uL (1.2-3.4); Absolute Monocyte Count 0.41 10^3/uL (0.1-0.8); Absolute Neutrophil Count 3.35 10^3/uL (1.2-6.7); Basophils % 0.2; Eosinophils % 0.2; HCT 35.5 % (36.0-46.0); Immature Grans % 0.3; Lymphocytes % 38.1; MCH 29.6 pg (27.0-33.0); MCHC 33.8 % (32.0-36.0); MCV 87 fL (80-95); MPV 10.2 fL (8.0-11.0); Monocytes % 6.7; Neutrophils % 54.5; Platelet Count 248 10^3/uL (130-400); RBC 4.06 10^6/uL (3.93-5.22); RDW 12.6 % (11.7-14.6); RDW-SD 40.1 fL; WBC 6.14 10^3/uL (4.4-10.8)
== END 2023-08-03 03:38 | disposition home or self-care (01) ==
LOC: LBO 03:37
PROVIDERS: PCP Nurse Practitioner Family; Visit Provider Counselor Addiction (Substance Use Disorder)
DX: Z79.899 Other long term (current) drug therapy (principal)
CPT/HCPCS: 36415; 85025

== ENCOUNTER 2023-08-18 14:33 | Outpatient (CLI) | payer MEDICARE, SELFPAY ==
[2023-08-18 16:49] LABS: Abs Immature Grans 0.01 10^3/uL (0.0-0.06); Absolute Eosinophil Count 0.01 10^3/uL (0.0-0.7); Absolute Lymphocyte Count 2.16 10^3/uL (1.2-3.4); Absolute Monocyte Count 0.36 10^3/uL (0.1-0.8); Absolute Neutrophil Count 3.13 10^3/uL (1.2-6.7); Eosinophils % 0.2; HCT 36.2 % (36.0-46.0); HGB 12.5 g/dL (11.2-15.7); Immature Grans % 0.2; Lymphocytes % 38.1; MCH 30.4 pg (27.0-33.0); MCHC 34.5 % (32.0-36.0); MCV 88 fL (80-95); MPV 10.7 fL (8.0-11.0); Monocytes % 6.3; Neutrophils % 55.2; Platelet Count 245 10^3/uL (130-400); RBC 4.11 10^6/uL (3.93-5.22); RDW 12.3 % (11.7-14.6); RDW-SD 39.5 fL; WBC 5.67 10^3/uL (4.4-10.8)
== END 2023-08-18 14:34 | disposition home or self-care (01) ==
LOC: LBO 14:33
PROVIDERS: PCP Nurse Practitioner Family; Visit Provider Counselor Addiction (Substance Use Disorder)
DX: F20.9 Schizophrenia, unspecified (principal); Z79.899 Other long term (current) drug therapy
CPT/HCPCS: 36415; 85025

== ENCOUNTER 2023-08-31 05:16 | Outpatient (CLI) | payer MEDICARE, SELFPAY ==
[2023-08-31 15:53] LABS: Abs Immature Grans 0.01 10^3/uL (0.0-0.06); Absolute Eosinophil Count 0.01 10^3/uL (0.0-0.7); Absolute Lymphocyte Count 2.17 10^3/uL (1.2-3.4); Absolute Monocyte Count 0.43 10^3/uL (0.1-0.8); Eosinophils % 0.2; HCT 36.5 % (36.0-46.0); HGB 12.3 g/dL (11.2-15.7); Immature Grans % 0.2; Lymphocytes % 37.3; MCH 29.8 pg (27.0-33.0); MCHC 33.7 % (32.0-36.0); MCV 88 fL (80-95); MPV 10.6 fL (8.0-11.0); Monocytes % 7.4; Neutrophils % 54.9; Platelet Count 228 10^3/uL (130-400); RBC 4.13 10^6/uL (3.93-5.22); RDW 12.4 % (11.7-14.6); RDW-SD 40.3 fL; WBC 5.82 10^3/uL (4.4-10.8)
== END 2023-08-31 05:17 | disposition home or self-care (01) ==
LOC: LBO 05:16
PROVIDERS: PCP Nurse Practitioner Family; Visit Provider Counselor Addiction (Substance Use Disorder)
DX: Z79.899 Other long term (current) drug therapy (principal)
CPT/HCPCS: 36415; 85025

== ENCOUNTER 2023-09-14 03:19 | Outpatient (CLI) | payer MEDICARE, SELFPAY ==
[2023-09-14 15:48] LABS: Abs Immature Grans 0.02 10^3/uL (0.0-0.06); Absolute Basophil Count 0.01 10^3/uL (0.0-0.2); Absolute Eosinophil Count 0.01 10^3/uL (0.0-0.7); Absolute Monocyte Count 0.52 10^3/uL (0.1-0.8); Absolute Neutrophil Count 3.44 10^3/uL (1.2-6.7); Basophils % 0.1; Eosinophils % 0.1; HCT 38.7 % (36.0-46.0); HGB 13.2 g/dL (11.2-15.7); Immature Grans % 0.3; Lymphocytes % 42.9; MCH 29.7 pg (27.0-33.0); MCHC 34.1 % (32.0-36.0); MCV 87 fL (80-95); MPV 10.4 fL (8.0-11.0); Monocytes % 7.4; Neutrophils % 49.2; Platelet Count 263 10^3/uL (130-400); RBC 4.44 10^6/uL (3.93-5.22); RDW 12.2 % (11.7-14.6); RDW-SD 39.4 fL
== END 2023-09-14 03:20 | disposition home or self-care (01) ==
LOC: LBO 03:19
PROVIDERS: PCP Nurse Practitioner Family; Visit Provider Counselor Addiction (Substance Use Disorder)
DX: F20.9 Schizophrenia, unspecified (principal); Z79.899 Other long term (current) drug therapy
CPT/HCPCS: 36415; 85025

== ENCOUNTER 2023-10-14 15:29 | Outpatient (CLI) | payer MEDICARE, SELFPAY ==
[2023-10-14 14:17] LABS: Abs Immature Grans 0.03 10^3/uL (0.0-0.06); Absolute Basophil Count 0.01 10^3/uL (0.0-0.2); Absolute Eosinophil Count 0.01 10^3/uL (0.0-0.7); Absolute Lymphocyte Count 2.54 10^3/uL (1.2-3.4); Absolute Monocyte Count 0.53 10^3/uL (0.1-0.8); Absolute Neutrophil Count 4.95 10^3/uL (1.2-6.7); Basophils % 0.1; Eosinophils % 0.1; HCT 40.8 % (36.0-46.0); HGB 13.8 g/dL (11.2-15.7); Immature Grans % 0.4; Lymphocytes % 31.5; MCH 29.9 pg (27.0-33.0); MCHC 33.8 % (32.0-36.0); MCV 88 fL (80-95); MPV 10.5 fL (8.0-11.0); Monocytes % 6.6; Neutrophils % 61.3; Platelet Count 290 10^3/uL (130-400); RBC 4.62 10^6/uL (3.93-5.22); RDW 12.3 % (11.7-14.6); RDW-SD 39.9 fL; WBC 8.07 10^3/uL (4.4-10.8)
== END 2023-10-14 15:30 | disposition home or self-care (01) ==
LOC: LBO 15:29
PROVIDERS: PCP Nurse Practitioner Family; Visit Provider Counselor Addiction (Substance Use Disorder)
DX: F20.9 Schizophrenia, unspecified (principal); Z79.899 Other long term (current) drug therapy
CPT/HCPCS: 36415; 85025

== ENCOUNTER 2023-10-15 09:42 | Emergency (ER) | payer MEDICARE, SELFPAY ==
[2023-10-15] VITALS (8 sets, daily range): BP systolic 145; BP diastolic 82; PULSE 65–81; RESP 16–25; TEMP 36.4; O2SAT 95–98
--- NOTE | 2023-10-15 09:45 | RT.EKG_ITS ---
APPROVED REPORT Exam: Resting ECG Reason for Exam: indigestion Patient Location: E HR:70 bpm ECG Measurements Heart Rate 70 AXIS OK 126 P 58 QRSd 78 QRS -1 QT 409 T 15 QTc 442 Conclusion Sinus rhythm...normal P axis, V-rate 60- 99 Normal sinus rhythm. No change from prior 04/11/23. WD
[2023-10-15 10:13] LABS: Abs Immature Grans 0.01 10^3/uL (0.0-0.06); Absolute Lymphocyte Count 1.79 10^3/uL (1.2-3.4); Absolute Monocyte Count 0.38 10^3/uL (0.1-0.8); Absolute Neutrophil Count 3.85 10^3/uL (1.2-6.7); HCT 38.2 % (36.0-46.0); Immature Grans % 0.2; Lymphocytes % 29.7; MCH 29.7 pg (27.0-33.0); MCV 87 fL (80-95); MPV 10.3 fL (8.0-11.0); Monocytes % 6.3; Neutrophils % 63.8; Platelet Count 276 10^3/uL (130-400); RBC 4.38 10^6/uL (3.93-5.22); RDW 12.3 % (11.7-14.6); RDW-SD 39.8 fL; WBC 6.03 10^3/uL (4.4-10.8)
[2023-10-15 10:37] LABS: ALT 37 U/L (14-59); AST 25 U/L (15-37); Albumin 3.5 g/dL (3.4-5.0); Alkaline Phosphatase 91 U/L (46-116); Anion Gap 10.7 mmol/L (3-11); BUN 9 mg/dL (7-18); Bilirubin, Total 0.4 mg/dL (0.2-1.0); CO2 26.3 mmol/L (21.0-32.0); CREATININE 0.8 mg/dL (0.55-1.02); Calcium 8.6 mg/dL (8.5-10.1); Chloride 105 mmol/L (98-107); Estimated GFR 93.12 (mL/min/1.73m2); Glucose 83 mg/dL (74-106); Lipase 51 U/L (16-77); Magnesium 2.3 mg/dL (1.8-2.4); Potassium 3.5 mmol/L (3.5-5.1); Sodium 142 mmol/L (136-145); Total Protein 7.6 g/dL (6.4-8.2); Troponin I < 50 ng/L (< or =60)
--- NOTE | 2023-10-15 11:11 | W.ED.GENAD ---
Discharge Plan Disposition Patient Disposition: Home Discharge Details Clinical Impression: Gastritis, Acute epigastric pain Primary Care Provider: MARS SÁNCHEZ ED Provider: Loretta Triana Home Meds and New Rx's Prescriptions: New sucralfate [Carafate] 100 mg/mL suspension 10 ml PO QACHS Qty: 400 0RF lidocaine HCl [Lidocaine Viscous] 2 % solution 5 ml mucous membrane BID PRNQty: 100 0RF No Action norgestimate-ethinyl estradiol [Sprintec (28)] 0.25-35 mg-mcg tablet 1 tab PO DAILY clozapine 100 mg tablet 100 mg PO DAILY topiramate [Topamax] 100 mg tablet 100 mg PO BID lurasidone [Latuda] 80 mg tablet 80 mg PO DAILY Rx Instructions: must administer with food (at least 350 calories) levothyroxine 25 mcg capsule 25 mcg PO DAILY acetylcysteine [NAC] 600 mg capsule 600 mg PO BID dexlansoprazole [Dexilant] 30 MG capsule,biphase delayed releas 30 mg PO DAILY naltrexone 50 mg Tablet 100 mg PO DAILY Discharge Instructions Instructions: Gastritis (ED), Epigastric Pain (ED) Referrals: MARS SÁNCHEZ, [employer]ACHINE OPERATOR [Primary Care Provider] - 3 days Discharge Data Discharge Physician: Loretta Triana [facility] General Date/Time Provider Initiated Documentation: 10/15/23 09:58. HPI Narrative: 43-year-old female presents for evaluation of epigastric pain. Patient states that she had does have difficulty with GERD. She occasionally has significant discomfort. She has been taking her normal medication as prescribed by primary care. She also took some okuj-qwe-ccgssxv Pepcid and Pepto-Bismol which she is supposed to take if she has increased pain. She had increased pain last night after a combination of foods. She states that it is gradually getting better however she was worried because the pain was so severe. She denies any fevers or chills. No cough or cold. No shortness of breath. No vomiting or diarrhea. No urinary difficulty. She did take some Aleve last night. She does not normally take NSAIDs. She does have a history of diabetes. No history of cardiac disease. There is a family history of heart disease. Related Data Home Medications Medication Instructions Recorded Confirmed dexlansoprazole 30 mg 30 mg PO DAILY 08/16/18 04/05/24 capsule,biphase delayed release (Dexilant) naltrexone 50 mg tablet 100 mg PO DAILY 08/23/19 10/15/23 acetylcysteine 600 mg capsule (NAC) 600 mg PO BID 02/15/23 10/15/23 clozapine 100 mg tablet 100 mg PO DAILY 02/15/23 10/15/23 levothyroxine 25 mcg capsule 25 mcg PO DAILY 02/15/23 10/15/23 lurasidone 80 mg tablet (Latuda) 80 mg PO DAILY 02/15/23 10/15/23 topiramate 100 mg tablet (Topamax) 100 mg PO BID 02/15/23 10/15/23 norgestimate 0.25 mg-ethinyl 1 tab PO DAILY 02/25/23 10/15/23 estradiol 35 mcg tablet (Sprintec (28)) lidocaine HCl 2 % mucosal solution 5 ml mucous membrane BID PRN #100 10/15/23 (Lidocaine Viscous) mL sucralfate 100 mg/mL oral 10 ml PO QACHS #400 mL 10/15/23 suspension (Carafate) Previous Rx's Medication Instructions Recorded lidocaine HCl 2 % mucosal solution 5 ml mucous membrane BID PRN #100 10/15/23 (Lidocaine Viscous) mL sucralfate 100 mg/mL oral 10 ml PO QACHS #400 mL 10/15/23 suspension (Carafate) Allergies Allergy/AdvReac Type Severity Reaction Status Date / Time sulfamethoxazole Allergy Severe fever, Verified 10/15/23 10:08 [From Bactrim] rash,throat swelling? trimethoprim [From Bactrim] Allergy Severe fever, Verified 10/15/23 10:08 rash,throat swelling? pantoprazole [From Protonix] AdvReac Mild Nausea Unverified 10/15/23 10:08 General Stated Complaint: Epigastric Pain/Over45 GINNY: 2 Review of Systems Narrative: Remainder of review of systems otherwise negative except for as noted in the HPI x 10. Exam Narrative Exam Narrative: General: non-toxic, no respiratory distress, comfortable HEENT: normocephalic, atraumatic, lids and lashes normal, PERRL, EOMI, anicteric sclera, no conjunctival injection, moist oral mucosa Card: regular rate and rhythm, S1S2, no murmurs, rubs, or gallops Lungs: good air entry, clear to auscultation bilaterally. no wheezes, rales, rhonchi, or retractions Abd: soft, mild epigastric tenderness to palpation, non-distended, normal bowel sounds, no rebound or guarding, no peritoneal signs, no CVAT Musculoskeletal: full range of motion of arms and legs, no tenderness to palpation. no clubbing, cyanosis, or edema Neurologic: appropriate for age, strength normal Psych: alert and oriented Skin: no petechiae, no lesions, warm and dry Course Vital Signs Vital signs: Vital Signs Temperature 36.4 C L 10/15/23 09:49 Pulse 75 10/15/23 09:49 Respiratory Rate 18 10/15/23 09:49 Blood Pressure 145/82 H 10/15/23 09:49 Pulse Oximetry 98 10/15/23 09:49 Temperature 36.4 C L 10/15/23 09:49 Temperature Source Temporal Artery Scan 10/15/23 09:49 Pulse 75 10/15/23 09:49 Respiratory Rate 18 10/15/23 09:49 Blood Pressure 145/82 H 10/15/23 09:49 Blood Pressure Position Sitting 10/15/23 09:49 Pulse Oximetry 98 10/15/23 09:49 Oxygen Delivery Method Room Air 10/15/23 09:49 Oxygen Flow Rate 0 10/15/23 09:49 Pain Level 7 10/15/23 09:49 Lab/Test Results Lab/Test Results: Laboratory Tests Range/Units 10/15/23 10:00 WBC (4.4-10.8) 10^3/uL 6.03 RBC (3.93-5.22) 10^6/uL 4.38 Hgb (11.2-15.7) g/dL 13.0 Hct (36.0-46.0) % 38.2 MCV (80-95) fL 87 MCH (27.0-33.0) pg 29.7 MCHC (32.0-36.0) % 34.0 RDW (11.7-14.6) % 12.3 Plt Count (130-400) 10^3/uL 276 MPV (8.0-11.0) fL 10.3 Immature Gran % 0.2 Neutrophils % 63.8 Lymphocytes % 29.7 Monocytes % 6.3 Eosinophils % 0.0 Basophils % 0.0 Nucleated RBC % (0.0-0.3) % 0.0 Absolute Neutrophils (1.2-6.7) 10^3/uL 3.85 Absolute Lymphocytes (1.2-3.4) 10^3/uL 1.79 Absolute Monocytes (0.1-0.8) 10^3/uL 0.38 Absolute Eosinophils (0.0-0.7) 10^3/uL 0.00 Absolute Basophils (0.0-0.2) 10^3/uL 0.00 Sodium (136-145) mmol/L 142 Potassium (3.5-5.1) mmol/L 3.5 Chloride (98-107) mmol/L 105 Carbon Dioxide (21.0-32.0) mmol/L 26.3 Anion Gap (3-11) mmol/L 10.7 BUN (7-18) mg/dL 9 Creatinine (0.55-1.02) mg/dL 0.8 Est GFR (CKD-EPI 2020) (mL/min/1.73m2) 93.12 Glucose (74-106) mg/dL 83 Calcium (8.5-10.1) mg/dL 8.6 Magnesium (1.8-2.4) mg/dL 2.3 Total Bilirubin (0.2-1.0) mg/dL 0.4 AST (15-37) U/L 25 ALT (14-59) U/L 37 Alkaline Phosphatase (46-116) U/L 91 Troponin I (< or =60) ng/L < 50 Total Protein (6.4-8.2) g/dL 7.6 Albumin (3.4-5.0) g/dL 3.5 Lipase (16-77) U/L 51 Medical Decision Making 43-year-old female presents for evaluation of epigastric pain. This is consistent with prior episodes of GERD however a little bit worse in nature. She has minimal symptoms at time of my evaluation. EKG does not show any acute ischemic changes. Laboratory studies including troponin are normal. Patient was treated with GI cocktail with some improvement. Chest x-ray unremarkable. Second troponin flat. Patient has been asymptomatic since treatment. Will start her on Carafate to help with symptoms at home. Unlikely PE, aortic dissection, or cardiac cause of symptoms due to lack of risk factors, description of pain, unremarkable vital signs, and negative work-up. She requested small prescription of lidocaine to mix with medication at home for worsening symptoms which has been given. I have recommended close follow-up with primary care and GI. She understands occasions to return. ECG Data Interpretation: 12 lead EKG performed at 9: 54 Indication: Epigastric pain Rhythm: Normal sinus rhythm Rate: 70 [place]:Normal Intervals: Normal QRS: Normal ST segments: Normal T Waves: Normal INTERPRETATION: Normal sinus rhythm Comparison to old EKG: No significant change from prior 04/11/2023 The 12 lead EKG was interpreted by myself Quality:SDOH Health Related Social Needs: No Data to Display PFSH All Active Problems (Updated 10/15/23 @ 13:27 by Loretta Triana MD) Acute epigastric pain (Acute) Gastritis (Acute) RUQ abdominal pain (Acute) Obstructive sleep apnea of adult (Acute) Abdominal pain (Acute) Chronic diarrhea (Acute) Diarrhea (Acute) Acute dehydration (Acute) Hypokalemia due to loss of potassium (Acute) Postop check (Acute) SURINDER on CPAP (Chronic) Schizoaffective disorder (Acute) GERD (gastroesophageal reflux disease) (Acute) Pneumonia (Acute) Rash (Acute) Hypothyroid (Chronic) Abnormal uterine bleeding (Acute) Discharge planning issues (Acute) DVT prophylaxis (Acute ~08/22/19) Chest pain (Acute) Fracture of distal phalanx of finger of right hand (Acute) Psychosis (Acute) Medical History History of tobacco use Borderline personality disorder Polycystic ovaries Hepatomegaly Steatosis of liver Splenomegaly Solitary lung nodule Irregular menstrual cycle Plantar fasciitis Hypothyroidism Borderline diabetes Morbid drug-induced obesity Surgical History History of colposcopy Family History Mother Cancer - ? type of cancer Father Diabetes Heart disease Social History Smoking/Tobacco Use Status: Former Tobacco Use Smoking risk assessment performed?: Yes Alcohol Intake: current Alcohol Intake frequency: holidays/special occasions only Drug use: Never Substance use type: does not use Housing: house Do you feel safe at home: Yes Do you feel safe in your relationship?: Yes Additional Social history: Heavy tobacco smoker for 20 years, 63-ijuq-yuhf history, quit in 2011. Minimal alcohol. No other drugs. Lives alone. 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 No sexual partners in the past year.
[2023-10-15 13:19] LABS: Troponin I < 50 ng/L (< or =60)
== END 2023-10-15 13:37 | disposition home or self-care (01) ==
PROVIDERS: Emergency Provider Emergency Medicine Emergency Medical Services; PCP Nurse Practitioner Family
DX: R10.13 Epigastric pain (principal); K29.70 Gastritis, unspecified, without bleeding; K21.9 Gastro-esophageal reflux disease without esophagitis; Z87.891 Personal history of nicotine dependence
CPT/HCPCS: 36415; 80053; 83690; 93005; 99284; 83735; 84484; 85025; 93010; 99283

== ENCOUNTER 2023-11-09 14:57 | Outpatient (CLI) | payer MEDICARE, SELFPAY ==
[2023-11-09 13:46] LABS: Abs Immature Grans 0.02 10^3/uL (0.0-0.06); Absolute Basophil Count 0.01 10^3/uL (0.0-0.2); Absolute Eosinophil Count 0.01 10^3/uL (0.0-0.7); Absolute Lymphocyte Count 2.11 10^3/uL (1.2-3.4); Absolute Monocyte Count 0.32 10^3/uL (0.1-0.8); Absolute Neutrophil Count 3.74 10^3/uL (1.2-6.7); Basophils % 0.2; Eosinophils % 0.2; HCT 36.7 % (36.0-46.0); HGB 12.3 g/dL (11.2-15.7); Immature Grans % 0.3; MCH 29.6 pg (27.0-33.0); MCHC 33.5 % (32.0-36.0); MCV 88 fL (80-95); MPV 10.3 fL (8.0-11.0); Monocytes % 5.2; Neutrophils % 60.1; Platelet Count 230 10^3/uL (130-400); RBC 4.15 10^6/uL (3.93-5.22); RDW 12.3 % (11.7-14.6); RDW-SD 39.8 fL; WBC 6.21 10^3/uL (4.4-10.8)
== END 2023-11-09 14:58 | disposition home or self-care (01) ==
LOC: LBO 14:58
PROVIDERS: PCP Nurse Practitioner Family; Visit Provider Counselor Addiction (Substance Use Disorder)
DX: Z79.899 Other long term (current) drug therapy (principal)
CPT/HCPCS: 36415; 85025

== ENCOUNTER 2023-11-30 05:08 | Outpatient (CLI) | payer MEDICARE, SELFPAY ==
[2023-11-30 15:10] LABS: Abs Immature Grans 0.01 10^3/uL (0.0-0.06); Absolute Lymphocyte Count 1.94 10^3/uL (1.2-3.4); Absolute Monocyte Count 0.37 10^3/uL (0.1-0.8); Absolute Neutrophil Count 2.65 10^3/uL (1.2-6.7); HCT 35.8 % (36.0-46.0); Immature Grans % 0.2 %; MCH 29.8 pg (27.0-33.0); MCHC 33.5 % (32.0-36.0); MCV 89 fL (80-95); MPV 10.6 fL (8.0-11.0); Monocytes % 7.4 %; Neutrophils % 53.4 %; Platelet Count 197 10^3/uL (130-400); RBC 4.03 10^6/uL (3.93-5.22); RDW 12.5 % (11.7-14.6); RDW-SD 40.8 fL; WBC 4.97 10^3/uL (4.4-10.8)
== END 2023-11-30 05:09 | disposition home or self-care (01) ==
PROVIDERS: PCP Nurse Practitioner Family; Visit Provider Nurse Practitioner Family
DX: Z79.899 Other long term (current) drug therapy (principal); F25.0 Schizoaffective disorder, bipolar type
CPT/HCPCS: 36415; 85025

== ENCOUNTER 2023-12-21 05:14 | Outpatient (CLI) | payer MEDICARE, SELFPAY ==
[2023-12-21 15:17] LABS: Abs Immature Grans 0.02 10^3/uL (0.0-0.06); Absolute Basophil Count 0.01 10^3/uL (0.0-0.2); Absolute Lymphocyte Count 2.26 10^3/uL (1.2-3.4); Absolute Monocyte Count 0.45 10^3/uL (0.1-0.8); Basophils % 0.2 %; HCT 34.5 % (36.0-46.0); HGB 11.6 g/dL (11.2-15.7); Immature Grans % 0.3 %; Lymphocytes % 35.6 %; MCHC 33.6 % (32.0-36.0); MCV 89 fL (80-95); MPV 10.8 fL (8.0-11.0); Monocytes % 7.1 %; Neutrophils % 56.8 %; Platelet Count 212 10^3/uL (130-400); RBC 3.87 10^6/uL (3.93-5.22); RDW 12.6 % (11.7-14.6); RDW-SD 41.2 fL; WBC 6.34 10^3/uL (4.4-10.8)
== END 2023-12-21 05:15 | disposition home or self-care (01) ==
LOC: LBO 05:14
PROVIDERS: PCP Nurse Practitioner Family; Visit Provider Nurse Practitioner Family
DX: F25.0 Schizoaffective disorder, bipolar type (principal); Z79.899 Other long term (current) drug therapy
CPT/HCPCS: 36415; 85025

== ENCOUNTER 2023-12-30 16:04 | Outpatient (REF) | payer MEDICARE, SELFPAY ==
--- NOTE | 2023-12-30 16:00 | PAPFT_PTH ---
PATIENT: Nati Marcos LOC: [facility] U#:[id number] AGE/SX: 43/F ROOM: RE12/30/[address]: Katheryn Santoro MD : 1980 BED: DIS: 12/30/2023 SPEC #: [id number] RECD: 12/30/23 17:41 STATUS: MAIRA RERuba #: [id number] CASPER: 12/30/23 16:[address]: Katheryn Santoro DEPT: [facility] Cytology RECD BY: Shayy Strong ENTERED: 12/30/23 17:43 SP TYPE: PAPFT OT DR: MARS SÁNCHEZ NP Tissues: 1 - CX/ENDOCX FOR PAP SMEARS Procedures: PAP THIN PREP/UVM Screening HPV DNA PROBE Comments: [id number] (HPV 16 & 18/45) (CHLAMYDIA/GC)
[2023-12-31 15:06] LABS: Chlamydia Result Negative (Negative); GC Result Negative (Negative)
== END 2023-12-30 16:05 | disposition home or self-care (01) ==
LOC: LBN 16:04
PROVIDERS: PCP Nurse Practitioner Family; Visit Provider Obstetrics & Gynecology
DX: Z12.4 Encounter for screening for malignant neoplasm of cervix (principal); A74.9 Chlamydial infection, unspecified
CPT/HCPCS: 87491; 87591; 88142; 87624

== ENCOUNTER 2024-01-10 15:26 | Outpatient (CLI) | payer MEDICARE, SELFPAY ==
[2024-01-10 15:29] LABS: Abs Immature Grans 0.02 10^3/uL (0.0-0.06); Absolute Basophil Count 0.01 10^3/uL (0.0-0.2); Absolute Eosinophil Count 0.01 10^3/uL (0.0-0.7); Absolute Lymphocyte Count 2.34 10^3/uL (1.2-3.4); Absolute Monocyte Count 0.44 10^3/uL (0.1-0.8); Absolute Neutrophil Count 3.56 10^3/uL (1.2-6.7); Basophils % 0.2 %; Eosinophils % 0.2 %; HGB 12.1 g/dL (11.2-15.7); Immature Grans % 0.3 %; Lymphocytes % 36.7 %; MCH 29.8 pg (27.0-33.0); MCHC 33.6 % (32.0-36.0); MCV 89 fL (80-95); MPV 10.5 fL (8.0-11.0); Monocytes % 6.9 %; Neutrophils % 55.7 %; Platelet Count 241 10^3/uL (130-400); RBC 4.06 10^6/uL (3.93-5.22); RDW 12.4 % (11.7-14.6); RDW-SD 40.3 fL; WBC 6.38 10^3/uL (4.4-10.8)
== END 2024-01-10 15:27 | disposition home or self-care (01) ==
LOC: LBO 15:27
PROVIDERS: PCP Nurse Practitioner Family; Visit Provider Nurse Practitioner Family
DX: Z79.899 Other long term (current) drug therapy (principal); F25.0 Schizoaffective disorder, bipolar type
CPT/HCPCS: 36415; 85025

== ENCOUNTER 2024-01-24 03:48 | Outpatient (CLI) | payer MEDICARE, SELFPAY ==
[2024-01-24 15:53] LABS: Abs Immature Grans 0.02 10^3/uL (0.0-0.06); Absolute Basophil Count 0.01 10^3/uL (0.0-0.2); Absolute Eosinophil Count 0.01 10^3/uL (0.0-0.7); Absolute Lymphocyte Count 1.91 10^3/uL (1.2-3.4); Absolute Neutrophil Count 2.57 10^3/uL (1.2-6.7); Basophils % 0.2 %; Eosinophils % 0.2 %; HCT 34.5 % (36.0-46.0); HGB 11.5 g/dL (11.2-15.7); Immature Grans % 0.4 %; Lymphocytes % 38.8 %; MCH 29.9 pg (27.0-33.0); MCHC 33.3 % (32.0-36.0); MCV 90 fL (80-95); MPV 10.4 fL (8.0-11.0); Monocytes % 8.1 %; Neutrophils % 52.3 %; Platelet Count 212 10^3/uL (130-400); RBC 3.84 10^6/uL (3.93-5.22); RDW 12.6 % (11.7-14.6); RDW-SD 41.1 fL; WBC 4.92 10^3/uL (4.4-10.8)
== END 2024-01-24 03:49 | disposition home or self-care (01) ==
LOC: LBO 03:48
PROVIDERS: PCP Nurse Practitioner Family; Visit Provider Nurse Practitioner Family
DX: Z79.899 Other long term (current) drug therapy (principal); F25.0 Schizoaffective disorder, bipolar type
CPT/HCPCS: 36415; 85025

== ENCOUNTER 2024-02-18 01:21 | Outpatient (CLI) | payer MEDICARE, SELFPAY ==
[2024-02-18 15:53] LABS: Abs Immature Grans 0.01 10^3/uL (0.0-0.06); Absolute Basophil Count 0.01 10^3/uL (0.0-0.2); Absolute Lymphocyte Count 1.73 10^3/uL (1.2-3.4); Absolute Monocyte Count 0.37 10^3/uL (0.1-0.8); Absolute Neutrophil Count 2.34 10^3/uL (1.2-6.7); Basophils % 0.2 %; HCT 35.7 % (36.0-46.0); HGB 12.1 g/dL (11.2-15.7); Immature Grans % 0.2 %; Lymphocytes % 38.8 %; MCH 30.1 pg (27.0-33.0); MCHC 33.9 % (32.0-36.0); MCV 89 fL (80-95); MPV 10.7 fL (8.0-11.0); Monocytes % 8.3 %; Neutrophils % 52.5 %; Platelet Count 223 10^3/uL (130-400); RBC 4.02 10^6/uL (3.93-5.22); RDW 12.7 % (11.7-14.6); RDW-SD 41.8 fL; WBC 4.46 10^3/uL (4.4-10.8)
== END 2024-02-18 01:22 | disposition home or self-care (01) ==
LOC: LBO 01:22
PROVIDERS: PCP Nurse Practitioner Family; Visit Provider Nurse Practitioner Psychiatric/Mental Health
DX: Z79.899 Other long term (current) drug therapy (principal)
CPT/HCPCS: 36415; 85025

== ENCOUNTER 2024-03-16 03:34 | Outpatient (CLI) | payer MEDICARE, SELFPAY ==
[2024-03-16 15:14] LABS: Abs Immature Grans 0.01 10^3/uL (0.0-0.06); Absolute Eosinophil Count 0.01 10^3/uL (0.0-0.7); Absolute Lymphocyte Count 1.76 10^3/uL (1.2-3.4); Absolute Monocyte Count 0.36 10^3/uL (0.1-0.8); Absolute Neutrophil Count 2.41 10^3/uL (1.2-6.7); Eosinophils % 0.2 %; HCT 33.5 % (36.0-46.0); HGB 11.5 g/dL (11.2-15.7); Immature Grans % 0.2 %; Lymphocytes % 38.7 %; MCH 30.3 pg (27.0-33.0); MCHC 34.3 % (32.0-36.0); MCV 88 fL (80-95); MPV 10.4 fL (8.0-11.0); Monocytes % 7.9 %; Platelet Count 211 10^3/uL (130-400); RDW 12.7 % (11.7-14.6); RDW-SD 40.4 fL; WBC 4.55 10^3/uL (4.4-10.8)
== END 2024-03-16 03:35 | disposition home or self-care (01) ==
PROVIDERS: PCP Nurse Practitioner Family; Visit Provider Nurse Practitioner Psychiatric/Mental Health
DX: F25.0 Schizoaffective disorder, bipolar type (principal)
CPT/HCPCS: 36415; 85025

== ENCOUNTER 2024-04-13 02:07 | Outpatient (CLI) | payer MEDICARE, SELFPAY ==
[2024-04-13 15:17] LABS: Abs Immature Grans 0.01 10^3/uL (0.0-0.06); Absolute Lymphocyte Count 1.93 10^3/uL (1.2-3.4); Absolute Monocyte Count 0.36 10^3/uL (0.1-0.8); Absolute Neutrophil Count 2.44 10^3/uL (1.2-6.7); HCT 34.4 % (36.0-46.0); HGB 11.7 g/dL (11.2-15.7); Immature Grans % 0.2 %; Lymphocytes % 40.7 %; MCH 30.1 pg (27.0-33.0); MCV 88 fL (80-95); MPV 10.4 fL (8.0-11.0); Monocytes % 7.6 %; Neutrophils % 51.5 %; Platelet Count 191 10^3/uL (130-400); RBC 3.89 10^6/uL (3.93-5.22); RDW 12.2 % (11.7-14.6); RDW-SD 39.9 fL; WBC 4.74 10^3/uL (4.4-10.8)
== END 2024-04-13 02:08 | disposition home or self-care (01) ==
PROVIDERS: PCP Nurse Practitioner Family; Visit Provider Nurse Practitioner Psychiatric/Mental Health
DX: F25.0 Schizoaffective disorder, bipolar type (principal)
CPT/HCPCS: 36415; 85025

== ENCOUNTER 2024-05-01 20:38 | Outpatient (REF) | payer MEDICARE, SELFPAY ==
[2024-05-01 18:14] LABS: Calculated LDL 80 mg/dL (<100); Cholesterol 187 mg/dL (<200); Ferritin 58 ng/mL (8-252); HDL Cholesterol 51 mg/dL (40-60); TSH (W/Ref FT4) 2.62 uIU/mL (0.36-3.74); Triglyceride 283 mg/dL (<150); Vitamin B12 418 pg/mL (193-986)
[2024-05-01 18:55] LABS: Iron 71 ug/dL (50-170); Total Iron Binding Capacity 433 ug/dL (250-450); Transferrin Sat 16 % (15-50)
== END 2024-05-01 20:39 | disposition home or self-care (01) ==
LOC: NCHCN 20:38
PROVIDERS: PCP Nurse Practitioner Family; Visit Provider Nurse Practitioner Family
DX: E03.9 Hypothyroidism, unspecified (principal); R53.83 Other fatigue; E78.5 Hyperlipidemia, unspecified
CPT/HCPCS: 80061; 82607; 82728; 83540; 83550; 84443

== ENCOUNTER 2024-05-16 02:21 | Outpatient (CLI) | payer MEDICARE, SELFPAY ==
[2024-05-16 15:49] LABS: Abs Immature Grans 0.02 10^3/uL (0.0-0.06); Absolute Lymphocyte Count 1.68 10^3/uL (1.2-3.4); Absolute Monocyte Count 0.41 10^3/uL (0.1-0.8); Absolute Neutrophil Count 2.26 10^3/uL (1.2-6.7); HCT 36.8 % (36.0-46.0); HGB 12.4 g/dL (11.2-15.7); Immature Grans % 0.5 %; Lymphocytes % 38.4 %; MCH 29.5 pg (27.0-33.0); MCHC 33.7 % (32.0-36.0); MCV 87 fL (80-95); MPV 10.3 fL (8.0-11.0); Monocytes % 9.4 %; Neutrophils % 51.7 %; Platelet Count 200 10^3/uL (130-400); RBC 4.21 10^6/uL (3.93-5.22); RDW 12.6 % (11.7-14.6); RDW-SD 39.8 fL; WBC 4.37 10^3/uL (4.4-10.8)
== END 2024-05-16 02:22 | disposition home or self-care (01) ==
LOC: LBO 02:22
PROVIDERS: PCP Nurse Practitioner Family; Visit Provider Nurse Practitioner Psychiatric/Mental Health
DX: F25.0 Schizoaffective disorder, bipolar type (principal); Z79.899 Other long term (current) drug therapy
CPT/HCPCS: 36415; 85025

== ENCOUNTER 2024-06-13 02:33 | Outpatient (CLI) | payer MEDICARE, SELFPAY ==
[2024-06-13 15:25] LABS: Abs Immature Grans 0.01 10^3/uL (0.0-0.06); Absolute Lymphocyte Count 2.18 10^3/uL (1.2-3.4); Absolute Monocyte Count 0.44 10^3/uL (0.1-0.8); Absolute Neutrophil Count 2.54 10^3/uL (1.2-6.7); HCT 35.9 % (36.0-46.0); HGB 12.4 g/dL (11.2-15.7); Immature Grans % 0.2 %; Lymphocytes % 42.2 %; MCHC 34.5 % (32.0-36.0); MCV 87 fL (80-95); MPV 10.8 fL (8.0-11.0); Monocytes % 8.5 %; Neutrophils % 49.1 %; Platelet Count 201 10^3/uL (130-400); RBC 4.13 10^6/uL (3.93-5.22); RDW 12.9 % (11.7-14.6); RDW-SD 40.3 fL; WBC 5.17 10^3/uL (4.4-10.8)
== END 2024-06-13 02:34 | disposition home or self-care (01) ==
PROVIDERS: PCP Nurse Practitioner Family; Visit Provider Nurse Practitioner Psychiatric/Mental Health
DX: Z79.899 Other long term (current) drug therapy (principal)
CPT/HCPCS: 36415; 85025

== ENCOUNTER 2024-07-13 04:15 | Outpatient (CLI) | payer MEDICARE, SELFPAY ==
[2024-07-13 15:06] LABS: Abs Immature Grans 0.02 10^3/uL (0.0-0.06); Absolute Eosinophil Count 0.01 10^3/uL (0.0-0.7); Absolute Lymphocyte Count 1.81 10^3/uL (1.2-3.4); Absolute Monocyte Count 0.38 10^3/uL (0.1-0.8); Absolute Neutrophil Count 2.87 10^3/uL (1.2-6.7); Eosinophils % 0.2 %; HCT 37.1 % (36.0-46.0); HGB 12.7 g/dL (11.2-15.7); Immature Grans % 0.4 %; Lymphocytes % 35.6 %; MCH 29.9 pg (27.0-33.0); MCHC 34.2 % (32.0-36.0); MCV 87 fL (80-95); MPV 9.9 fL (8.0-11.0); Monocytes % 7.5 %; Neutrophils % 56.3 %; Platelet Count 212 10^3/uL (130-400); RBC 4.25 10^6/uL (3.93-5.22); RDW-SD 40.6 fL; WBC 5.09 10^3/uL (4.4-10.8)
== END 2024-07-13 04:16 | disposition home or self-care (01) ==
LOC: LBO 04:15
PROVIDERS: PCP Nurse Practitioner Family; Visit Provider Nurse Practitioner Psychiatric/Mental Health
DX: Z79.899 Other long term (current) drug therapy (principal); F25.0 Schizoaffective disorder, bipolar type
CPT/HCPCS: 36415; 85025

== ENCOUNTER 2024-08-16 01:13 | Outpatient (CLI) | payer MEDICARE, SELFPAY ==
[2024-08-16 15:40] LABS: Abs Immature Grans 0.02 10^3/uL (0.0-0.06); Absolute Lymphocyte Count 2.11 10^3/uL (1.2-3.4); Absolute Monocyte Count 0.48 10^3/uL (0.1-0.8); Absolute Neutrophil Count 2.64 10^3/uL (1.2-6.7); HCT 35.3 % (36.0-46.0); HGB 11.8 g/dL (11.2-15.7); Immature Grans % 0.4 %; Lymphocytes % 40.2 %; MCH 29.3 pg (27.0-33.0); MCHC 33.4 % (32.0-36.0); MCV 88 fL (80-95); MPV 9.9 fL (8.0-11.0); Monocytes % 9.1 %; Neutrophils % 50.3 %; Platelet Count 225 10^3/uL (130-400); RBC 4.03 10^6/uL (3.93-5.22); RDW 12.2 % (11.7-14.6); RDW-SD 39.6 fL; WBC 5.25 10^3/uL (4.4-10.8)
== END 2024-08-16 01:14 | disposition home or self-care (01) ==
PROVIDERS: PCP Nurse Practitioner Family; Visit Provider Nurse Practitioner Psychiatric/Mental Health
DX: F25.0 Schizoaffective disorder, bipolar type (principal); Z79.899 Other long term (current) drug therapy
CPT/HCPCS: 36415; 85025

== ENCOUNTER 2024-09-13 03:34 | Outpatient (CLI) | payer MEDICARE, SELFPAY ==
[2024-09-13 15:35] LABS: Abs Immature Grans 0.01 10^3/uL (0.0-0.06); Absolute Lymphocyte Count 2.32 10^3/uL (1.2-3.4); Absolute Monocyte Count 0.42 10^3/uL (0.1-0.8); Absolute Neutrophil Count 2.56 10^3/uL (1.2-6.7); HCT 36.3 % (36.0-46.0); HGB 12.3 g/dL (11.2-15.7); Immature Grans % 0.2 %; Lymphocytes % 43.7 %; MCH 29.2 pg (27.0-33.0); MCHC 33.9 % (32.0-36.0); MCV 86 fL (80-95); MPV 10.4 fL (8.0-11.0); Monocytes % 7.9 %; Neutrophils % 48.2 %; Platelet Count 221 10^3/uL (130-400); RBC 4.21 10^6/uL (3.93-5.22); RDW 12.3 % (11.7-14.6); RDW-SD 38.5 fL; WBC 5.31 10^3/uL (4.4-10.8)
== END 2024-09-13 03:35 | disposition home or self-care (01) ==
LOC: LBO 03:34
PROVIDERS: Nurse Practitioner Psychiatric/Mental Health; PCP Nurse Practitioner Family; Visit Provider Nurse Practitioner Family
DX: Z79.899 Other long term (current) drug therapy (principal); F25.0 Schizoaffective disorder, bipolar type
CPT/HCPCS: 36415; 85025

== ENCOUNTER 2024-10-10 16:31 | Outpatient (CLI) | payer MEDICARE, SELFPAY ==
[2024-10-10 15:05] LABS: Abs Immature Grans 0.01 10^3/uL (0.0-0.06); Absolute Lymphocyte Count 2.07 10^3/uL (1.2-3.4); Absolute Monocyte Count 0.35 10^3/uL (0.1-0.8); Absolute Neutrophil Count 2.33 10^3/uL (1.2-6.7); HCT 34.9 % (36.0-46.0); Immature Grans % 0.2 %; Lymphocytes % 43.5 %; MCH 29.8 pg (27.0-33.0); MCHC 34.4 % (32.0-36.0); MCV 87 fL (80-95); MPV 10.4 fL (8.0-11.0); Monocytes % 7.4 %; Neutrophils % 48.9 %; Platelet Count 208 10^3/uL (130-400); RBC 4.03 10^6/uL (3.93-5.22); RDW 12.5 % (11.7-14.6); RDW-SD 39.7 fL; WBC 4.76 10^3/uL (4.4-10.8)
== END 2024-10-10 16:32 | disposition home or self-care (01) ==
LOC: LBO 16:32
PROVIDERS: PCP Nurse Practitioner Family; Visit Provider Nurse Practitioner Psychiatric/Mental Health
DX: Z79.899 Other long term (current) drug therapy (principal); F25.0 Schizoaffective disorder, bipolar type
CPT/HCPCS: 36415; 85025

== ENCOUNTER 2024-10-16 02:07 | Outpatient (CLI) | payer MEDICARE, SELFPAY ==
--- NOTE | 2024-10-16 08:15 | DI.MAMMO_ITS ---
Exam(s) MAMMO SCREENING EXAM: MAMMO SCREENING CLINICAL HISTORY: screening,z12.31 TECHNIQUE: Mammograms were interpreted according to the usual protocol including computer analysis w [employer] CAD system, tomosynthesis and C-view imaging. COMPARISON: 2020 FINDINGS: The breasts are composed of scattered fibroglandular densities, Breast Density category B. No suspicious masses or suspicious microcalcifications are seen. No skin thickening or abnormal axillary lymph nodes are seen. There has been no significant change from prior exams. IMPRESSION: BI-RADS Category 1, Negative mammogram Yearly screening mammography is recommended. Breast Density - Category B, scattered fibroglandular densities. A negative radiographic report should not delay biopsy if a dominant or clinically suspicious mass is present. Up to ten percent of cancers are not identified on mammography. A negative report may reinforce clinical impression. Adenosis and dense breasts may obscure an underlying neoplasm. False positive reports average 6 to 10%. Patient will receive a letter notifying them of these results.
== END 2024-10-16 02:27 ==
LOC: DI 02:07
PROVIDERS: PCP Nurse Practitioner Family; Visit Provider Obstetrics & Gynecology
DX: Z12.31 Encounter for screening mammogram for malignant neoplasm of breast (principal); R92.323 Mammographic fibroglandular density, bilateral breasts
CPT/HCPCS: 77063; 77067

== ENCOUNTER 2024-11-08 09:02 | Outpatient (CLI) | payer MEDICARE, SELFPAY ==
[2024-11-08 15:43] LABS: Abs Immature Grans 0.02 10^3/uL (0.0-0.06); Absolute Basophil Count 0.01 10^3/uL (0.0-0.2); Absolute Lymphocyte Count 2.09 10^3/uL (1.2-3.4); Absolute Monocyte Count 0.31 10^3/uL (0.1-0.8); Basophils % 0.2 %; HCT 35.9 % (36.0-46.0); HGB 12.4 g/dL (11.2-15.7); Immature Grans % 0.3 %; Lymphocytes % 36.5 %; MCH 29.5 pg (27.0-33.0); MCHC 34.5 % (32.0-36.0); MCV 86 fL (80-95); MPV 10.4 fL (8.0-11.0); Monocytes % 5.4 %; Neutrophils % 57.6 %; Platelet Count 232 10^3/uL (130-400); RDW 12.8 % (11.7-14.6); RDW-SD 39.1 fL; WBC 5.73 10^3/uL (4.4-10.8)
== END 2024-11-08 09:03 | disposition home or self-care (01) ==
LOC: LBO 09:02
PROVIDERS: PCP Nurse Practitioner Family; Visit Provider Nurse Practitioner Psychiatric/Mental Health
DX: F25.0 Schizoaffective disorder, bipolar type (principal)
CPT/HCPCS: 36415; 85025

== ENCOUNTER 2024-12-07 16:56 | Outpatient (CLI) | payer MEDICARE, SELFPAY ==
[2024-12-07 17:05] LABS: Abs Immature Grans 0.01 10^3/uL (0.0-0.06); Absolute Monocyte Count 0.43 10^3/uL (0.1-0.8); HCT 34.5 % (36.0-46.0); HGB 11.8 g/dL (11.2-15.7); Immature Grans % 0.2 %; Lymphocytes % 44.5 %; MCH 29.4 pg (27.0-33.0); MCHC 34.2 % (32.0-36.0); MCV 86 fL (80-95); MPV 10.5 fL (8.0-11.0); Monocytes % 8.7 %; Neutrophils % 46.6 %; Platelet Count 219 10^3/uL (130-400); RBC 4.01 10^6/uL (3.93-5.22); RDW 12.6 % (11.7-14.6); RDW-SD 39.5 fL; WBC 4.94 10^3/uL (4.4-10.8)
== END 2024-12-07 16:57 | disposition home or self-care (01) ==
LOC: LBO 16:57
PROVIDERS: PCP Nurse Practitioner Family; Visit Provider Nurse Practitioner Psychiatric/Mental Health
DX: Z79.899 Other long term (current) drug therapy (principal); F25.0 Schizoaffective disorder, bipolar type
CPT/HCPCS: 36415; 85025

== ENCOUNTER 2024-12-12 17:34 | Outpatient (REF) | payer MEDICARE, SELFPAY | END 2024-12-12 17:35 | disposition home or self-care (01) | LOC: LBN 17:34 | PROVIDERS: PCP Nurse Practitioner Family; Visit Provider Obstetrics & Gynecology | DX: N89.8 Other specified noninflammatory disorders of vagina (principal) | CPT/HCPCS: 87480; 87510; 87660 ==

== ENCOUNTER 2025-01-09 12:53 | Outpatient (CLI) | payer MEDICARE, SELFPAY ==
[2025-01-09 10:48] LABS: Abs Immature Grans 0.02 10^3/uL (0.0-0.06); HCT 34.4 % (36.0-46.0); HGB 11.7 g/dL (11.2-15.7); Immature Grans % 0.4 %; MCH 29.5 pg (27.0-33.0); MCHC 34.0 % (32.0-36.0); MCV 87 fL (80-95); MPV 10.2 fL (8.0-11.0); Platelet Count 216 10^3/uL (130-400); RBC 3.96 10^6/uL (3.93-5.22); RDW 12.5 % (11.7-14.6); RDW-SD 39.3 fL; WBC 5.50 10^3/uL (4.4-10.8)
== END 2025-01-09 12:54 | disposition home or self-care (01) ==
LOC: LBO 12:53
PROVIDERS: PCP Nurse Practitioner Family; Visit Provider Nurse Practitioner Psychiatric/Mental Health
DX: Z79.899 Other long term (current) drug therapy (principal); F25.0 Schizoaffective disorder, bipolar type
CPT/HCPCS: 36415; 85025

== ENCOUNTER 2025-01-09 17:50 | Outpatient (REF) | payer MEDICARE, SELFPAY ==
[2025-01-09 16:03] LABS: Iron 57 ug/dL (50-170); Total Iron Binding Capacity 422 ug/dL (250-450); Transferrin Sat 14 % (15-50)
[2025-01-09 16:41] LABS: Hemoglobin A1C 5.1 % (<5.7)
[2025-01-09 17:19] LABS: ALT 30 U/L (14-59); AST 21 U/L (15-37); Albumin 3.4 g/dL (3.4-5.0); Alkaline Phosphatase 79 U/L (46-116); Anion Gap 14.0 mmol/L (3-11); BUN 11 mg/dL (7-18); Bilirubin, Total 0.3 mg/dL (0.2-1.0); CO2 21.0 mmol/L (21.0-32.0); Calcium 8.5 mg/dL (8.5-10.1); Chloride 106 mmol/L (98-107); Estimated GFR 112.73 (mL/min/1.73m2); Ferritin 31 ng/mL (8-252); Glucose 88 mg/dL (74-106); Potassium 3.7 mmol/L (3.5-5.1); Sodium 141 mmol/L (136-145); TSH (W/Ref FT4) 2.98 uIU/mL (0.36-3.74); Total Protein 6.7 g/dL (6.4-8.2)
[2025-01-09 23:30] LABS: Hepatitis C Ab w Rflx HCV PCR Negative (Negative)
== END 2025-01-09 17:51 | disposition home or self-care (01) ==
LOC: NCHCN 17:50
PROVIDERS: PCP Nurse Practitioner Family; Visit Provider Nurse Practitioner Family
DX: R73.03 Prediabetes (principal); R53.83 Other fatigue; E03.9 Hypothyroidism, unspecified; Z11.59 Encounter for screening for other viral diseases
CPT/HCPCS: 80053; 86803; 82728; 83036; 83540; 83550; 84443

== ENCOUNTER 2025-02-08 16:48 | Outpatient (CLI) | payer MEDICARE, SELFPAY ==
[2025-02-08 16:53] LABS: Abs Immature Grans 0.01 10^3/uL (0.0-0.06); HCT 33.4 % (36.0-46.0); HGB 11.3 g/dL (11.2-15.7); Immature Grans % 0.2 %; MCH 29.0 pg (27.0-33.0); MCHC 33.8 % (32.0-36.0); MCV 86 fL (80-95); MPV 10.1 fL (8.0-11.0); Platelet Count 182 10^3/uL (130-400); RBC 3.89 10^6/uL (3.93-5.22); RDW 12.5 % (11.7-14.6); RDW-SD 38.5 fL; WBC 4.25 10^3/uL (4.4-10.8)
== END 2025-02-08 16:49 | disposition home or self-care (01) ==
LOC: LBO 16:49
PROVIDERS: PCP Nurse Practitioner Family; Visit Provider Psychiatry & Neurology Psychiatry
DX: Z79.899 Other long term (current) drug therapy (principal)
CPT/HCPCS: 36415; 85025